=== PATIENT | female | born 1940 | race Caucasian/White ===

== ENCOUNTER → 2016-11-21 | Outpatient (CLI) | payer MEDICARE, OTHER ==
--- NOTE | 2016-11-22 06:47 | BD ---
EXAMINATION TYPE: MG DEXA axial skeleton. DATE OF EXAM: 11/21/2016 2:43 PM COMPARISON: NONE CLINICAL History: parathyroid surgery enlarged 2013 Height: 5' Weight: 177 FRAX RISK QUESTIONS: Alcohol (3 or more units per day): no Family History (Parent hip fracture): no Glucocorticoids (More than 3mos): no (Ex: prednisone, prednisolone, methylprednisolone, dexamethasone, and hydrocortisone). History of Fracture in Adulthood: no Secondary Osteoporosis: 1. Type 1 Diabetes: no 2. Hyperthyroidism: no 3. Menopause before 45: yes 4. Malnutrition: no 5. Chronic liver disease: no Rheumatoid Arthritis: no Current Tobacco Use: no RISK FACTORS HISTORY OF: Surgery to Spine When: 09/2017 lumbar Active: Postmenopausal woman: Hyperparathyroidism: parathyroid surgery enlarged 2013 MEDICATIONS: Additional Medications: pain, asthma, insulin, cholesterol, blood pressure Additional History: parathyroid surgery enlarged 2013 EXAM MEASUREMENTS: Bone mineral densitometry was performed using the [employer] System. Bone mineral density about the R hip (g/cm2): 1.019 Bone mineral density about the L hip (g/cm2): 0.897 T Score values are as follows: -----R Neck: -0.1 -----L Neck: -1.0 -----R Intertrochanter: -0.8 -----L Intertrochanter: -0.7 IMPRESSION: Normal (Values between +1 and -1 indicate normal bone mass) NOTE: T-SCORE=SD OF THE YOUNG ADULT MEAN.
== END | disposition home or self-care (01) ==
LOC: RADBDWWP 14:16
PROVIDERS: ATTEND Internal Medicine Endocrinology, Diabetes & Metabolism
DX: Z98.890 Other specified postprocedural states (principal)
CPT/HCPCS: 77080

== ENCOUNTER → 2016-12-06 | Day surgery (SDC) | payer MEDICARE, OTHER ==
[~2016-12-06] MED LIST: BACITRACIN OINT 1 EACH PACKET TOPICAL ONE; LIDOCAINE 1% INJ 10MG/ML (20 ML MDV) ONE; SODIUM BICARB 4% 5 ML VIAL (0.48 MEQ/ML) ONE
--- NOTE | 2016-12-06 14:14 | USB ---
EXAMINATION TYPE: US biopsy breast VAD LT, MG diagnostic mammo LT wo CAD DATE OF EXAM: 12/06/2016 2:00 PM CLINICAL HISTORY: US. History of prior excisional and benign biopsies left breast with palpable abnormality, abnormal ultrasound. TECHNIQUE: Ultrasound guided core biopsy of left breast with clip placement and follow-up two-view mammogram. COMPARISON: Prior left breast ultrasound and bilateral diagnostic mammogram November 14, 2016 as well as older mammograms. FINDINGS: The procedure of ultrasound guided core biopsy was explained to the patient. Benefits, alternatives, and risks were discussed. An informed consent was then obtained. The patient was placed in supine positioning for imaging and for the procedure. Preprocedure imaging redemonstrates ill-defined heterogeneous hypoechoic partially shadowing area 12:00 position in the left breast zone A. The overlying skin was prepped and draped in usual sterile fashion. Lidocaine buffered with bicarbonate was used as anesthetic into the skin and subcutaneous tissue up to area of concern in the left breast. Under ultrasound guidance, a 12-gauge vacuum assisted biopsy gun device was used to obtain 4 core samples. Following this, a biopsy clip was left in lesion. The patient tolerated the procedure well without any immediate complication. The patient was kept in the radiology department for short stay after the procedure and then discharged home in stable condition. Postprocedure mammogram shows a new fifth clip in the left breast. IMPRESSION: Successful, uncomplicated ultrasound guided core biopsy of area of concern in the left breast, full pathology results to follow. Low index of suspicion noted at time of procedure. Pathology Results: Benign BREAST, LEFT, CORE BIOPSY: PENDING CONSULTATION, SEE ADDENDUM/FINAL DIAGNOSIS. B. BREAST, LEFT, CORE BIOPSY ([id number]; A1; 12/06/16): FOCAL AMYLOIDOSIS. A. PREVIOUSLY REVIEWED [id number]. Recommendation Follow up ultrasound of the left breast in 6 months. BRENDA
== END | disposition home or self-care (01) ==
LOC: RADUSWWP 12:28
PROVIDERS: ATTEND Surgery
DX: R92.8 Other abnormal and inconclusive findings on diagnostic imaging of breast (principal); E85.8 Other amyloidosis
CPT/HCPCS: 88305; 88313; 19083; G0206; A4648; J2001

== ENCOUNTER → 2016-12-11 | Outpatient (CLI) | payer MEDICARE, OTHER ==
--- NOTE | 2016-12-11 14:27 | XR ---
EXAMINATION TYPE: XR Hip Bilateral and AP pelvis DATE OF EXAM: 12/11/2016 2:24 PM COMPARISON: NONE HISTORY: Pain TECHNIQUE: A single AP view of the pelvis is obtained. Two views of the bilateral hip are obtained. FINDINGS: There is no acute fracture/dislocation evident in the pelvis. The hip and sacroiliac join ts appear symmetric and unremarkable. The overlying soft tissue appears unremarkable. Extensive post operative change lower lumbar spine. Hips reveal no acute fracture or dislocation. . Mild degenerative joint space narrowing The overlyin g soft tissue is unremarkable. IMPRESSION: There is no acute fracture or dislocation .
== END | disposition home or self-care (01) ==
LOC: RADXRMAIN 14:03
PROVIDERS: ATTEND Neurological Surgery
DX: M54.5 Low back pain (principal)
CPT/HCPCS: 73521

== ENCOUNTER → 2016-12-29 | Outpatient (CLI) | payer MEDICARE, OTHER ==
--- NOTE | 2016-12-29 09:40 | CT ---
EXAMINATION TYPE: CT hip RT wo con DATE OF EXAM: 12/29/2016 9:30 AM COMPARISON: NONE HISTORY: Rt hip and lumbar pain post op CT DLP: 1719 mGycm Automated exposure control for dose reduction was used. FINDINGS: There is mild superior joint space loss. There is some hypertrophic change in the right acetabulum. T here is no acute osseous lesion. Soft tissues about the hip appear normal. IMPRESSION: 1. NO ACUTE OSSEOUS LESION. 2. MILD DEGENERATIVE CHANGE.
--- NOTE | 2016-12-29 09:51 | XR ---
EXAM TYPE: LUMBAR SPINE X RAY SERIES COMPARISON: 06/06/2016 HISTORY: Right hip pain TECHNIQUE: 4 views are submitted. FINDINGS: Extensive postsurgical changes involving the vertebral column and sacrum. Alignment is stable from th e previous exam Stimulator device noted. There is diffuse osteopenia. Severe degenerative disc disease with vacuum disc T12-L1. IMPRESSION: 1. Postoperative change with interval additional surgical change in the region of the SI joints and s acrum. 2. Severe degenerative disc disease T12-L1
--- NOTE | 2016-12-29 09:57 | CT ---
EXAMINATION TYPE: CT lumbar spine wo con DATE OF EXAM: 12/29/2016 9:30 AM COMPARISON: Previous study dated 02/11/2016. HISTORY: Post op Rt hip and back pain CT DLP: 1719 mGycm Automated exposure control for dose reduction was used. Unenhanced CT of the lumbar spine was performed. Bone and soft tissue window settings are submitted as well as coronal and sagittal reconstructions. FINDINGS: Visualized portions of the lungs are clear. There is atheromatous calcification of the visualized arterial tree. The remainder the paraspinal sof t tissues are normal. There is been a previous transaxial fusion at L5-S1. There has been interval transpedicular fusion at L5-S1. There is a bony fusion of L3, L4 and L5. There is reversal of the normal lordosis through the region of fusion. There are vacuum phenomena present at T12-L1, L1-2, L2-3 and L5-S1. The presence o f a vacuum phenomena at L5-S1 suggests that there continues to be motion at this level. There is and screw fixation of the sacroiliac joints bilaterally. This is also an interval change. At T12-L1, there is hypertrophic changes in the facets. The intervertebral foramina are minimally justus rowed. There is no significant compressive discopathy. At L1-2, the intervertebral foramina appear maintained. There is hypertrophic spurring from the facet s. There is moderate facet arthropathy. At L2-3, the intervertebral foramina are maintained. There is no significant compressive discopathy. There is facet arthropathy. At L3-4, the intervertebral foramina are maintained. There is no significant compressive discopathy. L4-5, interpedicular screws cause significant streak artifact. There appears to be bilateral interver tebral foraminal narrowing. There has been a laminectomy. I do not see evidence of significant compre ssive discopathy. L5-S1, there is been a laminectomy. Transaxial interpedicular screws are causing significant streak a rtifact obscuring the intervertebral foramina. No significant compressive discopathy is identified. IMPRESSION: 1. Extensive postsurgical change. 2. Remaining nonfused levels demonstrate degenerative disc disease and facet arthropathy. 3. Vacuum phenomenon at L5-S1 suggests continuing motion at this level. 4. Multilevel intervertebral foraminal narrowing.
== END | disposition home or self-care (01) ==
LOC: RADCTMAIN 08:53
PROVIDERS: ATTEND Neurological Surgery
DX: M51.35 Other intervertebral disc degeneration, thoracolumbar region (principal); M46.96 Unspecified inflammatory spondylopathy, lumbar region; Z98.1 Arthrodesis status; Z98.890 Other specified postprocedural states
CPT/HCPCS: 72100; 72131

== ENCOUNTER → 2017-01-03 | Outpatient (CLI) | payer MEDICARE ==
[2017-01-03 15:33] LABS: Basophils # (A) 0.1 k/uL (0-0.2); Basophils % (A) 1 %; CH 29.7; CHCM 32.5; Eosinophils # (A) 0.2 k/uL (0-0.7); Eosinophils % (A) 3 %; HCT 38.7 % (34.0-46.0); HDW 2.42; HGB 12.3 gm/dL (11.4-16.0); Luc # (Auto) 0.17; Luc % (Auto) 3; Lymphocytes # (A) 2.1 k/uL (1.0-4.8); Lymphocytes % (A) 33 %; MCH 29.2 pg (25.0-35.0); MCHC 31.9 g/dL (31.0-37.0); MCV 91.7 fL (80.0-100.0); Mean Platelet Volume 7.7; Monocytes # (A) 0.4 k/uL (0-1.0); Monocytes % (A) 6 %; Neutrophils # (A) 3.6 k/uL (1.3-7.7); Neutrophils % (A) 55 %; RBC 4.22 m/uL (3.80-5.40); RDW 13.6 % (11.5-15.5); WBC 6.5 k/uL (3.8-10.6); WBC (Perox) 6.41
[2017-01-03 16:14] LABS: ALT 30 U/L (9-52); AST 33 U/L (14-36); Alkaline Phosphatase 108 U/L (38-126); Anion Gap 15 mmol/L; Blood Urea Nitrogen 20 mg/dL (7-17); Carbon Dioxide 27 mmol/L (22-30); Chloride 105 mmol/L (98-107); Glucose 51 mg/dL (74-99); Non-African American GFR(MDRD) >60 (>60 ml/min/1.73 sqM); Potassium 4.9 mmol/L (3.5-5.1); Sodium 147 mmol/L (137-145); Total Bilirubin 0.4 mg/dL (0.2-1.3); Total Protein 8.1 g/dL (6.3-8.2)
== END | disposition home or self-care (01) ==
LOC: LABWHC1 15:07
PROVIDERS: ATTEND Internal Medicine
DX: E85.8 Other amyloidosis (principal)
CPT/HCPCS: 36415; 80053; 84165; 85025; 86334; 99213

== ENCOUNTER → 2017-01-16 | Outpatient (CLI) | payer MEDICARE ==
[2017-01-16 12:57] LABS: ALT 25 U/L (9-52); AST 24 U/L (14-36); Alkaline Phosphatase 106 U/L (38-126); Anion Gap 13 mmol/L; Blood Urea Nitrogen 22 mg/dL (7-17); Calcium 9.3 mg/dL (8.4-10.2); Carbon Dioxide 29 mmol/L (22-30); Chloride 103 mmol/L (98-107); Glucose 111 mg/dL (74-99); Non-African American GFR(MDRD) >60 (>60 ml/min/1.73 sqM); Potassium 4.2 mmol/L (3.5-5.1); Sodium 145 mmol/L (137-145); Total Bilirubin 0.5 mg/dL (0.2-1.3); Total Protein 7.7 g/dL (6.3-8.2)
== END ==
LOC: LABWHC1 12:26
PROVIDERS: ATTEND Internal Medicine Endocrinology, Diabetes & Metabolism
DX: E55.9 Vitamin D deficiency, unspecified (principal); Z98.890 Other specified postprocedural states
CPT/HCPCS: 36415; 80053; 82306; 83970

== ENCOUNTER → 2017-04-13 | Outpatient (CLI) | payer MEDICARE, OTHER ==
--- NOTE | 2017-04-13 14:52 | XR ---
Lumbar spine HISTORY: Fall, pain 3 views of the lumbar spine correlated to prior 29 December 2016 No interval change, postop changes again noted. IMPRESSION: Stable exam, no acute abnormality.
== END ==
LOC: RADXRMAIN 14:16
PROVIDERS: ATTEND Neurological Surgery
DX: M54.17 Radiculopathy, lumbosacral region (principal)
CPT/HCPCS: 72100

== ENCOUNTER → 2017-04-27 | Outpatient (CLI) | payer MEDICARE, OTHER ==
[2017-04-27 14:23] LABS: ALT 36 U/L (9-52); AST 36 U/L (14-36); Alkaline Phosphatase 116 U/L (38-126); Anion Gap 11 mmol/L; Blood Urea Nitrogen 22 mg/dL (7-17); Calcium 9.5 mg/dL (8.4-10.2); Carbon Dioxide 27 mmol/L (22-30); Chloride 105 mmol/L (98-107); Cholesterol 167 mg/dL (<200); Glucose 165 mg/dL (74-99); HDL Cholesterol 59 mg/dL (40-60); Non-African American GFR(MDRD) >60 (>60 ml/min/1.73 sqM); Potassium 4.9 mmol/L (3.5-5.1); Sodium 143 mmol/L (137-145); Total Bilirubin 0.6 mg/dL (0.2-1.3); Triglycerides 86 mg/dL (<150)
== END | disposition home or self-care (01) ==
LOC: LABWHC1 13:31
PROVIDERS: ATTEND Internal Medicine Endocrinology, Diabetes & Metabolism
DX: E11.65 Type 2 diabetes mellitus with hyperglycemia (principal); Z98.890 Other specified postprocedural states
CPT/HCPCS: 36415; 80053; 80061; 82043; 83970

== ENCOUNTER → 2017-05-25 | Outpatient (CLI) | payer MEDICARE, OTHER ==
--- NOTE | 2017-05-28 07:40 | MM ---
Reason for exam: follow-up at short interval from prior study. Last mammogram was performed 6 months ago. History: Patient is postmenopausal. Family history of breast cancer in daughter at age 53. Benign US biopsy breast VAD LT of the left breast, December 06, 2016. Benign US biopsy breast VAD LT of the left breast, July 16, 2014. Benign US biopsy breast add'l VAD LT of the left breast, July 16, 2014. Benign US LT VAD breast biopsy of the left breast, February 16, 2014. Left Breast Aspiration, August 2013. Benign u/S left breast localization of the left breast, December 20, 2011. Cyst aspiration of the left breast, 2003. Excisional biopsy of the right breast, 2003. Excisional biopsy of the left breast. Took hormonal contraceptives for 4 years. Took estrogen for 25 years beginning at age 30. Physical Findings: Nurse Summary: 1.5cm nodule in the left breast at 12 o'clock (nurse dw). MG 3D Diag Mammo W/Cad LT CC and MLO view(s) were taken of the left breast. Prior study comparison: December 06, 2016, left breast MG diagnostic mammo LT wo CAD. November 14, 2016, bilateral MG 3d diag mammo w/cad [facility]ITA. The patient has known amyloidosis of the breast. There is chronic nodularity in the left breast. This might obscure a small cancer. No significant new findings when compared with previous films. These results were verbally communicated with the patient and result sheet given to the patient on 05/25/17. ASSESSMENT: Probably benign, BI-RAD 3 RECOMMENDATION: Surgical consultation of the left breast. (surgical removal vs MRI). Called with mammographic findings and has scheduled an appointment for the patient for 06/01/17 at 9:[address] Zarate. PRELIMINARY REPORT CALLED AND FAXED TO DR. ZARATE ON 05/25/17 AT 300/TMP.
--- NOTE | 2017-05-28 07:47 | USB ---
Reason for exam: follow-up at short interval from prior study. History: Patient is postmenopausal. Family history of breast cancer in daughter at age 53. Benign US biopsy breast VAD LT of the left breast, December 06, 2016. Benign US biopsy breast VAD LT of the left breast, July 16, 2014. Benign US biopsy breast add'l VAD LT of the left breast, July 16, 2014. Benign US LT VAD breast biopsy of the left breast, February 16, 2014. Left Breast Aspiration, August 2013. Benign u/S left breast localization of the left breast, December 20, 2011. Cyst aspiration of the left breast, 2003. Excisional biopsy of the right breast, 2003. Excisional biopsy of the left breast. Took hormonal contraceptives for 4 years. Took estrogen for 25 years beginning at age 30. US Breast LT Left breast ultrasound includes all four quadrants, the retroareolar region and axilla. Finding demonstrate a 0.8 x 0.8 x 0.9cm oval, hypoechoic lesion at 12 o'clock and a 0.9 x 0.8 x 0.8cm oval, hypoechoic lesion at 12 o'clock. These results were verbally communicated with the patient and result sheet given to the patient on 05/25/17. ASSESSMENT: Probably benign, BI-RAD 3 RECOMMENDATION: Surgical consultation of the left breast. (Surgical excision vs MRI). Called with mammographic findings and has scheduled an appointment for the patient for 06/04/17 at 9:[address] Zarate. PRELIMINARY REPORT CALLED AND FAXED TO DR. ZARATE ON 05/25/17 AT 300/TMP.
== END | disposition home or self-care (01) ==
LOC: RADMAMWWP 13:48
PROVIDERS: ATTEND Surgery
DX: R92.8 Other abnormal and inconclusive findings on diagnostic imaging of breast (principal)
CPT/HCPCS: 76641; G0206; G0279

== ENCOUNTER → 2017-06-27 | Outpatient (CLI) | payer MEDICARE, OTHER ==
--- NOTE | 2017-06-27 12:40 | XR ---
Right shoulder HISTORY: Right shoulder pain 3 views of the right shoulder There is joint space loss, marginal spurring at the glenohumeral joint. Shoulder is high riding. Arth ropathy present at the acromioclavicular joint. Bone mineralization is reduced, alignment is maintain ed. Right lung apex as visualized is normal. Thoracic cord stimulator noted incidentally. IMPRESSION: There may be chronic rotator cuff tear marked osteoarthritis. Shoulder MRI may be of bene fit.
--- NOTE | 2017-06-27 13:09 | US ---
EXAMINATION TYPE: US MSK right shoulder DATE OF EXAM: 06/27/2017 COMPARISON: Radiograph same day CLINICAL HISTORY: 77 year-old female evaluate for rotator cuff tear right shoulder M75.101. Additional history from patient: Prior unsuccessful left repair. Right painful for 10 years but relu ctant to intervene due to weak tissues. Pain stimulator; no MRI. 2 weeks ago patient had injury with increasing pain. TECHNIQUE: Multiple sonographic images of the right shoulder are obtained. FINDINGS: The long head biceps tendon is not discretely visualized. The subscapularis tendon appears thickened and hypoechoic but the majority of the tendon appears inta ct. Moderate degenerative joint space narrowing at the acromioclavicular joint. There is a massive to near massive rotator cuff tear involving the entire supraspinatus tendon and th e majority of the infraspinatus tendon. A few of the far posterior fibers of the infraspinatus tendon may remain intact. Mild fluid within the intervening gap extending into the lateral deltoid shelf. There is relatively severe fatty atrophy of the infraspinatus muscle belly. At least mild fatty infil tration of the supraspinatus muscle belly. Attenuating tissues limiting assessment of the posterior aspect of the shoulder. IMPRESSION: 1. Massive to near massive full-thickness rotator cuff tear involving the entire supraspinatus tendon and most, if not all of the infraspinatus tendon. 2. There is advanced fatty atrophy of the infraspinatus muscle belly suggesting chronic tear. Only mi ld fatty infiltration of the supraspinatus muscle and some fluid along the greater tuberosity could r eflect a component of superimposed acute tear. 3. Severe subscapularis tendinosis. 4. Unable to clearly identify the long head biceps tendon which could be torn or severely tendinotic. 5. Correlation with radiographs demonstrates rotator cuff arthropathy.
== END | disposition home or self-care (01) ==
LOC: RADUSWWP 10:26
PROVIDERS: ATTEND Orthopaedic Surgery
DX: M75.101 Unspecified rotator cuff tear or rupture of right shoulder, not specified as traumatic (principal); M75.81 Other shoulder lesions, right shoulder

== ENCOUNTER → 2017-08-17 | Outpatient (CLI) | payer MEDICARE, OTHER ==
[2017-08-17 13:23] LABS: Basophils # (A) 0.1 k/uL (0-0.2); Basophils % (A) 1 %; CH 29.7; CHCM 31.8; Eosinophils # (A) 0.2 k/uL (0-0.7); Eosinophils % (A) 3 %; HCT 39.3 % (34.0-46.0); HDW 2.32; HGB 12.5 gm/dL (11.4-16.0); Luc % (Auto) 3; Lymphocytes % (A) 29 %; MCH 29.6 pg (25.0-35.0); MCHC 31.7 g/dL (31.0-37.0); MCV 93.6 fL (80.0-100.0); Mean Platelet Volume 7.1; Monocytes # (A) 0.4 k/uL (0-1.0); Monocytes % (A) 5 %; Neutrophils % (A) 59 %; RDW 13.4 % (11.5-15.5); WBC 6.9 k/uL (3.8-10.6); WBC (Perox) 7.02
[2017-08-17 13:28] LABS: Anion Gap 14 mmol/L; Blood Urea Nitrogen 34 mg/dL (7-17); Calcium 10.1 mg/dL (8.4-10.2); Carbon Dioxide 26 mmol/L (22-30); Chloride 102 mmol/L (98-107); Glucose 88 mg/dL (74-99); Non-African American GFR(MDRD) 54 (>60 ml/min/1.73 sqM); Potassium 4.7 mmol/L (3.5-5.1); Sodium 142 mmol/L (137-145)
[2017-08-17 15:18] LABS: Amorphous Sediment,Urine Rare /hpf; Appearance,Urine Clear (Clear); Bacteria,Urine Occasional /hpf; Bilirubin,Urine Negative (Negative); Glucose,Urine (UA) Negative (Negative); Ketones,Urine Negative (Negative); Leukocyte Esterase,Urine Moderate (Negative); Nitrite,Urine Negative (Negative); Particle Count 2558; Protein,Urine Negative (Negative); RBC,Urine 2 /hpf (0-5); Specific Gravity,Urine 1.021 (1.001-1.035); Squamous Epithelial Cell,Urine 3 /hpf (0-4); UA Billing (MACRO vs. MICRO) MICRO; Urobilinogen,Urine <2.0 mg/dL (<2.0); WBC,Urine 16 /hpf (0-5)
== END | disposition home or self-care (01) ==
LOC: LABWHC1 12:19
PROVIDERS: ATTEND Orthopaedic Surgery
DX: M19.90 Unspecified osteoarthritis, unspecified site (principal); M75.101 Unspecified rotator cuff tear or rupture of right shoulder, not specified as traumatic
CPT/HCPCS: 36415; 80048; 81001; 85025; 87086

== ENCOUNTER → 2017-09-07 | Outpatient (CLI) | payer MEDICARE, OTHER ==
--- NOTE | 2017-09-10 07:09 | USB ---
Reason for exam: clinical finding. History: Patient is postmenopausal. Family history of breast cancer in daughter at age 53. Benign US biopsy breast VAD LT of the left breast, December 06, 2016. Benign US biopsy breast VAD LT of the left breast, July 16, 2014. Benign US biopsy breast add'l VAD LT of the left breast, July 16, 2014. Benign US LT VAD breast biopsy of the left breast, February 16, 2014. Left Breast Aspiration, August 2013. Benign u/S left breast localization of the left breast, December 20, 2011. Cyst aspiration of the left breast, 2003. Excisional biopsy of the right breast, 2003. Excisional biopsy of the left breast. Took hormonal contraceptives for 4 years. Took estrogen for 25 years beginning at age 30. Indicated problem(s): other indicated problem in the left breast. Physical Findings: Nurse Summary: 1cm nodule in the left breast at 12 o'clock (nurse mj). US Breast LT Left breast ultrasound includes all four quadrants, the retroareolar region and axilla. Finding demonstrates a 1.4 x 1.1 x 0.5cm hypoechoic lesion at 12 o'clock and a 0.2 x 0.2 x 0.1cm lesion too small to characterize at 8 o'clock. These results were verbally communicated with the patient and result sheet given to the patient on 09/07/17. ASSESSMENT: Incomplete: need additional imaging evaluation, BI-RAD 0 RECOMMENDATION: Breast MRI of the left breast.
== END | disposition home or self-care (01) ==
LOC: RADUSWWP 14:16
PROVIDERS: ATTEND Internal Medicine Hematology & Oncology
DX: R92.8 Other abnormal and inconclusive findings on diagnostic imaging of breast (principal)

== ENCOUNTER → 2017-11-15 | Outpatient (CLI) | payer MEDICARE, OTHER ==
--- NOTE | 2017-11-15 14:12 | MM ---
Reason for exam: screening (asymptomatic). Last mammogram was performed 6 months ago. History: Patient is postmenopausal. Family history of breast cancer in daughter at age 53. Benign US biopsy breast VAD LT of the left breast, December 06, 2016. Benign US biopsy breast VAD LT of the left breast, July 16, 2014. Benign US biopsy breast add'l VAD LT of the left breast, July 16, 2014. Benign US LT VAD breast biopsy of the left breast, February 16, 2014. Left Breast Aspiration, August 2013. Benign u/S left breast localization of the left breast, December 20, 2011. Cyst aspiration of the left breast, 2003. Excisional biopsy of the right breast, 2003. Excisional biopsy of the left breast. Took hormonal contraceptives for 4 years. Took estrogen for 25 years beginning at age 30. Physical Findings: A clinical breast exam by your physician is recommended on an annual basis and results should be correlated with mammographic findings. MG 3D Diag Mammo W/Cad CHIQUITA Bilateral CC and MLO view(s) were taken. Prior study comparison: May 25, 2017, left breast MG 3d diag mammo w/cad LT. December 06, 2016, left breast MG diagnostic mammo LT wo CAD. Previous mammotome biopsy in the left breast. There is chronic nodularity bilaterally. No significant new findings when compared with previous films. These results were verbally communicated with the patient and result sheet given to the patient on 11/15/17. ASSESSMENT: Benign, BI-RAD 2 RECOMMENDATION: Routine screening mammogram of both breasts in 1 year.
== END | disposition home or self-care (01) ==
LOC: RADMAMWWP 13:02
PROVIDERS: ATTEND Surgery
DX: R92.8 Other abnormal and inconclusive findings on diagnostic imaging of breast (principal)
CPT/HCPCS: G0204; G0279; 99213

== ENCOUNTER 2017-11-28 06:46 | Day surgery (SDC) | payer MEDICARE, OTHER ==
[2017-11-26 14:35] VITALS: BMI 33.7
[~2017-11-28 06:46] MED LIST changes: -BACITRACIN OINT 1 EACH PACKET TOPICAL ONE; +LACTATED RINGERS 1,000 ML IV SCH; -LIDOCAINE 1% INJ 10MG/ML (20 ML MDV) ONE; -SODIUM BICARB 4% 5 ML VIAL (0.48 MEQ/ML) ONE
[2017-11-28] MEDS ORDERED: LACTATED RINGERS 1,000 ML IV ONE (06:57)
[2017-11-28 07:12] VITALS: TEMP 98.5
[2017-11-28 07:26] LABS: Glucose,Whole Blood 66 mg/dL (75-99)
[2017-11-28] MEDS ORDERED: PROPOFOL 10 MG/ML 20 ML VIAL IV ONE (07:37)
--- NOTE | 2017-11-28 08:02 | P.PCN ---
Date of Procedure: 11/28/17 Procedure(s) Performed: BRIEF HISTORY: Patient is a 77-year-old pleasant white female, scheduled for an elective colonoscopy as a part of evaluation of change in bowel habits and prior history of colon polyps. Her last colonoscopy was done 10 years ago. PROCEDURE PERFORMED: Colonoscopy. PREOPERATIVE DIAGNOSIS: Change in bowel habits and history of colon polyps. IV sedation per Anesthesia. PROCEDURE: After informed consent was obtained, the patient, was brought into the endoscopy unit. IV sedation was administered by Anesthesia under continuous monitoring. Digital rectal examination was normal. Initially the Olympus CF- 160 flexible video colonoscope was then inserted in the rectum, gradually advanced into the cecum without any difficulty. Careful examination was performed as the scope was gradually being withdrawn. Ileocecal valve and the appendiceal orifice were visualized and appeared normal. Prep was excellent. Mucosa of the cecum, ascending colon, transverse colon, descending colon, sigmoid colon, and rectum appeared normal. Scattered sigmoid diverticulosis. Retroflexion was performed in the rectum and no lesions were seen. The patient tolerated the procedure well. IMPRESSION: Normal-appearing colon from rectum to cecum with no evidence of colorectal neoplasia. Scattered sigmoid diverticulosis. RECOMMENDATIONS: Findings of this examination were discussed with the patient as well as her family. She was advised to continue with a high-fiber diet and fiber supplements on a regular basis..
[2017-11-28] MEDS ORDERED: DEXTROSE 50%-WATER 50 ML SYRINGE IVP ONE (08:16)
[2017-11-28 08:39] VITALS: BP 157/80; PULSE 80; RESP 18
[2017-11-28 08:39] LABS: Glucose,Whole Blood 61 mg/dL (75-99)
[2017-11-28 08:39] LABS: Glucose,Whole Blood 108 mg/dL (75-99)
== END 2017-11-28 09:09 | disposition home or self-care (01) ==
LOC: ORWHC2ENDO 06:46
PROVIDERS: ATTEND Internal Medicine Gastroenterology
DX: K57.30 Diverticulosis of large intestine without perforation or abscess without bleeding (principal); Z86.010 Personal history of colon polyps; I10 Essential (primary) hypertension; E78.5 Hyperlipidemia, unspecified; J45.909 Unspecified asthma, uncomplicated; E11.9 Type 2 diabetes mellitus without complications; Z79.84 Long term (current) use of oral hypoglycemic drugs; Z79.82 Long term (current) use of aspirin; Z79.4 Long term (current) use of insulin; Z79.891 Long term (current) use of opiate analgesic; Z79.51 Long term (current) use of inhaled steroids; Z79.899 Other long term (current) drug therapy; Z88.5 Allergy status to narcotic agent; Z88.8 Allergy status to other drugs, medicaments and biological substances
CPT/HCPCS: 45378; J2704

== ENCOUNTER 2018-01-15 16:26 | Emergency (ER) | payer MEDICARE, OTHER ==
[2018-01-15] MEDS ORDERED: DIPH,PERTUS(ACELL)TETVAC-LF 0.5 ML VIAL IM ONE (16:59)
--- NOTE | 2018-01-15 17:14 | ED ---
Fall HPI - General Chief Complaint: Fall Stated Complaint: Fall-Head Lac Time Seen by Provider: 01/15/18 16:52 Source: patient, RN notes reviewed Mode of arrival: ambulatory Limitations: no limitations - History of Present Illness Initial Comments: 77-year-old female presents emergency Department chief complaint of tripped fall , forehead laceration. Patient states that she is walking outside states that she tripped forward striking her head on the piece of concrete. She states that she did not lose consciousness she does complain of a slight headache and some neck discomfort though she states she has chronic neck pain from prior fracture. Patient denies any extremity injuries denies any change in behavior no confusion. Patient has no nausea vomiting. She is unsure when her last tetanus was. - Related Data Home Medications Medication Instructions Recorded Confirmed Aspirin 81 mg PO DAILY 08/13/14 01/15/18 Budesonide/Formoterol Fumarate 2 puff INHALATION RT-BID 08/13/14 01/15/18 [Symbicort 80-4.5 Mcg Inhaler] Gabapentin [Gabapentin] 300 mg PO TID 08/13/14 01/15/18 Gemfibrozil [Lopid] 600 mg PO AC-BID 08/13/14 01/15/18 Hydrochlorothiazide 12.5 mg PO QAM 08/13/14 01/15/18 [Hydrochlorothiazide] Insulin Aspart [NovoLOG] 8 unit SQ BID 08/13/14 01/15/18 Insulin Glargine [Lantus] 25 unit SQ HS 08/13/14 01/15/18 Loratadine [Claritin] 10 mg PO HS 08/13/14 01/15/18 Losartan [Cozaar] 50 mg PO QAM 08/13/14 01/15/18 Meloxicam [Meloxicam] 15 mg PO DAILY 08/13/14 01/15/18 metFORMIN HCL [Glucophage] 500 mg PO BID 08/13/14 01/15/18 HYDROcodone/APAP 5-325MG [[place]ster 5] 1 - 2 tab PO Q4H PRN 03/13/16 01/15/18 Ascorbic Acid [Vitamin C] 500 mg PO DAILY 06/13/16 01/15/18 Calcium Carbonate [Calcium] 300 mg PO DAILY 06/13/16 01/15/18 Cholecalciferol [Vitamin D3] 2,000 unit PO DAILY 06/13/16 01/15/18 Multivitamins, Thera [Multivitamin] 1 tab PO DAILY 06/13/16 01/15/18 Oxybutynin Chloride 5 mg PO DAILY 11/26/17 01/15/18 tiZANidine [Zanaflex] 4 mg PO Q8HR 11/26/17 01/15/18 Dulaglutide [Trulicity] 0.75 mg SQ TU 01/15/18 01/15/18 Allergies Allergy/AdvReac Type Severity Reaction Status Date / Time midazolam HCl [From Versed] Allergy Rash/Hives Verified 01/15/18 17:24 pentazocine lactate AdvReac Nausea & Verified 01/15/18 17:24 [From Oscar] Vomiting Review of Systems ROS Statement: Those systems with pertinent positive or pertinent negative responses have been documented in the HPI. ROS Other: All systems not noted in ROS Statement are negative. Past Medical History Past Medical History: Asthma, Diabetes Mellitus, Hyperlipidemia, Hypertension Additional Past Medical History / Comment(s): "leaky heart valve". back pain. staph/strep infection post op incision History of Any Multi-Drug Resistant Organisms: MRSA Date of last positivie culture/infection: 2012? MDRO Source:: blood Past Surgical History: Back Surgery, Bladder Surgery, Breast Surgery, Hernia Repair, Hysterectomy, Joint Replacement, Orthopedic Surgery, Tubal Ligation Additional Past Surgical History / Comment(s): pain stimulator implant-LT HIP. BILAT TKA. neck fusion and plate in left side of neck. REVERSE LT SHOULDER SX. COLONOSCOPY Past Anesthesia/Blood Transfusion Reactions: No Reported Reaction Past Psychological History: No Psychological Hx Reported Smoking Status: Former smoker Past Alcohol Use History: None Reported Past Drug Use History: None Reported - Past Family History Mother Family Medical History: Cancer Sister(s) Family Medical History: Cancer Brother(s) Family Medical History: Cancer General Exam Limitations: no limitations General appearance: alert, in no apparent distress Head exam: Present: atraumatic, normocephalic. Absent: normal inspection ( There is a 1 cm laceration noted on the forehead on the left side) Eye exam: Present: normal appearance, PERRL, EOMI. Absent: scleral icterus, conjunctival injection, periorbital swelling, periorbital tenderness ENT exam: Present: normal exam, normal oropharynx, mucous membranes moist, TM's normal bilaterally, normal external ear exam Neck exam: Present: normal inspection. Absent: tenderness, meningismus, full ROM (Patient in c- collar), lymphadenopathy Respiratory exam: Present: normal lung sounds bilaterally. Absent: respiratory distress, wheezes, rales, rhonchi, stridor Cardiovascular Exam: Present: regular rate, normal rhythm, normal heart sounds. Absent: systolic murmur, diastolic murmur, rubs, gallop, clicks Extremities exam: Present: normal inspection, full ROM, normal capillary refill. Absent: tenderness, pedal edema, joint swelling, calf tenderness Neurological exam: Present: alert, oriented X3, CN II-XII intact, reflexes normal. Absent: motor sensory deficit Skin exam: Present: warm, dry, intact, normal color. Absent: rash Course Vital Signs 01/15/18 16:38 Temperature 98.1 F Pulse Rate 86 Respiratory 20 Rate Blood Pressure 170/79 O2 Sat by Pulse 99 Oximetry Procedures - Procedures Initial comment: Laceration on the forehead 1 cm was thoroughly cleaned with saline there is no foreign bodies, wound was superficial and closed with Dermabond. Medical Decision Making - Medical Decision Making 77-year-old female presented to department for a trip fall, head injury. Patient has small superficial laceration which was cleaned thoroughly, closed with Dermabond. Patient CT was negative for intracranial bleed, cervical fracture. A she'll be discharged at this time return parameters were discussed. Disposition Clinical Impression: Fall, Head injury, Forehead laceration Disposition: HOME SELF-CARE Condition: Stable Instructions: Skin Adhesive Care (ED), Head Injury (ED) Additional Instructions: Please return to the Emergency Department if symptoms worsen or any other concerns. Referrals: Pankaj Turner MD [Primary Care Provider] - 1-2 days Time of Disposition: 17:50
--- NOTE | 2018-01-15 17:31 | CT ---
EXAMINATION TYPE: CT brain jose angel casper DATE OF EXAM: 01/15/2018 COMPARISON: 01/21/2011 HISTORY: Fall headache. Neck pain. CT DLP: 1481.2 mGycm Automated exposure control for dose reduction was used. TECHNIQUE: CT scan of the head and cervical spine are performed without contrast. FINDINGS: There is cerebral cortical atrophy. There is no mass effect nor midline shift. There is n o sign of intracranial hemorrhage. There is left frontal scalp soft tissue swelling. The cervical vertebra have normal alignment. There is old anterior fusion surgery at C5 C6 C7. There is posterior fusion surgery at the skull base C1 and C2. I see no fracture. There is hypertrophic mil d facet arthropathy. IMPRESSION: Cerebral atrophy. No acute intracranial abnormality. Left periorbital scalp hematoma. No fracture. Spondylotic changes and previous surgery in the cervical spine. No fracture seen. No adverse change c ompared to old exam.
[2018-01-15] MEDS ORDERED: TOPICAL SKIN ADHESIVE 1 EACH AMP TOPICAL ONE (17:46)
[2018-01-15 17:53] VITALS: RESP 18
[2018-01-15 18:35] VITALS: BP 156/78; PULSE 69; TEMP 97.6
== END 2018-01-15 18:35 | disposition home or self-care (01) ==
LOC: EC 16:26
DX: S01.81XA Laceration without foreign body of other part of head, initial encounter (principal); Z23 Encounter for immunization; E11.9 Type 2 diabetes mellitus without complications; J45.909 Unspecified asthma, uncomplicated; E78.5 Hyperlipidemia, unspecified; I10 Essential (primary) hypertension; Z86.14 Personal history of Methicillin resistant Staphylococcus aureus infection; Z87.891 Personal history of nicotine dependence; Z79.4 Long term (current) use of insulin; Z79.51 Long term (current) use of inhaled steroids; Z79.82 Long term (current) use of aspirin; Z79.899 Other long term (current) drug therapy; Z88.8 Allergy status to other drugs, medicaments and biological substances; W01.0XXA Fall on same level from slipping, tripping and stumbling without subsequent striking against object, initial encounter; Y92.89 Other specified places as the place of occurrence of the external cause
CPT/HCPCS: 12011; 70450; 72125; 90471; 90715; 99283

== ENCOUNTER → 2018-01-17 | Outpatient (CLI) | payer MEDICARE, OTHER ==
--- NOTE | 2018-01-17 10:28 | USB ---
Reason for exam: clinical finding. History: Patient is postmenopausal. Family history of breast cancer in daughter at age 53. Benign US biopsy breast VAD LT of the left breast, December 06, 2016. Benign US biopsy breast VAD LT of the left breast, July 16, 2014. Benign US biopsy breast add'l VAD LT of the left breast, July 16, 2014. Benign US LT VAD breast biopsy of the left breast, February 16, 2014. Left Breast Aspiration, August 2013. Benign u/S left breast localization of the left breast, December 20, 2011. Cyst aspiration of the left breast, 2003. Excisional biopsy of the right breast, 2003. Excisional biopsy of the left breast. Took hormonal contraceptives for 4 years. Took estrogen for 25 years beginning at age 30. Physical Findings: Nurse did not find any significant physical abnormalities on exam. US Breast LT Left breast ultrasound includes all four quadrants, the retroareolar region and axilla. Finding demonstrates a 1.4 x 0.4 x 1.1cm irregular, hypoechoic lesion at 12 o'clock, stable but suspicious and a 0.2 x 0.2 x 0.2cm lesion too small to characterize at 8 o'clock. These results were verbally communicated with the patient and result sheet given to the patient on 01/17/18. ASSESSMENT: Suspicious, BI-RAD 4 RECOMMENDATION: Ultrasound core biopsy of the left breast. Called Dr. Villela with mammographic findings and has scheduled an appointment for the patient for 01/25/18 at 11:[address] Spivey. PRELIMINARY REPORT CALLED AND FAXED TO DR. SPIVEY ON 01/17/18.
== END | disposition home or self-care (01) ==
LOC: RADUSWWP 09:02
PROVIDERS: ATTEND Internal Medicine Hematology & Oncology
DX: N63.20 Unspecified lump in the left breast, unspecified quadrant (principal)

== ENCOUNTER → 2018-01-22 | Outpatient (CLI) | payer MEDICARE, OTHER ==
--- NOTE | 2018-01-22 19:59 | XR ---
EXAMINATION TYPE: XR shoulder complete 3 views RT, XR humerus 2 views RT DATE OF EXAM: 01/22/2018 COMPARISON: NONE HISTORY: 77-year-old female pain after fall FINDINGS: Shoulder: There is evidence of reverse right total shoulder arthroplasty. The hemisphere and humeral stem compo nent of the prosthesis appear well seated without periprosthetic fracture. Alignment appears satisfac tory. Moderate degenerative joint space narrowing with marginal spurring at the acromioclavicular viki nt. Visualized right hemithorax is clear. Humerus: No acute fracture of the more mid to distal humerus. No joint effusion. Mild degenerative changes at the elbow. IMPRESSION: 1. Shoulder: Uncomplicated appearance to the reverse right total shoulder arthroplasty. Moderate AC j oint OA. 2. Humerus: No acute osseous abnormality seen.
== END | disposition home or self-care (01) ==
LOC: RADXRMAIN 16:21
PROVIDERS: ATTEND Internal Medicine
DX: M19.011 Primary osteoarthritis, right shoulder (principal); Z96.611 Presence of right artificial shoulder joint

== ENCOUNTER → 2018-02-05 | Day surgery (SDC) | payer MEDICARE, OTHER ==
[2018-02-05 12:50] VITALS: BMI 31.1
[2018-02-05 16:09] VITALS: BP 153/75; PULSE 71; RESP 16; TEMP 98.6
--- NOTE | 2018-02-05 17:22 | USB ---
EXAMINATION TYPE: US biopsy breast VAD LT, MG diagnostic mammo LT wo CAD DATE OF EXAM: 02/05/2018 CLINICAL HISTORY: R92.8 abnormal mammo, N63 Breast lump. TECHNIQUE: Ultrasound guided core biopsy of left breast at the 12:00 position. COMPARISON: NONE FINDINGS: The procedure of ultrasound guided core biopsy was explained to the patient. Benefits, alternatives, and risks were discussed. An informed consent was then obtained. Preprocedural timeout was performed. During preprocedural scanning multiple areas of similar echogenicity are seen within the upper outer quadrant of the left breast. It is noted that the patient has previously had multiple biopsies of the left breast with prior pathologic diagnosis of amyloidosis on 12/06/2016. The patient was placed in supine positioning for imaging and for the procedure. The overlying skin was prepped and draped in usual sterile fashion. 9 cc of lidocaine buffered with bicarbonate was used as anesthetic into the skin and subcutaneous tissue up to irregular shadowing area at the 12:00 position within the left breast. Under ultrasound guidance, a 12-gauge vacuum assisted biopsy gun device was used to obtain 5 core samples. Following this, a coil-shaped biopsy marker was left in lesion. This is the coil-shaped marker located nearest to the postbiopsy change (the most medial and most superior). The patient tolerated the procedure well without any immediate complication. The patient was kept in the radiology department for short stay after the procedure and then discharged home in stable condition. IMPRESSION: Successful, uncomplicated ultrasound guided core biopsy of an irregular shadowing mass at the 12:00 position in the left breast, full pathology results to follow. Multiple left breast biopsies have been performed as recent as 2016 demonstrating pathologic diagnosis of amyloidosis. Multiple similar-appearing masses were identified on preprocedural imaging and further recommendations will be made on radiologic/pathologic correlation. Pathology Results: Benign LEFT BREAST, TWELVE O'CLOCK, NEEDLE CORE BIOPSY: FIBROCYSTIC AND FIBROADENOMATOUS CHANGE. Recommendation Follow up ultrasound of the left breast in 6 months. BRENDA
== END ==
LOC: RADUSWWP 12:18
PROVIDERS: ATTEND Internal Medicine Hematology & Oncology
DX: N60.12 Diffuse cystic mastopathy of left breast (principal)
CPT/HCPCS: 88305; 77065; 19083; A4648; J2001

== ENCOUNTER → 2018-04-29 | Outpatient (CLI) | payer MEDICARE, OTHER ==
--- NOTE | 2018-04-29 12:35 | XR ---
EXAMINATION TYPE: XR cervical spine comp DATE OF EXAM: 04/29/2018 TECHNIQUE: Frontal, lateral, oblique, swimmers, and open mouth view of the cervical spine are obtaine d. HISTORY: M54.2 Neck PAIN postsurgical study COMPARISON: CT cervical spine January 15, 2018 FINDINGS: Osseous structures are demineralized which is noted to lower radiographic sensitivity. The cervical spine is not well visualized visualized in its entirety from C1 thru the top of T1 level, i t is straightened in alignment without evidence of acute fracture or dislocation. There is grade 1 an terolisthesis of C4 on C5 redemonstrated. There is postsurgical changes C5-C7 level seen. The pre-faizan tebral soft tissue appears within normal limits. The C1-C2 articulation is suboptimally evaluated on the open mouth view. Posterior low occipital craniotomy changes are seen. There is suboptimal evalua tion mid to lower cervical spine due to demineralization and overlying soft tissue despite attempted swimmer's view. Multilevel uncovertebral facet degenerative changes are present bilaterally contribut ing to multilevel neural foraminal narrowing. There is partial visualization of surgical change in estephanie th shoulders. Overlying soft tissue is unremarkable. IMPRESSION: Suboptimal study, demineralization and multilevel degenerative changes with postsurgical changes C5-C7 level redemonstrated.
== END | disposition home or self-care (01) ==
LOC: RADXRMAIN 11:45
PROVIDERS: ATTEND Neurological Surgery
DX: M47.22 Other spondylosis with radiculopathy, cervical region (principal)
CPT/HCPCS: 72050

== ENCOUNTER → 2018-05-06 | Outpatient (CLI) | payer MEDICARE, OTHER ==
--- NOTE | 2018-05-06 08:55 | CT ---
EXAMINATION TYPE: CT cervical spine wo con DATE OF EXAM: 05/06/2018 COMPARISON: CT cervical spine January 15, 2018 HISTORY: Neck pain since recent fall injury in December, prior fusion per patient. Cervical radiculop athy, stenosis, intractable headache, and neck pain all per order. CT DLP: 1228 mGycm. Automated Exposure Control for Dose Reduction was Utilized. TECHNIQUE: CT scan of the cervical spine is obtained without contrast, axial images are obtained, sa gittal and coronal reformatted images are also reviewed. FINDINGS: Cervical spine is visualized in its entirety from C1 through upper thoracic levels, redemon strates stable and straightened alignment without evidence of acute fracture or dislocation. Prevert ebral soft tissue appears within normal limits. The C1-C2 articulation is within normal limits on th e coronal images. There is persistent anterior fusion plate C5-C7 levels with some ossific fusion of the vertebra at th bisi levels, central metallic devices redemonstrated. There is persistent postsurgical change involvin g the posterior elements at the craniocervical junction. There is persistent multilevel disc space na rrowing and spurring most prominent at C4-C5 level. Posterior disc herniations effacing anterior thec al sac at C3-C4 and C4-C5 levels on sagittal images. Multilevel spurring and disc space narrowing ext ends into the upper thoracic spine. Review of axial images shows uncovertebral facet degenerative changes at C2-C3 level and posterior mckeon rgical changes contributing to mild bilateral neural foraminal narrowing. Some posterior ligamentous ossification is present. No significant change from prior. Axial images at C3-C4 level show uncovertebral facet degenerative changes and marginal spurring bilat erally contributing to moderate left greater than right neural foraminal narrowing. Posterior disc he rniation is effacing anterior thecal sac. No significant change from prior. Axial images at C4-C5 level show advanced disc space narrowing posterior spur disc complex effacing a nterior thecal sac with severe left-sided uncovertebral facet degenerative changes causing severe lef t-sided neural foraminal narrowing, right-sided neural foramina is patent on axial image 36. Axial images at C5-C6 level show artifact from surgical change, there is mild to moderate bilateral n eural foraminal narrowing due to marginal spurring. Spinal canal is preserved. Axial images at C6-C7 level show similar findings to C5-C6 level. Axial images at C7-T1 level show artifact from anterior fusion hardware, bilateral neural foramina ar e patent but there is marginal spurring near axial image 55. Lung apices show moderate emphysematous change. There is mild calcified plaque in bilateral carotid b ulbs with tortuous medial course recognized bilaterally. There is partial visualization of 3 mm calci fied subpleural nodule posterior right upper lobe axial image 87 IMPRESSION: Postsurgical changes C5-C7 level redemonstrated. Stable is straightened alignment noted. Multilevel degenerative changes redemonstrated most prominent C4-C5 level as detailed above. No sign ificant change from most recent CT.
--- NOTE | 2018-05-06 12:20 | XR ---
EXAMINATION TYPE: XR ribs LT DATE OF EXAM: 05/06/2018 COMPARISON: Chest x-ray August 09, 2017. HISTORY: Injury with pain. TECHNIQUE: A frontal and oblique images left-sided ribs are acquired. FINDINGS: Osseous structures are demineralized. Metallic hardware from reversed total left shoulder a rthroplasty is redemonstrated. There is suspected resection of distal left clavicle. There is redemon stration of fusion hardware lower cervical spine. There is partial visualization of stimulator device thoracic spinal canal. No acute displaced left-sided rib fractures are identified. Visualized left l arlene is clear. IMPRESSION: No acute displaced left-sided rib fractures are evident.
== END | disposition home or self-care (01) ==
LOC: RADCTMAIN 07:05
PROVIDERS: ATTEND Neurological Surgery
DX: M47.22 Other spondylosis with radiculopathy, cervical region (principal); R07.81 Pleurodynia
CPT/HCPCS: 72125

== ENCOUNTER 2018-05-15 12:42 | Emergency (ER) | payer MEDICARE, OTHER ==
[2018-05-15 12:54] VITALS: RESP 18
--- NOTE | 2018-05-15 14:31 | US ---
EXAMINATION TYPE: US venous doppler duplex LE LT DATE OF EXAM: 05/15/2018 2:13 PM COMPARISON: CLINICAL HISTORY: Pain. Left thigh pain. No hx of blood clots or on blood thinners. Hx of vein stri pping. SIDE PERFORMED: Left TECHNIQUE: The lower extremity deep venous system is examined utilizing real time linear array sonog verna with graded compression, doppler sonography and color-flow sonography. VESSELS IMAGED: External Iliac Vein (EIV) Common Femoral Vein Deep Femoral Vein Femoral Vein Popliteal Vein Small Saphenous Vein * Proximal Calf Veins (* superficial vessels) Grayscale, color doppler, spectral doppler imaging performed of the deep veins of the lower sternal b cleo. There is normal flow, compressibility, vascular waveforms. Left Leg: Negative for DVT IMPRESSION: No evidence for DVT.
--- NOTE | 2018-05-15 14:58 | ED ---
Extremity Problem HPI - General Chief complaint: Extremity Problem,Nontraumatic Stated complaint: Leg Swelling Time Seen by Provider: 05/15/18 14:32 Source: patient Mode of arrival: ambulatory Limitations: no limitations - History of Present Illness Initial comments: 78 years old female concerned about some redness streaks on the right leg the streets, round at the ankle level on the right leg and did travel beyond the knee towards the distal thighs she is also feeling some discomfort there and some erythema denies any fever no chills no chest pain or shortness of breath - Related Data Home Medications Medication Instructions Recorded Confirmed Aspirin 81 mg PO DAILY 08/13/14 05/15/18 Gabapentin 300 mg PO DAILY 08/13/14 05/15/18 Gemfibrozil [Lopid] 600 mg PO AC-BID 08/13/14 05/15/18 Hydrochlorothiazide 12.5 mg PO QAM 08/13/14 05/15/18 Loratadine [Claritin] 10 mg PO HS 08/13/14 05/15/18 Losartan [Cozaar] 50 mg PO QAM 08/13/14 05/15/18 Meloxicam 15 mg PO DAILY 08/13/14 05/15/18 HYDROcodone/APAP 5-325MG [[place] 5] 1 - 2 tab PO Q6H PRN 03/13/16 05/15/18 Ascorbic Acid [Vitamin C] 500 mg PO DAILY 06/13/16 05/15/18 Calcium Carbonate [Calcium] 300 mg PO DAILY 06/13/16 05/15/18 Cholecalciferol [Vitamin D3] 2,000 unit PO DAILY 06/13/16 05/15/18 Multivitamins, Thera [Multivitamin] 1 tab PO DAILY 06/13/16 05/15/18 Oxybutynin Chloride 5 mg PO DAILY 11/26/17 05/15/18 tiZANidine [Zanaflex] 4 mg PO Q8HR 11/26/17 05/15/18 Dulaglutide [Trulicity] 0.75 mg SQ TU 01/15/18 05/15/18 Previous Rx's Medication Instructions Recorded Cephalexin [Keflex] 500 mg PO Q6HR #40 cap 05/15/18 Allergies Allergy/AdvReac Type Severity Reaction Status Date / Time midazolam HCl [From Versed] Allergy Rash/Hives Verified 05/15/18 14:27 pentazocine lactate AdvReac Nausea & Verified 05/15/18 14:27 [From Oscar] Vomiting Review of Systems ROS Statement: Those systems with pertinent positive or pertinent negative responses have been documented in the HPI. ROS Other: All systems not noted in ROS Statement are negative. Past Medical History Past Medical History: Asthma, Diabetes Mellitus, Hyperlipidemia, Hypertension Additional Past Medical History / Comment(s): "leaky heart valve". back pain. staph/strep infection post op incision History of Any Multi-Drug Resistant Organisms: MRSA Date of last positivie culture/infection: 2012 MDRO Source:: Stomach wound Past Surgical History: Back Surgery, Bladder Surgery, Breast Surgery, Hernia Repair, Hysterectomy, Joint Replacement, Orthopedic Surgery, Tubal Ligation Additional Past Surgical History / Comment(s): pain stimulator implant-LT HIP. BILAT TKA. neck fusion and plate in left side of neck. REVERSE LT SHOULDER SX. COLONOSCOPY Past Anesthesia/Blood Transfusion Reactions: No Reported Reaction Past Psychological History: No Psychological Hx Reported Smoking Status: Former smoker Past Alcohol Use History: None Reported Past Drug Use History: None Reported - Past Family History Mother Family Medical History: Cancer Sister(s) Family Medical History: Cancer Brother(s) Family Medical History: Cancer General Exam - General Exam Comments Initial Comments: General: The patient is awake and alert, in no distress, and does not appear acutely ill. Skin: Skin is warm and dry noticed some findings consistent with early cellulitis on the right distal lower extremity traveling towards the above knee and distal right thigh. Notice any pedal edema no pitting edema or no dependent edema noticed no neurovascular deficit noticed a lot of good bounding pulses or function and sensory functions are within normal range Eye: Pupils are equal, round and reactive to light, extra-ocular movements are intact; there is normal conjunctiva bilaterally. Ears, nose, mouth and throat: There are moist mucous membranes and no oral lesions. Neck: The neck is supple, there is no tenderness or JVD. Cardiovascular: There is a regular rate and rhythm. No murmur, rub or gallop is appreciated. Respiratory: To auscultation bilateral, no wheezing no rhonchi no distress respiratory rodriguez noticed Gastrointestinal: Soft, non-distended, non-tender abdomen without masses or organomegaly noted. There is no rebound or guarding present. Bowel sounds are unremarkable. Back: There is no tenderness to palpation in the midline. There is no obvious deformity. Musculoskeletal: Normal ROM, no tenderness, There is no pedal edema. There is no calf tenderness or swelling. No cords were appreciated. Neurological: CN II-XII intact, Cranial nerves III through XII are intact. There are no obvious motor or sensory deficits. Coordination appears grossly intact. Speech is normal. Psychiatric: Cooperative, appropriate mood & affect, normal judgment. Limitations: no limitations Course Vital Signs 05/15/18 12:50 Temperature 98.4 F Pulse Rate 65 Respiratory 18 Rate Blood Pressure 108/63 O2 Sat by Pulse 97 Oximetry Disposition Clinical Impression: Cellulitis Disposition: HOME SELF-CARE Condition: Good Instructions: Cellulitis (ED) Additional Instructions: Patient is advised to follow-up with the family doctor or return to the ER if symptoms get worse Prescriptions: Cephalexin [Keflex] 500 mg PO Q6HR #40 cap Is patient prescribed a controlled substance at d/c from ED?: No Referrals: Pankaj Turner MD [Primary Care Provider] - 1-2 days
[2018-05-15 15:10] VITALS: BP 138/64; PULSE 55; TEMP 98.7
== END 2018-05-15 15:08 | disposition home or self-care (01) ==
LOC: EC 12:42
DX: L03.115 Cellulitis of right lower limb (principal); M79.89 Other specified soft tissue disorders; E78.5 Hyperlipidemia, unspecified; I10 Essential (primary) hypertension; E11.9 Type 2 diabetes mellitus without complications; Z87.891 Personal history of nicotine dependence; Z79.1 Long term (current) use of non-steroidal anti-inflammatories (NSAID); Z79.82 Long term (current) use of aspirin; Z79.84 Long term (current) use of oral hypoglycemic drugs; Z79.899 Other long term (current) drug therapy; Z88.4 Allergy status to anesthetic agent; Z87.39 Personal history of other diseases of the musculoskeletal system and connective tissue
CPT/HCPCS: 99283

== ENCOUNTER → 2018-06-24 | Outpatient (CLI) | payer MEDICARE ==
[2018-06-24 14:26] LABS: Basophils % (A) 0 %; Eosinophils # (A) 0.1 k/uL (0-0.7); Eosinophils % (A) 2 %; HCT 38.4 % (34.0-46.0); HGB 11.9 gm/dL (11.4-16.0); Lymphocytes % (A) 14 %; MCH 27.6 pg (25.0-35.0); MCV 89.1 fL (80.0-100.0); Mean Platelet Volume 7.7; Monocytes # (A) 0.3 k/uL (0-1.0); Monocytes % (A) 4 %; Neutrophils # (A) 5.6 k/uL (1.3-7.7); Neutrophils % (A) 78 %; Platelet Count 260 k/uL (150-450); RDW 13.8 % (11.5-15.5); WBC 7.2 k/uL (3.8-10.6)
[2018-06-24 14:41] LABS: Partial Thromboplastin Time 23.4 sec (22.0-30.0); Prothrombin Time 9.8 sec (9.0-12.0)
[2018-06-24 14:50] LABS: ALT 37 U/L (9-52); AST 30 U/L (14-36); Albumin 4.5 g/dL (3.5-5.0); Alkaline Phosphatase 103 U/L (38-126); Anion Gap 9 mmol/L; Blood Urea Nitrogen 25 mg/dL (7-17); Calcium 9.4 mg/dL (8.4-10.2); Carbon Dioxide 28 mmol/L (22-30); Chloride 105 mmol/L (98-107); Glucose 119 mg/dL (74-99); Potassium 4.8 mmol/L (3.5-5.1); Sodium 142 mmol/L (137-145); Total Bilirubin 0.5 mg/dL (0.2-1.3); Total Protein 7.4 g/dL (6.3-8.2)
--- NOTE | 2018-06-24 15:04 | XR ---
EXAMINATION TYPE: XR chest 2V DATE OF EXAM: 06/24/2018 COMPARISON: 05/06/2018 HISTORY: Surgical clearance for spinal cord stimulator removal TECHNIQUE: Frontal and lateral views of the chest are obtained. FINDINGS: There is no focal air space opacity, pleural effusion, or pneumothorax seen. The cardiac silhouette size is within normal limits. The osseous structures are intact. Minimal chronic linear left basilar atelectasis is unchanged from the prior. Bilateral humeral arthroplasties, mid thoracic nerve stimulator, and cervical fusion of the cervical spine are present. Multilevel moderate degenera tive change of the visualized thoracolumbar spine is seen. IMPRESSION: No acute cardiopulmonary process.
[2018-06-24 15:38] LABS: Appearance,Urine Clear (Clear); Bilirubin,Urine Negative (Negative); Blood,Urine Negative (Negative); Color,Urine Light Yellow; Glucose,Urine (UA) Negative (Negative); Ketones,Urine Negative (Negative); Leukocyte Esterase,Urine Negative (Negative); Nitrite,Urine Negative (Negative); Protein,Urine Negative (Negative); Specific Gravity,Urine 1.013 (1.001-1.035); Urobilinogen,Urine <2.0 mg/dL (<2.0)
== END | disposition home or self-care (01) ==
LOC: LABWHC1 14:01
PROVIDERS: ATTEND Neurological Surgery
DX: R06.02 Shortness of breath (principal); M54.5 Low back pain
CPT/HCPCS: 36415; 71046; 80053; 81003; 85025; 85610; 85730; 87070

== ENCOUNTER → 2018-07-19 | Outpatient (CLI) | payer MEDICARE ==
[2018-07-19 12:39] VITALS: BP 121/69; PULSE 60; RESP 14; TEMP 96.4; BMI 35.9
--- NOTE | 2018-07-19 13:00 | P.GSHP ---
History of Present Illness H&P Date: 07/19/18 Patient is a 78-year-old white female whose last bilateral mammogram was October 2017. This was considered BIRADS 2 and repeat screening in 1 year was recommended. However the patient since that time has undergone an ultrasound of her left breast which revealed a 1.4 x 1.1 cm irregular hypoechoic lesion at 12:00 stable but suspicious and an ultrasound core biopsy was performed at this site the ultrasound core biopsy was fibrocystic change and fibroadenomatous change follow-up ultrasound of the left breast in 6 months time was recommended. She will be due next month for her 6 month left breast repeat mammogram and ultrasound. The patient herself states that she does not feel any new masses or nodules in her breast. She has had multiple left breast biopsies all of which have been been benign in the past. The patient has no nipple discharge or changes of concern. The patient has no history of trauma or infection to in her breast. Family history: 1. Daughter: breast cancer at 53 2. Paternal Neice: breast cancer diagnosed premenopausal 3. Second paternal niece: Breast cancer premenopausal 4. 2 sisters: Ovarian cancer both from this 5. Mother: Carcinomatosis uncertain of the etiology 6. Maternal grandfather: Prostate cancer 7. Paternal 1/2 brother: prostate cancer Hormonal: menarche: 13 : 3, 4 children twins, age at first : 20, breast fed: yes BCP: yes, 10 years hormones: 20 years menopause: 40's Past surgical history: 1. Back surgery 2 bladder surgery 3 breast biopsies For hernia repair 5 hysterectomy 6 tubal ligation 7 joint replacement 8 orthopedic surgery 9 pain stimulator implant 10. bilateral Total knee arthoplasty 11. Neck fusion 12. left shoulder surgery 13. Neck exploration for parathyroid disease Past medical history: 1. diabetes 2. Asthma 3. Hypertension 4. Leaking heart valve 5. Hyperlipidemia 6. Amyloidosis Social history: 1. Smoking: Negative Alcohol: Negative Drugs: Negative - Constitutional Constitutional: Denies chills, Denies fever - EENT Comment: Cataracts surgery in the past Eyes: denies blurred vision, denies pain Ears: bilateral: decreased hearing Ears, nose, mouth and throat: Reports headache, Denies sore throat - Breasts Breasts: bilateral: as per HPI - Cardiovascular Cardiovascular: Reports high blood pressure - Respiratory Respiratory: Denies cough, Denies 7 - Genitourinary (Female) Genitourinary: Denies dysuria, Denies hematuria - Menstruation Menstruation: Reports postmenopausal - Musculoskeletal Comment: arthritis - Integumentary Integumentary: Denies pruritus, Denies rash - Neurological Neurological: Denies numbness, Denies weakness - Psychiatric Psychiatric: Denies anxiety, Denies depression - Endocrine Comment: diabetes - Hematologic/Lymphatic Comment: aspirin - Allergic/Immunologic Comment: medications as listed Past Medical History Past Medical History: Asthma, Diabetes Mellitus, Hyperlipidemia, Hypertension Additional Past Medical History / Comment(s): "leaky heart valve". back pain. staph/strep infection post op incision History of Any Multi-Drug Resistant Organisms: MRSA Date of last positivie culture/infection: 2012 MDRO Source:: Stomach wound Past Surgical History: Back Surgery, Bladder Surgery, Breast Surgery, Hernia Repair, Hysterectomy, Joint Replacement, Orthopedic Surgery, Tubal Ligation Additional Past Surgical History / Comment(s): pain stimulator implant-LT HIP. BILAT TKA. neck fusion and plate in left side of neck. REVERSE LT SHOULDER SX. COLONOSCOPY Past Anesthesia/Blood Transfusion Reactions: No Reported Reaction Past Psychological History: No Psychological Hx Reported Smoking Status: Former smoker Past Alcohol Use History: None Reported Past Drug Use History: None Reported - Past Family History Mother Family Medical History: Cancer Sister(s) Family Medical History: Cancer Brother(s) Family Medical History: Cancer Medications and Allergies Home Medications Medication Instructions Recorded Confirmed Type Aspirin 81 mg PO DAILY 08/13/14 07/19/18 History Gabapentin 300 mg PO DAILY 08/13/14 07/19/18 History Gemfibrozil [Lopid] 600 mg PO AC-BID 08/13/14 07/19/18 History Hydrochlorothiazide 12.5 mg PO QAM 08/13/14 07/19/18 History Losartan [Cozaar] 50 mg PO QAM 08/13/14 05/15/18 History Meloxicam 15 mg PO DAILY 08/13/14 07/19/18 History HYDROcodone/APAP 5-325MG [Sultana 5] 1 - 2 tab PO Q6H PRN 03/13/16 07/19/18 History Ascorbic Acid [Vitamin C] 500 mg PO DAILY 06/13/16 07/19/18 History Calcium Carbonate [Calcium] 300 mg PO DAILY 06/13/16 07/19/18 History Cholecalciferol [Vitamin D3] 2,000 unit PO DAILY 06/13/16 07/19/18 History Multivitamins, Thera [Multivitamin] 1 tab PO DAILY 06/13/16 07/19/18 History Oxybutynin Chloride 5 mg PO DAILY 11/26/17 07/19/18 History tiZANidine [Zanaflex] 4 mg PO Q8HR 11/26/17 07/19/18 History Dulaglutide [Trulicity] 0.75 mg SQ TU 01/15/18 07/19/18 History Cetirizine HCl [Zyrtec] 10 mg PO DAILY 07/19/18 07/19/18 History Allergies Allergy/AdvReac Type Severity Reaction Status Date / Time midazolam HCl [From Versed] Allergy Rash/Hives Verified 07/19/18 12:23 pentazocine lactate AdvReac Nausea & Verified 07/19/18 12:23 [From Oscar] Vomiting Surgical - Exam - General obese - Eyes normal ocular movement, no icteric - ENT no hearing loss, no congestion - Neck no masses, trachea midline - Respiratory normal respiratory effort, clear to auscultation - Cardiovascular Rhythm: regular Heart Sounds: normal: S1, S2 - Abdomen Abdomen: soft, non tender, no guarding, no rigid, no rebound - Musculoskeletal normal gait - Psychiatric oriented to time, oriented to person, oriented to place, speech is normal, memory intact breast exam: right breast: Multi-positional exam fibrocystic changes no dominant masses or nodules of concern Right axilla: No adenopathy of concern Left breast: Well-healed scars from prior surgery multi-positional exam changes related to prior surgery but no dominant masses of concern Left axilla: No adenopathy of concern Results Patient's pathology from January 2018 as well as ultrasound of the left breast 2018 results reviewed Assessment and Plan Assessment: Impression: 1. Bilateral fibrocystic breast disease recent left breast core biopsy 2. Amyloidosis 3. Diabetes 4. Hypertension 5. High cholesterol 6. Arthritis/degenerative disc disease 7. Status post bilateral total knee replacement Plan: 1. Patient due for left breast mammogram and ultrasound at this time if this is negative will follow up in 6 months 2. Medical management of medical conditions 3. Bilateral repeat mammogram and physician exam 1 year from October cc: Dr. Turner
== END | disposition home or self-care (01) ==
LOC: WWCWWP 11:52
PROVIDERS: ATTEND Surgery
DX: Z53.9 Procedure and treatment not carried out, unspecified reason (principal)

== ENCOUNTER 2018-07-21 16:45 | Emergency (ER) | payer MEDICARE ==
[2018-07-21 16:52] VITALS: RESP 18
[2018-07-21] MEDS ORDERED: SODIUM CHLORIDE 0.9% 2,000 ML IV ONE (17:11)
--- NOTE | 2018-07-21 17:17 | ED ---
Recheck HPI - General Chief Complaint: Recheck/Abnormal Lab/Rx Stated Complaint: Incision infection Time Seen by Provider: 07/21/18 16:56 Source: patient Mode of arrival: ambulatory Limitations: no limitations - History of Present Illness Initial Comments: 78-year-old female patient presents to the emergency department today for evaluation of a draining incision site to her left low back. Patient states she had a pain stimulator removed on 06/26/2018. Patient states that 2 days ago she started having drainage from the wound and it started to become more painful. Patient states that the drainage appears to be bloody and foul smelling. States that yesterday she did develop nausea and vomiting. She was short of breath yesterday with this as well. Today patient was lying in bed and started to feel dizzy and then blacked out for a couple of seconds. After this episode patient decided to come in for evaluation. Her surgery was with a doctor from [place]. Patient denies any recent rash, chest pain, abdominal pain , diarrhea, constipation, numbness, tingling, dizziness, weakness, hematuria, dysuria, urinary urgency, urinary frequency, headache, visual changes, or any other complaints. - Related Data Home Medications Medication Instructions Recorded Confirmed Aspirin 81 mg PO DAILY 08/13/14 07/19/18 Gabapentin 300 mg PO DAILY 08/13/14 07/19/18 Gemfibrozil [Lopid] 600 mg PO AC-BID 08/13/14 07/19/18 Hydrochlorothiazide 12.5 mg PO QAM 08/13/14 07/19/18 Losartan [Cozaar] 50 mg PO QAM 08/13/14 05/15/18 Meloxicam 15 mg PO DAILY 08/13/14 07/19/18 HYDROcodone/APAP 5-325MG [Hickory 5] 1 - 2 tab PO Q6H PRN 03/13/16 07/19/18 Ascorbic Acid [Vitamin C] 500 mg PO DAILY 06/13/16 07/19/18 Calcium Carbonate [Calcium] 300 mg PO DAILY 06/13/16 07/19/18 Cholecalciferol [Vitamin D3] 2,000 unit PO DAILY 06/13/16 07/19/18 Multivitamins, Thera [Multivitamin] 1 tab PO DAILY 06/13/16 07/19/18 Oxybutynin Chloride 5 mg PO DAILY 11/26/17 07/19/18 tiZANidine [Zanaflex] 4 mg PO Q8HR 11/26/17 07/19/18 Dulaglutide [Trulicity] 0.75 mg SQ TU 01/15/18 07/19/18 Cetirizine HCl [Zyrtec] 10 mg PO DAILY 07/19/18 07/19/18 Allergies Allergy/AdvReac Type Severity Reaction Status Date / Time midazolam HCl [From Versed] Allergy Rash/Hives Verified 07/21/18 16:52 pentazocine lactate AdvReac Nausea & Verified 07/21/18 16:52 [From Oscar] Vomiting Review of Systems ROS Statement: Those systems with pertinent positive or pertinent negative responses have been documented in the HPI. ROS Other: All systems not noted in ROS Statement are negative. Past Medical History Past Medical History: Asthma, Diabetes Mellitus, Hyperlipidemia, Hypertension Additional Past Medical History / Comment(s): "leaky heart valve". back pain. staph/strep infection post op incision History of Any Multi-Drug Resistant Organisms: MRSA Date of last positivie culture/infection: 2012 MDRO Source:: Stomach wound Past Surgical History: Back Surgery, Bladder Surgery, Breast Surgery, Hernia Repair, Hysterectomy, Joint Replacement, Orthopedic Surgery, Tubal Ligation Additional Past Surgical History / Comment(s): pain stimulator implant-LT HIP. BILAT TKA. neck fusion and plate in left side of neck. REVERSE LT SHOULDER SX. COLONOScopy. Pain stimulator removed 07/06 Past Anesthesia/Blood Transfusion Reactions: No Reported Reaction Past Psychological History: No Psychological Hx Reported Smoking Status: Former smoker Past Alcohol Use History: None Reported Past Drug Use History: None Reported - Past Family History Mother Family Medical History: Cancer Additional Family Medical History / Comment(s): metastatic cancer Sister(s) Family Medical History: Cancer Additional Family Medical History / Comment(s): two sisters dx with ovarian cancer. one sister with lung cancer Brother(s) Family Medical History: Cancer Additional Family Medical History / Comment(s): one brother had lung cancer. half-brother had prostate cancer. maternal grandfather prostate cancer General Exam Limitations: no limitations General appearance: alert, in no apparent distress, other (This is a well- developed, well-nourished elderly female patient in no acute distress. Vital signs upon presentation are temperature 98.1F, pulse 84, respirations 18, blood pressure 82/37, pulse ox 91% on room air.) Eye exam: Present: normal appearance, PERRL, EOMI. Absent: scleral icterus, conjunctival injection, periorbital swelling ENT exam: Present: normal exam, normal oropharynx, mucous membranes moist Respiratory exam: Present: normal lung sounds bilaterally. Absent: respiratory distress, wheezes, rales, rhonchi, stridor Cardiovascular Exam: Present: regular rate, normal rhythm, normal heart sounds. Absent: systolic murmur, diastolic murmur, rubs, gallop, clicks GI/Abdominal exam: Present: soft, normal bowel sounds. Absent: distended, tenderness, guarding, rebound, rigid Back exam: Present: other (Patient has healing incision to the left low back. There is serosanguinous drainage present. No surrounding erythema or swelling noted. Patient is tender over the site. ). Absent: normal inspection Neurological exam: Present: alert, oriented X3, CN II-XII intact Psychiatric exam: Present: normal affect, normal mood Skin exam: Present: warm, dry, intact, normal color. Absent: rash Course Vital Signs 07/21/18 07/21/18 07/21/18 16:48 17:15 17:25 Temperature 98.1 F 98.7 F Pulse Rate 84 64 Respiratory 18 18 Rate Blood Pressure 82/37 73/35 80/40 O2 Sat by Pulse 91 L 94 L 96 Oximetry 07/21/18 07/21/18 07/21/18 17:35 18:11 19:00 Temperature Pulse Rate 62 Respiratory 18 Rate Blood Pressure 76/40 94/54 92/54 O2 Sat by Pulse 100 Oximetry 07/21/18 07/21/18 07/21/18 19:30 20:05 20:40 Temperature 100.6 F H Pulse Rate 66 65 Respiratory 18 18 Rate Blood Pressure 108/53 102/57 O2 Sat by Pulse 100 99 Oximetry 07/21/18 07/21/18 07/21/18 21:10 22:09 22:20 Temperature Pulse Rate 71 67 74 Respiratory 18 18 18 Rate Blood Pressure 110/57 115/57 121/64 O2 Sat by Pulse 99 98 96 Oximetry Medical Decision Making - Medical Decision Making 78-year-old female patient presented to the emergency department today for evaluation of drainage from a surgical site her left lower back. Patient also exhibits syncopal episode prior to arrival. Upon arrival patient was quite hypotensive in the 70s over 30s. Labs were obtained and did reveal an elevated white blood cell count at 15.6. Lactic acid was negative at 1.8. Patient did also have some element of acute on chronic kidney injury. Vitals signs did improve with 2 L of normal saline. Patient also developed fever during visit at 100.6. I did perform CT of the lumbar spine which did show fluid collection just posterior to the lower lumbar region. We were able to express out approximately 15-20 ml of purulent and bloody drainage from the left low back incision. Patient was given Unasyn and Vancomycin. I did discuss the case with Dr. Skelton her neurosurgeon from [place], he felt the infection was probably more subcutaneous and recommended we admit her for antibiotics here. I spoke to Dr. Turner who believes patient should be evaluated and treated by her surgeon. I again spoke to Dr. Skelton who requests she be transferred to the Emergency Department at [facility] in [place] where patient originally had her surgery. I spoke to Dr. Quarles ED physician at [facility] who accepts transfer. Patient is aware of all results, findings, and is agreeable to transfer. Vancomycin is still infusing and given patient's hemodynamic state upon arrival it is recommended she be transferred by ambulance, she is agreeable. - Lab Data Result diagrams: 07/21/18 17:20 07/21/18 17:20 Lab Results 07/21/18 07/21/18 07/21/18 Range/Units 17:20 17:20 17:20 WBC 15.3 H (3.8-10.6) k/uL RBC 3.80 (3.80-5.40) m/uL Hgb 11.0 L (11.4-16.0) gm/dL Hct 34.8 (34.0-46.0) % MCV 91.7 (80.0-100.0) fL MCH 29.1 (25.0-35.0) pg MCHC 31.7 (31.0-37.0) g/dL RDW 14.1 (11.5-15.5) % Plt Count 240 (150-450) k/uL Neutrophils % 79 % Lymphocytes % 11 % Monocytes % 5 % Eosinophils % 4 % Basophils % 0 % Neutrophils # 12.0 H (1.3-7.7) k/uL Lymphocytes # 1.7 (1.0-4.8) k/uL Monocytes # 0.8 (0-1.0) k/uL Eosinophils # 0.5 (0-0.7) k/uL Basophils # 0.0 (0-0.2) k/uL PT (9.0-12.0) sec INR (<1.2) APTT (22.0-30.0) sec Sodium 141 (137-145) mmol/L Potassium 4.1 (3.5-5.1) mmol/L Chloride 106 (98-107) mmol/L Carbon Dioxide 23 (22-30) mmol/L Anion Gap 12 mmol/L BUN 30 H (7-17) mg/dL Creatinine 1.50 H (0.52-1.04) mg/dL Est GFR (CKD-EPI)AfAm 38 (>60 ml/min/1.73 sqM) Est GFR (CKD-EPI)NonAf 33 (>60 ml/min/1.73 sqM) Glucose 171 H (74-99) mg/dL Plasma Lactic Acid Vidal (0.7-2.0) mmol/L Calcium 8.8 (8.4-10.2) mg/dL Total Bilirubin 0.6 (0.2-1.3) mg/dL AST 23 (14-36) U/L ALT 27 (9-52) U/L Alkaline Phosphatase 70 (38-126) U/L Total Creatine Kinase 117 (30-135) U/L CK-MB (CK-2) 0.6 (0.0-2.4) ng/mL CK-MB (CK-2) Rel Index 0.5 Troponin I <0.012 (0.000-0.034) ng/mL Total Protein 6.8 (6.3-8.2) g/dL Albumin 3.9 (3.5-5.0) g/dL Amylase 30 (30-110) U/L Lipase 38 (23-300) U/L Urine Color Urine Appearance (Clear) Urine pH (5.0-8.0) Ur Specific [place] (1.001-1.035) Urine Protein (Negative) Urine Glucose (UA) (Negative) Urine Ketones (Negative) Urine Blood (Negative) Urine Nitrite (Negative) Urine Bilirubin (Negative) Urine Urobilinogen (<2.0) mg/dL Ur Leukocyte Esterase (Negative) Urine RBC (0-5) /hpf Urine WBC (0-5) /hpf Ur Squamous Epith Cells (0-4) /hpf Hyaline Casts (0-2) /lpf Granular Casts (0) /lpf Urine Mucus (None) /hpf 07/21/18 07/21/18 07/21/18 Range/Units 17:20 17:20 18:15 WBC (3.8-10.6) k/uL RBC (3.80-5.40) m/uL Hgb (11.4-16.0) gm/dL Hct (34.0-46.0) % MCV (80.0-100.0) fL MCH (25.0-35.0) pg MCHC (31.0-37.0) g/dL RDW (11.5-15.5) % Plt Count (150-450) k/uL Neutrophils % % Lymphocytes % % Monocytes % % Eosinophils % % Basophils % % Neutrophils # (1.3-7.7) k/uL Lymphocytes # (1.0-4.8) k/uL Monocytes # (0-1.0) k/uL Eosinophils # (0-0.7) k/uL Basophils # (0-0.2) k/uL PT 10.4 (9.0-12.0) sec INR 1.1 (<1.2) APTT 22.6 (22.0-30.0) sec Sodium (137-145) mmol/L Potassium (3.5-5.1) mmol/L Chloride (98-107) mmol/L Carbon Dioxide (22-30) mmol/L Anion Gap mmol/L BUN (7-17) mg/dL Creatinine (0.52-1.04) mg/dL Est GFR (CKD-EPI)AfAm (>60 ml/min/1.73 sqM) Est GFR (CKD-EPI)NonAf (>60 ml/min/1.73 sqM) Glucose (74-99) mg/dL Plasma Lactic Acid Vidal 1.8 (0.7-2.0) mmol/L Calcium (8.4-10.2) mg/dL Total Bilirubin (0.2-1.3) mg/dL AST (14-36) U/L ALT (9-52) U/L Alkaline Phosphatase (38-126) U/L Total Creatine Kinase (30-135) U/L CK-MB (CK-2) (0.0-2.4) ng/mL CK-MB (CK-2) Rel Index Troponin I (0.000-0.034) ng/mL Total Protein (6.3-8.2) g/dL Albumin (3.5-5.0) g/dL Amylase (30-110) U/L Lipase (23-300) U/L Urine Color Yellow Urine Appearance Cloudy H (Clear) Urine pH 5.0 (5.0-8.0) Ur Specific [place] 1.013 (1.001-1.035) Urine Protein Trace H (Negative) Urine Glucose (UA) Negative (Negative) Urine Ketones Negative (Negative) Urine Blood Negative (Negative) Urine Nitrite Negative (Negative) Urine Bilirubin Negative (Negative) Urine Urobilinogen <2.0 (<2.0) mg/dL Ur Leukocyte Esterase Small H (Negative) Urine RBC 2 (0-5) /hpf Urine WBC 4 (0-5) /hpf Ur Squamous Epith Cells 2 (0-4) /hpf Hyaline Casts 73 H (0-2) /lpf Granular Casts 6 (0) /lpf Urine Mucus Rare H (None) /hpf - EKG Data -: EKG Interpreted by Sc EKG Comments: EKG obtained at 1724 shows normal sinus rhythm with a ventricular rate of 62, NC interval 178, QR hoahaoism 72, QTc 432, QTc 438. No evidence of ST elevation or depression. - Radiology Data Radiology results: report reviewed, image reviewed CT lumbar spine without contrast was obtained. Report was reviewed in its entirety. Impression by Dr. Vigil shows previous surgery. Multilevel ankylosis. No compression fracture. Atelectasis at the lung bases. There is no adverse change compared to 02/11/2016. There has been removal of the neurostimulator compared to old exam. There is subcutaneous fluid new posterior fusion screws compared to old exam. Seroma or hematoma or abscess is possible. Two-view x-ray of the chest is obtained. Report was reviewed in its entirety. Impression by Dr. Ostermann shows mild pulmonary fibrosis. No acute lung disease. No significant change. Disposition Clinical Impression: Surgical site infection, Abscess, Sepsis Disposition: OTHER INSTITUTION NOT DEFINED Condition: Serious Referrals: Pankaj Turner MD [Primary Care Provider] - 1-2 days - Out of Hospital Transfer - Req. Specs Out of Hospital Transfer - Requested Specifics: Other Emergency Center ([facility])
[2018-07-21 17:40] LABS: Basophils % (A) 0 %; Eosinophils # (A) 0.5 k/uL (0-0.7); Eosinophils % (A) 4 %; HCT 34.8 % (34.0-46.0); Lymphocytes # (A) 1.7 k/uL (1.0-4.8); Lymphocytes % (A) 11 %; MCH 29.1 pg (25.0-35.0); MCHC 31.7 g/dL (31.0-37.0); MCV 91.7 fL (80.0-100.0); Mean Platelet Volume 6.9; Monocytes # (A) 0.8 k/uL (0-1.0); Monocytes % (A) 5 %; Neutrophils % (A) 79 %; Platelet Count 240 k/uL (150-450); RDW 14.1 % (11.5-15.5); WBC 15.3 k/uL (3.8-10.6)
[2018-07-21 17:45] LABS: INR 1.1 (<1.2); Partial Thromboplastin Time 22.6 sec (22.0-30.0); Prothrombin Time 10.4 sec (9.0-12.0)
[2018-07-21 17:48] LABS: Albumin 3.9 g/dL (3.5-5.0); Calcium 8.8 mg/dL (8.4-10.2); Creatine Kinase 117 U/L (30-135); Potassium 4.1 mmol/L (3.5-5.1); Total Bilirubin 0.6 mg/dL (0.2-1.3); Total Protein 6.8 g/dL (6.3-8.2)
--- NOTE | 2018-07-21 17:53 | XR ---
EXAMINATION TYPE: XR chest 2V DATE OF EXAM: 07/21/2018 COMPARISON: 06/24/2018 HISTORY: Fever TECHNIQUE: Frontal and lateral views of the chest are obtained. FINDINGS: There is no heart failure nor confluent pneumonic infiltrate. Costophrenic angles are willow r. There is cervical spine fusion surgery. There is bilateral shoulder prosthesis. Heart size is norm al. There is slight coarsening of interstitial markings. IMPRESSION: Mild pulmonary fibrosis. No acute lung disease. No significant change.
[2018-07-21 18:00] LABS: Creatine Kinase MB 0.6 ng/mL (0.0-2.4); Troponin I <0.012 ng/mL (0.000-0.034)
[2018-07-21 18:44] LABS: Appearance,Urine Cloudy (Clear); Bilirubin,Urine Negative (Negative); Blood,Urine Negative (Negative); Color,Urine Yellow; Glucose,Urine (UA) Negative (Negative); Granular Casts,Urine 6 /lpf (0); Hyaline Casts,Urine 73 /lpf (0-2); Ketones,Urine Negative (Negative); Leukocyte Esterase,Urine Small (Negative); Mucus,Urine Rare /hpf; Nitrite,Urine Negative (Negative); Protein,Urine Trace (Negative); RBC,Urine 2 /hpf (0-5); Specific Gravity,Urine 1.013 (1.001-1.035); Squamous Epithelial Cell,Urine 2 /hpf (0-4); Urobilinogen,Urine <2.0 mg/dL (<2.0); WBC,Urine 4 /hpf (0-5)
[2018-07-21] MEDS ORDERED: AMPICILLIN-SULBACTAM 3 GM in SODIUM CHLORIDE 0.9% 100 ML IVPB STA (19:00)
[2018-07-21] MEDS ORDERED: VANCOMYCIN IV PER PHARMACY 1 EACH MISC MISCELLANE PRN (19:00)
[2018-07-21] MEDS ORDERED: VANCOMYCIN 1,750 MG in SODIUM CHLORIDE 0.9% 500 ML IVPB ONE (19:30)
--- NOTE | 2018-07-21 19:49 | CT ---
EXAMINATION TYPE: CT lumbar spine wo con DATE OF EXAM: 07/21/2018 7:35 PM COMPARISON: 12/29/2016 HISTORY: Incision redness and pain after surgery on 06/26/18. CT DLP: 1365.2 mGycm Automated exposure control for dose reduction was used. Unenhanced CT of the lumbar spine was performed. Bone and soft tissue window settings are submitted as well as coronal and sagittal reconstructions. There are rods and screws fusing posteriorly the lumbar spine from L4 to S1. There is ankylotic pham e at L2-L3 L4-L5. There are spondylotic changes in the lower thoracic spine and upper lumbar spine. T here is no compression fracture. There is no lumbar paraspinal mass. There is multilevel laminectomy defect. Sacroiliac joints are intact. There are screws fixing the sacroiliac joints bilaterally. Ther e is posterior subcutaneous fluid over the lower lumbar spine. IMPRESSION: Previous surgery. Multilevel ankylosis. No compression fracture. Atelectasis at the lung bases. There is no adverse change compared to 02/11/2016. There is been removal of the neurostimulator compared to old exam. There is subcutaneous fluid and new posterior fusion screws compared to old exam. Seroma o r hematoma or abscess is possible.
[2018-07-21 23:30] VITALS: BP 134/88; PULSE 81; TEMP 100.7
[2018-07-21] MEDS ORDERED: HYDROcodone/APAP 5-325MG 1 EACH TAB PO STA (23:34)
[2018-07-21] MEDS ORDERED: ACETAMINOPHEN TAB 325 MG TAB PO STA (23:34)
[2018-07-22] MEDS ORDERED: VANCOMYCIN 1,500 MG in SODIUM CHLORIDE 0.9% 250 ML IVPB ONE (14:00)
== END 2018-07-22 00:24 | disposition other institution (70) ==
LOC: EC 16:45
DX: T81.4XXA Infection following a procedure, initial encounter (principal); L02.212 Cutaneous abscess of back [any part, except buttock and flank]; D72.829 Elevated white blood cell count, unspecified; E11.9 Type 2 diabetes mellitus without complications; E78.5 Hyperlipidemia, unspecified; I10 Essential (primary) hypertension; Z86.14 Personal history of Methicillin resistant Staphylococcus aureus infection; Z98.890 Other specified postprocedural states; Z87.891 Personal history of nicotine dependence; Z79.82 Long term (current) use of aspirin; Z79.1 Long term (current) use of non-steroidal anti-inflammatories (NSAID); Z79.84 Long term (current) use of oral hypoglycemic drugs; Z79.899 Other long term (current) drug therapy; Z88.8 Allergy status to other drugs, medicaments and biological substances; Y83.8 Other surgical procedures as the cause of abnormal reaction of the patient, or of later complication, without mention of misadventure at the time of the procedure
CPT/HCPCS: 36415; 93005; 80053; 82150; 82550; 82553; 83605; 83690; 84484; 85025; 85610; 85730; 81001; 87040; 87070; 87086; 87205; 71046; 72131; 99285; 96365; 96367; 96366 ×2; 96361; J3370; J0295; 87077; 87186

== ENCOUNTER → 2018-08-29 | Outpatient (CLI) | payer MEDICARE, OTHER ==
--- NOTE | 2018-08-29 16:57 | MR ---
EXAMINATION TYPE: MR cervical spine wo con DATE OF EXAM: 08/29/2018 COMPARISON: CT cervical spine 05/06/2018 HISTORY: Radiculopathy, cervical region CONTRAST: Performed utilizing 0 mL intravenous Gadavist gadolinium contrast. TECHNIQUE: Multiplanar multiecho imaging on a 3.0 Tomasa magnet is performed through the cervical spin e. FINDINGS: The craniovertebral junction is normal. Vertebral body alignment is straightened. This is stable in appearance from May 08, 2018. T1-T2:: Mild disc bulge is present. This may be slightly greater to the right paracentral region. No spinal canal stenosis or cord contact is evident. C7-T1: No focal disc herniation or significant disc bulge is present. No spinal canal stenosis or gonzalo ral foraminal stenosis is present.. C6-7: Left paracentral endplate spurring and/or disc material is present with mild anterior thecal sa c compression. No cord contact is evident. Spinal canal stenosis is not present.. C5-6: Cervical fusion is to this level. No cysts disc bulge is evident. No residual disc material is evident. No spinal canal stenosis is present.. C4-5: Broad-based disc bulge has moderate anterior thecal sac compression. Cord contact is evident. C ord flattening is present. There is an AP spinal canal stenosis measuring 0.7 cm. Neural foramen are patent.. C3-4: Broad-based disc bulge has moderate anterior thecal sac compression. This has cord contact. Chaz e cord flattening is present. There is an AP spinal canal stenosis of 0.57 cm. Neural foramen are pa tent. C2-3: There is a large right paracentral disc herniation with cord contact and cord deformity. Focal spinal canal stenosis posterior to the disc material is present with an AP dimension of 0.5. Moderate impression on the thecal sac is present. Neural foramen are patent.. IMPRESSIONS: 1. Postsurgical changes from anterior cervical fusion of C5-6-7. 2. Spinal canal stenosis due to disc bulging and endplate changes at C3-4, on the right from posterio r disc herniation C2-3, and from disc bulging C4-5.
== END | disposition home or self-care (01) ==
LOC: RADMRIMAIN 15:31
PROVIDERS: ATTEND Neurological Surgery
DX: M48.02 Spinal stenosis, cervical region (principal); M50.21 Other cervical disc displacement, high cervical region; Z98.1 Arthrodesis status
CPT/HCPCS: 72141

== ENCOUNTER → 2018-09-20 | Outpatient (CLI) | payer MEDICARE, OTHER ==
[2018-09-20 08:40] LABS: HCT 37.2 % (34.0-46.0); HGB 11.8 gm/dL (11.4-16.0); MCHC 31.8 g/dL (31.0-37.0); MCV 91.1 fL (80.0-100.0); Mean Platelet Volume 7.2; Platelet Count 284 k/uL (150-450); RBC 4.08 m/uL (3.80-5.40); WBC 5.6 k/uL (3.8-10.6)
[2018-09-20 08:44] LABS: Partial Thromboplastin Time 22.5 sec (22.0-30.0); Prothrombin Time 9.7 sec (9.0-12.0)
[2018-09-20 09:31] LABS: Appearance,Urine Clear (Clear); Bilirubin,Urine Negative (Negative); Blood,Urine Negative (Negative); Color,Urine Yellow; Glucose,Urine (UA) Negative (Negative); Ketones,Urine Negative (Negative); Leukocyte Esterase,Urine Small (Negative); Nitrite,Urine Negative (Negative); Protein,Urine Negative (Negative); Specific Gravity,Urine 1.016 (1.001-1.035); Squamous Epithelial Cell,Urine <1 /hpf (0-4); Urobilinogen,Urine <2.0 mg/dL (<2.0)
[2018-09-20 15:48] LABS: Albumin 4.6 g/dL (3.80-4.90); Albumin/Globulin Ratio 2.19 (1.20-2.10); Anion Gap 7.9 mmol/L (4.00-12.00); Calcium 9.2 mg/dL (8.7-10.3); Carbon Dioxide 27.1 mmol/L (21.6-31.8); Globulin 2.1 g/dL (2.1-3.7); Potassium 4.4 mmol/L (3.5-5.5); Total Bilirubin 0.3 mg/dL (0.2-1.2); Total Protein 6.7 g/dL (6.2-8.2)
== END ==
LOC: LABWHC1 07:36
PROVIDERS: ATTEND Neurological Surgery
DX: M48.02 Spinal stenosis, cervical region (principal); I25.10 Atherosclerotic heart disease of native coronary artery without angina pectoris; E11.9 Type 2 diabetes mellitus without complications; I10 Essential (primary) hypertension
CPT/HCPCS: 36415; 80053; 81001; 85027; 85610; 85730; 87070

== ENCOUNTER → 2018-09-24 | Outpatient (CLI) | payer MEDICARE ==
--- NOTE | 2018-09-24 12:02 | MM ---
Reason for exam: additional evaluation requested from prior study. Last mammogram was performed 8 months ago. History: Patient is postmenopausal. Family history of breast cancer in daughter at age 53. Benign US biopsy breast VAD LT of the left breast, February 05, 2018. Benign US biopsy breast VAD LT of the left breast, December 06, 2016. Benign US biopsy breast VAD LT of the left breast, July 16, 2014. Benign US biopsy breast add'l VAD LT of the left breast, July 16, 2014. Benign US LT VAD breast biopsy of the left breast, February 16, 2014. Left Breast Aspiration, August 2013. Benign u/S left breast localization of the left breast, December 20, 2011. Cyst aspiration of the left breast, 2003. Excisional biopsy of the right breast, 2003. Excisional biopsy of the left breast. Took hormonal contraceptives for 4 years. Took estrogen for 25 years beginning at age 30. Physical Findings: Nurse did not find any significant physical abnormalities on exam. MG 3D Diag Mammo W/Cad LT CC and MLO view(s) were taken of the left breast. Prior study comparison: February 05, 2018, left breast MG diagnostic mammo LT wo CAD. November 15, 2017, bilateral MG 3d diag mammo w/cad CHIQUITA. The breast tissue is heterogeneously dense. This may lower the sensitivity of mammography. There is chronic nodularity in the left breast. No significant new findings when compared with previous films. These results were verbally communicated with the patient and result sheet given to the patient on 09/24/18. ASSESSMENT: Benign, BI-RAD 2 RECOMMENDATION: Routine screening mammogram of both breasts in 6 months. Back on schedule.
== END | disposition home or self-care (01) ==
LOC: RADMAMWWP 10:41
PROVIDERS: ATTEND Surgery
DX: R92.8 Other abnormal and inconclusive findings on diagnostic imaging of breast (principal)
CPT/HCPCS: 77065; G0279; 77061

== ENCOUNTER → 2018-11-01 | Outpatient (CLI) | payer MEDICARE, OTHER ==
[2018-11-01 11:11] VITALS: BP 123/67; PULSE 66; RESP 18; TEMP 98.1; BMI 33.5
--- NOTE | 2018-11-01 11:27 | P.PN ---
Subjective Progress Note Date: 11/01/18 Principal diagnosis: Radha is a 78-year-old white female who had a bilateral mammogram in November 04. Most recently in September 2018 she underwent a left breast mammogram this revealed chronic nodularity in the left breast and no significant new findings and appeared with previous films. Routine screening of both breast is recommended to be back on schedule. The patient does not feel anything of concern in her breast. She has no nipple discharge or skin changes of concern. She has undergone prior breast biopsy which revealed amyloidosis. This was done on the left breast. She has never had breast cancer. Family history: Daughter: Breast cancer Paternal niece: Breast cancer diagnosed premenopausal Second paternal niece: Breast cancer premenopausal 2 sisters: Ovarian cancer both from this Mother: Carcinomatosis uncertain of the etiology Paternal grandfather: Prostate cancer Paternal half-brother: Prostate cancer Past Surgical History: 1. Back surgery 2. bladder surgery 3. breast biospies 4. hernia surgery 5. hysterctomy 6. tubal ligation 7. joint replacement 8. orthopedic surgery 9. pain stimulator palced and removed 10. bilateral total knww 11. left shoulder surgery 12. neck exploration for parathyroid surgery 13. recent neck fusion 09-26-18 Past Medical History: 1. Diabetes 2 asthma 3 hypertension 4 leaking heart valve 5 hyperlipidemia 6 amyloidosis was Social history: Smoke: Negative Alcohol: Negative Drugs: Negative Objective - Vital Signs Vital signs: Vital Signs Temp 98.1 F 11/01/18 11:02 Pulse 66 11/01/18 11:02 Resp 18 11/01/18 11:02 BP 123/67 11/01/18 11:02 Pulse Ox 97 11/01/18 11:02 Intake & Output 10/31/18 11/01/18 11/01/18 18:59 06:59 18:59 Weight 78.018 kg - Exam BMI 33.6 - Constitutional General appearance: Present: cooperative, no acute distress, obese - EENT Eyes: Present: EOMI ENT: Present: hard of hearing - Neck Details: Posterior incision well healed Neck: Present: normal ROM - Respiratory Respiratory: bilateral: CTA - Cardiovascular Rhythm: regular Heart sounds: normal: S1, S2 - Gastrointestinal Gastrointestinal Comment(s): No guarding or rebound General gastrointestinal: Present: soft - Integumentary Integumentary Comment(s): No icterus Integumentary: Present: normal turgor - Musculoskeletal Musculoskeletal Comment(s): uses a walker - Additional findings Additional findings: Breast examination: Right breast: Multi-positional exam no dominant masses or nodules of concern, well-healed scar from prior biopsy Right axilla: No adenopathy of concern Left breast: Well-healed scars from prior biopsy at the upper inner quadrant there appears to be a area of firmness which point they be consistent with a step-off deformity near a prior biopsy Left axilla: No adenopathy of concern Assessment and Plan Assessment: Impression: 1. Fibrocystic breast changes 2. Firmness in the left breast near prior lumpectomy most likely related to scar tissue 3. Diabetes 4. Asthma 5. Hypertension 6. Leaking heart valve 7. Hyperlipidemia 8. Amyloidosis Plan: 1. Patient to have a right breast mammogram 2. Clinical follow-up of the area of firmness in the left breast in 3 months 3. Medical management of medical conditions Cc: Dr. Turner, Dr. Christy
== END ==
LOC: WWCWWP 09:59
PROVIDERS: ATTEND Surgery
DX: Z53.9 Procedure and treatment not carried out, unspecified reason (principal)

== ENCOUNTER → 2018-11-26 | Outpatient (CLI) | payer MEDICARE, OTHER ==
--- NOTE | 2018-11-30 13:21 | MM ---
Reason for exam: follow-up at short interval from prior study. Last mammogram was performed 2 months ago. History: Patient is postmenopausal. Family history of breast cancer in daughter at age 53. Benign US biopsy breast VAD LT of the left breast, February 05, 2018. Benign US biopsy breast VAD LT of the left breast, December 06, 2016. Benign US biopsy breast VAD LT of the left breast, July 16, 2014. Benign US biopsy breast add'l VAD LT of the left breast, July 16, 2014. Benign US LT VAD breast biopsy of the left breast, February 16, 2014. Left Breast Aspiration, August 2013. Benign u/S left breast localization of the left breast, December 20, 2011. Cyst aspiration of the left breast, 2003. Excisional biopsy of the right breast, 2003. Excisional biopsy of the left breast. Took hormonal contraceptives for 4 years. Took estrogen for 25 years beginning at age 30. Indicated problem(s): other indicated problem in the left breast. Physical Findings: Nurse did not find any significant physical abnormalities on exam. MG 3D Diag Mammo W/Cad RT CC and MLO view(s) were taken of the right breast. Prior study comparison: September 24, 2018, left breast MG 3d diag mammo w/cad LT. February 05, 2018, left breast MG diagnostic mammo LT wo CAD. The breast tissue is heterogeneously dense. This may lower the sensitivity of mammography. Prominent underlying nodularity. Some is slightly more pronounced but becomes slightly less defined on 3D. Short interval follow up recommended in order to get the patient back to an annual schedule. These results were verbally communicated with the patient and result sheet given to the patient on 11/26/18. ASSESSMENT: Probably benign, BI-RAD 3 RECOMMENDATION: Follow-up diagnostic mammogram of both breasts in 4 months.
== END | disposition home or self-care (01) ==
LOC: RADMAMWWP 12:42
PROVIDERS: ATTEND Surgery
DX: R92.8 Other abnormal and inconclusive findings on diagnostic imaging of breast (principal); Z86.2 Personal history of diseases of the blood and blood-forming organs and certain disorders involving the immune mechanism
CPT/HCPCS: 77065; G0279; 77061

== ENCOUNTER → 2018-11-29 | Outpatient (CLI) | payer MEDICARE, OTHER ==
[2018-11-29 12:31] VITALS: BP 126/82; PULSE 78; RESP 18; TEMP 97.1; BMI 33.5
--- NOTE | 2018-11-29 12:51 | P.PN ---
Progress Note - Text Progress Note Date: 11/29/18 Radha presents today for results of her right breast mammogram which were performed on 11/26/2018. This was felt to be stable and a 4 month bilateral mammogram was recommended. The patient will also have at that time repeat evaluation of the left breast for an area of fullness which was noted on clinical exam. This area was near prior lumpectomy and felt to be related to scar tissue. Impression: 1. Recent right breast mammogram recommended to have repeat bilateral mammogram in 4 months Plan: 1. Repeat bilateral mammogram in 4 months 2. Repeat examination of the breast in 4 months with attention to the area of fullness near lumpectomy scar in the left breast CC: Dr. Turner
== END | disposition home or self-care (01) ==
LOC: WWCWWP 11:54
PROVIDERS: ATTEND Surgery
DX: Z53.9 Procedure and treatment not carried out, unspecified reason (principal)

== ENCOUNTER → 2019-01-10 | Outpatient (CLI) | payer MEDICARE ==
--- NOTE | 2019-01-10 14:34 | CT ---
EXAMINATION TYPE: CT cervical spine wo con DATE OF EXAM: 01/10/2019 COMPARISON: MRI cervical spine dated 08/29/[address] dated 05/06/2018 HISTORY: Neck pain, hx of fusion CT DLP: 453.7 mGycm. Automated Exposure Control for Dose Reduction was Utilized. TECHNIQUE: CT scan of the cervical spine is obtained without contrast, axial images are obtained, sa gittal and coronal reformatted images are also reviewed. FINDINGS: There is interval decompression with removal of the posterior elements from C3-C6. There is anterior cervical fusion that was seen on the prior of 05/06/2018 of the C5-C7 vertebral bodies with occipital cerclage wires. There is straightening of usual cervical lordosis and very minimal anteroli sthesis of C2 on C3 and C3 on C4 as well as C4 on C5 (grade 1). Findings are unchanged from the prior . There is also mild anterolisthesis of C7 on T1 as seen on the prior. No new malalignment or acute f racture is seen of the cervical spine. At C3-C4 uncovertebral hypertrophy and facet arthropathy persists mildly narrowing the bilateral neur al foramen. At C4-C5 facet arthropathy mildly narrows the left neural foramen. At C5-C6 uncovertebral hypertrophy mildly narrows the bilateral neural foramen. At C6-C7 uncovertebral hypertrophy mildly n arrows the bilateral neural foramen. IMPRESSION: 1. Interval decompression of the posterior elements of C3-C6. Multilevel uncovertebral hypertrophy an d facet arthropathy creating variable degrees (minimal to mild) neural foraminal narrowing of the cer vical spine. 2. Straightening of the usual cervical lordosis may relate to muscular sprain/spasm or patient positi oning. 3. Persistent multilevel mild malalignment (anterolisthesis of grade 1) is unchanged from the prior. 4. No new compression deformity or new malalignment.
== END | disposition home or self-care (01) ==
LOC: RADCTMAIN 14:02
PROVIDERS: ATTEND Neurological Surgery
DX: M43.12 Spondylolisthesis, cervical region (principal); M46.82 Other specified inflammatory spondylopathies, cervical region; M54.12 Radiculopathy, cervical region; R51 Headache; Z98.1 Arthrodesis status
CPT/HCPCS: 72125

== ENCOUNTER → 2019-01-28 | Outpatient (CLI) | payer MEDICARE, OTHER ==
--- NOTE | 2019-01-28 16:01 | XR ---
EXAMINATION TYPE: XR cervical spine limited DATE OF EXAM: 01/28/2019 COMPARISON: NONE HISTORY: Pain TECHNIQUE: Four views are submitted. FINDINGS: Postsurgical changes are noted. There is anterior listhesis of C2 on C3 and C3 on C4 and C4 on C5 of approximately 2 mm similar to the previous CT scan of 01/10/2019. Hypertrophic spurring and degenerati ve disc disease noted. Extensive surgical change. Lung apices clear. Altered level facet arthropathy. Loss the normal cervical lordosis. IMPRESSION: 1. Postsurgical changes as discussed above.
--- NOTE | 2019-01-28 16:03 | XR ---
EXAM TYPE: LUMBAR SPINE X RAY SERIES COMPARISON: NONE HISTORY: Pain TECHNIQUE: 3 views are submitted. FINDINGS: Postsurgical changes are noted. There is anterior fusion and loss of the normal cervical lordosis at numerous levels. Severe degenerative disc disease involving the lower spine and thoracolumbar junctio n. Diffuse osteopenia which limits assessment. Stable slight anterolisthesis at the thoracal lumbar j unction compared to the prior CT scan of 07/21/2018. IMPRESSION: 1. Stable postsurgical changes and multilevel severe degenerative disc disease.
== END | disposition home or self-care (01) ==
LOC: RADXRMAIN 15:10
PROVIDERS: ATTEND Neurological Surgery
DX: M43.12 Spondylolisthesis, cervical region (principal); M50.30 Other cervical disc degeneration, unspecified cervical region; M46.92 Unspecified inflammatory spondylopathy, cervical region; M51.36 Other intervertebral disc degeneration, lumbar region; Z98.1 Arthrodesis status
CPT/HCPCS: 72040; 72100

== ENCOUNTER 2019-02-03 21:39 | Emergency (ER) | payer MEDICARE, OTHER ==
--- NOTE | 2019-02-03 23:26 | ED ---
Fall HPI - General Chief Complaint: Fall Stated Complaint: Fall, hip & knee pain Time Seen by Provider: 02/03/19 22:23 Source: patient, RN notes reviewed, old records reviewed Mode of arrival: ambulatory - History of Present Illness Initial Comments: This is a 70-year-old female the ER status post trip and fall, patient's 4 days of fall with increased pain. Pain is left hip left knee, denies hitting head. Occasional neck pain though. No loss of consciousness noted. Patient is having increasing pain despite mild analgesics. Patient is able to ambulate denies any neurological complaint. 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, by family Place Fall Occurred: home Loss of Consciousness: none Prolonged Down Time?: no Symptoms Prior to Fall: none Location - Extremities: Left: Thigh, Knee, Leg Severity: moderate Severity scale (1-10): 2 Quality: aching Context: tripped/slipped Associated Symptoms: denies - Related Data Home Medications Medication Instructions Recorded Confirmed Aspirin 81 mg PO DAILY 08/13/14 11/29/18 Gabapentin 300 mg PO DAILY 08/13/14 11/29/18 Gemfibrozil [Lopid] 600 mg PO AC-BID 08/13/14 11/29/18 Hydrochlorothiazide 12.5 mg PO QAM 08/13/14 11/29/18 Losartan [Cozaar] 50 mg PO QAM 08/13/14 11/29/18 Meloxicam 15 mg PO DAILY 08/13/14 11/01/18 HYDROcodone/APAP 5-325MG [[place] 5] 1 - 2 tab PO Q6H PRN 03/13/16 11/29/18 Ascorbic Acid [Vitamin C] 500 mg PO DAILY 06/13/16 11/29/18 Calcium Carbonate [Calcium] 300 mg PO DAILY 06/13/16 11/29/18 Cholecalciferol [Vitamin D3] 2,000 unit PO DAILY 06/13/16 11/29/18 Multivitamins, Thera [Multivitamin] 1 tab PO DAILY 06/13/16 11/29/18 Oxybutynin Chloride 5 mg PO DAILY 11/26/17 11/29/18 tiZANidine [Zanaflex] 4 mg PO Q8HR 11/26/17 11/29/18 Dulaglutide [Trulicity] 0.75 mg SQ TU 01/15/18 11/29/18 Cetirizine HCl [Zyrtec] 10 mg PO DAILY 07/19/18 11/29/18 Allergies Allergy/AdvReac Type Severity Reaction Status Date / Time midazolam HCl [From Versed] Allergy Rash/Hives Verified 02/03/19 22:04 pentazocine lactate AdvReac Nausea & Verified 02/03/19 22:04 [From Oscar] Vomiting Review of Systems ROS Statement: Those systems with pertinent positive or pertinent negative responses have been documented in the HPI. ROS Other: All systems not noted in ROS Statement are negative. Past Medical History Past Medical History: Asthma, Diabetes Mellitus, Hyperlipidemia, Hypertension Additional Past Medical History / Comment(s): "leaky heart valve". back pain. staph/strep infection post op incision History of Any Multi-Drug Resistant Organisms: MRSA Date of last positivie culture/infection: 2012 MDRO Source:: Stomach wound Past Surgical History: Back Surgery, Bladder Surgery, Breast Surgery, Hernia Repair, Hysterectomy, Joint Replacement, Orthopedic Surgery, Tubal Ligation Additional Past Surgical History / Comment(s): pain stimulator implant-LT HIP. BILAT TKA. neck fusion and plate in left side of neck. REVERSE LT SHOULDER SX. COLONOScopy. Pain stimulator removed 07/06. Back surgery in Sep 2018 Past Anesthesia/Blood Transfusion Reactions: No Reported Reaction Past Psychological History: No Psychological Hx Reported Smoking Status: Former smoker Past Alcohol Use History: None Reported Past Drug Use History: None Reported - Past Family History Mother Family Medical History: Cancer Additional Family Medical History / Comment(s): metastatic cancer Sister(s) Family Medical History: Cancer Additional Family Medical History / Comment(s): two sisters dx with ovarian cancer. one sister with lung cancer Brother(s) Family Medical History: Cancer Additional Family Medical History / Comment(s): one brother had lung cancer. half-brother had prostate cancer. maternal grandfather prostate cancer General Exam Limitations: no limitations General appearance: alert, in no apparent distress Head exam: Present: atraumatic, normocephalic, normal inspection Eye exam: Present: normal appearance, PERRL, EOMI. Absent: scleral icterus, conjunctival injection, periorbital swelling ENT exam: Present: normal exam, mucous membranes moist Neck exam: Present: normal inspection. Absent: tenderness, meningismus, lymphadenopathy Respiratory exam: Present: normal lung sounds bilaterally. Absent: respiratory distress, wheezes, rales, rhonchi, stridor Cardiovascular Exam: Present: regular rate, normal rhythm, normal heart sounds. Absent: systolic murmur, diastolic murmur, rubs, gallop, clicks GI/Abdominal exam: Present: soft, normal bowel sounds. Absent: distended, tenderness, guarding, rebound, rigid Extremities exam: Present: normal inspection, full ROM, normal capillary refill. Absent: tenderness, pedal edema, joint swelling, calf tenderness Back exam: Present: normal inspection Neurological exam: Present: alert, oriented X3, CN II-XII intact Psychiatric exam: Present: normal affect, normal mood Skin exam: Present: warm, dry, intact, normal color. Absent: rash Course Vital Signs 02/03/19 02/04/19 22:00 02:07 Temperature 98.3 F 97 F L Pulse Rate 78 80 Respiratory 20 18 Rate Blood Pressure 115/50 154/74 O2 Sat by Pulse 98 97 Oximetry Medical Decision Making - Medical Decision Making 70 female the ER status post fall. Supple fall with knee and hip pain. X-rays and CT scans are negative at this time. Patient can be discharged home - Radiology Data Radiology results: report reviewed (DT brain C-spine negative for acute disease, x-ray hip and left knee negative for acute disease), image reviewed Disposition Clinical Impression: Fall Disposition: HOME SELF-CARE Condition: Good Instructions (If sedation given, give patient instructions): Fall Prevention for Older Adults (ED) Is patient prescribed a controlled substance at d/c from ED?: No Referrals: Pankaj Turner MD [Primary Care Provider] - 1-2 days
--- NOTE | 2019-02-04 00:48 | XR ---
EXAM: XR Left Femur, 2 Views CLINICAL HISTORY: ITS.REASON XR Reason: Pain TECHNIQUE: Frontal and lateral views of the left femur. COMPARISON: No relevant prior studies available. FINDINGS: Bones/joints: Left revision total knee replacement. Left sacroiliac screws and partially visualized hardware in the lower lumbosacral spine. No acute fracture. No dislocation. Soft tissues: Unremarkable. IMPRESSION: 1. No evidence of acute fracture or dislocation. 2. Left revision total knee replacement.
--- NOTE | 2019-02-04 00:53 | XR ---
EXAM: XR Left Knee, 3 views CLINICAL HISTORY: ITS.REASON XR Reason: Pain.Pain in left leg after slip and fall. TECHNIQUE: Three views of the left knee. COMPARISON: X-ray left femur today. FINDINGS: Bones/joints: Left revision total knee prosthesis. Small patellar enthesophyte. No acute fracture. No dislocation. Soft tissues: Unremarkable. IMPRESSION: 1. No evidence of acute fracture or dislocation. 2. Left revision total knee prosthesis.
--- NOTE | 2019-02-04 01:54 | CT ---
EXAM: CT Head Without Intravenous Contrast CLINICAL HISTORY: ITS.REASON CT Reason: Pain TECHNIQUE: Axial computed tomography images of the head/brain without intravenous contrast. CTDI is 45.2 mGy and DLP is 1084 mGy-cm. This CT exam was performed using one or more of the following dose reduction techniques: automated exposure control, adjustment of the mA and/or kV according to patient size, and/or use of iterative reconstruction technique. COMPARISON: 01/15/18 FINDINGS: Brain: Mild prominence of the ventricles and sulci consistent with mild volume loss. Mild periventricular white matter low-density likely reflects mild small vessel disease. No hemorrhage. Ventricles: Unremarkable. No ventriculomegaly. Bones/joints: Postsurgical changes posterior occipital bone/upper cervical spine as on prior. No acute fracture. Soft tissues: Unremarkable. Sinuses: Unremarkable as visualized. No acute sinusitis. Mastoid air cells: Unremarkable as visualized. No mastoid effusion. IMPRESSION: 1. No evidence of acute intracranial abnormality or skull fracture. 2. Stable volume loss, small vessel disease. 3. Stable postsurgical changes posterior occipital bone/upper cervical spine. EXAM: CT Cervical Spine Without Intravenous Contrast CLINICAL HISTORY: ITS.REASON CT Reason: Pain TECHNIQUE: Axial computed tomography images of the cervical spine without intravenous contrast. CTDI is 15.3 mGy and DLP is 436.6 mGy-cm. This CT exam was performed using one or more of the following dose reduction techniques: automated exposure control, adjustment of the mA and/or kV according to patient size, and/or use of iterative reconstruction technique. COMPARISON: 01/15/18 FINDINGS: Vertebrae: No evidence of acute fracture or malalignment. Stable anterior fusion hardware from C5-C7. Stable posterior occipital bone-C2 posterior fusion. New posterior fusion hardware from C3-C7 and laminectomies from C3-C6. On the right side, pedicle screw at upper C3 level extends into the right C2-3 facet joint with lucency around it. Small round metallic structure at the C5 laminectomy site posteriorly. Fluid/soft tissue density at the laminectomy sites. May reflect postop change/other fluid collection. No acute fracture. Discs/spinal canal/neural foramina: See above. No obvious spinal canal stenosis. Other bones/joints: On the want ad receiver image, bilateral shoulder prosthesis, as on prior. Soft tissues: See above. No prevertebral soft tissue swelling IMPRESSION: 1.No evidence of acute fracture or malalignment. 2. Stable C5-C7 anterior fusion. 3. Stable occipital bone-C2 posterior fusion. 4. New posterior fusion hardware from C3-C7 and laminectomies from C3-C6. On the right side, pedicle screw at upper C3 level extends into the right C2-3 facet joint with lucency around it. Correlate with priors if available. Differential diagnosis includes loosening or infection. Fluid/soft tissue density at the laminectomy sites. May reflect postop change/other fluid collection.
[2019-02-04 02:08] VITALS: BP 154/74; PULSE 80; RESP 18; TEMP 97
--- NOTE | 2019-02-05 02:02 | CDI ---
Documentation Clarification OP Dear Matt FORRESTER, DO Please do addendum to ED report for missing HPI and Physical examination. Thank you, Oni Cheng Sales Exec If you have any questions, please contact Coffee Machine Technician at [phone] [facility]
== END 2019-02-04 02:08 | disposition home or self-care (01) ==
LOC: EC 21:39
DX: M25.552 Pain in left hip (principal); M25.562 Pain in left knee; M54.2 Cervicalgia; M79.652 Pain in left thigh; E11.9 Type 2 diabetes mellitus without complications; E78.5 Hyperlipidemia, unspecified; I10 Essential (primary) hypertension; Z86.14 Personal history of Methicillin resistant Staphylococcus aureus infection; Z96.653 Presence of artificial knee joint, bilateral; Z87.891 Personal history of nicotine dependence; Z79.82 Long term (current) use of aspirin; Z79.1 Long term (current) use of non-steroidal anti-inflammatories (NSAID); Z79.84 Long term (current) use of oral hypoglycemic drugs; Z79.899 Other long term (current) drug therapy; Z88.4 Allergy status to anesthetic agent; Z88.5 Allergy status to narcotic agent; W18.09XA Striking against other object with subsequent fall, initial encounter; Y92.009 Unspecified place in unspecified non-institutional (private) residence as the place of occurrence of the external cause
CPT/HCPCS: 70450; 72125; 99284

== ENCOUNTER → 2019-02-13 | Outpatient (CLI) | payer MEDICARE, OTHER ==
[2019-02-14 01:38] LABS: Anion Gap 15.3 mmol/L (4.00-12.00); Calcium 9.2 mg/dL (8.7-10.3); Carbon Dioxide 24.7 mmol/L (21.6-31.8); Potassium 4.7 mmol/L (3.5-5.5)
== END | disposition home or self-care (01) ==
LOC: LABWHC1 15:48
PROVIDERS: ATTEND Nurse Practitioner Adult Health
DX: I10 Essential (primary) hypertension (principal)
CPT/HCPCS: 36415; 80048

== ENCOUNTER → 2019-03-26 | Outpatient (CLI) | payer MEDICARE, OTHER ==
[2019-03-26 20:00] LABS: Anion Gap 8.2 mmol/L (4.00-12.00); Calcium 9.2 mg/dL (8.7-10.3); Carbon Dioxide 27.8 mmol/L (21.6-31.8); Potassium 5.1 mmol/L (3.5-5.5)
== END | disposition home or self-care (01) ==
LOC: LABWHC1 13:17
PROVIDERS: ATTEND Nurse Practitioner Adult Health
DX: I10 Essential (primary) hypertension (principal)
CPT/HCPCS: 36415; 80048

== ENCOUNTER → 2019-04-02 | Outpatient (CLI) | payer MEDICARE, OTHER ==
--- NOTE | 2019-04-03 09:01 | MM ---
Reason for exam: additional evaluation requested from prior study. Last mammogram was performed 4 months ago. History: Patient is postmenopausal. Family history of breast cancer in daughter at age 53. Benign US biopsy breast VAD LT of the left breast, February 05, 2018. Benign US biopsy breast VAD LT of the left breast, December 06, 2016. Benign US biopsy breast VAD LT of the left breast, July 16, 2014. Benign US biopsy breast add'l VAD LT of the left breast, July 16, 2014. Benign US LT VAD breast biopsy of the left breast, February 16, 2014. Left Breast Aspiration, August 2013. Benign u/S left breast localization of the left breast, December 20, 2011. Cyst aspiration of the left breast, 2003. Excisional biopsy of the right breast, 2003. Excisional biopsy of the left breast. Took hormonal contraceptives for 4 years. Took estrogen for 25 years beginning at age 30. Physical Findings: Nurse Summary: 2cm nodule in the left breast at 11 o'clock (nurse kp). MG 3D Diag Mammo W/Cad CHIQUITA Bilateral CC and MLO view(s) were taken. Prior study comparison: November 26, 2018, right breast MG 3d diag mammo w/cad RT. September 24, 2018, left breast MG 3d diag mammo w/cad LT. February 05, 2018, left breast MG diagnostic mammo LT wo CAD. The breast tissue is heterogeneously dense. This may lower the sensitivity of mammography. Benign appearing bilateral calcifications. Multiple left biopsy markers. Post biopsy change bilaterally. These results were verbally communicated with the patient and result sheet given to the patient on 04/02/19. ASSESSMENT: Incomplete: need additional imaging evaluation, BI-RAD 0 RECOMMENDATION: Ultrasound of the left breast. (palpable)
--- NOTE | 2019-04-03 09:02 | USB ---
Reason for exam: additional evaluation requested from abnormal screening. History: Patient is postmenopausal. Family history of breast cancer in daughter at age 53. Benign US biopsy breast VAD LT of the left breast, February 05, 2018. Benign US biopsy breast VAD LT of the left breast, December 06, 2016. Benign US biopsy breast VAD LT of the left breast, July 16, 2014. Benign US biopsy breast add'l VAD LT of the left breast, July 16, 2014. Benign US LT VAD breast biopsy of the left breast, February 16, 2014. Left Breast Aspiration, August 2013. Benign u/S left breast localization of the left breast, December 20, 2011. Cyst aspiration of the left breast, 2003. Excisional biopsy of the right breast, 2003. Excisional biopsy of the left breast. Took hormonal contraceptives for 4 years. Took estrogen for 25 years beginning at age 30. US Breast Limited LT Left limited breast ultrasound including focal area of concern, retroareolar and axilla demonstrates palpable, possible scar tissue at 12 o'clock. Multiple clustered similar appearing masses as the ultrasound of 2016 biopsy proven amyloidosis. These results were verbally communicated with the patient and result sheet given to the patient on 04/02/19. ASSESSMENT: Benign, BI-RAD 2 RECOMMENDATION: Routine screening mammogram of both breasts in 1 year.
== END | disposition home or self-care (01) ==
LOC: RADMAMWWP 12:58
PROVIDERS: ATTEND Surgery
DX: R92.8 Other abnormal and inconclusive findings on diagnostic imaging of breast (principal)
CPT/HCPCS: 77066; 76642; G0279; 77062

== ENCOUNTER → 2019-04-11 | Outpatient (CLI) | payer MEDICARE, OTHER ==
[2019-04-11 14:11] VITALS: BP 174/76; PULSE 83; RESP 18; TEMP 97.8; BMI 33.0
--- NOTE | 2019-04-11 14:58 | P.PN ---
Subjective Progress Note Date: 04/11/19 Patient is a 79-year-old white female who had a bilateral mammogram on . The patient was noted to have benign-appearing bilateral calcifications. Multiple left biopsy markers. The patient was recommended to undergo an ultrasound of the left breast as the nurse have felt a palpable change in the left breast at 11:00. The ultrasound was performed on the same date and noted multiple clustered similar-appearing masses as the ultrasound of 2016 which had been biopsy proven amyloidosis. The feeling was that this was benign BIRADS 2 and routine screening of both breasts in 1 year was recommended. The patient does not feel any masses or nodules in her breasts for which she is concerned. The nurse at her mammogram did note a 2 cm area of nodularity at the 11 o'clock position of the left breast. The patient states she does intermittently have some soreness in the lateral aspect of her left breast. Family history: Daughter: Breast cancer Paternal niece: Breast cancer diagnosed premenopausal Second paternal niece: Breast cancer premenopausal 2 sisters: Ovarian cancer but from this Mother: Carcinomatosis uncertain of the etiology Paternal grandfather: Prostate cancer Paternal half-brother: Prostate cancer Past surgical history: 1. Back surgery 2. Prior surgery 3. Breast biopsies 4. Hernia surgery 5. Hysterectomy 6. Tubal ligation 7. Joint replacement 8. Orthopedic surgery 9. Pain stimulator placed and removed Plan 1. Bilateral total knee surgery 11. Left shoulder surgery 12. Neck exploration for parathyroid surgery 13. Neck fusion Medical history: 1. Diabetes 2. Asthma 3. Hypertension 4. Leaking heart valve 5. Hyperlipidemia 6. Amyloidosis Social history: Smoke: Negative Alcohol: Negative Drugs: Negative Review of systems: HEENT: Decreased hearing Constitutional: No fever or night sweats Lungs: Asthma Cardiovascular: Leaking valve GI: Negative negative negative Integument: Negative Musculoskeletal: Amyloidosis, arthritis Psychiatric: Negative ALLERGIES: matty Harrison Objective - Vital Signs Vital signs: Vital Signs Temp 97.8 F 04/11/19 14:06 Pulse 83 04/11/19 14:06 Resp 18 04/11/19 14:06 BP 174/76 04/11/19 14:06 Pulse Ox 95 04/11/19 14:06 - Constitutional General appearance: Present: obese - EENT Eyes: Present: EOMI ENT: Present: hard of hearing - Neck Details: decreased ROM - Respiratory Respiratory: bilateral: diminished (at bases) - Cardiovascular Rhythm: regular Heart sounds: normal: S1, S2 - Gastrointestinal General gastrointestinal: Present: soft - Integumentary Integumentary: Present: normal turgor - Musculoskeletal Musculoskeletal Comment(s): uses a cane - Psychiatric Psychiatric: Present: A&O x's 3, appropriate affect, intact judgment & insight - Additional findings Additional findings: Breast examination: Right breast: Multi-positional exam no dominant masses or nodules of concern Right axilla: No adenopathy of concern Left breast: Well-healed scar from prior surgery, no discrete dominant mass or nodule is appreciated although the changes related to prior biopsy and scarring Left axilla: No adenopathy of concern Assessment and Plan Assessment: Impression: 1. Fibrocystic breast changes 2. Amyloidosis 3. Leaking heart valve 4. Lung disease/asthma 5. Arthritis with multiple orthopedic procedures 6. Radiographic changes in the breast believed to be related to prior biopsies and amyloidosis 7. Nothing which would warrant interventional biopsy of the breast at this time Plan: 1. Repeat bilateral mammogram in 1 year 2. Medical management of medical conditions 3. Follow-up physical exam in 6 months here CC: Dr. Turner
== END ==
LOC: WWCWWP 14:00
PROVIDERS: ATTEND Surgery
DX: Z53.9 Procedure and treatment not carried out, unspecified reason (principal)

== ENCOUNTER → 2019-08-07 | Outpatient (CLI) | payer MEDICARE, OTHER ==
--- NOTE | 2019-08-07 15:43 | CT ---
EXAMINATION TYPE: CT lumbar spine wo con DATE OF EXAM: 08/07/2019 COMPARISON: 07/21/2018 HISTORY: 79-year-old female Lower back hardware removal. Arthrodesis status, spinal stenosis of lumbo sacral region. TECHNIQUE: Contiguous axial scanning of the lumbar spine without IV contrast. Coronal and sagittal re constructions performed. CT DLP: 766.7 mGycm Automated exposure control for dose reduction was used. FINDINGS: Visualized abdomen shows calcific granulomas in the spleen and liver, multiple gallstones measuring u p to 1 cm. There is prior percutaneous pinning across the bilateral SI joints. As compared to 07/21/2018, there has been removal of the L4-S1 posterior fusion hardware. Laminectomies from L3 through S1 levels. There is satisfactory interbody and lateral osseous fusion from L2 to S1 levels. At L5-S1, interbody fusion utilizing is a large vertical fixation screw. Reversal of the normal lumbar lordosis along the fused levels. Advanced degenerative disc disease above the fusion and within the visualized lower thoracic spine. Hypertrophic facet arthropathy is also present. Progressive grade 1 anterolisthesis above the fusion at L1-L2. Similar grade 1 anterolisthesis T12-L1 . There is corresponding diffuse disc bulge and ligamentum flavum thickening from T11-L2 levels causi ng at least mild spinal canal stenoses. On the left, changes result in moderate neural foraminal stenoses at T12-L1 and moderate to severe at L1-L2. Chronic moderate bony neuroforaminal narrowing at L4-L5 and L5-S1. On the right, changes result in moderate to severe neuroforaminal stenoses at T12-L1 and moderate at T11-T12 and L1-L2. Chronic mild bony neuroforaminal narrowing at L4-L5 and severe L5-S1. IMPRESSION: 1. INTERBODY ANKYLOSIS FROM L2 THROUGH S1 LEVELS. AT L5-S1, THIS IS UTILIZING A LARGE VERTICAL FIXATI ON SCREW. 2. SATISFACTORY LATERAL OSSEOUS FUSION L2-S1. LAMINECTOMIES FROM L3-S1 LEVELS. 3. FIXED REVERSAL OF THE NORMAL LUMBAR LORDOSIS ALONG THE FUSED LEVELS. 4. ADVANCED DISC SESSION. DEGENERATIVE CHANGE AND HYPERTROPHIC FACET ARTHROPATHY ABOVE THE FUSION WIT H AT LEAST MILD SPINAL CANAL STENOSES SECONDARY TO DISC BULGING AND LIGAMENTUM FLAVUM THICKENING. 5. PROGRESSIVE GRADE 1 ANTEROLISTHESIS ABOVE THE FUSION AT L1-L2 AND SIMILAR GRADE 1 ANTEROLISTHESIS AT T12-L1. 6. VARIABLE NEUROFORAMINAL STENOSES OUTLINED ABOVE.
--- NOTE | 2019-08-07 16:18 | MR ---
MRI CERVICAL SPINE: CLINICAL HISTORY: Spinal stenosis per order. Headache and neck pain for over 20 years per patient wit h history of prior surgery 20 years ago. TECHNIQUE: Multiplanar, multisequence imaging of the cervical spine is performed without IV contrast. COMPARISON: Prior MRI cervical spine August 29, 2018 FINDINGS: Sagittal images of the cervical spine show the craniocervical junction to remain within nor mal limits. The cervical and upper thoracic spinal cord is normal in caliber and signal. Vertebral alignment is stable and straightened. There is redemonstration of artifact from anterior fusion hardw are C4-C5 disc space level running to the mid C6 vertebral body level. Vertebral body heights are sat isfactory above and below surgical levels. There is slight grade 1 anterolisthesis C6 on C7. There is mild multilevel disc space narrowing below C6 level. The bone marrow signal intensity is within norm al limits above and below surgical levels. Moderate multilevel anterior spurring is seen. Axial images at C2-C3 level shows right paracentral disc protrusion effacing at the lateral thecal sa c with uncovertebral facet degenerative changes causing mild to moderate right-sided neural foraminal narrowing and new mild left-sided neural foraminal narrowing. The disc herniation less prominent fro m prior. Axial images at C3-C4 level show artifact from posterior fusion hardware C2-C3 level. There is lobula prasanna posterior disc protrusion effacing the anterior thecal sac and causing moderate left greater than right bilateral neural foraminal narrowing. Degree of neural foraminal narrowing is improved from pr ior. Axial images at C4-C5 levels artifact from posterior fusion hardware. There is artifact from anterior fusion hardware. This levels suboptimally evaluated due to this artifact. Axial images at C5-C6 levels artifact from anterior fusion hardware, there is mild to moderate left-s ided neural foraminal narrowings are present due to marginal spurring. Axial images at C6-C7 level show artifact from fusion hardware with suspected moderate bilateral neur al foraminal narrowing at image 22. Axial images at C7-T1 levels artifact from anterior fusion hardware otherwise is thought within ivy l limits. IMPRESSION: Redemonstration of extensive surgical change with stable alignment. Degenerative changes upper cervical spine appear less prominent from prior study. No new or worsening degenerative change clearly seen. Suboptimal evaluation of mid cervical levels noted.
== END ==
LOC: RADCTMAIN 14:40
PROVIDERS: ATTEND Neurological Surgery
DX: M47.812 Spondylosis without myelopathy or radiculopathy, cervical region (principal); M48.061 Spinal stenosis, lumbar region without neurogenic claudication; M43.16 Spondylolisthesis, lumbar region; M51.26 Other intervertebral disc displacement, lumbar region; M47.816 Spondylosis without myelopathy or radiculopathy, lumbar region; M46.96 Unspecified inflammatory spondylopathy, lumbar region; M40.46 Postural lordosis, lumbar region; M24.28 Disorder of ligament, vertebrae; M43.27 Fusion of spine, lumbosacral region; M89.8X8 Other specified disorders of bone, other site; Z98.1 Arthrodesis status; Z98.890 Other specified postprocedural states
CPT/HCPCS: 72131; 72141

== ENCOUNTER → 2019-10-10 | Outpatient (CLI) | payer MEDICARE, OTHER ==
[2019-10-10 13:07] VITALS: BP 105/63; PULSE 58; RESP 18; TEMP 97.4; BMI 29.9
--- NOTE | 2019-10-10 13:15 | P.PN ---
Subjective Progress Note Date: 10/10/19 Principal diagnosis: Surveillance for nodularity at the 11 o'clock position of the left breast noted by a nurse at last visit lumpy Breast with amyloidosis Patient is a 79-year-old white female who had a bilateral mammogram on . The patient was noted to have benign-appearing bilateral calcifications. Multiple left biopsy markers. The patient was recommended to undergo an ultrasound of the left breast as the nurse have felt a palpable change in the left breast at 11:00. The ultrasound was performed on the same date and noted multiple clustered similar-appearing masses as the ultrasound of 2016 which had been biopsy proven amyloidosis. The feeling was that this was benign BIRADS 2 and routine screening of both breasts in 1 year was recommended. The nurse at her mammogram did note a 2 cm area of nodularity at the 11 o'clock position of the left breast. The patient states that at this time she intermittently she still feels some fullness in her left breast at the 12 o'clock position. She has no pain in her breasts. It was difficult for her to examine her breast secondary to her history of amyloidosis with multiple lumpy nodules noted in the past. In the past biopsies have been consistent with amyloid disease. She has not had any recent trauma or infection in her breast. Secondary to her difficult to examine breast, and her history of amyloid with breast lumps in the past she is here for a 6 month surveillance examination. A second drinks half and half coffee 1 cup, she does not smoke and is exposed to secondhand smoke. She lives in a trailer in her grandson who lives with her is a smoker. She eats only small amounts of chocolate. Family history: Daughter: Breast cancer Paternal niece: Breast cancer diagnosed premenopausal Second paternal niece: Breast cancer premenopausal 2 sisters: Ovarian cancer but from this Mother: Carcinomatosis uncertain of the etiology Paternal grandfather: Prostate cancer Paternal half-brother: Prostate cancer Past surgical history: 1. Back surgery 2. Prior surgery 3. Breast biopsies 4. Hernia surgery 5. Hysterectomy 6. Tubal ligation 7. Joint replacement 8. Orthopedic surgery 9. Pain stimulator placed and removed 10. bilateral total knee replacement 11. Left shoulder surgery 12. Neck exploration for parathyroid surgery 13. Neck fusion Medical history: 1. Diabetes 2. Asthma 3. Hypertension 4. Leaking heart valve 5. Hyperlipidemia 6. Amyloidosis Social history: Smoke: Negative Alcohol: Negative Drugs: Negative Review of systems: HEENT: Decreased hearing Constitutional: No fever or night sweats Lungs: Asthma Cardiovascular: Leaking valve GI: Negative negative negative Integument: Negative Musculoskeletal: Amyloidosis, arthritis Psychiatric: Negative ALLERGIES: matty Harrison Objective - Vital Signs Vital signs: Intake & Output 10/09/19 10/10/19 10/10/19 18:59 06:59 18:59 Weight 69.4 kg - Exam BMI 29.9 - Constitutional General appearance: Present: average body habitus - EENT Eyes: Present: EOMI ENT: Present: hard of hearing - Neck Neck: Present: normal ROM - Respiratory Respiratory: bilateral: CTA - Cardiovascular Rhythm: regular Heart sounds: normal: S1, S2 - Gastrointestinal General gastrointestinal: Present: soft - Integumentary Integumentary: Present: normal turgor - Musculoskeletal Musculoskeletal Comment(s): gait uses a cane - Psychiatric Psychiatric: Present: A&O x's 3, appropriate affect, intact judgment & insight - Additional findings Additional findings: Breast examination: Right breast: Multiple positional exam fibrocystic changes, scar from previous biopsy no masses or nodules of concern Right axilla: No adenopathy of concern Left breast: Multi-positional exam fibrocystic changes, scar from previous biopsy no dominant masses or nodules of concern Left axilla: No adenopathy of concern Assessment and Plan Assessment: Impression: 1. Nodular breasts bilaterally 2. Scars and breast bilaterally 3. Changes related to ambulating breast bilaterally 4. Fibrocystic breast changes 5. Last bilateral mammogram March 2019 with an ultrasound done near that time as well: We will have repeat mammogram and ultrasound in March 2020 6. Diabetes 7. Asthma 8. Hypertension 9. Leaking heart valve 10. Hyperlipidemia 11. Amyloidosis Plan: 1. Repeat bilateral mammogram in March 2020 with physician exam at that time 2. Patient to call if she notes anything of concern in her breast 3. Medical management of medical conditions Patient's breasts are extremely difficult to examine secondary to the multiple prior biopsies with scar tissue present as well as amyloidosis and fibrocystic changes. The patient has a strong history of breast cancer and is here for close surveillance. We have discussed avoidance of caffeine, nicotine via secondhand exposure, and theophylline. The patient is aware we'll try to modify her lifestyle to ac commodate this. CC:Dr. Turner
== END ==
LOC: WWCWWP 12:44
PROVIDERS: ATTEND Surgery
DX: Z53.9 Procedure and treatment not carried out, unspecified reason (principal)

== ENCOUNTER → 2019-11-26 | Outpatient (CLI) | payer MEDICARE, OTHER ==
[2019-11-26 12:43] LABS: Basophils # (A) 0.1 k/uL (0-0.2); Basophils % (A) 1 %; Eosinophils # (A) 0.2 k/uL (0-0.7); Eosinophils % (A) 3 %; HCT 37.1 % (34.0-46.0); HGB 11.8 gm/dL (11.4-16.0); Lymphocytes # (A) 1.6 k/uL (1.0-4.8); Lymphocytes % (A) 24 %; MCH 29.6 pg (25.0-35.0); MCHC 31.7 g/dL (31.0-37.0); MCV 93.3 fL (80.0-100.0); Mean Platelet Volume 7.6; Monocytes # (A) 0.4 k/uL (0-1.0); Monocytes % (A) 6 %; Neutrophils # (A) 4.3 k/uL (1.3-7.7); Neutrophils % (A) 64 %; Platelet Count 309 k/uL (150-450); RBC 3.98 m/uL (3.80-5.40); RDW 13.2 % (11.5-15.5); WBC 6.7 k/uL (3.8-10.6)
[2019-11-26 16:35] LABS: African American GFR (CKD) 70.5 (60.0-200.0); Albumin 4.9 g/dL (3.80-4.90); Albumin/Globulin Ratio 2.33 (1.60-3.17); Anion Gap 8.1 mmol/L (4.00-12.00); BUN/Creat Ratio 33.33 Ratio (12.00-20.00); Calcium 9.6 mg/dL (8.7-10.3); Carbon Dioxide 25.9 mmol/L (21.6-31.8); Chol/HDL Ratio 3.75; Globulin 2.1 g/dL (1.6-3.3); Non-African American GFR(CKD) 60.8 (60.0-200.0); Total Bilirubin 0.3 mg/dL (0.3-1.2)
[2019-11-26 16:54] LABS: T4, Free (Free Thyroxine) 0.9 ng/dL (0.80-1.80)
[2019-11-26 19:16] LABS: Hemoglobin A1C 6.9 % (4.0-6.0)
[2019-11-27 05:31] LABS: Urine Creatinine 52.4 mg/dL
== END | disposition home or self-care (01) ==
LOC: LABWHC1 11:53
PROVIDERS: ATTEND Internal Medicine
DX: Z00.00 Encounter for general adult medical examination without abnormal findings (principal); E78.5 Hyperlipidemia, unspecified; I10 Essential (primary) hypertension; E11.9 Type 2 diabetes mellitus without complications
CPT/HCPCS: 36415; 80053; 80061; 82043; 82570; 83036; 84439; 84443; 85025

== ENCOUNTER → 2020-03-31 | Outpatient (CLI) | payer MEDICARE, OTHER ==
--- NOTE | 2020-04-02 08:54 | MM ---
Reason for exam: additional evaluation requested from prior study. Last mammogram was performed 1 year ago. History: Patient is postmenopausal and has history of other cancer at age 79. Family history of breast cancer in daughter at age 53. Benign US biopsy breast VAD LT of the left breast, February 05, 2018. Benign US biopsy breast VAD LT of the left breast, December 06, 2016. Benign US biopsy breast VAD LT of the left breast, July 16, 2014. Benign US biopsy breast add'l VAD LT of the left breast, July 16, 2014. Benign US LT VAD breast biopsy of the left breast, February 16, 2014. Left Breast Aspiration, August 2013. Benign u/S left breast localization of the left breast, December 20, 2011. Cyst aspiration of the left breast, 2003. Excisional biopsy of the right breast, 2003. Excisional biopsy of the left breast. Took hormonal contraceptives for 4 years. Took estrogen for 25 years beginning at age 30. Physical Findings: Nurse Summary: 0.5 x 1cm nodule in the left breast at 12 o'clock (nurse ts). MG 3D Diag Mammo W/Cad CHIQUITA Bilateral CC and MLO view(s) were taken. Prior study comparison: April 02, 2019, bilateral MG 3d diag mammo w/cad CHIQUITA. November 26, 2018, right breast MG 3d diag mammo w/cad RT. The breast tissue is heterogeneously dense. This may lower the sensitivity of mammography. Finding #1: Architectural distortion in the upper outer quadrant of the left breast. Finding #2: There are typically benign calcifications in both breasts. Previous mammotome biopsy in the left breast. There is a stable 1cm left upper outer quadrant nodule disperses post compression. These results were verbally communicated with the patient and result sheet given to the patient on 03/31/20. ASSESSMENT: Incomplete: need additional imaging evaluation, BI-RAD 0 RECOMMENDATION: Ultrasound of the left breast.
--- NOTE | 2020-04-02 08:58 | USB ---
Reason for exam: additional evaluation requested from abnormal screening. History: Patient is postmenopausal and has history of other cancer at age 79. Family history of breast cancer in daughter at age 53. Benign US biopsy breast VAD LT of the left breast, February 05, 2018. Benign US biopsy breast VAD LT of the left breast, December 06, 2016. Benign US biopsy breast VAD LT of the left breast, July 16, 2014. Benign US biopsy breast add'l VAD LT of the left breast, July 16, 2014. Benign US LT VAD breast biopsy of the left breast, February 16, 2014. Left Breast Aspiration, August 2013. Benign u/S left breast localization of the left breast, December 20, 2011. Cyst aspiration of the left breast, 2003. Excisional biopsy of the right breast, 2003. Excisional biopsy of the left breast. Took hormonal contraceptives for 4 years. Took estrogen for 25 years beginning at age 30. US Breast Limited LT Left limited breast ultrasound including focal area of concern, retroareolar and axilla demonstrates a possible scar at 12 o'clock, stable focal area probable scar unchanged from prior. These results were verbally communicated with the patient and result sheet given to the patient on 03/31/20. ASSESSMENT: Benign, BI-RAD 2 RECOMMENDATION: Follow-up diagnostic mammogram of the left breast in 6 months.
== END | disposition home or self-care (01) ==
LOC: RADMAMWWP 10:53
PROVIDERS: ATTEND Surgery
DX: R92.8 Other abnormal and inconclusive findings on diagnostic imaging of breast (principal)
CPT/HCPCS: 77066; 76642; G0279; 77062

== ENCOUNTER → 2020-04-08 | Outpatient (CLI) | payer MEDICARE, OTHER ==
[2020-04-08 13:02] VITALS: BP 133/68; PULSE 50; RESP 20
--- NOTE | 2020-04-08 13:48 | P.PN ---
Subjective Progress Note Date: 04/08/20 Principal diagnosis: fibrocystic breast disease Radha is a 79-year-old white female who has intermittently had some fullness in her left breast at the 12 o'clock position. She has a diagnosis of amyloidosis and has had multiple nodularity in the breast in the past. Past biopsies were consistent with amyloid disease. The nodularity in the breast has not changed. She has intermittent discomfort at the area of nodularity. She had a bilateral mammogram performed on . This revealed heterogeneously dense breast tissue. There was architectural distortion in the upper outer quadrant of the left breast There were typical benign calcifications in both breasts previous mammotome biopsy of the left breast is stable 1 cm left upper quadrant nodule which dispersed on compression. Ultrasound of the left breast was recommended. Ultrasound of the left breast reveals stable focal area at 12:00 unchanged from prior study benign BIRADS 2. Repeat left breast mammogram and ultrasound in 6 months. She also had additional views of the right breast performed which showed some nodularity which compressed out. This was reviewed by Dr. Doss from radiology. She has had recent diagnosis of skin cancer on her nose. She is using salve which is making it worse. Family history: Daughter: Breast cancer Paternal niece: Breast cancer diagnosed premenopausal Second paternal niece: Breast cancer premenopausal 2 sisters: Ovarian cancer but from this Mother: Carcinomatosis uncertain of the etiology, mother skin cancer on her arm Paternal grandfather: Prostate cancer Paternal half-brother: Prostate cancer Past surgical history: 1. Back surgery 2. Prior surgery 3. Breast biopsies 4. Hernia surgery 5. Hysterectomy 6. Tubal ligation 7. Joint replacement 8. Orthopedic surgery 9. Pain stimulator placed and removed 10. bilateral total knee replacement 11. Left shoulder surgery 12. Neck exploration for parathyroid surgery 13. Neck fusion Medical history: 1. Diabetes 2. Asthma 3. Hypertension 4. Leaking heart valve 5. Hyperlipidemia 6. Amyloidosis Social history: Smoke: Negative Alcohol: Negative Drugs: Negative Review of systems: HEENT: Decreased hearing Constitutional: No fever or night sweats Lungs: Asthma Cardiovascular: Leaking valve GI: Negative negative negative Integument: skin cancer on nose Musculoskeletal: Amyloidosis, arthritis Psychiatric: Negative ALLERGIES: matty Harrison Objective - Vital Signs Vital signs: Vital Signs Temp Pulse 50 L 04/08/20 12:57 Resp 20 04/08/20 12:57 BP 133/68 04/08/20 12:57 Pulse Ox 98 04/08/20 12:57 Intake & Output 04/07/20 04/08/20 04/08/20 18:59 06:59 18:59 Weight 68.492 kg - Exam BMI 29.5 - Constitutional General appearance: Present: average body habitus - EENT Eyes: Present: EOMI ENT: Present: hearing grossly normal - Respiratory Respiratory: bilateral: CTA - Cardiovascular Rhythm: regular Heart sounds: normal: S1, S2 - Gastrointestinal General gastrointestinal: Present: soft - Integumentary Integumentary Comment(s): skim lesions on her nose - Psychiatric Psychiatric: Present: A&O x's 3, appropriate affect, intact judgment & insight - Additional findings Additional findings: breast exam: BRA 42B inspection: grade 3 ptosis, well healed scars bilateral Palpation: Right breast: Multi-positional exam-Fibrocystic changes, changes related to prior breast biopsy, skin changes from breast biopsy no dominant masses or nodules of concern Right axilla: Shoddy adenopathy Left breast: Multi-positional exam fibrocystic changes no dominant masses or nodules of concern, postop changes and scar well healedpresent. Left axilla: No adenopathy of concern Assessment and Plan Assessment: Impression: 1. Fibrocystic breast changes 2. Amyloidosis 3. Leaking heart valve 4. Lung disease/asthma 5. Arthritis status post multiple orthopedic procedures 6. Radiographic changes in the breast as noted for bilateral mammogram in 6 months 7. Nothing which would warrant interventional breast biopsy at this time 8. Probable skin cancer on her nose Plan: 1. Repeat bilateral mammogram in 6 months with physician exam at that time 2. Medical management of medical conditions 3. Appointment with dermatology Cc: Dr. Perez encounter 20 minutes, > 50% of item in planning and counselling Time with Patient: Less than 30
== END | disposition home or self-care (01) ==
LOC: WWCWWP 12:43
PROVIDERS: ATTEND Surgery
DX: Z53.9 Procedure and treatment not carried out, unspecified reason (principal)

== ENCOUNTER 2020-05-12 15:55 | Emergency (ER) | payer MEDICARE, OTHER ==
--- NOTE | 2020-05-12 17:58 | CT ---
EXAMINATION TYPE: CT brain cspine wo con DATE OF EXAM: 05/12/2020 COMPARISON: Prior trauma CT February 04, 2019. HISTORY: Fall today with headache and neck pain. CT DLP: 1492.9 mGycm. Automated Exposure Control for Dose Reduction was Utilized. TECHNIQUE: CT scan of the head and cervical spine are performed without contrast. FINDINGS: There is no acute intracranial hemorrhage or midline shift identified. Mild ventricular a nd sulcal prominence. Mild low-attenuation periventricular white matter. Postsurgical change posterio r occiput redemonstrated. Nasal septum redemonstrated deviated to right of midline. The globes are in tact and the visualized sinuses remain clear. No significant change from prior. Cervical spine is visualized in its entirety from C1 through upper thoracic levels and redemonstrates slight grade 1 anterolisthesis C7 on T1 without evidence of acute fracture or dislocation. Preverte bral soft tissue appears within normal limits. The C1-C2 articulation is stable. Persistent anterio r fusion plate and metallic Cage C5-C7 levels. Persistent fusion cerclage wires from posterior occipu t through C2 posterior elements. Multiple bilateral laminectomy defects and spinous process resection with posterior fusion hardware bilaterally from C3 through C7 levels. Persistent stable displacement right C3 screw superiorly into C2-C3 uncovertebral facet. Multilevel uncovertebral facet degenerativ e changes on axial images. No pneumothorax noted. No significant change from prior. IMPRESSION: 1. There is no acute fracture or dislocation evident in the cervical spine. 2. No acute intracranial hemorrhage or midline shift is seen.
--- NOTE | 2020-05-12 18:45 | XR ---
EXAMINATION TYPE: XR lumbar spine 2 or 3V DATE OF EXAM: 05/12/2020 CLINICAL HISTORY: Pain after fall injury. TECHNIQUE: Frontal and lateral images of the lumbar spine are obtained. COMPARISON: CT lumbar spine August 07, 2019 FINDINGS: There are 5 lumbar type vertebral bodies redemonstrated. There is redemonstration of rever ying of normal lumbar lordosis with some ossific fusion of the L2-L4 vertebra. Persistent moderate dis c space narrowing and vacuum disc phenomenon T12-L1 and L1-L2 levels. Persistent grade 1 anterolisthe sis of L1 on L2. Persistent metallic fusion device at the lumbosacral junction. Persistent fusion scr ews through the bilateral sacroiliac joints. Osseous structures remain demineralized. Multilevel lami nectomy defects and spinous process resection. No acute fracture or dislocation. No significant pham e from recent CT. IMPRESSION: As above.
--- NOTE | 2020-05-12 18:47 | XR ---
EXAMINATION TYPE: XR Hip RT and AP Pelvis DATE OF EXAM: 05/12/2020 COMPARISON: NONE HISTORY: Pelvic and right hip pain after fall injury. TECHNIQUE: A single AP view of the pelvis is obtained. Two views of the right hip are obtained. FINDINGS: Osseous structures are demineralized. Lucency from overlying fecal material noted. There is no acute fracture/dislocation evident in the pelvis. Uterus and screws through the bilateral sacroil iac joints. Hip joints show mild to moderate axial joint space loss. Pubic symphysis is intact. Two views of the right hip show no acute fracture or dislocation. No focal lytic or sclerotic lesion seen in the proximal right femur. The overlying soft tissue is unremarkable. IMPRESSION: There is no acute fracture or dislocation in the pelvis or right hip.
--- NOTE | 2020-05-12 19:31 | ED ---
General Adult HPI - General Chief complaint: Fall Stated complaint: fall Time Seen by Provider: 05/12/20 16:43 Source: patient, RN notes reviewed, old records reviewed Mode of arrival: wheelchair Limitations: no limitations - History of Present Illness Initial comments: 80-year-old female patient presents to ED for chief complaint of pain following a slip and fall this morning. Patient port that she was walking in the bathroom approximately 8 AM this morning and she believes she slipped on some water, she fell forward, she fell on her right hip region, also hit her head on the side of the toilet. She denies any loss of consciousness. She is complaining of right hip pain and low back pain and some very mild paracervical pain. He denies any use of blood thinners. She denies any paresthesias. New-onset loss of bowel or bladder control. She has been ambulatory since the fall. Denies any other complaints. Systemic: Pt denies fatigue, fever/chills, rash. Pt denies weakness, night sweats, weight loss. Neuro: Pt denies headache, visual disturbances, syncope or pre-syncope. HEENT: Pt denies ocular discharge or irritation, otalgia, rhinorrhea, pharyngitis or notable lymphadenopathy. Cardiopulmonary: Pt denies chest pain, SOB, heart palpitations, dyspnea on exertion. Abdominal/GI: Pt denies abdominal pain, n/v/d. : Pt denies dysuria, burning w/ urination, frequency/urgency. Denies new onset urinary or bowel incontinence. MSK: Pt denies loss of strength or function in extremities. - Related Data Home Medications Medication Instructions Recorded Confirmed Aspirin 81 mg PO QAM 08/13/14 04/08/20 Gabapentin 300 mg PO QAM 08/13/14 04/08/20 Gemfibrozil [Lopid] 600 mg PO QAM 08/13/14 04/08/20 Losartan [Cozaar] 100 mg PO QAM 08/13/14 04/08/20 Meloxicam 15 mg PO QAM 08/13/14 04/08/20 HYDROcodone/APAP 5-325MG [[place] 5] 1 - 2 tab PO Q6H PRN 03/13/16 04/08/20 Ascorbic Acid [Vitamin C] 500 mg PO HS 06/13/16 04/08/20 Calcium Carbonate [Calcium] 300 mg PO HS 06/13/16 04/08/20 Cholecalciferol [Vitamin D3] 2,000 unit PO HS 06/13/16 04/08/20 Multivitamins, Thera [Multivitamin] 1 tab PO HS 06/13/16 04/08/20 Oxybutynin Chloride 5 mg PO QAM 11/26/17 04/08/20 tiZANidine [Zanaflex] 4 mg PO Q8HR 11/26/17 04/08/20 Dulaglutide [Trulicity] 0.75 mg SQ TU 01/15/18 04/08/20 Cetirizine HCl [Zyrtec] 10 mg PO QAM 07/19/18 04/08/20 Insulin Glargine [Lantus] 14 unit SQ QAM 10/10/19 04/08/20 Allergies Allergy/AdvReac Type Severity Reaction Status Date / Time midazolam HCl [From Versmerry] Allergy Rash/Hives Verified 05/12/20 19:25 pentazocine lactate AdvReac Nausea & Verified 05/12/20 19:25 [From Oscar] Vomiting Review of Systems ROS Statement: Those systems with pertinent positive or pertinent negative responses have been documented in the HPI. ROS Other: All systems not noted in ROS Statement are negative. Past Medical History Past Medical History: Asthma, Diabetes Mellitus, Hyperlipidemia, Hypertension Additional Past Medical History / Comment(s): "leaky heart valve". back pain. staph/strep infection post op incision History of Any Multi-Drug Resistant Organisms: MRSA Date of last positivie culture/infection: 2012 MDRO Source:: Stomach wound Past Surgical History: Back Surgery, Bladder Surgery, Breast Surgery, Hernia Repair, Hysterectomy, Joint Replacement, Orthopedic Surgery, Tubal Ligation Additional Past Surgical History / Comment(s): pain stimulator implant-LT HIP. BILAT TKA. neck fusion and plate in left side of neck. REVERSE LT SHOULDER SX. COLONOScopy. Pain stimulator removed 07/06. Back surgery in Sep 2018 Past Anesthesia/Blood Transfusion Reactions: No Reported Reaction Past Psychological History: No Psychological Hx Reported Smoking Status: Never smoker Past Alcohol Use History: None Reported Past Drug Use History: None Reported - Past Family History Mother Family Medical History: Cancer Additional Family Medical History / Comment(s): metastatic cancer Sister(s) Family Medical History: Cancer Additional Family Medical History / Comment(s): two sisters dx with ovarian cancer. one sister with lung cancer Brother(s) Family Medical History: Cancer Additional Family Medical History / Comment(s): one brother had lung cancer. half-brother had prostate cancer. maternal grandfather prostate cancer General Exam - General Exam Comments Initial Comments: Constitutional: NAD, AOX3, Pt has pleasant affect. HEENT: NC/AT, trachea midline, neck supple, no lymphadenopathy. Posterior pharynx non erythematous, without exudates. External ears appear normal, without discharge. Mucous membranes moist. Eyes PERRLA, EOM intact. There is no scleral icterus. No pallor noted. Cardiopulmonary: RRR, no murmurs, rubs or gallops, no JVD noted. Lungs CTAB in anterior and posterior mirza. No peripheral edema. Abdominal exam: Abdomen soft and non-distended. Abdomen non-tender to palpation in all 4 quadrants. Bowel sounds active in LLQ. No hepatosplenomegaly. No ecchymosis Neuro: CN II-XII intact. No nuchal rigidity. No raccon eyes, no lake sign, no hemotympanum. No midline cervical spinal tenderness. Mild amount of right sided paracervical tenderness MSK: No posterior calf tenderness bilaterally, homans sign negative bilaterally. Posterior tibialis and radial pulse +2 bilaterally. Sensation intact in upper and lower extremities. Full active ROM in upper and lower extremities, 5/5 stregnth. Right posterior hip region mildly tender to palpation. No skin changes. Right paralumbar region tender to palpation. No skin changes. 5 out of 5 strength psoas and quadriceps muscles. Temperature without difficulty. Limitations: no limitations Course Vital Signs 05/12/20 16:18 Temperature 97.9 F Pulse Rate 65 Respiratory 18 Rate Blood Pressure 146/69 O2 Sat by Pulse 99 Oximetry Medical Decision Making - Medical Decision Making 80-year-old female patient does ED for evaluation of slip and fall at a.m. this morning. Patient felt signs are stable, afebrile. Physical exam does displayed intact neurologic exam. No posterior calf tenderness bilaterally, homans sign negative bilaterally. Posterior tibialis and radial pulse +2 bilaterally. Sensation intact in upper and lower extremities. Full active ROM in upper and lower extremities, 5/5 stregnth. Right posterior hip region mildly tender to palpation. No skin changes. Right paralumbar region tender to palpation. No skin changes. 5 out of 5 strength psoas and quadriceps muscles. Ambulatory without difficulty. Plain film of brain and C-spine did not display any acute intracranial or cervical process. Plain film of lumbar spine displayed no significant change from recent CAT scan. Plain film right hip and AP pelvis did not display any acute process. Patient will be discharged to follow up with primary care provider and will return to ER if condition worsens. Case discussed with Dr. Mujica. Disposition Clinical Impression: Fall, Hip pain Disposition: HOME SELF-CARE Condition: Stable Instructions (If sedation given, give patient instructions): Fall Prevention (ED), Hip Pain (ED) Additional Instructions: Follow-up with primary care provider tomorrow. Return to ER if condition worsens. Is patient prescribed a controlled substance at d/c from ED?: No Referrals: Pankaj Turner MD [Primary Care Provider] - 1-2 days
[2020-05-12 19:48] VITALS: BP 186/105; PULSE 60; RESP 16; TEMP 98.1
== END 2020-05-12 19:49 | disposition home or self-care (01) ==
LOC: EC 15:55
DX: M25.551 Pain in right hip (principal); M54.5 Low back pain; M54.2 Cervicalgia; E11.9 Type 2 diabetes mellitus without complications; E78.5 Hyperlipidemia, unspecified; I10 Essential (primary) hypertension; Z79.82 Long term (current) use of aspirin; Z79.4 Long term (current) use of insulin; Z79.899 Other long term (current) drug therapy; Z86.14 Personal history of Methicillin resistant Staphylococcus aureus infection; Z89.512 Acquired absence of left leg below knee; Z89.511 Acquired absence of right leg below knee; Z88.8 Allergy status to other drugs, medicaments and biological substances; Z98.1 Arthrodesis status; W01.198A Fall on same level from slipping, tripping and stumbling with subsequent striking against other object, initial encounter; Y92.041 Bathroom in boarding-house as the place of occurrence of the external cause
CPT/HCPCS: 70450; 72100; 72125; 73502; 99284

== ENCOUNTER → 2020-05-29 | Outpatient (CLI) | payer MEDICARE, OTHER ==
--- NOTE | 2020-05-30 08:35 | CT ---
EXAMINATION TYPE: CT lumbar spine wo con DATE OF EXAM: 05/29/2020 COMPARISON: Prior CT lumbar spine 08/07/2019, plain film 05/12/2020 HISTORY: Lumbar radiculopathy. Fall, back pain. CT DLP: 887.3 mGycm Automated exposure control for dose reduction was used. An unenhanced CT of the lumbar spine was performed. Bone and soft tissue window settings are submitt ed as well as coronal and sagittal reconstructions. FINDINGS: Spinal fusion changes are again noted. There is effusion at L5-S1 with metallic screw as on prior. Pr ior fusion is noted at L2-3, L3-4, L4-5. Vacuum phenomenon present at L1-2, T12-L1, T11-T12 and T10-1 1. Is multilevel spondylosis. Reversal the normal lumbar lordosis is again seen. Minimal anterolisthe sis grade 1 L1-2. Bilateral sacroiliac joints show fusion, there are bilateral screws coursing from l ateral to medial as on prior. No evident disc herniation. There is a spinal curvature. Multilevel fac et arthropathy changes are present. Multilevel laminectomies again seen. Screw tracts are noted at th e L4 vertebral body as on prior bilaterally. Facet arthropathy and posterior disc bulge results in sp inal stenosis at L1-2 as on prior. Similarly at T12-L1 there is hypertrophic facet arthropathy, listh esis resulting in some moderate spinal stenosis. 0 foraminal encroachment present L5-S1, L4-5, T11-12 , T12-L1 and at L1-2 as on prior. Diverticular change noted in the colon. IMPRESSION: Findings are similar to prior exam. Postop change, degenerative disc disease, multilevel foraminal en croachment, facet arthropathy..
== END | disposition home or self-care (01) ==
LOC: RADCTMAIN 14:04
PROVIDERS: ATTEND Neurological Surgery
DX: M51.16 Intervertebral disc disorders with radiculopathy, lumbar region (principal); M47.26 Other spondylosis with radiculopathy, lumbar region; Z98.1 Arthrodesis status
CPT/HCPCS: 72131

== ENCOUNTER → 2020-06-23 | Outpatient (CLI) | payer MEDICARE, OTHER ==
[2020-06-24 00:10] LABS: % Iron Saturation 23.27 (12.00-45.00); African American GFR (CKD) 61.6 (60.0-200.0); Anion Gap 8.2 mmol/L (4.00-12.00); Calcium 9.4 mg/dL (8.7-10.3); Carbon Dioxide 26.8 mmol/L (21.6-31.8); Non-African American GFR(CKD) 53.2 (60.0-200.0); Potassium 4.7 mmol/L (3.5-5.5)
== END | disposition home or self-care (01) ==
LOC: LABWHC1 14:05
PROVIDERS: ATTEND Internal Medicine
DX: D50.9 Iron deficiency anemia, unspecified (principal); R25.2 Cramp and spasm
CPT/HCPCS: 36415; 80048; 82728; 83540; 83550; 83735

== ENCOUNTER → 2020-07-15 | Outpatient (CLI) | payer MEDICARE, OTHER ==
--- NOTE | 2020-07-15 09:50 | BMR ---
EXAMINATION TYPE: MR breast BILAT wo/w con DATE OF EXAM: 07/15/2020 COMPARISON: Bilateral 3-D breast mammogram March 31, 2020 BI-RADS 0 and older mammograms. Left breast u ltrasound March 31, 2020 BI-RADS 2. HISTORY: Fibrocystic breasts, fullness left breast on physical exam, shotty adenopathy ORDER.. Histor y of multiple benign left breast biopsies and bilateral benign excisional biopsies. CONTRAST: Multiplanar, multisequence images of the breasts were acquired utilizing 7 mL intravenous Gadavist ga dolinium contrast. TECHNIQUE: A series of fat and water weighted images in the long and short axis views of both breasts are obtained in conjunction with dynamic contrast MRI with subtraction technique. Three-dimensional and additional postprocessing imaging is created on independent workstation and reviewed during offi cial interpretation of this study. FINDINGS: Heterogeneously dense fibroglandular tissue bilaterally is redemonstrated. There is persist ent distortion along with artifact from multiple biopsy clips in the outer aspect middle depth of the left breast. T1-weighted images show no suspicious fat-containing masses bilaterally. T2 and STIR ra prasanna images show no significant cystic change in either breast. Delayed dynamic postcontrast imaging s hows no suspicious intramammary adenopathy bilaterally. There is suspected small hiatal hernia partia lly imaged on the lowermost images incidentally noted. Postcontrast images show mild symmetric backgr ound enhancement. No suspicious axillary adenopathy noted bilaterally. With regards to the right breast no suspicious skin thickening is seen. No pathologic enhancement or enhancing masses identified. Chest wall is intact. With regards to the left breast there are more asymmetric more prominent larger vessels medially. Dif ficult to identify artifact from all clips as before in close proximity. No suspicious asymmetric ski n thickening. No suspicious pathologic enhancement or enhancing masses. Chest wall is intact. Excisio nal changes redemonstrated. IMPRESSION: No MRI evidence for invasive malignancy in either breast. BI-RADS 2 benign findings left breast BI-RADS 1 negative study right breast Recommendation: Patient is due for annual bilateral breast mammogram March 2021. Manage palpable on cli nical basis.
== END | disposition home or self-care (01) ==
LOC: RADMRIMAIN 08:06
PROVIDERS: ATTEND Surgery
DX: N60.19 Diffuse cystic mastopathy of unspecified breast (principal); E85.9 Amyloidosis, unspecified
CPT/HCPCS: C8937; C8908; A9585; 77049

== ENCOUNTER 2020-08-21 13:31 | Inpatient (IN) | payer MEDICARE, OTHER ==
--- NOTE | 2020-08-21 13:51 | ED ---
General Adult HPI - General Stated complaint: Syncope Time Seen by Provider: 08/21/20 13:31 Source: patient, RN notes reviewed, old records reviewed - History of Present Illness Initial comments: This is an 80-year-old female brought in by EMS. Patient states that at home she started becoming lightheaded at the table and her blood pressure and pulse were both low so they called EMS. When EMS arrived they stated the patient's pulse ox was in the 40s and blood pressure systolic was 60 and patient was given epinephrine by EMS and the patient blood pressure and pulse responded and the patient was back to her baseline. Patient currently states she has no symptoms. Patient denies any chest pain palpitations difficulty breathing shortest breath per patient denies any lightheadedness or dizziness. Patient denies any recent fever chills or cough. Patient states she was having problems in the past with low blood pressure but her caterer's aide tomorrow for medications. Patient denies any abdominal pain patient denies any nausea vomiting diarrhea recently. - Related Data Home Medications Medication Instructions Recorded Confirmed Aspirin 81 mg PO QA 08/13/14 04/08/20 Gabapentin 300 mg PO QAM 08/13/14 04/08/20 Losartan [Cozaar] 100 mg PO QAM 08/13/14 04/08/20 Meloxicam 15 mg PO QAM 08/13/14 04/08/20 gemfibroziL [Lopid] 600 mg PO QAM 08/13/14 04/08/20 HYDROcodone/APAP 5-325MG [[place] 5] 1 - 2 tab PO Q6H PRN 03/13/16 04/08/20 Ascorbic Acid [Vitamin C] 500 mg PO 06/13/16 04/08/20 Calcium Carbonate [Calcium] 300 mg PO 06/13/16 04/08/20 Cholecalciferol [Vitamin D3] 2,000 unit PO 06/13/16 04/08/20 Multivitamins, Thera [Multivitamin] 1 tab PO 06/13/16 04/08/20 Oxybutynin Chloride 5 mg PO QAM 11/26/17 04/08/20 tiZANidine [Zanaflex] 4 mg PO Q8HR 11/26/17 04/08/20 Dulaglutide [Trulicity] 0.75 mg SQ TU 01/15/18 04/08/20 Cetirizine HCl [Zyrtec] 10 mg PO QAM 07/19/18 04/08/20 Insulin Glargine [Lantus] 14 unit SQ QAM 10/10/19 04/08/20 Allergies Allergy/AdvReac Type Severity Reaction Status Date / Time midazolam HCl [From Versed] Allergy Rash/Hives Verified 05/12/20 19:25 pentazocine lactate AdvReac Nausea & Verified 05/12/20 19:25 [From Oscar] Vomiting Review of Systems ROS Statement: Those systems with pertinent positive or pertinent negative responses have been documented in the HPI. ROS Other: All systems not noted in ROS Statement are negative. Past Medical History Past Medical History: Asthma, Diabetes Mellitus, Hyperlipidemia, Hypertension Additional Past Medical History / Comment(s): "leaky heart valve". back pain. staph/strep infection post op incision History of Any Multi-Drug Resistant Organisms: MRSA Date of last positivie culture/infection: 2012 MDRO Source:: Stomach wound Past Surgical History: Back Surgery, Bladder Surgery, Breast Surgery, Hernia Repair, Hysterectomy, Joint Replacement, Orthopedic Surgery, Tubal Ligation Additional Past Surgical History / Comment(s): pain stimulator implant-LT HIP. BILAT TKA. neck fusion and plate in left side of neck. REVERSE LT SHOULDER SX. COLONOScopy. Pain stimulator removed 07/06. Back surgery in Sep 2018 Past Anesthesia/Blood Transfusion Reactions: No Reported Reaction Past Psychological History: No Psychological Hx Reported Past Alcohol Use History: None Reported Past Drug Use History: None Reported - Past Family History Mother Family Medical History: Cancer Additional Family Medical History / Comment(s): metastatic cancer Sister(s) Family Medical History: Cancer Additional Family Medical History / Comment(s): two sisters dx with ovarian cancer. one sister with lung cancer Brother(s) Family Medical History: Cancer Additional Family Medical History / Comment(s): one brother had lung cancer. half-brother had prostate cancer. maternal grandfather prostate cancer General Exam - General Exam Comments Initial Comments: GENERAL: Patient is well-developed and well-nourished. Patient is nontoxic and well- hydrated and is in no acute distress. ENT: Neck is soft and supple. No significant lymphadenopathy is noted. Oropharynx is clear. Moist mucous membranes. Neck has full range of motion without eliciting any pain. EYES: The sclera were anicteric and conjunctiva were pink and moist. Extraocular movements were intact and pupils were equal round and reactive to light. Ey elids were unremarkable. PULMONARY: Unlabored respirations. Good breath sounds bilaterally. No audible rales rhonchi or wheezing was noted. CARDIOVASCULAR: Patient is bradycardic at about 55 beats a minute. ABDOMEN: Soft and nontender with normal bowel sounds. SKIN: Skin is clear with no lesions or rashes and otherwise unremarkable. NEUROLOGIC: Patient is alert and oriented x3. Cranial nerves II through XII are grossly intact. Motor and sensory are also intact. Normal speech, volume and content. Symmetrical smile. MUSCULOSKELETAL: Normal extremities with adequate strength and full range of motion. LYMPHATICS: No significant lymphadenopathy is noted PSYCHIATRIC: Normal psychiatric evaluation. Course Vital Signs 08/21/20 08/21/20 08/21/20 13:40 13:52 14:28 Temperature 97.4 F L Pulse Rate 54 L 52 L Pulse Rate [ 56 L Apical] Respiratory 16 16 Rate Blood Pressure 109/69 116/67 O2 Sat by Pulse 99 99 Oximetry Medical Decision Making - Medical Decision Making EKG shows sinus bradycardia 54 bpm MD interval is 222 QRS is 70 QT interval 478 QTC is 453 per patient's EKG shows no ST segment elevation or depression. - Lab Data Result diagrams: 08/21/20 13:46 08/21/20 13:46 Lab Results 08/21/20 08/21/20 08/21/20 Range/Units 13:46 13:46 13:46 WBC 3.9 (3.8-10.6) k/uL RBC 3.52 L (3.80-5.40) m/uL Hgb 10.1 L (11.4-16.0) gm/dL Hct 32.3 L (34.0-46.0) % MCV 91.7 (80.0-100.0) fL MCH 28.8 (25.0-35.0) pg MCHC 31.4 (31.0-37.0) g/dL RDW 13.8 (11.5-15.5) % Plt Count 252 (150-450) k/uL Neutrophils % 47 % Lymphocytes % 39 % Monocytes % 5 % Eosinophils % 5 % Basophils % 1 % Neutrophils # 1.8 (1.3-7.7) k/uL Lymphocytes # 1.5 (1.0-4.8) k/uL Monocytes # 0.2 (0-1.0) k/uL Eosinophils # 0.2 (0-0.7) k/uL Basophils # 0.1 (0-0.2) k/uL PT 10.5 (9.0-12.0) sec INR 1.0 (<1.2) APTT 22.6 (22.0-30.0) sec Sodium 138 (137-145) mmol/L Potassium 4.3 (3.5-5.1) mmol/L Chloride 108 H (98-107) mmol/L Carbon Dioxide 23 (22-30) mmol/L Anion Gap 7 mmol/L BUN 29 H (7-17) mg/dL Creatinine 0.88 (0.52-1.04) mg/dL Est GFR (CKD-EPI)AfAm 72 (>60 ml/min/1.73 sqM) Est GFR (CKD-EPI)NonAf 63 (>60 ml/min/1.73 sqM) Glucose 172 H (74-99) mg/dL Calcium 8.4 (8.4-10.2) mg/dL Magnesium 1.8 (1.6-2.3) mg/dL Total Bilirubin 0.5 (0.2-1.3) mg/dL AST 24 (14-36) U/L ALT 14 (4-34) U/L Alkaline Phosphatase 94 (38-126) U/L Troponin I (0.000-0.034) ng/mL Total Protein 6.1 L (6.3-8.2) g/dL Albumin 3.5 (3.5-5.0) g/dL 08/21/20 Range/Units 13:46 WBC (3.8-10.6) k/uL RBC (3.80-5.40) m/uL Hgb (11.4-16.0) gm/dL Hct (34.0-46.0) % MCV (80.0-100.0) fL MCH (25.0-35.0) pg MCHC (31.0-37.0) g/dL RDW (11.5-15.5) % Plt Count (150-450) k/uL Neutrophils % % Lymphocytes % % Monocytes % % Eosinophils % % Basophils % % Neutrophils # (1.3-7.7) k/uL Lymphocytes # (1.0-4.8) k/uL Monocytes # (0-1.0) k/uL Eosinophils # (0-0.7) k/uL Basophils # (0-0.2) k/uL PT (9.0-12.0) sec INR (<1.2) APTT (22.0-30.0) sec Sodium (137-145) mmol/L Potassium (3.5-5.1) mmol/L Chloride (98-107) mmol/L Carbon Dioxide (22-30) mmol/L Anion Gap mmol/L BUN (7-17) mg/dL Creatinine (0.52-1.04) mg/dL Est GFR (CKD-EPI)AfAm (>60 ml/min/1.73 sqM) Est GFR (CKD-EPI)NonAf (>60 ml/min/1.73 sqM) Glucose (74-99) mg/dL Calcium (8.4-10.2) mg/dL Magnesium (1.6-2.3) mg/dL Total Bilirubin (0.2-1.3) mg/dL AST (14-36) U/L ALT (4-34) U/L Alkaline Phosphatase (38-126) U/L Troponin I <0.012 (0.000-0.034) ng/mL Total Protein (6.3-8.2) g/dL Albumin (3.5-5.0) g/dL Disposition Clinical Impression: Near syncope, Hypotension, Bradycardia Disposition: ADMITTED IP TO THIS HOSP Referrals: Pankaj Turner MD [Primary Care Provider] - 1-2 days Time of Disposition: 14:32
[2020-08-21 13:54] LABS: Basophils # (A) 0.1 k/uL (0-0.2); Basophils % (A) 1 %; Eosinophils # (A) 0.2 k/uL (0-0.7); Eosinophils % (A) 5 %; HCT 32.3 % (34.0-46.0); HGB 10.1 gm/dL (11.4-16.0); Lymphocytes # (A) 1.5 k/uL (1.0-4.8); Lymphocytes % (A) 39 %; MCH 28.8 pg (25.0-35.0); MCHC 31.4 g/dL (31.0-37.0); MCV 91.7 fL (80.0-100.0); Mean Platelet Volume 8.1; Monocytes # (A) 0.2 k/uL (0-1.0); Monocytes % (A) 5 %; Neutrophils # (A) 1.8 k/uL (1.3-7.7); Neutrophils % (A) 47 %; Platelet Count 252 k/uL (150-450); RBC 3.52 m/uL (3.80-5.40); RDW 13.8 % (11.5-15.5); WBC 3.9 k/uL (3.8-10.6)
[2020-08-21 14:03] LABS: Albumin 3.5 g/dL (3.5-5.0); Calcium 8.4 mg/dL (8.4-10.2); Magnesium 1.8 mg/dL (1.6-2.3); Partial Thromboplastin Time 22.6 sec (22.0-30.0); Potassium 4.3 mmol/L (3.5-5.1); Prothrombin Time 10.5 sec (9.0-12.0); Total Bilirubin 0.5 mg/dL (0.2-1.3); Total Protein 6.1 g/dL (6.3-8.2)
[2020-08-21] MEDS ORDERED: SODIUM CHLORIDE 0.9% 1,000 ML IV ONE (14:32)
--- NOTE | 2020-08-21 14:37 | XR ---
EXAMINATION TYPE: XR chest 2V DATE OF EXAM: 08/21/2020 COMPARISON: 08/19/2020 HISTORY: Chest pain TECHNIQUE: FINDINGS: There is no heart failure nor confluent pneumonic infiltrate. There is very slight blunting of the costophrenic angles. Heart size is normal. There are no hilar masses. There is bilateral shou lder prosthesis. There are chest leads. IMPRESSION: Minimal pleural reaction at the lung bases increased compared to old exam. No heart failu re seen. No pulmonary consolidation.
[2020-08-21] MEDS ORDERED: PANTOPRAZOLE 40 MG TABLET PO PRN (16:03)
[2020-08-21] MEDS ORDERED: SYMBICORT 160-4.5 MCG INHALER INHALATION PRN (16:03)
[2020-08-21] MEDS ORDERED: HYDROcodone/APAP 7.5-325MG 1 EACH TAB PO PRN (16:03)
[2020-08-21] MEDS ORDERED: tiZANidine 4 MG TAB PO PRN (18:00)
[2020-08-21] MEDS: metFORMIN 500 MG TAB PO SCH (18:01)
[2020-08-21] MEDS: methocarbamoL 750 MG TAB PO SCH ×2 (18:01→21:15)
--- NOTE | 2020-08-21 18:52 | HP ---
HISTORY AND PHYSICAL DATE OF SERVICE: 08/21/2020 CHIEF COMPLAINTS: Weakness, bradycardia, hypotension. HISTORY OF PRESENT ILLNESS: This 80-year-old woman with a past medical history of multiple medical problems, history of asthma, diabetes mellitus, hypertension, hyperlipidemia, history of leaky heart valve, history of back surgery, bladder surgery, being followed by Dr. Turner and Dr. Rivas in the outpatient setting not feeling well over the past 3 months. The patient complains of weak. Medications being adjusted because of relative hypotension. Today, the patient is complaining of lightheadedness and the blood pressure was taken 60/40 and heart rate was in the 40s and the EMS was called and apparently epinephrine was given and blood pressure improved and the patient was taken to [facility] and admitted for further evaluation and treatment. Evaluation in the ER showed hemoglobin 10.1. Troponins are negative. The heart rate is still bradycardic and EKG showed sinus bradycardia. There is no history of fever, rigors or chills. No headache, loss of consciousness, seizures, chest pain, palpitations, hematochezia or melena at this time. PAST MEDICAL HISTORY: History of asthma, diabetes mellitus, hypertension, hyperlipidemia, leaky valve, back surgery, degenerative joint disease. MEDICATIONS: Prior to admission, home medications are: 1. Repaglinide 0.5 mg at bedtime. 2. Aspirin 81 mg daily. 3. Omeprazole 20 mg daily. 4. Multivitamins. 5. Hydrocodone. 6. Vitamin D3. 7. Symbicort. 8. Losartan. 9. Metformin. 10.Methocarbamol. 11.Lutein. 12.Gabapentin. 13.Gemfibrozil. 15.Oxybutynin. 16.Meloxicam. 17.Insulin. 18.Trulicity. 19.Cetirizine. 20.Calcium. ALLERGIES: ntd FAMILY HISTORY: Family history of metastatic cancer in the family. SOCIAL HISTORY: No history of smoking. No history of alcohol. REVIEW OF SYSTEMS: ENT: No diminished vision. No diminished hearing. CARDIOVASCULAR: No angina or palpitations. RESPIRATORY: As mentioned earlier. GI: As mentioned earlier. no dysuria. NERVOUS SYSTEMS: No numbness or weakness. ALLERGY/IMMUNOLOGY: No asthma or hayfever. MUSCULOSKELETAL as mentioned earlier. HEMATOLOGY/ONCOLOGY: No history of anemia. ENDOCRINE: No history of diabetes or hypothyroidism. CONSTITUTIONAL: As mentioned earlier. DERMATOLOGY: Negative. RHEUMATOLOGY: Negative. PSYCHIATRIC: As mentioned earlier. PHYSICAL EXAMINATION: Alert and oriented times three. Pulse 55, blood pressure 133/82, respirations 16, temperature 97.3, pulse ox 99% on room air. HEENT: Conjunctivae normal. NECK: No JVD. CARDIOVASCULAR: S1, S2 muffled. RESPIRATORY SYSTEM: Breath sounds diminished at the bases. Scattered rhonchi and crackles. ABDOMEN: Soft, nontender. No mass palpable. LEGS: No edema. No swelling. NERVOUS SYSTEM: Higher functions as mentioned earlier. Moves all four limbs. No focal motor or sensory deficits. LYMPHATICS: No lymph nodes palpable in the neck, axillae or groin. SKIN: No ulcers. No rashes and no bleeding. JOINTS: No active deforming arthropathy. LABORATORY DATA: Labs WBC 3.2, hemoglobin 10.1, glucose 172. Other labs are noted. EKG personally reviewed. Chest x-ray personally reviewed, showed minimal pleural reaction in the lung bases. No heart failure. ASSESSMENT: 1. Bradycardia and hypotension, possibly medication induced. 2. For evaluation. 3. Sinus bradycardia. 4. Presyncopal episode. 5. Diabetes mellitus type 2. 6. History of asthma. 7. Hypertension. 8. Hyperlipidemia. 9. History of leaky heart valve. 10.History of back pain. 11.History of MRSA. 12.History of back surgery. 13.History of joint replacement. 14.History of pain stimulator implant. 15.Remote history of nicotine dependence. RECOMMENDATIONS AND DISCUSSION: In this 80-year-old woman who presented with multiple complex medical issues, we will monitor the patient closely, continue the current medications, management and symptomatic treatment. Otherwise, at this time, I recommend at this time, hold losartan and repeat labs. Telemetry. Cardiology consultation. 8:00 am cortisol. Otherwise, IV fluids. Avoid beta blockers. Closely follow with Cardiology and Dr. Turner. Guarded prognosis. further recommendations to follow. A copy of dictation being forwarded to Dr. Turner who is the primary care physician. See orders for details. Discussed with the patient. Discussed with the family at length. We will review the 2D echo with Doppler. The last 2D echo with Doppler is not available in the computer. See orders for details. MMODL / IJN: [id number] / MTDD
[2020-08-21] MEDS: REPAGLINIDE 1 MG TAB PO SCH (21:14)
[2020-08-21] MEDS: CHOLECALCIFEROL 1,000 UNIT TAB PO SCH (21:14)
[2020-08-21] MEDS: GABAPENTIN 300 MG CAP PO SCH (21:15)
[2020-08-21] MEDS: MULTIVITAMINS, THERA 1 EACH TAB PO SCH (21:15)
[2020-08-21] MEDS: ASPIRIN 81 MG PO SCH (21:15)
[2020-08-21 22:41] LABS: Appearance,Urine Clear (Clear); Bilirubin,Urine Negative (Negative); Blood,Urine Negative (Negative); Color,Urine Light Yellow; Glucose,Urine (UA) Negative (Negative); Ketones,Urine Negative (Negative); Leukocyte Esterase,Urine Negative (Negative); Nitrite,Urine Negative (Negative); PH, Urine 5.5 (5.0-8.0); Protein,Urine Negative (Negative); Specific Gravity,Urine 1.007 (1.001-1.035); Urobilinogen,Urine <2.0 mg/dL (<2.0)
[2020-08-22 00:20] LABS: Glucose,Whole Blood 66 mg/dL (75-99)
[2020-08-22 00:36] LABS: Glucose,Whole Blood 72 mg/dL (75-99)
[2020-08-22] MEDS: metFORMIN 500 MG TAB PO SCH ×2 (07:01→16:03)
[2020-08-22] MEDS: INSULIN DETEMIR (LEVEMIR) 100 UNIT/ML SYR SQ SCH (07:01)
[2020-08-22 07:50] LABS: Basophils # (A) 0.1 k/uL (0-0.2); Basophils % (A) 1 %; Eosinophils # (A) 0.3 k/uL (0-0.7); Eosinophils % (A) 5 %; HCT 39.7 % (34.0-46.0); HGB 12.4 gm/dL (11.4-16.0); Hypochromasia Slight; Lymphocytes # (A) 1.9 k/uL (1.0-4.8); Lymphocytes % (A) 31 %; MCH 29.4 pg (25.0-35.0); MCHC 31.4 g/dL (31.0-37.0); MCV 93.7 fL (80.0-100.0); Mean Platelet Volume 7.1; Monocytes # (A) 0.4 k/uL (0-1.0); Monocytes % (A) 7 %; Neutrophils # (A) 3.2 k/uL (1.3-7.7); Neutrophils % (A) 53 %; Platelet Count 344 k/uL (150-450); RBC 4.24 m/uL (3.80-5.40); RDW 13.8 % (11.5-15.5); WBC 6.1 k/uL (3.8-10.6)
[2020-08-22 08:02] LABS: African American GFR (CKD) >90 (>60 ml/min/1.73 sqM); Anion Gap 9 mmol/L; Blood Urea Nitrogen 25 mg/dL (7-17); Calcium 8.8 mg/dL (8.4-10.2); Carbon Dioxide 21 mmol/L (22-30); Chloride 111 mmol/L (98-107); Glucose 116 mg/dL (74-99); Magnesium 1.9 mg/dL (1.6-2.3); Non-African American GFR(CKD) 83 (>60 ml/min/1.73 sqM); Potassium 4.5 mmol/L (3.5-5.1); Sodium 141 mmol/L (137-145)
[2020-08-22] MEDS ORDERED: NON FORMULARY DRUG (Lutein [Lutein] 20 MG Capsule) PO SCH (09:00)
[2020-08-22] MEDS: LORATADINE 10 MG TAB PO SCH (09:19)
[2020-08-22] MEDS: FENOFIBRATE 160 MG TAB PO SCH (09:19)
[2020-08-22] MEDS: CALCIUM CARBONATE 500 MG CHEWABLE PO SCH (09:19)
[2020-08-22] MEDS: GABAPENTIN 300 MG CAP PO SCH ×2 (09:19→20:25)
[2020-08-22] MEDS: methocarbamoL 750 MG TAB PO SCH ×3 (09:19→20:25)
[2020-08-22] MEDS: OXYBUTYNIN CHLORIDE 5 MG TAB PO SCH (09:19)
--- NOTE | 2020-08-22 10:26 | P.CRDCN ---
History of Present Illness Consult date: 08/22/20 Requesting physician: Ascencion Sharif Reason for Consult (text): bradycardia, hypotension Chief complaint: weakness, low blood pressure, low heart rate History of present illness: This is a pleasant 80-year-old female patient who follows with Dr. Rivas in the office. Has a history of hypertension, hyperlipidemia, diabetes. This then having issues over the past several months with fluctuations in her blood pressure. We have been adjusting medications. The patient did recently lose quite a bit of weight in about a year's time. She's recently been on no antihypertensive agents. Presented to the emergency room via EMS after being noted to have low blood pressure and heart rate at home according to the patient and heart rate was in the 40s and her blood pressure was in the 60s. She ap parently was sitting up with table and was feeling quite tired and somewhat weak. Her grandson tried to help her up to go to bed and she became quite unsteady on her feet. They checked her blood pressure and it was noted to be low. Coronary the patient EMS got readings in the 60s for her blood pressure. Upon presentation to the ER blood pressure was only 109/69 with a heart rate of 54. Since then her blood pressure has slowly been creeping up and this morning is quite elevated. Nursing staff did do a manual blood pressure checks and bilateral arms with the left arm reading of 172/80 in her right arm reading of 184/78. Troponin was negative 1. TSH is normal. Labs show potassium 4.3 magnesium 1.8 with a BUN of 29 and creatinine of 0.88. Upon examination, the patient is resting comfortably in a chair. She has no further complaints of weakness or tiredness. She's had no chest discomfort, shortness of breath or palpitations. She's had no orthopnea or PND and no lower extremity edema. Past Medical History Past Medical History: Asthma, Diabetes Mellitus, Hyperlipidemia, Hypertension Additional Past Medical History / Comment(s): "leaky heart valve". back pain. staph/strep infection post op incision History of Any Multi-Drug Resistant Organisms: MRSA Date of last positivie culture/infection: 2012 MDRO Source:: Stomach wound Past Surgical History: Back Surgery, Bladder Surgery, Breast Surgery, Hernia Repair, Hysterectomy, Joint Replacement, Orthopedic Surgery, Tubal Ligation Additional Past Surgical History / Comment(s): pain stimulator implant-LT HIP. BILAT TKA. neck fusion and plate in left side of neck. REVERSE LT SHOULDER SX. COLONOScopy. Pain stimulator removed 07/06. Back surgery in Sep 2018 Past Anesthesia/Blood Transfusion Reactions: No Reported Reaction Past Psychological History: No Psychological Hx Reported Smoking Status: Former smoker Past Alcohol Use History: None Reported Additional Past Alcohol Use History / Comment(s): QUIT SMOKING 1979 Past Drug Use History: None Reported - Past Family History Mother Family Medical History: Cancer Additional Family Medical History / Comment(s): metastatic cancer Sister(s) Family Medical History: Cancer Additional Family Medical History / Comment(s): two sisters dx with ovarian cancer. one sister with lung cancer Brother(s) Family Medical History: Cancer Additional Family Medical History / Comment(s): one brother had lung cancer. half-brother had prostate cancer. maternal grandfather prostate cancer Medications and Allergies Home Medications Medication Instructions Recorded Confirmed Type Aspirin 81 mg PO HS 08/13/14 08/21/20 History Gabapentin 300 mg PO BID 08/13/14 08/21/20 History Meloxicam 15 mg PO QAM 08/13/14 08/21/20 History gemfibroziL [Lopid] 600 mg PO BID 08/13/14 08/21/20 History Calcium Carbonate [Calcium] 300 mg PO DAILY 06/13/16 08/21/20 History Cholecalciferol [Vitamin D3] 2,000 unit PO 06/13/16 08/21/20 History Multivitamins, Thera [Multivitamin] 1 tab PO 06/13/16 08/21/20 History Oxybutynin Chloride 5 mg PO QAM 11/26/17 08/21/20 History tiZANidine [Zanaflex] 4 mg PO QID 11/26/17 08/21/20 History Dulaglutide [Trulicity] 0.75 mg SQ TU 01/15/18 08/21/20 History Cetirizine HCl [Zyrtec] 10 mg PO QAM 07/19/18 08/21/20 History Insulin Glargine [Lantus] 12 unit SQ QAM 10/10/19 08/21/20 History Budesonide/Formoterol Fumarate 2 puff INHALATION DAILY PRN 08/21/20 08/21/20 History [Symbicort 160-4.5 Mcg Inhaler] HYDROcodone/APAP 7.5-325MG [[place] 1 tab PO QID PRN 08/21/20 08/21/20 History 7.5-325] Losartan Potassium [Cozaar] 25 mg PO DAILY 08/21/20 08/21/20 History Lutein 20 mg PO DAILY 08/21/20 08/21/20 History Methocarbamol [Robaxin-750] 750 mg PO QID 08/21/20 08/21/20 History Omeprazole 20 mg PO DAILY PRN 08/21/20 08/21/20 History Repaglinide 0.5 mg PO HS 08/21/20 08/21/20 History metFORMIN HCL [Glucophage] 500 mg PO BID 08/21/20 08/21/20 History Allergies Allergy/AdvReac Type Severity Reaction Status Date / Time midazolam HCl [From Versed] Allergy Rash/Hives Verified 08/21/20 15:01 pentazocine lactate AdvReac Nausea & Verified 08/21/20 15:01 [From Oscar] Vomiting Physical Exam Vitals: Vital Signs Temp Pulse Pulse Pulse Pulse Pulse Resp 08/22/20 09:48 08/22/20 07:35 98.1 F 63 18 08/22/20 04:00 97.8 F 80 77 66 18 08/22/20 00:00 97.8 F 62 16 08/21/20 19:42 97.8 F 61 16 08/21/20 19:14 60 67 54 L 08/21/20 15:40 97.3 F L 55 L 16 08/21/20 15:14 50 L 16 08/21/20 14:28 52 L 16 08/21/20 13:52 56 L 08/21/20 13:40 97.4 F L 54 L 16 BP BP BP BP BP BP Pulse Ox 08/22/20 09:48 172/80 184/78 08/22/20 07:35 175/79 96 08/22/20 04:00 158/63 164/72 186/88 97 08/22/20 00:00 179/83 100 08/21/20 19:42 156/96 99 08/21/20 19:14 150/110 136/101 146/73 08/21/20 15:40 133/82 99 08/21/20 15:14 114/78 99 08/21/20 14:28 116/67 99 08/21/20 13:52 08/21/20 13:40 109/69 99 Intake and Output 08/21/20 08/22/20 08/22/20 22:59 06:59 14:59 Intake Total 240 125 Output Total 300 Balance -60 125 Intake: Oral 240 125 Output: Urine 300 Other: Voiding Method Toilet Toilet Diaper # Voids 2 1 Weight 72.393 kg 67.2 kg PHYSICAL EXAMINATION: This is a 80-year-old female in no apparent distress at the time of my examination. VITAL SIGNS: Blood pressure 175/79, heart rate 63, respirations 18, temp 98.1F. Patient is 96 % on room air. HEENT: Head is atraumatic, normocephalic. Pupils are equal, round. Sclerae anicteric. Conjunctivae are clear. Mucous membranes of the mouth are moist. Neck is supple. There is no elevated jugular venous pressure. No carotid bruit is heard. CHEST EXAMINATION: Clear to auscultation bilaterally. No wheezes rales or rhonchi. Respirations even and nonlabored. HEART EXAMINATION: Heart regular, positive S1 and S2. No S3. No S4. With a systolic murmur. ABDOMEN: Soft, nontender. Bowel sounds are heard. No organomegaly noted. EXTREMITIES: 2+ peripheral pulses with no evidence of peripheral edema and no calf tenderness noted. NEUROLOGIC EXAMINATION: Patient is awake, alert and oriented x3. Results 08/22/20 07:30 08/22/20 07:30 Cardiac Enzymes 08/21/20 08/21/20 Range/Units 13:46 13:46 AST 24 (14-36) U/L Troponin I <0.012 (0.000-0.034) ng/mL Coagulation 08/21/20 Range/Units 13:46 PT 10.5 (9.0-12.0) sec APTT 22.6 (22.0-30.0) sec CBC 08/21/20 08/22/20 Range/Units 13:46 07:30 WBC 3.9 6.1 (3.8-10.6) k/uL RBC 3.52 L 4.24 (3.80-5.40) m/uL Hgb 10.1 L 12.4 (11.4-16.0) gm/dL Hct 32.3 L 39.7 (34.0-46.0) % Plt Count 252 344 (150-450) k/uL Comprehensive Metabolic Panel 08/21/20 08/22/20 Range/Units 13:46 07:30 Sodium 138 141 (137-145) mmol/L Potassium 4.3 4.5 (3.5-5.1) mmol/L Chloride 108 H 111 H (98-107) mmol/L Carbon Dioxide 23 21 L (22-30) mmol/L BUN 29 H 25 H (7-17) mg/dL Creatinine 0.88 0.68 (0.52-1.04) mg/dL Glucose 172 H 116 H (74-99) mg/dL Calcium 8.4 8.8 (8.4-10.2) mg/dL AST 24 (14-36) U/L ALT 14 (4-34) U/L Alkaline Phosphatase 94 (38-126) U/L Total Protein 6.1 L (6.3-8.2) g/dL Albumin 3.5 (3.5-5.0) g/dL Current Medications Generic Name Dose Route Start Last Admin Trade Name Freq PRN Reason Stop Dose Admin Hydrocodone Bitart/Acetaminophen 1 each 08/21/20 16:03 Hydrocodone/Apap 7.5-325mg 1 Each Tab PO QID PRN Pain Aspirin 81 mg 08/21/20 21:00 08/21/20 21:15 Aspirin 81 Mg PO 81 mg HS JAZMINE Administration Budesonide/Formoterol Fumarate 2 puff 08/21/20 16:03 Symbicort 160-4.5 Mcg Inhaler INHALATION DAILY PRN Shortness Of Breath Calcium Carbonate/Glycine 500 mg 08/22/20 09:00 08/22/20 09:19 Calcium Carbonate 500 Mg Chewable PO 500 mg DAILY JAZMINE Administration Cholecalciferol 2,000 unit 08/21/20 21:00 08/21/20 21:14 Cholecalciferol 1,000 Unit Tab PO 2,000 unit HS JAZMINE Administration Fenofibrate 160 mg 08/22/20 09:00 08/22/20 09:19 Fenofibrate 160 Mg Tab PO 160 mg DAILY JAZMINE Administration Gabapentin 300 mg 08/21/20 21:00 08/22/20 09:19 Gabapentin 300 Mg Cap PO 300 mg BID JAZMINE Administration Insulin Detemir 12 unit 08/22/20 07:00 08/22/20 07:01 Insulin Detemir (Levemir) 100 Unit/Ml Syr SQ 12 unit QAM@0700 JAZMINE Administration Loratadine 10 mg 08/22/20 09:00 08/22/20 09:19 Loratadine 10 Mg Tab PO 10 mg QAM JAZMINE Administration Metformin HCl 500 mg 08/21/20 17:30 08/22/20 07:01 Metformin 500 Mg Tab PO 500 mg AC-BID JAZMINE Administration Methocarbamol 750 mg 08/21/20 18:00 08/22/20 09:19 Methocarbamol 750 Mg Tab PO 750 mg QID JAZMINE Administration Multivitamins 1 each 08/21/20 21:00 08/21/20 21:15 Multivitamins, Thera 1 Each Tab PO 1 each HS JAZMINE Administration Dulaglutide [ 0.75 mg 08/24/20 09:00 Trulicity] 0.75 Mg/0 SQ .5 Ml TU JAZMINE Oxybutynin Chloride 5 mg 08/22/20 09:00 08/22/20 09:19 Oxybutynin Chloride 5 Mg Tab PO 5 mg QAM JAZMINE Administration Pantoprazole Sodium 40 mg 08/21/20 16:03 Pantoprazole 40 Mg Tablet PO DAILY PRN Heartburn Repaglinide 0.5 mg 08/21/20 21:00 08/21/20 21:14 Repaglinide 1 Mg Tab PO 0.5 mg HS JAZMINE Administration Tizanidine HCl 4 mg 08/21/20 18:00 Tizanidine 4 Mg Tab PO QID PRN Muscle spasms Intake and Output 08/21/20 08/22/20 08/22/20 22:59 06:59 14:59 Intake Total 240 125 Output Total 300 Balance -60 125 Intake: Oral 240 125 Output: Urine 300 Other: Voiding Method Toilet Toilet Diaper # Voids 2 1 Weight 72.393 kg 67.2 kg 08/22/20 07:30 08/22/20 07:30 EKG Interpretations (text) Sinus bradycardia Assessment and Plan Assessment: #1 symptomatic hypotension at home, not on antihypertensive treatment, patient currently hypertensive, orthostatics negative #2 hyperlipidemia #3 diabetes mellitus Plan: From cardiology's perspective, we will resume losartan 25 mg by mouth daily. We'll obtain a 2-D echo with Doppler to assess cardiac structure and function. We will continue to follow the patient and provide further recommendations accordingly. VENEER TAPER note has been reviewed, I agree with a documented findings and plan of care. Patient was seen and examined.
[2020-08-22 11:44] LABS: Glucose,Whole Blood 107 mg/dL (75-99)
[2020-08-22 17:15] LABS: Glucose,Whole Blood 105 mg/dL (75-99)
[2020-08-22 20:06] LABS: Glucose,Whole Blood 122 mg/dL (75-99)
[2020-08-22] MEDS: MULTIVITAMINS, THERA 1 EACH TAB PO SCH (20:25)
[2020-08-22] MEDS: ASPIRIN 81 MG PO SCH (20:25)
[2020-08-22] MEDS: CHOLECALCIFEROL 1,000 UNIT TAB PO SCH (20:25)
[2020-08-22] MEDS: REPAGLINIDE 1 MG TAB PO SCH (20:26)
--- NOTE | 2020-08-23 00:11 | PN ---
PROGRESS NOTE DATE OF SERVICE: 08/22/2020 This 80-year-old woman was admitted with hypotension, weakness and bradycardia is being closely monitored. Medications adjusted. At this time, the blood pressure is slightly improved at this time. The blood sugar is also fluctuating. The patient was checking the blood sugars often at home. Orthostatic vitals are negative at this time. Losartan 25 mg daily was recommended, will resume by Cardiology. No chest pain. No palpitations. No fever. The patient has also seen Dr. Javier in the outpatient setting. PHYSICAL EXAMINATION: On exam, alert and oriented x3. Pulse 61, blood pressure 166/73, respiration 18, temperature 97.9, pulse ox 97% on room air. HEENT: Conjunctivae normal. NECK: No jugular venous distention. CARDIOVASCULAR: S1, S2 muffled. RESPIRATORY: Breath sounds diminished at the bases. A few scattered rhonchi, no crackles. ABDOMEN: Soft, nontender. LEGS: No edema, no swelling. NERVOUS SYSTEM: No focal deficits. LABS: CBC within normal limits. Accu-Cheks 66 and 72. ASSESSMENT: 1. Bradycardia, hypotension, possibly medication induced. 2. Sinus bradycardia. 3. Presyncopal episodes. 4. Diabetes mellitus type 2 uncontrolled with hypoglycemia. 5. History of asthma. 6. History of hypertension. 7. History of hyperlipidemia. 8. History of leaky heart valve. 9. History of MRSA. 10.History of back surgery. 11.History of joint replacement. 12.History of pain stimulator implant. 13.Remote history of nicotine dependence. RECOMMENDATIONS AND DISCUSSION: Recommend to continue current medications. Continue symptomatic treatment. Initiate losartan. Monitor electrolytes closely. Blood sugar is also fluctuating. The blood sugars appears to be normal. I would recommend close follow with Dr. Javier in the outpatient setting. Guarded prognosis. Further recommendations to follow. MMODL / IJN: [id number] / BRENDA
[2020-08-23] MEDS: methocarbamoL 750 MG TAB PO SCH ×3 (01:09→12:26)
[2020-08-23 02:28] VITALS: RESP 16
[2020-08-23 06:22] LABS: Glucose,Whole Blood 94 mg/dL (75-99)
[2020-08-23] MEDS: INSULIN DETEMIR (LEVEMIR) 100 UNIT/ML SYR SQ SCH (06:59)
[2020-08-23] MEDS: metFORMIN 500 MG TAB PO SCH (06:59)
[2020-08-23 07:56] VITALS: TEMP 98
[2020-08-23 08:07] LABS: Basophils % (A) 1 %; Eosinophils # (A) 0.3 k/uL (0-0.7); Eosinophils % (A) 6 %; HCT 39.8 % (34.0-46.0); HGB 12.6 gm/dL (11.4-16.0); Lymphocytes # (A) 1.4 k/uL (1.0-4.8); Lymphocytes % (A) 27 %; MCH 28.9 pg (25.0-35.0); MCHC 31.6 g/dL (31.0-37.0); MCV 91.5 fL (80.0-100.0); Mean Platelet Volume 7.7; Monocytes # (A) 0.4 k/uL (0-1.0); Monocytes % (A) 8 %; Neutrophils % (A) 57 %; Platelet Count 335 k/uL (150-450); RBC 4.35 m/uL (3.80-5.40); RDW 13.9 % (11.5-15.5); WBC 5.2 k/uL (3.8-10.6)
[2020-08-23] MEDS: GABAPENTIN 300 MG CAP PO SCH (08:10)
[2020-08-23] MEDS: CALCIUM CARBONATE 500 MG CHEWABLE PO SCH (08:10)
[2020-08-23] MEDS: FENOFIBRATE 160 MG TAB PO SCH (08:10)
[2020-08-23] MEDS: LORATADINE 10 MG TAB PO SCH (08:11)
[2020-08-23] MEDS: OXYBUTYNIN CHLORIDE 5 MG TAB PO SCH (08:11)
[2020-08-23 08:26] LABS: African American GFR (CKD) >90 (>60 ml/min/1.73 sqM); Anion Gap 8 mmol/L; Blood Urea Nitrogen 18 mg/dL (7-17); Calcium 9.1 mg/dL (8.4-10.2); Carbon Dioxide 28 mmol/L (22-30); Chloride 105 mmol/L (98-107); Glucose 221 mg/dL (74-99); Non-African American GFR(CKD) 81 (>60 ml/min/1.73 sqM); Potassium 4.8 mmol/L (3.5-5.1); Sodium 141 mmol/L (137-145)
[2020-08-23] MEDS ORDERED: LOSARTAN 25 MG TAB PO SCH (10:00)
[2020-08-23 11:58] LABS: Glucose,Whole Blood 160 mg/dL (75-99)
[2020-08-23 12:08] VITALS: BP 151/71; PULSE 77
--- NOTE | 2020-08-23 13:00 | P.PN ---
Subjective This is a pleasant 80-year-old female past medical history significant for hypertension, dyslipidemia and diabetes mellitus. She follows in the office with Dr. Rivas. She is seen and examined sitting up in the chair in no acute distress. She has been up ambulating to the bathroom and around the room and has had no dizziness. She denies chest pain, shortness of breath or palpitations. Blood pressure this morning was 180/95. Heart rate 91. Laboratory data reviewed, CBC unremarkable, sodium 141, potassium 4.8 creatinine 0.71. Echocardiogram has been obtained and will be reviewed. GENERAL: Well-appearing, well-nourished and in no acute distress. NECK: Supple without JVD or thyromegaly. LUNGS: Breath sounds clear to auscultation bilaterally. Respiration equal and unlabored. No wheezes, rales or rhonchi. HEART: Regular rate and rhythm with systolic ejection murmur at the left sternal border, no rubs or gallops. S1 and S2 heard. EXTREMITIES: Normal range of motion, no edema. No clubbing or cyanosis. Peripheral pulses intact. ASSESSMENT History of hypertension with episode of hypotension at home Dyslipidemia Diabetes mellitus PLAN Stable for discharge on losartan 25 mg daily. Advised her to continue following her blood pressures at home and keep a journal for review by Dr. Rivas. Nurse Practitioner note has been reviewed, I agree with a documented findings and plan of care. Patient was seen and examined. Objective - Vital Signs Vital signs: Vital Signs Temp 98.0 F 08/23/20 07:52 Pulse 77 08/23/20 12:00 Resp 16 08/23/20 12:00 BP 151/71 08/23/20 12:00 Pulse Ox 95 08/23/20 12:00 Intake & Output 08/22/20 08/23/20 08/23/20 18:59 06:59 18:59 Intake Total 665 180 Output Total 250 Balance 415 180 Weight 65.3 kg Intake: Oral 665 180 Output: Urine 250 Other: Voiding Method Toilet # Voids 1 1 - Labs CBC & Chem 7: 08/23/20 07:42 08/23/20 07:42 Labs: Abnormal Lab Results - Last 24 Hours (Table) 08/22/20 08/22/20 08/23/20 Range/Units 17:01 20:05 07:42 BUN 18 H (7-17) mg/dL Glucose 221 H (74-99) mg/dL POC Glucose (mg/dL) 105 H 122 H (75-99) mg/dL 08/23/20 Range/Units 11:51 BUN (7-17) mg/dL Glucose (74-99) mg/dL POC Glucose (mg/dL) 160 H (75-99) mg/dL
--- NOTE | 2020-08-23 13:46 | ECHOF ---
Referral Reason:hypotension MEASUREMENTS -------- HEIGHT: 152.4 cm WEIGHT: 64.9 kg BP: 177/95 RVIDd: 3.3 cm (< 3.3) IVSd: 1.1 cm (0.6 - 1.1) LVIDd: 4.6 cm (3.9 - 5.3) LVPWd: 1.2 cm (0.6 - 1.1) IVSs: 1.8 cm LVIDs: 3.0 cm LVPWs: 1.8 cm LA Diam: 3.4 cm (2.7 - 3.8) LAESV Index (A-L): 28.62 ml/m Ao Diam: 3.3 cm (2.0 - 3.7) AV Cusp: 1.8 cm (1.5 - 2.6) MV EXCURSION: 9.436 mm (> 18.000) MV EF SLOPE: 32 mm/s (70 - 150) EPSS: 0.7 cm MV E Elliot: 0.65 m/s MV DecT: 305 ms MV A Elliot: 1.13 m/s MV E/A Ratio: 0.57 AV maxP.76 mmHg AV meanP.54 mmHg RAP: 5.00 mmHg RVSP: 22.40 mmHg FINDINGS -------- Atrial fibrillation. This was a technically difficult study with suboptimal apical views. The left ventricular size is normal. There is borderline concentric left ventricular hypertrophy. Overall left ventricular systolic function is low-normal with, an EF between 50 - 55 %. The right ventricle is mildly enlarged. LA is midly dilated 29-33ml/m2. The right atrium is normal in size. Interatrial and interventricular septum intact. There is mild aortic valve sclerosis. There is mild aortic regurgitation. Peak/mean gradient acro ss the Aortic Valve is 10.76mmHg / 5.54mmHg. The mitral valve leaflets are mildly thickened. Mild mitral annular calcification present. Mild m itral regurgitation is present. Mild tricuspid regurgitation present. Right ventricular systolic pressure is normal at < 35 mmHg. Trace/mild (physiologic) pulmonic regurgitation. The aortic root size is normal. Normal inferior vena cava with normal inspiratory collapse consistent with estimated right atrial pre ssure of 5 mmHg. There is no pericardial effusion. CONCLUSIONS -------- 1. This was a technically difficult study with suboptimal apical views. 2. The left ventricular size is normal. 3. There is borderline concentric left ventricular hypertrophy. 4. Overall left ventricular systolic function is low-normal with, an EF between 50 - 55 %. 5. The right ventricle is mildly enlarged. 6. LA is midly dilated 29-33ml/m2. 7. There is mild aortic valve sclerosis. 8. There is mild aortic regurgitation. 9. Peak/mean gradient across the Aortic Valve is 10.76mmHg / 5.54mmHg. 10. The mitral valve leaflets are mildly thickened. 11. Mild mitral annular calcification present. 12. Mild mitral regurgitation is present. 13. Mild tricuspid regurgitation present. 14. Trace/mild (physiologic) pulmonic regurgitation. 15. There is no pericardial effusion. DAT[employer]ASES COMPUTER CONSULTANT: Daylin Flores RDCS
--- NOTE | 2020-08-23 16:20 | P.CNPUL ---
History of Present Illness Consult date: 08/23/20 Reason for consult: other Chief complaint: Low blood pressure, bradycardia, weakness History of present illness: 80-year-old white female patient follows with Dr. Perez for primary care services, has a known history of hypertension, hyperlipidemia, diabetes, former smoker, history of valvular heart disease, and echocardiogram showed mild aortic regurgitation, mild mitral regurgitation and mild tricuspid regurgitation, and preserved LV function with EF of 50-55%, patient presented to the emergency department on 08/21/2020, for sudden episode of lightheadedness, apparently patient was sitting at the table, getting her meds ready for the week, when suddenly she became very lightheaded, her head went down to the table, and her grandson was at home and called the EMS. When the EMS arrived blood pressure was 60/40, and patient was bradycardic in the 40s in sinus mechanism. She was given a dose of epinephrine and blood pressure responded. She states patient was having some problems in the past with low blood pressure and she was supposed to see Dr. Rivas her attending dining services director for blood pressure medic ation adjustment. In the emergency department EKG showed sinus bradycardia with first-degree AV block and the rate of 54 BPM. Chest x-ray showed minimal pleural reaction at the lung bases, no pulmonary consolidation. Her lab showed white blood cell count of 3.9, hemoglobin 10.1, likely condition profile was within normal limits, sodium was 1:30, potassium 4.3, chloride is 108, CO2 is 23, B1 is 29 creatinine 0.88, troponin less than 0.012, serum cortisol level was 23, urinalysis was negative for any sign of infection. TSH was within normal limits. Once the patient arrived in the hospital she has had no further episodes of weakness, tiredness, lightheadedness, syncope, no chest pain, no s hortness of breath or palpitations. She's had no pulmonary complaints. Review of Systems All systems: negative Constitutional: Reports fatigue, Reports weakness, Denies chills, Denies fever Eyes: denies blurred vision, denies pain Ears, nose, mouth and throat: Denies headache, Denies sore throat Cardiovascular: Denies chest pain, Denies shortness of breath Respiratory: Denies cough Gastrointestinal: Denies abdominal pain, Denies diarrhea, Denies nausea, Denies vomiting Genitourinary: Denies dysuria, Denies hematuria Musculoskeletal: Denies myalgias Integumentary: Denies pruritus, Denies rash Neurological: Reports as per HPI, Reports weakness, Denies numbness Psychiatric: Denies anxiety, Denies depression Endocrine: Denies fatigue, Denies weight change Past Medical History Past Medical History: Asthma, Diabetes Mellitus, Hyperlipidemia, Hypertension Additional Past Medical History / Comment(s): "leaky heart valve". back pain. staph/strep infection post op incision History of Any Multi-Drug Resistant Organisms: MRSA Date of last positivie culture/infection: 2012 MDRO Source:: Stomach wound Past Surgical History: Back Surgery, Bladder Surgery, Breast Surgery, Hernia Repair, Hysterectomy, Joint Replacement, Orthopedic Surgery, Tubal Ligation Additional Past Surgical History / Comment(s): pain stimulator implant-LT HIP. BILAT TKA. neck fusion and plate in left side of neck. REVERSE LT SHOULDER SX. COLONOScopy. Pain stimulator removed 07/06. Back surgery in Sep 2018 Past Anesthesia/Blood Transfusion Reactions: No Reported Reaction Past Psychological History: No Psychological Hx Reported Smoking Status: Former smoker Past Alcohol Use History: None Reported Additional Past Alcohol Use History / Comment(s): QUIT SMOKING 1978 Past Drug Use History: None Reported - Past Family History Mother Family Medical History: Cancer Additional Family Medical History / Comment(s): metastatic cancer Sister(s) Family Medical History: Cancer Additional Family Medical History / Comment(s): two sisters dx with ovarian cancer. one sister with lung cancer Brother(s) Family Medical History: Cancer Additional Family Medical History / Comment(s): one brother had lung cancer. half-brother had prostate cancer. maternal grandfather prostate cancer Medications and Allergies Home Medications Medication Instructions Recorded Confirmed Type Aspirin 81 mg PO HS 08/13/14 08/21/20 History Gabapentin 300 mg PO BID 08/13/14 08/21/20 History Meloxicam 15 mg PO QAM 08/13/14 08/21/20 History gemfibroziL [Lopid] 600 mg PO BID 08/13/14 08/21/20 History Calcium Carbonate [Calcium] 300 mg PO DAILY 06/13/16 08/21/20 History Cholecalciferol [Vitamin D3 (25 2,000 unit PO HS 06/13/16 08/21/20 History Mcg = 1000 Iu)] Multivitamins, Thera [Multivitamin 1 tab PO HS 06/13/16 08/21/20 History (formulary)] Oxybutynin Chloride 5 mg PO QAM 11/26/17 08/21/20 History tiZANidine [Zanaflex] 4 mg PO QID 11/26/17 08/21/20 History Dulaglutide [Trulicity] 0.75 mg SQ TU 01/15/18 08/21/20 History Cetirizine HCl [Zyrtec] 10 mg PO QAM 07/19/18 08/21/20 History Insulin Glargine [Lantus] 12 unit SQ QAM 10/10/19 08/21/20 History Budesonide/Formoterol Fumarate 2 puff INHALATION DAILY PRN 08/21/20 08/21/20 History [Symbicort 160-4.5 Mcg Inhaler] HYDROcodone/APAP 7.5-325MG [[place] 1 tab PO QID PRN 08/21/20 08/21/20 History 7.5-325] Losartan Potassium [Cozaar] 25 mg PO DAILY 08/21/20 08/21/20 History Lutein 20 mg PO DAILY 08/21/20 08/21/20 History Methocarbamol [Robaxin-750] 750 mg PO QID 08/21/20 08/21/20 History Omeprazole 20 mg PO DAILY PRN 08/21/20 08/21/20 History Repaglinide 0.5 mg PO HS 08/21/20 08/21/20 History metFORMIN HCL [Glucophage] 500 mg PO BID 08/21/20 08/21/20 History Allergies Allergy/AdvReac Type Severity Reaction Status Date / Time midazolam HCl [From Versed] Allergy Rash/Hives Verified 08/21/20 15:01 pentazocine lactate AdvReac Nausea & Verified 08/21/20 15:01 [From Oscar] Vomiting Physical Exam Vitals: Vital Signs Temp Pulse Pulse Pulse Resp BP BP 08/23/20 12:00 77 16 08/23/20 08:00 91 16 08/23/20 07:52 98.0 F 91 16 180/95 150/69 08/23/20 00:00 97.7 F 79 16 08/22/20 20:00 97.8 F 80 82 72 18 189/86 BP BP BP Pulse Ox 08/23/20 12:00 151/71 95 08/23/20 08:00 08/23/20 07:52 95 08/23/20 00:00 177/94 99 08/22/20 20:00 159/108 154/110 189/86 99 Intake and Output 08/23/20 08/23/20 08/23/20 06:59 14:59 22:59 Intake Total 180 Balance 180 Intake: Oral 180 Other: Voiding Method Toilet # Voids 1 1 Weight 65.3 kg GENERAL EXAM: Alert, very pleasant, 80-year-old white female, on room air, with a pulse ox of 95% comfortable in no apparent distress. HEAD: Normocephalic/atraumatic. EYES: Normal reaction of pupils, equal size. Conjunctiva pink, sclera white. NOSE: Clear with pink turbinates. THROAT: No erythema or exudates. NECK: No masses, no JVD, no thyroid enlargement, no adenopathy. CHEST: No chest wall deformity. Symmetrical expansion. LUNGS: Equal air entry with no crackles, wheeze, rhonchi or dullness. CVS: Regular rate and rhythm, normal S1 and S2, no gallops, no murmurs, no rubs ABDOMEN: Soft, nontender. No hepatosplenomegaly, normal bowel sounds, no guarding or rigidity. EXTREMITIES: No clubbing, no edema, no cyanosis, 2+ pulses and upper and lower extremities. MUSCULOSKELETAL: Muscle strength and tone normal. SPINE: No scoliosis or deformity SKIN: No rashes CENTRAL NERVOUS SYSTEM: Alert and oriented -3. No focal deficits, tone is normal in all 4 extremities. PSYCHIATRIC: Alert and oriented -3. Appropriate affect. Intact judgment and insight. Results - Laboratory Findings CBC and BMP: 08/23/20 07:42 08/23/20 07:42 PT/INR, D-dimer PT 10.5 sec (9.0-12.0) 08/21/20 13:46 INR 1.0 (<1.2) 08/21/20 13:46 Abnormal lab findings: Abnormal Labs 08/21/20 08/21/20 08/22/20 13:46 13:46 00:19 RBC 3.52 L Hgb 10.1 L Hct 32.3 L Chloride 108 H Carbon Dioxide BUN 29 H Glucose 172 H POC Glucose (mg/dL) 66 L Total Protein 6.1 L 08/22/20 08/22/20 08/22/20 00:35 07:30 11:40 RBC Hgb Hct Chloride 111 H Carbon Dioxide 21 L BUN 25 H Glucose 116 H POC Glucose (mg/dL) 72 L 107 H Total Protein 08/22/20 08/22/20 08/23/20 17:01 20:05 07:42 RBC Hgb Hct Chloride Carbon Dioxide BUN 18 H Glucose 221 H POC Glucose (mg/dL) 105 H 122 H Total Protein 08/23/20 11:51 RBC Hgb Hct Chloride Carbon Dioxide BUN Glucose POC Glucose (mg/dL) 160 H Total Protein - Diagnostic Findings Chest x-ray: report reviewed Additional studies: EKG reviewed Assessment and Plan Plan: Assessment: #1. Lightheadedness, hypertension, bradycardia, likely medication induced, responded to a single dose of epinephrine. No complaints of chest pain, troponins have been negative, no acute ischemic changes on the EKG. She has been evaluated by cardiology #2. History of hypertension #3. Former history of smoking, currently in remission #4. Diabetes mellitus type 2 diabetic peripheral neuropathy #5. Dyslipidemia #6. Bradycardia #7. History of mild intermittent asthma, currently stable #8. GERD/reflux #9. Chronic pain syndrome status post pain stimulator implant #10. Osteoarthritis #11. History of back surgery #12. History of MRSA infection #13. Mild aortic regurg Plan: Patient's asthma is currently stable, vital signs have been stable, recurrence of hypotension while in the hospital, cardiology is following, cardiac medication adjustment per cardiology , echocardiogram results have been reviewed. No pulmonary symptoms, continue maintenance inhaler Symbicort, no compensatory worsening dyspnea, cough or congestion, no chest pain. Vital signs have been stable. Pulmonary service will sign off and continue to follow on as- needed basis. Discharge home when cleared by cardiology, patient will need outpatient follow with Dr. Perez in the office in one week I performed a history & physical examination of the patient and discussed their management with my nurse practitioner, Leigh Hernandez. I reviewed the nurse practitioner's note and agree with the documented findings and plan of care. Lung sounds are positive for clear breath sounds. The findings and the impression was discussed with the patient. I attest to the documentation by the nurse practitioner. Time with Patient: Greater than 30
--- NOTE | 2020-08-24 03:45 | DS ---
DISCHARGE SUMMARY FINAL DIAGNOSES: 1. Bradycardia and hypotension, possibly medication induced, improved. 2. Sinus bradycardia. 3. Presyncopal episode. 4. Diabetes mellitus type 2 uncontrolled with hypoglycemia. 5. History of asthma. 6. History of hypertension. 7. History of hyperlipidemia. 8. History of leaky heart valve. 9. History of MRSA. 10.History of back surgery. 11.History of degenerative joint disease. 12.History of pain stimulator implant. 13.Remote history of nicotine dependence. DISCHARGE DISPOSITION: The patient will be discharged in stable condition with guarded prognosis. HISTORY OF PRESENT ILLNESS: This 80-year-old woman with a past medical history of multiple medical problems admitted with bradycardia and hypotension treated symptomatically with IV fluids. Patient improved significantly. Cardiology saw the patient recommended outpatient followup. A 2-D Echo with Doppler was done showed ejection fraction about 50% to 55% and minimal valvular abnormalities also noted. Losartan was reinstated. On exam, vitals are stable. CARDIOVASCULAR: S1, S2 muffled. ABDOMEN: Soft. NERVOUS SYSTEM: No focal deficits. DISCHARGE ADVICE AND MEDICATIONS: 1. Diet is consistent carb. 2. Activity limited until followup. 3. Follow up with Dr. Turner as advised. 4. Follow up with Dr. Rivas as advised. Medications are: 1. Aspirin 81 mg at bedtime. 2. Calcium carbonate 300 mg daily. 3. Cozaar 25 mg daily. 4. Gabapentin 300 mg p.o. b.i.d. 5. Glucophage 500 mg p.o. b.i.d. 6. Lantus 12 units subcutaneously q.a.m. 7. Lopid 600 mg p.o. b.i.d. 8. Lutein 20 mg daily. 9. Meloxicam 15 mg q.a.m. 10.Multivitamins one p.o. daily. 11.Karval 7.5 q.i.d. p.r.n. 12.Omeprazole daily. 13.Oxybutynin 5 mg q.a.m. 14.Repaglinide 0.5 mg at bedtime. 15.Robaxin 750 mg q.i.d. 16.Symbicort two puffs b.i.d. 17.Trulicity 0.75 mg subcu Sunday. 18.Vitamin D3, 2000 at bedtime. 19.Zanaflex 4 mg p.o. q.i.d. 20.Zyrtec 10 mg q.a.m. This patient previously had one-week apparently Holter monitoring outpatient. If the patient's symptoms persist, the patient might need long-term monitoring of Reveal monitor. ROBERT / LEONELN: [id number] /
[2020-08-24] MEDS ORDERED: Dulaglutide [Trulicity] 0.75 MG/0.5 ML SQ SCH (09:00)
== END 2020-08-23 16:22 | disposition home or self-care (01) | DRG 312 ==
LOC: EC 13:31 → 3SCARD 14:32
PROVIDERS: ADMIT Hospitalist; ATTEND Hospitalist
DX: I95.2 Hypotension due to drugs (principal); E11.649 Type 2 diabetes mellitus with hypoglycemia without coma; E11.42 Type 2 diabetes mellitus with diabetic polyneuropathy; Z79.4 Long term (current) use of insulin; R00.1 Bradycardia, unspecified; J45.20 Mild intermittent asthma, uncomplicated; I10 Essential (primary) hypertension; E78.5 Hyperlipidemia, unspecified; M19.90 Unspecified osteoarthritis, unspecified site; I08.3 Combined rheumatic disorders of mitral, aortic and tricuspid valves; I44.0 Atrioventricular block, first degree; K21.9 Gastro-esophageal reflux disease without esophagitis; G89.4 Chronic pain syndrome; T50.905A Adverse effect of unspecified drugs, medicaments and biological substances, initial encounter; Z79.1 Long term (current) use of non-steroidal anti-inflammatories (NSAID); Z79.51 Long term (current) use of inhaled steroids; Z79.82 Long term (current) use of aspirin; Z79.899 Other long term (current) drug therapy; Z86.14 Personal history of Methicillin resistant Staphylococcus aureus infection; Z90.710 Acquired absence of both cervix and uterus; Z96.653 Presence of artificial knee joint, bilateral; Z98.890 Other specified postprocedural states; Z98.1 Arthrodesis status; Z87.891 Personal history of nicotine dependence; Z88.8 Allergy status to other drugs, medicaments and biological substances; Z80.42 Family history of malignant neoplasm of prostate; Z80.41 Family history of malignant neoplasm of ovary; Z80.1 Family history of malignant neoplasm of trachea, bronchus and lung
CPT/HCPCS: 36415; 71046; 80048; 80053; 81003; 82533; 83735; 84443; 84484; 85025; 85610; 85652; 85730; 86140; 93005; 93306; 99285

== ENCOUNTER → 2020-09-29 | Outpatient (CLI) | payer MEDICARE, OTHER ==
[2020-09-29 14:36] LABS: Basophils % (A) 1 %; Eosinophils # (A) 0.2 k/uL (0-0.7); Eosinophils % (A) 6 %; HCT 33.4 % (34.0-46.0); HGB 10.8 gm/dL (11.4-16.0); Lymphocytes # (A) 1.4 k/uL (1.0-4.8); Lymphocytes % (A) 33 %; MCH 29.1 pg (25.0-35.0); MCHC 32.2 g/dL (31.0-37.0); MCV 90.4 fL (80.0-100.0); Mean Platelet Volume 7.1; Monocytes # (A) 0.3 k/uL (0-1.0); Monocytes % (A) 6 %; Neutrophils # (A) 2.2 k/uL (1.3-7.7); Neutrophils % (A) 52 %; Platelet Count 266 k/uL (150-450); RDW 13.4 % (11.5-15.5); WBC 4.3 k/uL (3.8-10.6)
[2020-09-29 14:41] LABS: Appearance,Urine Clear (Clear); Bacteria,Urine Rare /hpf; Bilirubin,Urine Negative (Negative); Blood,Urine Negative (Negative); Color,Urine Yellow; Glucose,Urine (UA) Negative (Negative); Hyaline Casts,Urine 10 /lpf (0-2); Ketones,Urine Negative (Negative); Leukocyte Esterase,Urine Small (Negative); Mucus,Urine Rare /hpf; Nitrite,Urine Negative (Negative); Protein,Urine Negative (Negative); RBC,Urine 1 /hpf (0-5); Specific Gravity,Urine 1.022 (1.001-1.035); Squamous Epithelial Cell,Urine 2 /hpf (0-4); Urobilinogen,Urine <2.0 mg/dL (<2.0); WBC,Urine 1 /hpf (0-5)
[2020-09-29 14:57] LABS: Partial Thromboplastin Time 24.4 sec (22.0-30.0)
[2020-09-29 20:39] LABS: African American GFR (CKD) 61.6 (60.0-200.0); Anion Gap 8.2 mmol/L (4.00-12.00); Calcium 9.9 mg/dL (8.7-10.3); Carbon Dioxide 25.8 mmol/L (21.6-31.8); Non-African American GFR(CKD) 53.2 (60.0-200.0); Potassium 5.1 mmol/L (3.5-5.5)
== END | disposition home or self-care (01) ==
LOC: LABWHC1 13:33
PROVIDERS: ATTEND Neurological Surgery
DX: Z01.818 Encounter for other preprocedural examination (principal); R30.0 Dysuria; I49.8 Other specified cardiac arrhythmias; D68.9 Coagulation defect, unspecified; D64.9 Anemia, unspecified; I10 Essential (primary) hypertension
CPT/HCPCS: 36415; 80048; 81001; 85025; 85610; 85730

== ENCOUNTER → 2020-10-04 | Outpatient (CLI) | payer MEDICARE, OTHER ==
--- NOTE | 2020-10-04 11:36 | USB ---
Reason for exam: clinical finding. History: Patient is postmenopausal and has history of other cancer at age 79. Family history of breast cancer in daughter at age 58 and breast cancer in daughter at age 57. Benign US biopsy breast VAD LT of the left breast, February 05, 2018. Benign US biopsy breast VAD LT of the left breast, December 06, 2016. Benign US biopsy breast VAD LT of the left breast, July 16, 2014. Benign US biopsy breast add'l VAD LT of the left breast, July 16, 2014. Benign US LT VAD breast biopsy of the left breast, February 16, 2014. Left Breast Aspiration, August 2013. Benign u/S left breast localization of the left breast, December 20, 2011. Cyst aspiration of the left breast, 2003. Excisional biopsy of the right breast, 2003. Excisional biopsy of the left breast. Took hormonal contraceptives for 4 years. Took estrogen for 25 years beginning at age 30. Indicated problem(s): lump or thickening in both breasts. Physical Findings: Nurse Summary: 1cm movable nodule in the right breast at 11 o'clock and a 1cm nodule in the left breast at 1 o'clock (nurse dw). US Breast BILAT Right complete breast ultrasound includes all four quadrants, the retroareolar region and axilla. Finding demonstrates no cystic or solid lesion seen. Left complete breast ultrasound includes all four quadrants, the retroareolar region and axilla. Finding demonstrates a possible scar at 12 o'clock BB and a 2 x 2 x 2mm oval lesion too small to characterize at 8 o'clock. Mixed echogenicity at 12 o'clock stable scar. These results were verbally communicated with the patient and result sheet given to the patient on 10/04/20. ASSESSMENT: Probably benign, BI-RAD 3 RECOMMENDATION: Follow-up diagnostic mammogram and ultrasound of both breasts in 6 months. Back on schedule for March 2021.
== END | disposition home or self-care (01) ==
LOC: RADUSWWP 10:30
PROVIDERS: ATTEND Surgery
DX: R92.8 Other abnormal and inconclusive findings on diagnostic imaging of breast (principal)

== ENCOUNTER → 2020-10-08 | Outpatient (CLI) | payer MEDICARE, OTHER ==
[2020-10-08 12:45] VITALS: BP 174/67; PULSE 66; RESP 16; TEMP 98.7
--- NOTE | 2020-10-08 13:31 | P.PN ---
Subjective Progress Note Date: 10/08/20 Principal diagnosis: fibrocystic breast disease Radha is an 80-year-old white female who has intermittently had some fullness in her left breast at the 12 o'clock position. She has a diagnosis of amyloidosis and has had multiple nodularity in the breast in the past. Past biopsies were consistent with amyloid disease. The nodularity in the breast has not changed. She has intermittent discomfort at the area of nodularity. [place] [address]. This revealed heterogeneously dense breast tissue. There was architectural distortion in the upper outer quadrant of the left breast There were typical benign calcifications in both breasts previous mammotome biopsy of the left breast. Ultrasound of the left breast was recommended. Ultrasound of the left breast revealed stable focal area at 12:00 unchanged from prior study benign BIRADS 2. Repeat ultrasound in 6 months. She also had additional views of the right breast performed which showed some nodularity which compressed out. This was reviewed by Dr. Doss from radiology. Repeat bilateral ultrasound of the breast performed on [id number]. Right breast showed no cystic or solid lesions. Left breast a possible scar 12:00 and a 2 x 2 millimeter too small to characterize area was noted. Probable benign BIRADS 3 with follow-up diagnostic mammogram and ultrasound of the breast in 6 months. She had a breast MRI done on 07/15/2020 which did not reveal any evidence for invasive malignancy in either breast. The patient herself complains of She has had recent diagnosis of skin cancer on her nose. She is using salve which is making it worse. Family history: Daughter: Breast cancer Paternal niece: Breast cancer diagnosed premenopausal Second paternal niece: Breast cancer premenopausal 2 sisters: Ovarian cancer but from this Mother: Carcinomatosis uncertain of the etiology, mother skin cancer on her arm Paternal grandfather: Prostate cancer Paternal half-brother: Prostate cancer Past surgical history: 1. Back surgery 2. Prior surgery 3. Breast biopsies 4. Hernia surgery 5. Hysterectomy 6. Tubal ligation 7. Joint replacement 8. Orthopedic surgery 9. Pain stimulator placed and removed 10. bilateral total knee replacement 11. Left shoulder surgery 12. Neck exploration for parathyroid surgery 13. Neck fusion Medical history: 1. Diabetes 2. Asthma 3. Hypertension 4. Leaking heart valve 5. Hyperlipidemia 6. Amyloidosis Social history: Smoke: Negative Alcohol: Negative Drugs: Negative Review of systems: HEENT: Decreased hearing Constitutional: No fever or night sweats Lungs: Asthma Cardiovascular: Leaking valve GI: Negative negative negative Integument: skin cancer on nose Musculoskeletal: Amyloidosis, arthritis Psychiatric: Negative ALLERGIES: matty Harrison Objective - Vital Signs Vital signs: Vital Signs Temp 98.7 F 10/08/20 12:37 Pulse 66 10/08/20 12:37 Resp 16 10/08/20 12:37 BP 174/67 10/08/20 12:37 Pulse Ox 97 10/08/20 12:37 Intake & Output 10/07/20 10/08/20 10/08/20 18:59 06:59 18:59 Weight 66.451 kg - Exam BMI 28.6 - Constitutional General appearance: Present: obese - EENT Eyes: Present: EOMI ENT: Present: hearing grossly normal - Neck Neck: Present: normal ROM - Respiratory Respiratory: bilateral: CTA - Cardiovascular Rhythm: regular Heart sounds: normal: S1, S2 - Gastrointestinal General gastrointestinal: Present: soft - Integumentary Integumentary: Present: normal turgor - Musculoskeletal Musculoskeletal Comment(s): a sling for her left arm recent carpal tunnel surgery - Psychiatric Psychiatric: Present: A&O x's 3, appropriate affect - Additional findings Additional findings: breast exam: BRA: 44B insepction: bilateral grade 3 ptosis palpation: Right breast: Multi-positional exam fibrocystic changes, no dominant masses or nodules of concern Right axilla: No adenopathy of concern Left breast: Multi-positional exam fibrocystic changes, scar tissue, no dominant masses or nodules of concern Left axilla: No adenopathy of concern Assessment and Plan Assessment: Impression: 1. Amyloidosis 2. Fibrocystic breast changes 3. Recent bilateral breast ultrasound on [id number] probable benign BI-Rad 300 4. Diabetes 5. Asthma 6. Hypertension Plan: 1. Bilateral breast mammogram and ultrasound in 6 months with physician exam 2. Patient to call if any questions or concerns sooner CC: Dr. Turner encounter 15 minutes, > 50% of time in planning and counselling
== END | disposition home or self-care (01) ==
LOC: WWCWWP 12:25
PROVIDERS: ATTEND Surgery
DX: Z53.9 Procedure and treatment not carried out, unspecified reason (principal)

== ENCOUNTER → 2020-11-16 | Outpatient (CLI) | payer MEDICARE, OTHER ==
--- NOTE | 2020-11-16 12:55 | XR ---
EXAMINATION TYPE: XR Hip Complete RT DATE OF EXAM: 11/16/2020 CLINICAL HISTORY: Pain. TECHNIQUE: AP and frogleg views of the right hip are obtained. COMPARISON: CT right hip December 29, 2016. Pelvic and bilateral hip x-ray December 11, 2016 FINDINGS: There is no acute fracture/dislocation evident in the right hip. Stable mild axial joint s pace loss and mild acetabular spurring. Femoral head shape is maintained. The overlying soft tissue appears unremarkable. Partial visualization of metallic screws through the right sacroiliac joint and additional surgical hardware in the lower lumbar spine and left sacrum. IMPRESSION: As above.
--- NOTE | 2020-11-16 12:58 | XR ---
EXAMINATION TYPE: XR lumbar spine 2 or 3V DATE OF EXAM: 11/16/2020 CLINICAL HISTORY: Pain. TECHNIQUE: Frontal and lateral images of the lumbar spine are obtained. COMPARISON: Lumbar spine x-ray May 12, 2020. Lumbar CT May 29, 2020 FINDINGS: There are 5 lumbar type vertebral bodies redemonstrated. There is redemonstration of rever ying of normal lumbar lordosis with some ossific fusion of the L2-L4 vertebra. Persistent moderate dis c space narrowing and vacuum disc phenomenon T12-L1 and L1-L2 levels. Stable grade 1 anterolisthesis of L1 on L2. Persistent metallic fusion device at the lumbosacral junction. Persistent fusion screws through the bilateral sacroiliac joints. Osseous structures remain demineralized. Multilevel laminect maninder defects and spinous process resection in the lower lumbar spine redemonstrated. No acute fracture or dislocation. Surgical clips in the right lumbosacral junction redemonstrated. IMPRESSION: As above. No significant change from most recent studies.
== END | disposition home or self-care (01) ==
LOC: RADXRMAIN 11:40
PROVIDERS: ATTEND Neurological Surgery
DX: M25.751 Osteophyte, right hip (principal); M25.851 Other specified joint disorders, right hip; M48.061 Spinal stenosis, lumbar region without neurogenic claudication; M43.16 Spondylolisthesis, lumbar region; Z98.1 Arthrodesis status; Z98.890 Other specified postprocedural states
CPT/HCPCS: 72100; 73502

== ENCOUNTER → 2021-01-13 | Outpatient (CLI) | payer MEDICARE, OTHER ==
--- NOTE | 2021-01-13 14:48 | XR ---
EXAMINATION TYPE: XR cervical spine limited DATE OF EXAM: 01/13/2021 TECHNIQUE: Frontal, lateral, swimmers, and open mouth view of the cervical spine are obtained. HISTORY: Z98.1, M54.2 chronic headache and neck pain COMPARISON: CT cervical spine May 12, 2020. Cervical spine x-ray January 28, 2019 FINDINGS: There is persistent posterior fusion hardware from C3 through T1 levels and anterior fusion plate from C5 through C7 levels. Persistent grade 1 anterolisthesis C2 on C3 and C3 on C4. Persisten t advanced disc space narrowing C4-C5 level. Cerclage wires posteriorly at the posterior C1 articulat ion with the occipital calvarium is redemonstrated. Some ossific fusion C5-C7 levels redemonstrated. Alignment stable and satisfactory on frontal image. Surgical change to shoulders noted on lateral and swimmer's projection. IMPRESSION: As above.
== END | disposition home or self-care (01) ==
LOC: RADXRMAIN 14:23
PROVIDERS: ATTEND Internal Medicine
DX: M48.062 Spinal stenosis, lumbar region with neurogenic claudication (principal); M43.12 Spondylolisthesis, cervical region; G89.29 Other chronic pain; Z98.1 Arthrodesis status; Z98.890 Other specified postprocedural states
CPT/HCPCS: 72040

== ENCOUNTER → 2021-01-27 | Outpatient (CLI) | payer MEDICARE, OTHER ==
[2021-01-27 09:45] LABS: African American GFR (CKD) >90 (>60 ml/min/1.73 sqM); Blood Urea Nitrogen 20 mg/dL (7-17); Non-African American GFR(CKD) 80 (>60 ml/min/1.73 sqM)
--- NOTE | 2021-01-27 10:14 | XR ---
EXAMINATION TYPE: XR elbow complete LT DATE OF EXAM: 01/27/2021 COMPARISON: NONE HISTORY: 80-year-old female R52, pain TECHNIQUE: 3 views FINDINGS: A couple densities projecting in the medial soft tissues of the elbow measuring up to 4 mm. This is o nly seen on the AP view. No elbow joint effusion. Minimal spurring in the ulnotrochlear joint. No acu te fracture, subluxation, dislocation. There seems to be some dorsal soft tissue swelling along the p roximal forearm just beyond the elbow. Best seen on the lateral view. No acute fracture, subluxation, or dislocation. IMPRESSION: 1. A couple densities measuring up to 4 mm in the medial elbow soft tissues could reflect tendinopath y of the common flexor tendon origin. If pain localizes here, MRI can be considered. 2. Some focal soft tissue swelling along the dorsal aspect just beyond the elbow best seen on the lat eral view. Correlate clinically.
--- NOTE | 2021-01-27 12:09 | CT ---
EXAMINATION TYPE: CT brain w con DATE OF EXAM: 01/27/2021 COMPARISON: Brain without 05/12/2020 HISTORY: 80-year-old female dizziness, spinal stenosis, CT DLP: 1090.4 mGycm Automated exposure control for dose reduction was used. TECHNIQUE: CT scan of the head is performed with IV Contrast, patient injected with 100 mL of Isovue 300. Coronal and sagittal reconstructions. FINDINGS: There is no abnormal enhancing mass or midline shift identified. The ventricles and sulci are within normal limits in size. Mild cerebral cortical volume loss. There seems to be some post surgical changes of occipital cervical fusion partially visualized on thi s exam. Normal variation of hyperostosis frontalis interna. Persistent origin left posterior cerebral artery. The globes are intact and the visualized sinuses are clear. Rightward nasal septal deviation. IMPRESSION: Age-related mild cerebral cortical atrophy. No enhancing intracranial lesions. Previous surgery along the posterior craniocervical junction
--- NOTE | 2021-01-27 12:31 | CT ---
EXAMINATION TYPE: CT cervical spine wo con DATE OF EXAM: 01/27/2021 COMPARISON: 05/12/2020 HISTORY: 80-year-old female dizziness, spinal stenosis, TECHNIQUE: Contiguous axial scanning of the cervical spine without IV contrast. Coronal and sagittal reconstructions performed. CT DLP: 380.7 mGycm Automated exposure control for dose reduction was used. FINDINGS: There is mature bony bridging across the posterior arch of C1 and the base of the skull. Contiguous b one bridges the posterior elements of C2 and the occiput. Prominent degenerative facet arthropathy especially towards the left below this fusion at C2-C3 with moderate degenerative disc disease and grade 1 anterolisthesis. Unchanged from 05/12/2020, the right C3 facet screw is located within the right C2-C3 facet joint. In addition, there is a chronic linear defect across the right C3 pedicle. There is a grade 1 anterolisthesis C3-C4 with posterior cervical fusion hardware from C3 through C7 l evels and ACDF from C5 through C7. Laminectomy change from C3 through C6 levels. Degenerative grade 1 anterolisthesis below the fusion at C7-T1 along with facet arthropathy. No evident bony canal compromise by CT. On the right, there is moderate neuroforaminal narrowing at C2-C3, C2-C4, C5-C6, C6-C7. On the left, there is mild bony neuroforaminal narrowing at C3-C4, C4-C5, moderate at C5-C6 and C6-C7 . IMPRESSION: 1. POSTERIOR SUBOCCIPITAL bony fusion with bony bridging across the cranium down through C2. 2. Additional combination of posterior cervical fusion from C3 through C7 and ACDF from C5 through C7 . Laminectomies from C3 through C6. 3. Degenerative grade 1 anterolisthesis at the intervening nonfused C2-C3 level with advanced hypertr ophic facet arthropathy. Of note, the right C3 facet screw is located within the C2-C3 facet joint. A lso, chronic fracture defect across the right C3 pedicle. 4. No evident bony canal compromise by CT allowing for metal hardware artifact. 5. Variable moderate neuroforaminal stenoses on the right and [id number] on the left as outline d above.
== END ==
LOC: RADCTMAIN 08:37
PROVIDERS: ATTEND Neurological Surgery
DX: Z98.1 Arthrodesis status (principal); M43.12 Spondylolisthesis, cervical region; M47.812 Spondylosis without myelopathy or radiculopathy, cervical region; M99.71 Connective tissue and disc stenosis of intervertebral foramina of cervical region; G31.9 Degenerative disease of nervous system, unspecified; M77.02 Medial epicondylitis, left elbow
CPT/HCPCS: 82565; 84520; 73080; 72125; 70460; 36415; Q9967

== ENCOUNTER → 2021-03-09 | Outpatient (CLI) | payer MEDICARE, OTHER ==
--- NOTE | 2021-03-09 12:47 | XR ---
EXAMINATION TYPE: XR Hip RT and AP Pelvis DATE OF EXAM: 03/09/2021 COMPARISON: Pelvic and right hip x-ray May 12, 2020 HISTORY: Pelvic pain into right hip and groin. TECHNIQUE: A single AP view of the pelvis is obtained. Two views of the right hip are obtained. FINDINGS: Osseous structures remain demineralized. There is no acute fracture/dislocation evident in the pelvis. Multiple fixating screws through the bilateral sacroiliac joints are redemonstrated. Hip joints redemonstrates symmetric mild to moderate axial joint space loss. Pubic symphysis is intact. S cattered bilateral pelvic phleboliths redemonstrated. Two views of the right hip show no acute fracture or dislocation. No new focal lytic or sclerotic le mariano seen in the proximal right femur. The overlying soft tissue remains unremarkable. IMPRESSION: As above. No significant change from prior.
== END | disposition home or self-care (01) ==
LOC: RADXRMAIN 11:58
PROVIDERS: ATTEND Neurological Surgery
DX: I87.8 Other specified disorders of veins (principal)
CPT/HCPCS: 73502

== ENCOUNTER → 2021-04-04 | Outpatient (CLI) | payer MEDICARE, OTHER ==
--- NOTE | 2021-04-05 10:36 | MM ---
Reason for exam: additional evaluation requested from prior study. Last mammogram was performed 1 year ago. History: Patient is postmenopausal and has history of other cancer at age 79. Family history of breast cancer in daughter at age 58 and breast cancer in daughter at age 57. Benign US biopsy breast VAD LT of the left breast, February 05, 2018. Benign US biopsy breast VAD LT of the left breast, December 06, 2016. Benign US biopsy breast VAD LT of the left breast, July 16, 2014. Benign US biopsy breast add'l VAD LT of the left breast, July 16, 2014. Benign US LT VAD breast biopsy of the left breast, February 16, 2014. Left Breast Aspiration, August 2013. Benign u/S left breast localization of the left breast, December 20, 2011. Cyst aspiration of the left breast, 2003. Excisional biopsy of the right breast, 2003. Excisional biopsy of the left breast. Took hormonal contraceptives for 4 years. Took estrogen for 25 years beginning at age 30. Physical Findings: Nurse did not find any significant physical abnormalities on exam. MG 3D Diag Mammo W/Cad CHIQUITA Bilateral CC and MLO view(s) were taken. Prior study comparison: March 31, 2020, bilateral MG 3d diag mammo w/cad CHIQUITA. April 02, 2019, bilateral MG 3d diag mammo w/cad CHIQUITA. The breast tissue is heterogeneously dense. This may lower the sensitivity of mammography. Left breast parenchymal scarring 12 o'clock. Bilateral vascular and scattered calcifications. Multiple left breast core biopsy markers. No significant new findings when compared with previous films. These results were verbally communicated with the patient and result sheet given to the patient on 04/04/21. ASSESSMENT: Probably benign, BI-RAD 3 RECOMMENDATION: Follow-up diagnostic mammogram and ultrasound of both breasts in 1 year.
--- NOTE | 2021-04-05 10:38 | USB ---
Reason for exam: additional evaluation requested from prior study. History: Patient is postmenopausal and has history of other cancer at age 79. Family history of breast cancer in daughter at age 58 and breast cancer in daughter at age 57. Benign US biopsy breast VAD LT of the left breast, February 05, 2018. Benign US biopsy breast VAD LT of the left breast, December 06, 2016. Benign US biopsy breast VAD LT of the left breast, July 16, 2014. Benign US biopsy breast add'l VAD LT of the left breast, July 16, 2014. Benign US LT VAD breast biopsy of the left breast, February 16, 2014. Left Breast Aspiration, August 2013. Benign u/S left breast localization of the left breast, December 20, 2011. Cyst aspiration of the left breast, 2003. Excisional biopsy of the right breast, 2003. Excisional biopsy of the left breast. Took hormonal contraceptives for 4 years. Took estrogen for 25 years beginning at age 30. US Breast BILAT Right complete breast ultrasound includes all four quadrants, the retroareolar region and axilla. Finding demonstrates no cystic or solid lesion seen. Left complete breast ultrasound includes all four quadrants, the retroareolar region and axilla. Finding demonstrates a scar at 12 o'clock and a 0.2 x 0.2 x 0.3cm lesion too small to characterize at 8 o'clock, fibrocystic change. These results were verbally communicated with the patient and result sheet given to the patient on 04/04/21. ASSESSMENT: Probably benign, BI-RAD 3 RECOMMENDATION: Follow-up diagnostic mammogram and ultrasound of both breasts in 1 year.
== END | disposition home or self-care (01) ==
LOC: RADMAMWWP 12:59
PROVIDERS: ATTEND Surgery
DX: N60.12 Diffuse cystic mastopathy of left breast (principal); Z78.0 Asymptomatic menopausal state; Z80.3 Family history of malignant neoplasm of breast
CPT/HCPCS: 77066; 76641; G0279; 77062

== ENCOUNTER → 2021-04-08 | Outpatient (CLI) | payer MEDICARE, OTHER ==
[2021-04-08 13:57] VITALS: BP 150/62; PULSE 60; RESP 18; TEMP 97.7
--- NOTE | 2021-04-08 14:17 | P.PN ---
Subjective Progress Note Date: 04/08/21 Principal diagnosis: fibrocystic breast pain fibrocystic breast disease Radha is an 80-year-old white female who has intermittently had some fullness in her left breast at the 12 o'clock position. She has a diagnosis of amyloidosis and has had multiple nodularity in the breast in the past. Past biopsies were consistent with amyloid disease. The nodularity in the breast has not changed. She has intermittent discomfort at the area of nodularity. She had a bilateral mammogram performed on . This is felt to be probably benign BIRADS 3. She also had a bilateral ultrasound performed on the same day. This was likewise probably benign BIRADS 3. Follow-up diagnostic mammogram and ultrasound of both breast in 1 year was recommended. She had a breast MRI done on 07/15/2020 which did not reveal any evidence for invasive malignancy in either breast. The patient herself complains of pain in the lateral aspect of the left breast this has not changed. She has had recent diagnosis of skin cancer on her nose. This was treated with surgery. Family history: 2 Daughters: Breast cancer 1 recently from COVID Paternal niece: Breast cancer diagnosed premenopausal Second paternal niece: Breast cancer premenopausal 2 sisters: Ovarian cancer but from this Mother: Carcinomatosis uncertain of the etiology, mother skin cancer on her arm Paternal grandfather: Prostate cancer Paternal half-brother: Prostate cancer Past surgical history: 1. Back surgery 2. Prior surgery 3. Breast biopsies 4. Hernia surgery 5. Hysterectomy 6. Tubal ligation 7. Joint replacement 8. Orthopedic surgery 9. Pain stimulator placed and removed 10. bilateral total knee replacement 11. Left shoulder surgery 12. Neck exploration for parathyroid surgery 13. Neck fusion 14. skin surgery of nose Medical history: 1. Diabetes 2. Asthma 3. Hypertension 4. Leaking heart valve 5. Hyperlipidemia 6. Amyloidosis 7. back and hip pain Social history: Smoke: Negative Alcohol: Negative Drugs: Negative Review of systems: HEENT: Decreased hearing Constitutional: No fever or night sweats Lungs: Asthma Cardiovascular: Leaking valve GI: Negative negative negative Integument: skin cancer on nose Musculoskeletal: Amyloidosis, arthritis Psychiatric: Negative ALLERGIES: matty Harrison Objective - Vital Signs Vital signs: Vital Signs Temp 97.7 F 04/08/21 13:51 Pulse 60 04/08/21 13:51 Resp 18 04/08/21 13:51 BP 150/62 04/08/21 13:51 Pulse Ox 98 04/08/21 13:51 Intake & Output 04/07/21 04/08/21 04/08/21 18:59 06:59 18:59 Weight 66.224 kg - Exam BMI 30.5 - Constitutional General appearance: Present: average body habitus - EENT Eyes: Present: EOMI - Neck Neck: Present: normal ROM - Respiratory Respiratory: bilateral: CTA - Cardiovascular Heart sounds: normal: S1, S2 - Integumentary Integumentary: Present: normal turgor - Psychiatric Psychiatric: Present: A&O x's 3, appropriate affect, intact judgment & insight - Additional findings Additional findings: breast exam: BRA: inspection: bilateral grade 3 ptosis, bilateral scars well healed palpation: right breast: Multiple positional exam fibrocystic changes Right axilla: No adenopathy of concern Left breast: Multi-positional exam fibrocystic changes Left axilla: No adenopathy of concern Assessment and Plan Assessment: Impression: 1. Bilateral fibrocystic breast changes 2. Recent bilateral mammogram BIRADS 3 however recommendation is for a mammogram in 1 year 3. Hypertension 4. Leaking heart valve 5. Hyperlipidemia 6. Amyloidosis 7. back and hip pain 8. asthma 9. diabetes Plan: 1. bilateral mammogram in one year with exam in 6 months 2.follow up sooner if any questions CC: Dr. Turner
== END ==
LOC: WWCWWP 13:39
PROVIDERS: ATTEND Surgery
DX: N60.11 Diffuse cystic mastopathy of right breast (principal); N60.12 Diffuse cystic mastopathy of left breast; I10 Essential (primary) hypertension; E78.5 Hyperlipidemia, unspecified; E85.9 Amyloidosis, unspecified; M25.559 Pain in unspecified hip; M54.9 Dorsalgia, unspecified; J45.909 Unspecified asthma, uncomplicated; T82.03XA Leakage of heart valve prosthesis, initial encounter; E11.9 Type 2 diabetes mellitus without complications; Z88.6 Allergy status to analgesic agent; Z88.4 Allergy status to anesthetic agent

== ENCOUNTER → 2021-04-27 | Outpatient (CLI) | payer MEDICARE, OTHER ==
[2021-04-27 14:40] LABS: Appearance,Urine Clear (Clear); Bacteria,Urine Rare /hpf; Bilirubin,Urine Negative (Negative); Blood,Urine Negative (Negative); Color,Urine Yellow; Glucose,Urine (UA) Negative (Negative); Hyaline Casts,Urine 1 /lpf (0-2); Ketones,Urine Negative (Negative); Leukocyte Esterase,Urine Moderate (Negative); Mucus,Urine Rare /hpf; Nitrite,Urine Negative (Negative); Protein,Urine Negative (Negative); RBC,Urine <1 /hpf (0-5); Specific Gravity,Urine 1.023 (1.001-1.035); Squamous Epithelial Cell,Urine <1 /hpf (0-4); Urobilinogen,Urine <2.0 mg/dL (<2.0); WBC,Urine 1 /hpf (0-5)
[2021-04-27 14:50] LABS: INR 0.9 (<1.2); Partial Thromboplastin Time 22.6 sec (22.0-30.0); Prothrombin Time 10.2 sec (9.0-12.0)
[2021-04-27 19:37] LABS: HCT 35.9 % (37.2-46.3); HGB 11.1 g/dL (12.0-15.0); MCH 29.1 pg (27.0-32.0); MCHC 30.9 g/dL (32.0-37.0); Mean Platelet Volume 11.5 fL (9.5-12.2); Platelet Count 292 X 10*3/uL (140-440); RBC 3.82 X 10*6/uL (4.10-5.20); RDW 13.8 % (11.5-14.5); WBC 4.49 X 10*3/uL (4.50-10.00)
[2021-04-27 21:59] LABS: African American GFR (CKD) 69.5 (60.0-200.0); Albumin 4.7 g/dL (3.80-4.90); Albumin/Globulin Ratio 1.81 (1.60-3.17); Anion Gap 6.5 mmol/L (4.00-12.00); BUN/Creat Ratio 25.56 Ratio (12.00-20.00); Calcium 9.2 mg/dL (8.7-10.3); Carbon Dioxide 27.5 mmol/L (21.6-31.8); Globulin 2.6 g/dL (1.6-3.3); Potassium 4.3 mmol/L (3.5-5.5); Total Bilirubin 0.4 mg/dL (0.3-1.2); Total Protein 7.3 g/dL (6.2-8.2)
== END | disposition home or self-care (01) ==
LOC: LABWHC1 13:32
PROVIDERS: ATTEND Neurological Surgery
DX: I51.9 Heart disease, unspecified (principal); E11.9 Type 2 diabetes mellitus without complications; E78.5 Hyperlipidemia, unspecified; M46.1 Sacroiliitis, not elsewhere classified; Z51.81 Encounter for therapeutic drug level monitoring; Z79.899 Other long term (current) drug therapy; E85.9 Amyloidosis, unspecified
CPT/HCPCS: 36415; 80053; 81001; 85027; 85610; 85730

== ENCOUNTER → 2021-06-07 | Outpatient (CLI) | payer MEDICARE, OTHER ==
--- NOTE | 2021-06-07 15:40 | XR ---
EXAMINATION TYPE: XR pelvis AP view DATE OF EXAM: 06/07/2021 COMPARISON: 12/11/2016 HISTORY: Radiculopathy TECHNIQUE: AP pelvis with both oblique views. FINDINGS: Screws cross the sacroiliac joints bilaterally. A large fixation screws at the L5-S1 level. Findings are stable from comparison Sacroiliac joint degenerative changes are noted. There is fusion of the L5-S1 level. Femoral heads articulate with the acetabulum. Symphysis pubis is normal. Normal bowel gas is present. IMPRESSION: 1. Postsurgical changes through the sacrum. Fixation screws are present. No significant interval herrera nges from comparison.
== END | disposition home or self-care (01) ==
LOC: RADXRMAIN 15:01
PROVIDERS: ATTEND Neurological Surgery
DX: Q79.8 Other congenital malformations of musculoskeletal system (principal); Z98.890 Other specified postprocedural states
CPT/HCPCS: 72170

== ENCOUNTER → 2021-09-07 | Outpatient (CLI) | payer MEDICARE, OTHER ==
[2021-09-07 18:36] LABS: Basophils # (A) 0.06 X 10*3/uL (0.00-0.10); Basophils % (A) 1.5 %; Eosinophils # (A) 0.14 X 10*3/uL (0.04-0.35); Eosinophils % (A) 3.5 %; HCT 38.3 % (37.2-46.3); HGB 11.8 g/dL (12.0-15.0); Lymphocytes # (A) 1.38 X 10*3/uL (0.90-5.00); Lymphocytes % (A) 34.5 %; MCH 29.1 pg (27.0-32.0); MCHC 30.8 g/dL (32.0-37.0); MCV 94.3 fL (80.0-97.0); Mean Platelet Volume 11.1 fL (9.5-12.2); Neutrophils # (A) 2.01 X 10*3/uL (1.80-7.70); Neutrophils % (A) 50.2 %; Platelet Count 333 X 10*3/uL (140-440); RBC 4.06 X 10*6/uL (4.10-5.20); RDW 13.9 % (11.5-14.5)
[2021-09-07 21:47] LABS: ALT 13 U/L (8-44); AST 20 U/L (13-35); African American GFR (CKD) 78.4 (60.0-200.0); Albumin 4.7 g/dL (3.8-4.9); Albumin/Globulin Ratio 1.82 (1.60-3.17); Alkaline Phosphatase 111 U/L (41-126); BUN/Creat Ratio 32.15 Ratio (12.00-20.00); Blood Urea Nitrogen 26.2 mg/dL (9.0-27.0); Calcium 9.3 mg/dL (8.7-10.3); Carbon Dioxide 18.6 mmol/L (21.6-31.8); Chloride 107 mmol/L (96-109); Chol/HDL Ratio 3.21 Ratio; Globulin 2.6 g/dL (1.6-3.3); Glucose 138 mg/dL (70-110); LDL Cholesterol,Calculated 95.5 mg/dL (0.0-131.0); Non-African American GFR(CKD) 67.6 (60.0-200.0); Sodium 142 mmol/L (135-145); Total Bilirubin <0.20 mg/dL (0.30-1.20); Total Protein 7.3 g/dL (6.2-8.2); VLDL Calculation 15.98 mg/dL (5.00-40.00)
== END | disposition home or self-care (01) ==
LOC: LABWHC1 11:55
PROVIDERS: ATTEND Internal Medicine
DX: Z00.00 Encounter for general adult medical examination without abnormal findings (principal); I10 Essential (primary) hypertension; E78.5 Hyperlipidemia, unspecified
CPT/HCPCS: 36415; 80053; 80061; 83036; 84439; 84443; 85025

== ENCOUNTER → 2021-10-07 | Outpatient (CLI) | payer MEDICARE, OTHER ==
--- NOTE | 2021-10-07 13:51 | P.PN ---
Subjective Progress Note Date: 10/07/21 Principal diagnosis: Fibrocystic breast changes fibrocystic breast pain fibrocystic breast disease Radha is an 81-year-old white female who has intermittently had some fullness in her left breast at the 12 o'clock position. She has a diagnosis of amyloidosis and has had multiple nodularity in the breast in the past. Past biopsies were consistent with amyloid disease. The nodularity in the breast has not changed. She has intermittent discomfort at the area of nodularity. She had a bilateral mammogram performed on . This is felt to be probably benign BIRADS 3. She also had a bilateral ultrasound performed on the same day. This was likewise probably benign BIRADS 3. Follow-up diagnostic mammogram and ultrasound of both breast in 1 year was recommended. She had a breast MRI done on 07/15/2020 which did not reveal any evidence for invasive malignancy in either breast. The patient continues to have some chronic lateral breast discomfort. She has not had a mammogrm or ultrasound since March 2021. She has had recent diagnosis of skin cancer on her nose. This was treated with surgery. Family history: 2 Daughters: Breast cancer 1 recently from COVID Paternal niece: Breast cancer diagnosed premenopausal Second paternal niece: Breast cancer premenopausal 2 sisters: Ovarian cancer but from this Mother: Carcinomatosis uncertain of the etiology, mother skin cancer on her arm Paternal grandfather: Prostate cancer Paternal half-brother: Prostate cancer Past surgical history: 1. Back surgery 2. Prior surgery 3. Breast biopsies 4. Hernia surgery 5. Hysterectomy 6. Tubal ligation 7. Joint replacement 8. Orthopedic surgery 9. Pain stimulator placed and removed 10. bilateral total knee replacement 11. Left shoulder surgery 12. Neck exploration for parathyroid surgery 13. Neck fusion 14. skin surgery of nose 15. right hand Medical history: 1. Diabetes 2. Asthma 3. Hypertension 4. Leaking heart valve 5. Hyperlipidemia 6. Amyloidosis 7. back and hip pain Social history: Smoke: Negative Alcohol: Negative Drugs: Negative Review of systems: HEENT: Decreased hearing Constitutional: No fever or night sweats Lungs: Asthma Cardiovascular: Leaking valve GI: Negative negative negative Integument: skin cancer on nose Musculoskeletal: Amyloidosis, arthritis Psychiatric: Negative ALLERGIES: matty Harrison Objective - Constitutional General appearance: Present: cooperative - EENT Eyes: Present: EOMI ENT: Present: hard of hearing - Neck Details: kyphosis - Respiratory Details: decreased breath sounds at the bases Respiratory: bilateral: CTA - Cardiovascular Heart sounds: normal: S1, S2 - Integumentary Integumentary: Present: normal turgor - Musculoskeletal Musculoskeletal Comment(s): uses a cane - Psychiatric Psychiatric: Present: A&O x's 3, appropriate affect, intact judgment & insight - Additional findings Additional findings: Breast Exam: BRA: 44B inspection: Bilateral grade 3 ptosis Fungal infection under both breasts Palpation: Right breast: Multiple positional exam no dominant masses or nodules of concern Right axilla: No adenopathy of concern Left breast: Postbiopsy changes, no discrete dominant masses or nodules of concern Left axilla: No adenopathy of concern Patient has had chronic nodularity bilaterally and postop changes related to prior biopsies. Assessment and Plan Assessment: Impression: Fibrocystic breast changes Fungal infection under both breasts Chronic nodularity and postop changes both breasts Plan: Bilateral mammogram in March 2022 Nystatin cream CC: Dr. Turner
[2021-10-07 13:55] VITALS: BP 185/88; PULSE 76; RESP 20; TEMP 98.3
== END | disposition home or self-care (01) ==
LOC: WWCWWP 13:30
PROVIDERS: ATTEND Surgery
DX: Z53.9 Procedure and treatment not carried out, unspecified reason (principal)

== ENCOUNTER 2021-12-04 23:08 | Emergency (ER) | payer MEDICARE, OTHER ==
[2021-12-04 23:35] VITALS: TEMP 98
[2021-12-04] MEDS ORDERED: HYDROmorphone 1 MG/ML 1 ML SYRINGE IM STA (23:47)
--- NOTE | 2021-12-04 23:53 | ED ---
Fall HPI - General Chief Complaint: Fall Stated Complaint: Fall, Left hip and shoulder pain, small step stool Time Seen by Provider: 12/04/21 23:43 Source: family, RN notes reviewed, old records reviewed Mode of arrival: wheelchair Limitations: no limitations - History of Present Illness Initial Comments: 81-year-old female she is presented today for evaluation regarding fall this was a trip and fall off of a stepstool while she was doing some work around her house. Patient is having severe pain mainly located in her left leg and left shoulder. She did not hit her head no loss of consciousness is not on blood thinners. Aside from shoulder left shoulder and left hip pain she has no complaints of pain. Patient has had history of back surgery and does take pain medication. Fall was mechanical in nature MD Complaint: fall -: hour(s) (1) Fall From: chair (step stool) When Fall Occurred: 1 hour COORDINATOR OF PLACEMENT Fall Witnessed: no, yes, by family Place Fall Occurred: home Loss of Consciousness: none Prolonged Down Time?: no Symptoms Prior to Fall: none Location: chest Location - Extremities: Left: Shoulder, Thigh Severity: moderate Severity scale (1-10): 6 Quality: sharp Context: tripped/slipped Associated Symptoms: denies - Related Data Home Medications Medication Instructions Recorded Confirmed Aspirin 81 mg PO 08/13/14 10/07/21 Gabapentin 300 mg PO BID 08/13/14 10/07/21 Meloxicam 15 mg PO QAM 08/13/14 10/07/21 gemfibroziL [Lopid] 600 mg PO BID 08/13/14 10/07/21 Calcium Carbonate [Calcium] 300 mg PO QAM 06/13/16 10/07/21 Cholecalciferol [Vitamin D3 (25 2,000 unit PO HS 06/13/16 10/07/21 Mcg = 1000 Iu)] Multivitamins, Thera [Multivitamin 1 tab PO 06/13/16 10/07/21 (formulary)] Oxybutynin Chloride 5 mg PO QAM 11/26/17 10/07/21 tiZANidine [Zanaflex] 4 mg PO QID 11/26/17 10/07/21 Dulaglutide [Trulicity] 0.75 mg SQ TU 01/15/18 10/07/21 Cetirizine HCl [Zyrtec] 10 mg PO QAM 07/19/18 10/07/21 Insulin Glargine [Lantus Vial] 12 unit SQ QAM 10/10/19 10/07/21 Budesonide/Formoterol Fumarate 2 puff INHALATION DAILY PRN 08/21/20 10/07/21 [Symbicort 160-4.5 Mcg Inhaler] HYDROcodone/APAP 7.5-325MG [[place] 1 tab PO QID PRN 08/21/20 10/07/21 7.5-325] Lutein 20 mg PO DAILY 08/21/20 10/07/21 Omeprazole 20 mg PO DAILY PRN 08/21/20 10/07/21 Repaglinide 0.5 mg PO DAILY PRN 08/21/20 10/07/21 metFORMIN HCL [Glucophage] 500 mg PO DAILY 08/21/20 10/07/21 Allergies Allergy/AdvReac Type Severity Reaction Status Date / Time midazolam HCl [From Versed] Allergy Rash/Hives Verified 10/07/21 13:43 pentazocine lactate AdvReac Nausea & Verified 10/07/21 13:43 [From Oscar] Vomiting Review of Systems ROS Statement: Those systems with pertinent positive or pertinent negative responses have been documented in the HPI. ROS Other: All systems not noted in ROS Statement are negative. Past Medical History Past Medical History: Asthma, Diabetes Mellitus, Hyperlipidemia, Hypertension Additional Past Medical History / Comment(s): "leaky heart valve". back pain. staph/strep infection post op incision History of Any Multi-Drug Resistant Organisms: MRSA Date of last positivie culture/infection: 2012 MDRO Source:: Stomach wound Past Surgical History: Back Surgery, Bladder Surgery, Breast Surgery, Hernia Repair, Hysterectomy, Joint Replacement, Orthopedic Surgery, Tubal Ligation Additional Past Surgical History / Comment(s): pain stimulator implant-LT HIP. BILAT TKA. neck fusion and plate in left side of neck. REVERSE LT SHOULDER SX. COLONOScopy. Pain stimulator removed 07/06. Back surgery in Sep 2018. CARPAL TUNNEL RELEASE 10/06/20 Past Anesthesia/Blood Transfusion Reactions: No Reported Reaction Past Psychological History: No Psychological Hx Reported Smoking Status: Never smoker Past Alcohol Use History: None Reported Past Drug Use History: None Reported - Past Family History Mother Family Medical History: Cancer Additional Family Medical History / Comment(s): metastatic cancer Sister(s) Family Medical History: Cancer Additional Family Medical History / Comment(s): two sisters dx with ovarian cancer. one sister with lung cancer Brother(s) Family Medical History: Cancer Additional Family Medical History / Comment(s): one brother had lung cancer. half-brother had prostate cancer. maternal grandfather prostate cancer General Exam - General Exam Comments Initial Comments: GCS 15 no blood thinners no LOC airway is patent trachea midline BS equal General appearance: alert, in no apparent distress Head exam: Present: atraumatic, normocephalic, normal inspection Eye exam: Present: normal appearance, PERRL, EOMI. Absent: scleral icterus, conjunctival injection, periorbital swelling ENT exam: Present: normal exam, mucous membranes moist Neck exam: Present: normal inspection. Absent: tenderness, meningismus, lymphadenopathy Respiratory exam: Present: normal lung sounds bilaterally. Absent: respiratory distress, wheezes, rales, rhonchi, stridor Cardiovascular Exam: Present: regular rate, normal rhythm, normal heart sounds. Absent: systolic murmur, diastolic murmur, rubs, gallop, clicks GI/Abdominal exam: Present: soft, normal bowel sounds. Absent: distended, tenderness, guarding, rebound, rigid Extremities exam: Present: normal inspection, full ROM, normal capillary refill. Absent: tenderness, pedal edema, joint swelling, calf tenderness Back exam: Present: normal inspection Neurological exam: Present: alert, oriented X3, CN II-XII intact Psychiatric exam: Present: normal affect, normal mood Skin exam: Present: warm, dry, intact, normal color. Absent: rash Course Vital Signs 12/04/21 23:27 Temperature 98.0 F Pulse Rate 62 Respiratory 16 Rate Blood Pressure 138/83 O2 Sat by Pulse 98 Oximetry - Reevaluation(s) Reevaluation #1: 12/04/21 23:51 medical record is reviewed Reevaluation #2: 12/05/21 00:50 Has adequate pain control currently Reevaluation #3: 12/05/21 00:50 Patient is informed of results and questions are answered Medical Decision Making - Medical Decision Making 81 Female to the emergency department with a trip and fall off a stepstool. Significant hematoma left hip contusion left shoulder no other traumatic injury noted no fractures noted on imaging, patient has pain control currently is able to ambulate and can be discharged home - Radiology Data Radiology results: report reviewed (Chest x-ray left shoulder x-ray x-ray of LS- spine and x-ray left hip is negative for significant traumatic injury), image reviewed Disposition Clinical Impression: Fall, Contusion of left hip, Hip hematoma, left, Contusion of left shoulder Disposition: HOME SELF-CARE Condition: Good Instructions (If sedation given, give patient instructions): Fall Prevention for Older Adults (ED), Hip Contusion (ED) Is patient prescribed a controlled substance at d/c from ED?: No Referrals: Pankaj Turner MD [Primary Care Provider] - 1-2 days
--- NOTE | 2021-12-05 00:30 | XR ---
EXAMINATION TYPE: XR chest 1V DATE OF EXAM: 12/05/2021 COMPARISON: 04/26/2021 HISTORY: Fall. Pain TECHNIQUE: FINDINGS: Heart is normal. Lungs are clear of infiltrate. There is no heart failure. There is bilater al shoulder prosthesis. There is cervical spine fusion surgery. There is slight blunting left costoph renic angle. There are no hilar masses. IMPRESSION: No definite acute lung disease. Minimal pleural scarring at the left lateral lung base. N o pneumothorax
--- NOTE | 2021-12-05 00:31 | XR ---
EXAMINATION TYPE: XR shoulder complete LT DATE OF EXAM: 12/05/2021 COMPARISON: NONE HISTORY: Pain. Fall TECHNIQUE: 3 views FINDINGS: There is left shoulder prosthesis. Components appear in good position. I see no fracture li ne. Left upper lobe appears intact. There is no evidence of left upper rib fracture. IMPRESSION: No acute abnormality of the left shoulder.
--- NOTE | 2021-12-05 00:44 | XR ---
EXAMINATION TYPE: XR Hip LT and AP Pelvis DATE OF EXAM: 12/05/2021 COMPARISON: 06/07/2021 HISTORY: Pain TECHNIQUE: 3 views FINDINGS: The pelvic ring is intact. There are multiple screws fixing both sacroiliac joints. The proximal left femur and hip joint appear anatomic. There is minimal acetabular spurring. IMPRESSION: No acute abnormality of the pelvis and left hip. No change.
--- NOTE | 2021-12-05 00:53 | XR ---
EXAMINATION TYPE: XR lumbar spine 2 or 3V DATE OF EXAM: 12/05/2021 COMPARISON: 11/16/2020 HISTORY: Back pain TECHNIQUE: 4 views FINDINGS: Crosstable lateral frontal views were obtained of the lumbar spine. There is a screw in the anterior sacrum. This is apparently fusing L5 and S1. As L2-3 fusion surgery of the vertebral bodies . I see no acute fracture. There is also fusion of L3 and L4. There is multilevel laminectomy defect. IMPRESSION: Extensive surgery. No acute bony abnormality. No change compared to old exam. No acute fr acture.
[2021-12-05 01:21] VITALS: BP 188/90; PULSE 69; RESP 14
== END 2021-12-05 01:21 | disposition home or self-care (01) ==
LOC: EC 23:08
DX: S70.02XA Contusion of left hip, initial encounter (principal); S40.012A Contusion of left shoulder, initial encounter; I10 Essential (primary) hypertension; J45.909 Unspecified asthma, uncomplicated; E11.9 Type 2 diabetes mellitus without complications; E78.5 Hyperlipidemia, unspecified; Z88.8 Allergy status to other drugs, medicaments and biological substances; Z79.84 Long term (current) use of oral hypoglycemic drugs; Z79.899 Other long term (current) drug therapy; Z79.4 Long term (current) use of insulin; Z79.82 Long term (current) use of aspirin; W01.0XXA Fall on same level from slipping, tripping and stumbling without subsequent striking against object, initial encounter
CPT/HCPCS: 72100; 73030; 73502; 71045; 99284; 96372; J1170

== ENCOUNTER → 2022-04-13 | Outpatient (CLI) | payer MEDICARE, OTHER ==
--- NOTE | 2022-04-13 17:16 | P.PN ---
Subjective Progress Note Date: 04/13/22 Principal diagnosis: Fibrocystic breast changes fibrocystic breast disease Radha is an 82-year-old white female who has intermittently had some fullness in her left breast at the 12 o'clock position. She has a diagnosis of amyloidosis and has had multiple nodularity in the breast in the past. Past biopsies were consistent with amyloid disease. The nodularity in the breast has not changed. She has intermittent discomfort at the area of nodularity. She had a bilateral mammogram performed on . This is felt to be probably benign BIRADS 3. She also had a bilateral ultrasound performed on the same day. This was likewise probably benign BIRADS 3. Follow-up diagnostic mammogram and ultrasound of both breast in 6 months was recommended. She had a breast MRI done on 07/15/2020 which did not reveal any evidence for invasive malignancy in either breast. The patient continues to have some chronic lateral breast discomfort. Family history: 2 Daughters: Breast cancer 1 recently from COVID Paternal niece: Breast cancer diagnosed premenopausal Second paternal niece: Breast cancer premenopausal 2 sisters: Ovarian cancer but from this Mother: Carcinomatosis uncertain of the etiology, mother skin cancer on her arm Paternal grandfather: Prostate cancer Paternal half-brother: Prostate cancer Past surgical history: 1. Back surgery 2. Prior surgery 3. Breast biopsies 4. Hernia surgery 5. Hysterectomy 6. Tubal ligation 7. Joint replacement 8. Orthopedic surgery 9. Pain stimulator placed and removed 10. bilateral total knee replacement 11. Left shoulder surgery 12. Neck exploration for parathyroid surgery 13. Neck fusion 14. skin surgery of nose 15. right hand Medical history: 1. Diabetes 2. Asthma 3. Hypertension 4. Leaking heart valve 5. Hyperlipidemia 6. Amyloidosis 7. back and hip pain Social history: Smoke: Negative Alcohol: Negative Drugs: Negative Review of systems: HEENT: Decreased hearing Constitutional: No fever or night sweats Lungs: Asthma Cardiovascular: Leaking valve GI: Negative negative negative Integument: skin cancer on nose Musculoskeletal: Amyloidosis, arthritis Psychiatric: Negative ALLERGIES: matty Harrison Objective - Constitutional General appearance: Present: cooperative - EENT Eyes: Present: EOMI ENT: Present: hard of hearing - Neck Details: kyphosis - Respiratory Respiratory: bilateral: CTA - Cardiovascular Heart sounds: normal: S1, S2 - Integumentary Integumentary: Present: normal turgor - Psychiatric Psychiatric: Present: A&O x's 3, appropriate affect, intact judgment & insight - Additional findings Additional findings: Breast examination: Bra: 44B Palpation: Right breast: Multi-positional exam scars from prior surgery no dominant masses or nodules of concern Right Axilla: No adenopathy of concern Left breast: Multi-positional exam scars from prior surgery no dominant masses or nodules of concern Left axilla: No adenopathy of concern Assessment and Plan Assessment: Impression: Fibrocystic breast changes Bilateral mammogram and ultrasound BIRADS 3 Plan: Repeat bilateral mammogram and ultrasound in 6 months with physician examined that time Cc: Dr. Perez
== END | disposition home or self-care (01) ==
LOC: WWCWWP 16:34
PROVIDERS: ATTEND Surgery
DX: Z53.9 Procedure and treatment not carried out, unspecified reason (principal)

== ENCOUNTER 2022-05-04 15:06 | Emergency (ER) | payer MEDICARE, OTHER ==
[2022-05-04 15:54] VITALS: BP 177/86; PULSE 72; RESP 18; TEMP 97.9
--- NOTE | 2022-05-04 17:43 | ED ---
ENT HPI - General Chief complaint: ENT Stated complaint: Rt Ear Bleed Time Seen by Provider: 05/04/22 17:06 Source: patient Mode of arrival: ambulatory Limitations: no limitations - History of Present Illness Initial comments: Patient is an 82-year-old female who presents to the emergency department who presents to the emergency department for evaluation of right ear bleeding. Patient states she used a Q-tip yesterday to dry the inside of her ear after a shower prior to putting in her hearing aid when she felt a gush of blood in her ear. Patient states she only uses Q-tips to periodically dry her ears before hearing placement. She denies other trauma to the ear. She does report intermittent right ear pain. Denies any worsening hearing loss. - Related Data Home Medications Medication Instructions Recorded Confirmed Aspirin 81 mg PO HS 08/13/14 10/07/21 Gabapentin 300 mg PO BID 08/13/14 10/07/21 Meloxicam 15 mg PO QAM 08/13/14 10/07/21 gemfibroziL [Lopid] 600 mg PO BID 08/13/14 10/07/21 Calcium Carbonate [Calcium] 300 mg PO QAM 06/13/16 10/07/21 Cholecalciferol [Vitamin D3 (25 2,000 unit PO HS 06/13/16 10/07/21 Mcg = 1000 Iu)] Multivitamins, Thera [Multivitamin 1 tab PO HS 06/13/16 10/07/21 (formulary)] Oxybutynin Chloride 5 mg PO QAM 11/26/17 10/07/21 tiZANidine [Zanaflex] 4 mg PO QID 11/26/17 10/07/21 Dulaglutide [Trulicity] 0.75 mg SQ TU 01/15/18 10/07/21 Cetirizine HCl [Zyrtec] 10 mg PO QAM 07/19/18 10/07/21 Insulin Glargine [Lantus Vial] 12 unit SQ QAM 10/10/19 10/07/21 Budesonide/Formoterol Fumarate 2 puff INHALATION DAILY PRN 08/21/20 10/07/21 [Symbicort 160-4.5 Mcg Inhaler] HYDROcodone/APAP 7.5-325MG [[place] 1 tab PO QID PRN 08/21/20 10/07/21 7.5-325] Lutein 20 mg PO DAILY 08/21/20 10/07/21 Omeprazole 20 mg PO DAILY PRN 08/21/20 10/07/21 Repaglinide 0.5 mg PO DAILY PRN 08/21/20 10/07/21 metFORMIN HCL [Glucophage] 500 mg PO DAILY 08/21/20 10/07/21 Allergies Allergy/AdvReac Type Severity Reaction Status Date / Time midazolam HCl [From Christy] Allergy Rash/Hives Verified 05/04/22 15:54 pentazocine lactate AdvReac Nausea & Verified 05/04/22 15:54 [From Oscar] Vomiting Review of Systems ROS Statement: Those systems with pertinent positive or pertinent negative responses have been documented in the HPI. ROS Other: All systems not noted in ROS Statement are negative. Past Medical History Past Medical History: Asthma, Diabetes Mellitus, Hyperlipidemia, Hypertension Additional Past Medical History / Comment(s): "leaky heart valve". back pain. staph/strep infection post op incision History of Any Multi-Drug Resistant Organisms: MRSA Date of last positivie culture/infection: 2012 MDRO Source:: Stomach wound Past Surgical History: Back Surgery, Bladder Surgery, Breast Surgery, Hernia Repair, Hysterectomy, Joint Replacement, Orthopedic Surgery, Tubal Ligation Additional Past Surgical History / Comment(s): pain stimulator implant-LT HIP. BILAT TKA. neck fusion and plate in left side of neck. REVERSE LT SHOULDER SX. COLONOScopy. Pain stimulator removed 07/06. Back surgery in Sep 2018. CARPAL TUNNEL RELEASE 10/06/20 Past Anesthesia/Blood Transfusion Reactions: No Reported Reaction Past Psychological History: No Psychological Hx Reported Smoking Status: Never smoker Past Alcohol Use History: None Reported Past Drug Use History: None Reported - Past Family History Mother Family Medical History: Cancer Additional Family Medical History / Comment(s): metastatic cancer Sister(s) Family Medical History: Cancer Additional Family Medical History / Comment(s): two sisters dx with ovarian cancer. one sister with lung cancer Brother(s) Family Medical History: Cancer Additional Family Medical History / Comment(s): one brother had lung cancer. half-brother had prostate cancer. maternal grandfather prostate cancer General Exam Limitations: no limitations General appearance: alert, in no apparent distress Head exam: Present: atraumatic, normocephalic, normal inspection Eye exam: Present: normal appearance, PERRL, EOMI. 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 left ear: tympanic membrane scarring, otherwise normal) Neck exam: Present: normal inspection Respiratory exam: Present: normal lung sounds bilaterally. Absent: respiratory distress, wheezes, rales, rhonchi, stridor Cardiovascular Exam: Present: regular rate, normal rhythm, normal heart sounds. Absent: systolic murmur, diastolic murmur, rubs, gallop, clicks GI/Abdominal exam: Present: soft, normal bowel sounds. Absent: distended, tenderness, guarding, rebound, rigid Neurological exam: Present: alert, oriented X3, CN II-XII intact Psychiatric exam: Present: normal affect, normal mood Course Vital Signs 05/04/22 15:51 Temperature 97.9 F Pulse Rate 72 Respiratory 18 Rate Blood Pressure 177/86 O2 Sat by Pulse 95 Oximetry Medical Decision Making - Medical Decision Making This is an 82-year-old female who presents with intermittent right ear bleeding and pain since yesterday. Thorough history and examination were performed. Patient did use a Q-tip yesterday prior to hearing aid insertion which resulted in the right ear bleeding. 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 There are no abnormalities of the tympanic membrane. Patient instructed to keep ear clean and dry for healing of ear abrasion. Patient already has an appointment with Dr. Vasquez on May 25. She will follow-up as scheduled. I also recommended patient follow-up with her president college or university to make sure there is proper fit of hearing aids. She is instructed to let her ears air dry after showers, avoiding Q-tip use. Patient verbalizes understanding and is agreeable to this plan. Dr. Rodriguez is my attending. Disposition Clinical Impression: Ear canal abrasion Disposition: HOME SELF-CARE Condition: Good Instructions (If sedation given, give patient instructions): Ear Abrasion (ED) Additional Instructions: Keep ear clean and dry. Follow-up with your president college or university to ensure the hearing aid has a good fit. Follow-up with Dr. Vasquez as already scheduled on May 25. Do not use Q-tips or other objects in the ear. Take Tylenol as needed for pain. Return to the emergency department if you experience new, concerning, or worsening symptoms. Is patient prescribed a controlled substance at d/c from ED?: No Referrals: Pankaj Turner MD [Primary Care Provider] - 1-2 days Time of Disposition: 17:43
== END 2022-05-04 18:03 | disposition home or self-care (01) ==
LOC: EC 15:06
DX: S00.411A Abrasion of right ear, initial encounter (principal); J45.909 Unspecified asthma, uncomplicated; E11.9 Type 2 diabetes mellitus without complications; E78.5 Hyperlipidemia, unspecified; I10 Essential (primary) hypertension; Z88.8 Allergy status to other drugs, medicaments and biological substances; Z79.899 Other long term (current) drug therapy; Z88.4 Allergy status to anesthetic agent; Z79.84 Long term (current) use of oral hypoglycemic drugs; Z79.51 Long term (current) use of inhaled steroids; Z79.4 Long term (current) use of insulin; Z79.82 Long term (current) use of aspirin; X58.XXXA Exposure to other specified factors, initial encounter
CPT/HCPCS: 99282

== ENCOUNTER → 2022-05-04 | Outpatient (CLI) | payer MEDICARE, OTHER ==
[2022-05-04 16:31] LABS: INR 0.9 (<1.2); Partial Thromboplastin Time 23.3 sec (22.0-30.0); Prothrombin Time 10.2 sec (9.0-12.0)
[2022-05-04 22:28] LABS: Basophils # (A) 0.07 X 10*3/uL (0.00-0.10); Basophils % (A) 1.1 %; Eosinophils # (A) 0.14 X 10*3/uL (0.04-0.35); Eosinophils % (A) 2.3 %; HCT 36.1 % (37.2-46.3); HGB 11.4 g/dL (12.0-15.0); Immature Grans, Automated 0.3 %; Lymphocytes # (A) 2.18 X 10*3/uL (0.90-5.00); Lymphocytes % (A) 35.4 %; MCH 29.4 pg (27.0-32.0); MCHC 31.6 g/dL (32.0-37.0); Mean Platelet Volume 10.9 fL (9.5-12.2); Monocytes # (A) 0.55 X 10*3/uL (0.20-1.00); Monocytes % (A) 8.9 %; NRBC Per 100 WBC 0 /100 WBCS (0.0-0.0); Neutrophils # (A) 3.19 X 10*3/uL (1.80-7.70); Platelet Count 302 X 10*3/uL (140-440); RBC 3.88 X 10*6/uL (4.10-5.20); RDW 13.5 % (11.5-14.5); WBC 6.15 X 10*3/uL (4.50-10.00)
== END | disposition home or self-care (01) ==
LOC: LABWHC1 14:09
PROVIDERS: ATTEND Internal Medicine
DX: N18.30 Chronic kidney disease, stage 3 unspecified (principal); E78.2 Mixed hyperlipidemia; K21.9 Gastro-esophageal reflux disease without esophagitis; E11.40 Type 2 diabetes mellitus with diabetic neuropathy, unspecified; T14.8XXA Other injury of unspecified body region, initial encounter
CPT/HCPCS: 36415; 85025; 85610; 85730

== ENCOUNTER 2022-08-21 20:35 | Emergency (ER) | payer MEDICARE, OTHER ==
[2022-08-21 20:53] VITALS: TEMP 98.3
--- NOTE | 2022-08-21 21:05 | ED ---
Fall HPI - General Chief Complaint: Fall Stated Complaint: Fall, right hip injury Time Seen by Provider: 08/21/22 20:59 Source: patient, RN notes reviewed Mode of arrival: wheelchair - History of Present Illness MD Complaint: fall - Related Data Home Medications Medication Instructions Recorded Confirmed Aspirin 81 mg PO HS 08/13/14 10/07/21 Gabapentin 300 mg PO BID 08/13/14 10/07/21 Meloxicam 15 mg PO QAM 08/13/14 10/07/21 gemfibroziL [Lopid] 600 mg PO BID 08/13/14 10/07/21 Calcium Carbonate [Calcium] 300 mg PO QAM 06/13/16 10/07/21 Cholecalciferol [Vitamin D3 (25 2,000 unit PO HS 06/13/16 10/07/21 Mcg = 1000 Iu)] Multivitamins, Thera [Multivitamin 1 tab PO HS 06/13/16 10/07/21 (formulary)] Oxybutynin Chloride 5 mg PO QAM 11/26/17 10/07/21 tiZANidine [Zanaflex] 4 mg PO QID 11/26/17 10/07/21 Dulaglutide [Trulicity] 0.75 mg SQ TU 01/15/18 10/07/21 Cetirizine HCl [Zyrtec] 10 mg PO QAM 07/19/18 10/07/21 Insulin Glargine [Lantus Vial] 12 unit SQ QAM 10/10/19 10/07/21 Budesonide/Formoterol Fumarate 2 puff INHALATION DAILY PRN 08/21/20 10/07/21 [Symbicort 160-4.5 Mcg Inhaler] HYDROcodone/APAP 7.5-325MG [[place] 1 tab PO QID PRN 08/21/20 10/07/21 7.5-325] Lutein 20 mg PO DAILY 08/21/20 10/07/21 Omeprazole 20 mg PO DAILY PRN 08/21/20 10/07/21 Repaglinide 0.5 mg PO DAILY PRN 08/21/20 10/07/21 metFORMIN HCL [Glucophage] 500 mg PO DAILY 08/21/20 10/07/21 Allergies Allergy/AdvReac Type Severity Reaction Status Date / Time midazolam HCl [From Versed] Allergy Rash/Hives Verified 08/21/22 20:50 pentazocine lactate AdvReac Nausea & Verified 08/21/22 20:50 [From Oscar] Vomiting Review of Systems ROS Statement: Those systems with pertinent positive or pertinent negative responses have been documented in the HPI. ROS Other: All systems not noted in ROS Statement are negative. Past Medical History Past Medical History: Asthma, Diabetes Mellitus, Hyperlipidemia, Hypertension Additional Past Medical History / Comment(s): "leaky heart valve". back pain. staph/strep infection post op incision History of Any Multi-Drug Resistant Organisms: MRSA Date of last positivie culture/infection: 2012 MDRO Source:: Stomach wound Past Surgical History: Back Surgery, Bladder Surgery, Breast Surgery, Hernia Repair, Hysterectomy, Joint Replacement, Orthopedic Surgery, Tubal Ligation Additional Past Surgical History / Comment(s): pain stimulator implant-LT HIP. BILAT TKA. neck fusion and plate in left side of neck. REVERSE LT SHOULDER SX. COLONOScopy. Pain stimulator removed 07/06. Back surgery in Sep 2018. CARPAL TUNNEL RELEASE 10/06/20 Past Anesthesia/Blood Transfusion Reactions: No Reported Reaction Past Psychological History: No Psychological Hx Reported Smoking Status: Never smoker Past Alcohol Use History: None Reported Past Drug Use History: None Reported - Past Family History Mother Family Medical History: Cancer Additional Family Medical History / Comment(s): metastatic cancer Sister(s) Family Medical History: Cancer Additional Family Medical History / Comment(s): two sisters dx with ovarian cancer. one sister with lung cancer Brother(s) Family Medical History: Cancer Additional Family Medical History / Comment(s): one brother had lung cancer. half-brother had prostate cancer. maternal grandfather prostate cancer General Exam - General Exam Comments Initial Comments: No evidence of head injury. Cranial nerves II through XII are intact. Patient alert and oriented 4. Limitations: no limitations General appearance: alert, in no apparent distress Head exam: Present: atraumatic, normocephalic, normal inspection Eye exam: Present: normal appearance, PERRL, EOMI. Absent: scleral icterus, conjunctival injection, periorbital swelling ENT exam: Present: normal exam, mucous membranes moist Neck exam: Present: normal inspection. Absent: tenderness, meningismus, lymphadenopathy Respiratory exam: Present: normal lung sounds bilaterally. Absent: respiratory distress, wheezes, rales, rhonchi, stridor Cardiovascular Exam: Present: regular rate, normal rhythm, normal heart sounds. Absent: systolic murmur, diastolic murmur, rubs, gallop, clicks GI/Abdominal exam: Present: soft, normal bowel sounds. Absent: distended, tenderness, guarding, rebound, rigid Extremities exam: Present: normal inspection, full ROM, tenderness (Patient has tenderness to lateral aspect of the right hip as well as the posterior aspect. Skin intact. No erythema. Full range of motion with pain.), normal capillary refill, other (No evidence of shortening or external/internal rotation. Pedal pulses 2+ for). Absent: pedal edema, joint swelling, calf tenderness Back exam: Present: normal inspection Neurological exam: Present: alert, oriented X3, CN II-XII intact Psychiatric exam: Present: normal affect, normal mood Skin exam: Present: warm, dry, intact, normal color. Absent: rash Course Vital Signs 08/21/22 20:50 Temperature 98.3 F Pulse Rate 73 Respiratory 16 Rate Blood Pressure 157/69 O2 Sat by Pulse 98 Oximetry - Reevaluation(s) Reevaluation #1: 08/21/22 22:12 Medical record is reviewed Symptoms are improved here in the emergency department Patient is informed of results and questions answered Patient in no distress Medical Decision Making - Medical Decision Making Isolated injury to the right hip. Does not appear to be any acute pathology and plain x-rays. Patient is able ambulate with a cane. We'll go ahead and have her use her walker as she states she has one at home. Discussed conservative therapy. Discussed follow-up with primary care physician. Patient has pain medication at home. DISCUSSED RICE therapy Patient was told to return to the ER for any signs or symptoms worsen. Told to return immediately if any other problems arise. All questions answered. Treatment plan discussed. Patient in agreement Every effort has been made to ensure accuracy of this dictation. However, due to the limitations of electronic medical records and dictation devices, errors in charting still occur. The case was discussed in detail with ED attending physician. Presentation, findings, treatment plan discussed in detail. Dr. Gauthier - Radiology Data Radiology results: report reviewed (I did review these films myself. There is no evidence of acute pathology. Patient does have evidence of previous surgical fixation of the pelvis.) Disposition Clinical Impression: Contusion of right hip, initial encounter Disposition: HOME SELF-CARE Condition: Stable Instructions (If sedation given, give patient instructions): Fall Prevention for Older Adults (ED), Hip Contusion (ED) Additional Instructions: Apply ice 20 minutes on and off for times daily. Use your walker when ambulating until the symptoms have resolved. Follow-up with your regular physician as directed. Return to the ER immediately if any symptoms worsen, new symptoms arise, or any other problems develop. Is patient prescribed a controlled substance at d/c from ED?: No Referrals: Pankaj Turner MD [Primary Care Provider] - 08/23/22 Time of Disposition: 22:14
--- NOTE | 2022-08-21 21:44 | XR ---
EXAMINATION TYPE: XR Hip RT and AP Pelvis DATE OF EXAM: 08/21/2022 9:26 PM INDICATION: Patient age:Female; 82 years old; Reason for study: Right hip pain/trauma; COMPARISON: None. TECHNIQUE: The right hip was examined in the frontal and lateral projections and a AP pelvis. FINDINGS: No evidence for acute process, joint dislocation or significant soft tissue swelling. Multiple fixation screws through the sacroiliac joints bilaterally through L5-S1. Appears intact. No evidence of fracture. Right hip demonstrates minimal joint space narrowing and ost eophyte formation. IMPRESSION: 1. No acute process. 2. Postsurgical changes with hardware intact. 3. Mild right hip osteoarthrosis.
[2022-08-21 22:37] VITALS: BP 170/81; PULSE 64; RESP 18
== END 2022-08-21 22:37 | disposition home or self-care (01) ==
LOC: EC 20:35
DX: S70.01XA Contusion of right hip, initial encounter (principal); J45.909 Unspecified asthma, uncomplicated; E11.9 Type 2 diabetes mellitus without complications; E78.5 Hyperlipidemia, unspecified; I10 Essential (primary) hypertension; Z88.8 Allergy status to other drugs, medicaments and biological substances; Z88.6 Allergy status to analgesic agent; Z79.84 Long term (current) use of oral hypoglycemic drugs; Z79.899 Other long term (current) drug therapy; Z79.4 Long term (current) use of insulin; Z79.82 Long term (current) use of aspirin; Z79.51 Long term (current) use of inhaled steroids; Z96.653 Presence of artificial knee joint, bilateral; W19.XXXA Unspecified fall, initial encounter
CPT/HCPCS: 73502; 99283

== ENCOUNTER → 2022-09-12 | Outpatient (CLI) | payer MEDICARE, OTHER ==
[2022-09-12 19:31] LABS: Chol/HDL Ratio 3.08 Ratio; LDL Cholesterol,Calculated 84.4 mg/dL (0.0-131.0); VLDL Calculation 14.76 mg/dL (5.00-40.00)
== END | disposition home or self-care (01) ==
LOC: LABWHC1 12:19
PROVIDERS: ATTEND Internal Medicine
DX: E78.5 Hyperlipidemia, unspecified (principal)
CPT/HCPCS: 36415; 80061; 84439; 84443

== ENCOUNTER → 2022-10-09 | Outpatient (CLI) | payer MEDICARE, OTHER ==
--- NOTE | 2022-10-09 14:36 | MM ---
Reason for Exam: Clinical finding. Last screening mammogram was performed 6 month(s) ago. Indicated Problems: Pain of the left side (Focal) for 1 Month(s) : 3 oclock . Patient History: Menarche at age 13. First Full-Term at age 20. Left ovary removed at age 50. Right ovary removed at age 50. Hysterectomy at age 50. Postmenopausal. Estrogen for 25 years from age 30 until age 55. Patient used Hormonal Contraceptives for 4 years. Excisional Biopsy on the Left side. 2003, Cyst Aspiration on the Left side. 08/2013, Cyst Aspiration. 2003, Excisional Biopsy on the Right side. 02/05/2018, Benign Core Biopsy on the left side. 12/06/2016, Benign Core Biopsy on the left side. 07/16/2014, Benign Core Biopsy on the left side. 07/16/2014, Benign Core Biopsy on the left side. 02/16/2014, Benign Core Biopsy on the left side. 12/20/2011, Benign Excisional Biopsy on the left side. Daughter had breast cancer, age 57. Daughter had breast cancer, age 58. Risk Values: Holli 5 year model risk: 9.4%. NCI Lifetime model risk: 12.3%. Prior Study Comparison: 04/02/2019 Bilateral Diagnostic Mammogram, [facility]. 04/04/2021 Bilateral Diagnostic Mammogram, [facility]. 04/06/2022 Bilateral MG 3D diag mammo w/cad [facility], [facility]. Tissue Density: The breast tissue is heterogeneously dense. This may lower the sensitivity of mammography. Findings: Analyzed By CAD. Persistent nodularity is seen bilaterally unchanged from prior study. No masses are identified. Benign calcifications redemonstrated. Multiple prior surgical clips in place. Overall Assessment: Incomplete: need additional imaging evaluation, BI-RAD 0 Management: Diagnostic Breast Ultrasound of both breasts. A clinical breast exam by your physician is recommended on an annual basis and results should be correlated with mammographic findings. This exam should not preclude additional follow-up of suspicious palpable abnormalities. Results were given to the patient verbally at the time of exam. Electronically signed and approved by: Jose Abebe M.D. Radiologis
--- NOTE | 2022-10-09 15:25 | USB ---
Patient History: Menarche at age 13. First Full-Term at age 20. Left ovary removed at age 50. Right ovary removed at age 50. Hysterectomy at age 50. Postmenopausal. Estrogen for 25 years from age 30 until age 55. Patient used Hormonal Contraceptives for 4 years. Excisional Biopsy on the Left side. 2003, Cyst Aspiration on the Left side. 08/2013, Cyst Aspiration. 2003, Excisional Biopsy on the Right side. 02/05/2018, Benign Core Biopsy on the left side. 12/06/2016, Benign Core Biopsy on the left side. 07/16/2014, Benign Core Biopsy on the left side. 07/16/2014, Benign Core Biopsy on the left side. 02/16/2014, Benign Core Biopsy on the left side. 12/20/2011, Benign Excisional Biopsy on the left side. Daughter had breast cancer, age 57. Daughter had breast cancer, age 58. Risk Values: [place] 5 year model risk: 9.4%. NCI Lifetime model risk: 12.3%. Technique: Method: Targeted. Prior Study Comparison: 03/31/2020 Bilateral Diagnostic Mammogram, [facility]. 04/04/2021 Bilateral Diagnostic Mammogram, [facility]. 04/06/2022 Bilateral MG 3D diag mammo w/cad [facility], [facility]. Findings: The upper outer quadrant of the left breast, the upper inner quadrant of the right breast, the axilla of both breasts and the retroareolar of both breasts were scanned. Hypoechoic masslike area left 12:00 breast appears to been sampled previously however continues to demonstrate posterior acoustic shadowing. Hypoechoic nodule left 2:00 position measures 8 mm. There is also an area of hypoechoic masslike density measuring approximately 2.1 x 1.1 cm) o'clock position with extensive posterior acoustic shadowing. Further evaluation of the findings is advised the MRI.. Overall Assessment: Incomplete: need additional imaging evaluation, BI-RAD 0 Management: Diagnostic Breast MRI of both breasts. A clinical breast exam by your physician is recommended on an annual basis and results should be correlated with mammographic findings. This exam should not preclude additional follow-up of suspicious palpable abnormalities. Results were given to the patient verbally at the time of exam. Electronically signed and approved by: Jose Abebe M.D. Radiologis
== END | disposition home or self-care (01) ==
LOC: RADMAMWWP 13:45
PROVIDERS: ATTEND Surgery
DX: R92.8 Other abnormal and inconclusive findings on diagnostic imaging of breast (principal); Z78.0 Asymptomatic menopausal state; Z80.3 Family history of malignant neoplasm of breast; Z90.721 Acquired absence of ovaries, unilateral
CPT/HCPCS: 77066; 76642; G0279; 77062

== ENCOUNTER 2022-10-12 14:09 | Emergency (ER) | payer MEDICARE, OTHER ==
[2022-10-12 14:13] VITALS: BP 131/61; PULSE 62; RESP 20; TEMP 98.4
[2022-10-12] MEDS ORDERED: DIPH,PERTUS(ACELL)TETVAC-LF 0.5 ML VIAL IM ONE (14:29)
[2022-10-12] MEDS ORDERED: LIDOCAINE 1% INJ 10MG/ML (30 ML VIAL-PF) SQ ONE (14:29)
--- NOTE | 2022-10-12 15:20 | ED ---
Wound/Laceration HPI - General Chief Complaint: Wound/Laceration Stated Complaint: rt finger injury Time Seen by Provider: 10/12/22 14:13 Source: patient Mode of arrival: ambulatory Limitations: no limitations - History of Present Illness Initial Comments: Patient is an 82-year-old female presenting with chief complaint of laceration. Patient cut her right third digit on a food slicer, she states that he fell on the floor when she went to get up she accidentally cut the finger. Patient has had difficulty controlling the bleeding. She is not on any blood thinners. Does not on her last tetanus shot was. No numbness, tingling, weakness, loss of range of motion. - Related Data Home Medications Medication Instructions Recorded Confirmed Aspirin 81 mg PO HS 08/13/14 10/07/21 Gabapentin 300 mg PO BID 08/13/14 10/07/21 Meloxicam 15 mg PO QAM 08/13/14 10/07/21 gemfibroziL [Lopid] 600 mg PO BID 08/13/14 10/07/21 Calcium Carbonate [Calcium] 300 mg PO QAM 06/13/16 10/07/21 Cholecalciferol [Vitamin D3 (25 2,000 unit PO HS 06/13/16 10/07/21 Mcg = 1000 Iu)] Multivitamins, Thera [Multivitamin 1 tab PO HS 06/13/16 10/07/21 (formulary)] Oxybutynin Chloride 5 mg PO QAM 11/26/17 10/07/21 tiZANidine [Zanaflex] 4 mg PO QID 11/26/17 10/07/21 Dulaglutide [Trulicity] 0.75 mg SQ TU 01/15/18 10/07/21 Cetirizine HCl [Zyrtec] 10 mg PO QAM 07/19/18 10/07/21 Insulin Glargine [Lantus Vial] 12 unit SQ QAM 10/10/19 10/07/21 Budesonide/Formoterol Fumarate 2 puff INHALATION DAILY PRN 08/21/20 10/07/21 [Symbicort 160-4.5 Mcg Inhaler] HYDROcodone/APAP 7.5-325MG [[place] 1 tab PO QID PRN 08/21/20 10/07/21 7.5-325] Lutein 20 mg PO DAILY 08/21/20 10/07/21 Omeprazole 20 mg PO DAILY PRN 08/21/20 10/07/21 Repaglinide 0.5 mg PO DAILY PRN 08/21/20 10/07/21 metFORMIN HCL [Glucophage] 500 mg PO DAILY 08/21/20 10/07/21 Allergies Allergy/AdvReac Type Severity Reaction Status Date / Time midazolam HCl [From Versed] Allergy Rash/Hives Verified 10/12/22 14:14 pentazocine lactate AdvReac Nausea & Verified 10/12/22 14:14 [From Oscar] Vomiting Review of Systems ROS Statement: Those systems with pertinent positive or pertinent negative responses have been documented in the HPI. ROS Other: All systems not noted in ROS Statement are negative. Past Medical History Past Medical History: Asthma, Diabetes Mellitus, Hyperlipidemia, Hypertension Additional Past Medical History / Comment(s): "leaky heart valve". back pain. staph/strep infection post op incision History of Any Multi-Drug Resistant Organisms: MRSA Date of last positivie culture/infection: 2012 MDRO Source:: Stomach wound Past Surgical History: Back Surgery, Bladder Surgery, Breast Surgery, Hernia Repair, Hysterectomy, Joint Replacement, Orthopedic Surgery, Tubal Ligation Additional Past Surgical History / Comment(s): pain stimulator implant-LT HIP. BILAT TKA. neck fusion and plate in left side of neck. REVERSE LT SHOULDER SX. COLONOScopy. Pain stimulator removed 07/06. Back surgery in Sep 2018. CARPAL TUNNEL RELEASE 10/06/20 Past Anesthesia/Blood Transfusion Reactions: No Reported Reaction Past Psychological History: No Psychological Hx Reported Smoking Status: Never smoker Past Alcohol Use History: None Reported Past Drug Use History: None Reported - Past Family History Mother Family Medical History: Cancer Additional Family Medical History / Comment(s): metastatic cancer Sister(s) Family Medical History: Cancer Additional Family Medical History / Comment(s): two sisters dx with ovarian cancer. one sister with lung cancer Brother(s) Family Medical History: Cancer Additional Family Medical History / Comment(s): one brother had lung cancer. half-brother had prostate cancer. maternal grandfather prostate cancer General Exam Limitations: no limitations General appearance: alert, in no apparent distress Head exam: Present: atraumatic, normocephalic, normal inspection Eye exam: Present: normal appearance Neck exam: Present: normal inspection Extremities exam: Present: full ROM. Absent: tenderness Neurological exam: Present: alert, oriented X3, CN II-XII intact Psychiatric exam: Present: normal affect, normal mood Expanded Type of lesion: Present: laceration (4cm R middle finger) Course Vital Signs 10/12/22 14:10 Temperature 98.4 F Pulse Rate 62 Respiratory 20 Rate Blood Pressure 131/61 O2 Sat by Pulse 97 Oximetry Procedures - Laceration Laceration #1 Consent Obtained: verbal consent Indication: laceration Site: hand (Right hand middle finger) Size (cm): 4 Description: flap Depth: simple, single layer Anesthetic Used: lidocaine 1%, without epi Anesthesia Technique: local infiltration Pre-repair: wound explored, irrigated extensively (1 L sterile water), deep structures intact Type of Sutures: nylon Size of Sutures: 4-0 Number of Sutures: 4 Technique: simple, interrupted Patient Tolerated Procedure: well Medical Decision Making - Medical Decision Making Patient is an 82-year-old female presenting with chief complaint of laceration to the right middle finger. This was sustained when she picked up a food slicer. Tetanus is updated today. Wound is anesthetized and cleaned with 1 L sterile water. On examination no involvement of the deeper structures. Repaired using 4 simple and her up in sutures, 4-0 nylon. Educated on wound care. Follow-up with PCP. Report back to ER with any new or worsening symptoms. Discussed return parameters and answered all questions. Patient conveyed verbal understanding and agreed to the plan. I discussed this case in detail with my attending Dr. Zimmerman Disposition Clinical Impression: Laceration Disposition: HOME SELF-CARE Condition: Good Instructions (If sedation given, give patient instructions): Care For Your Stitches (ED), Finger Laceration (ED) Additional Instructions: Wash gently with soap and water. Do not submerge for prolonged periods of time, avoid things such as taking a bath were doing the dishes. Monitor for signs of infection, including but not limited to redness, swelling, warmth, tenderness, discharge, red streaking, fever, chills. Report back to ER with any new or worsening symptoms. Follow-up with PCP. Sutures may be removed in 10-14 days. Is patient prescribed a controlled substance at d/c from ED?: No Referrals: None,Stated [Primary Care Provider] - 1-2 days Time of Disposition: 15:20
== END 2022-10-12 15:29 | disposition home or self-care (01) ==
LOC: EC 14:09
DX: S61.212A Laceration without foreign body of right middle finger without damage to nail, initial encounter (principal); Z23 Encounter for immunization; J45.909 Unspecified asthma, uncomplicated; E11.9 Type 2 diabetes mellitus without complications; I10 Essential (primary) hypertension; Z79.82 Long term (current) use of aspirin; Z79.899 Other long term (current) drug therapy; Z79.4 Long term (current) use of insulin; Z79.51 Long term (current) use of inhaled steroids; Z79.84 Long term (current) use of oral hypoglycemic drugs; Z88.4 Allergy status to anesthetic agent; Z88.5 Allergy status to narcotic agent; W27.4XXA Contact with kitchen utensil, initial encounter
CPT/HCPCS: 99282 ×2; 12002 ×2; 90471 ×2; 90715; J2001

== ENCOUNTER → 2022-10-19 | Outpatient (CLI) | payer MEDICARE, OTHER ==
[2022-10-19 13:56] VITALS: BP 152/61; PULSE 76; RESP 12; TEMP 97.9
--- NOTE | 2022-10-19 14:36 | P.PN ---
Subjective Progress Note Date: 10/19/22 fibrocystic breast disease Radha is an 82-year-old white female who has intermittently had some fullness in her left breast at the 12 o'clock position. She has a diagnosis of amyloidosis and has had multiple nodularity in the breast in the past. Past biopsies were consistent with amyloid disease. The nodularity in the breast has not changed. She has intermittent discomfort at the area of nodularity. She had a bilateral mammogram performed on . This is felt to be probably benign BIRADS 3. She also had a bilateral ultrasound performed on the same day. This was likewise probably benign BIRADS 3. Follow-up diagnostic mammogram and ultrasound of both breast in 6 months was recommended. She had a breast MRI done on 07/15/2020 which did not reveal any evidence for invasive malignancy in either breast. The patient continues to have some chronic lateral breast discomfort. 10-19-22 bilateral mammogram 10-09-22 recommend bilateral breast MRI. She has no new lumps masses or nodules of concern in her breast. She does continue to have some chronic bilateral breast discomfort. Family history: 2 Daughters: Breast cancer 1 recently from COVID Paternal niece: Breast cancer diagnosed premenopausal Second paternal niece: Breast cancer premenopausal 2 sisters: Ovarian cancer but from this Mother: Carcinomatosis uncertain of the etiology, mother skin cancer on her arm Paternal grandfather: Prostate cancer Paternal half-brother: Prostate cancer Past surgical history: 1. Back surgery 2. Prior surgery 3. Breast biopsies 4. Hernia surgery 5. Hysterectomy 6. Tubal ligation 7. Joint replacement 8. Orthopedic surgery 9. Pain stimulator placed and removed 10. bilateral total knee replacement 11. Left shoulder surgery 12. Neck exploration for parathyroid surgery 13. Neck fusion 14. skin surgery of nose 15. right hand 16. left hand surgery Medical history: 1. Diabetes 2. Asthma 3. Hypertension 4. Leaking heart valve 5. Hyperlipidemia 6. Amyloidosis 7. back and hip pain Social history: Smoke: Negative Alcohol: Negative Drugs: Negative Review of systems: HEENT: Decreased hearing Constitutional: No fever or night sweats Lungs: Asthma Cardiovascular: Leaking valve GI: Negative negative negative Integument: skin cancer on nose Musculoskeletal: Amyloidosis, arthritis Psychiatric: Negative ALLERGIES: matty Harrison Objective - Vital Signs Vital signs: Vital Signs Temp 97.9 F 10/19/22 13:49 Pulse 76 10/19/22 13:49 Resp 12 10/19/22 13:49 BP 152/61 10/19/22 13:49 Pulse Ox 96 10/19/22 13:49 FiO2 Intake & Output 10/18/22 10/19/22 10/19/22 18:59 06:59 18:59 Weight 62.142 kg - Constitutional General appearance: Present: cooperative - EENT Eyes: Present: EOMI ENT: Present: hearing grossly normal - Neck Neck: Present: normal ROM - Respiratory Respiratory: bilateral: CTA - Cardiovascular Heart sounds: normal: S1, S2 - Integumentary Integumentary: Present: normal turgor - Psychiatric Psychiatric: Present: A&O x's 3, appropriate affect, intact judgment & insight - Additional findings Additional findings: breast exam: BRA: 44B inspection: Bilateral grade 3 ptosis Palpation: Right breast: Multi-positional exam fibrocystic changes no discrete dominant masses or nodules of concern Left breast: Fibrocystic changes no discrete dominant masses or nodules of concern Bilateral axilla: No adenopathy of concern Assessment and Plan Assessment: Impression: 1. Diabetes 2. Asthma 3. Hypertension 4. Leaking heart valve 5. Hyperlipidemia 6. Amyloidosis 7. back and hip pain 8. Fibrocystic breast changes 9. abnormal mammogtam 12-09-21 Plan: 1. Bilateral breast MRI if she can have this secondary to the rods in her back in follow-up after this is done CC: Dr. Turner
== END ==
LOC: WWCWWP 13:42
PROVIDERS: ATTEND Surgery
DX: N60.11 Diffuse cystic mastopathy of right breast (principal); N60.12 Diffuse cystic mastopathy of left breast; E11.9 Type 2 diabetes mellitus without complications; J45.909 Unspecified asthma, uncomplicated; I10 Essential (primary) hypertension; E78.5 Hyperlipidemia, unspecified; E85.9 Amyloidosis, unspecified; I34.0 Nonrheumatic mitral (valve) insufficiency; Z88.8 Allergy status to other drugs, medicaments and biological substances; M54.50 Low back pain, unspecified; M25.559 Pain in unspecified hip; Z79.84 Long term (current) use of oral hypoglycemic drugs

== ENCOUNTER 2022-10-21 12:45 | Emergency (ER) | payer MEDICARE, OTHER ==
[2022-10-21 12:54] VITALS: BP 140/73; PULSE 68; RESP 18; TEMP 98
[2022-10-21 15:24] LABS: Glucose,Whole Blood 130 mg/dL (70-110)
--- NOTE | 2022-10-21 15:31 | ED ---
General Adult HPI - General Chief complaint: Wound/Laceration Stated complaint: finger wound - rt hand Time Seen by Provider: 10/21/22 14:47 Source: patient Mode of arrival: ambulatory Limitations: no limitations - History of Present Illness Initial comments: 82-year-old female with history of diabetes coming in to be evaluated for suture removal. Patient was seen in this ED for laceration repair on 10/12/2022. Patient admits to redness, tenderness to the site. She was not given outpatient ABX. Denies fever, chills, numbness, tingling. - Related Data Home Medications Medication Instructions Recorded Confirmed Aspirin 81 mg PO HS 08/13/14 10/19/22 Gabapentin 300 mg PO BID 08/13/14 10/19/22 gemfibroziL [Lopid] 600 mg PO BID 08/13/14 10/19/22 Calcium Carbonate [Calcium] 300 mg PO QAM 06/13/16 10/19/22 Cholecalciferol [Vitamin D3 (25 2,000 unit PO HS 06/13/16 10/19/22 Mcg = 1000 Iu)] Multivitamins, Thera [Multivitamin 1 tab PO HS 06/13/16 10/19/22 (formulary)] Oxybutynin Chloride 5 mg PO QAM 11/26/17 10/19/22 tiZANidine [Zanaflex] 2 mg PO QID 11/26/17 10/19/22 Dulaglutide [Trulicity] 0.75 mg SQ TU 01/15/18 10/19/22 Cetirizine HCl [Zyrtec] 10 mg PO QAM 07/19/18 10/19/22 Budesonide/Formoterol Fumarate 2 puff INHALATION DAILY PRN 08/21/20 10/19/22 [Symbicort 160-4.5 Mcg Inhaler] HYDROcodone/APAP 7.5-325MG [[place] 1 tab PO QID PRN 08/21/20 10/19/22 7.5-325] Lutein 20 mg PO DAILY 08/21/20 10/19/22 Omeprazole 20 mg PO DAILY PRN 08/21/20 10/19/22 Repaglinide 0.5 mg PO DAILY PRN 08/21/20 10/19/22 metFORMIN HCL [Glucophage] 500 mg PO DAILY 08/21/20 10/19/22 Previous Rx's Medication Instructions Recorded Cephalexin [Keflex] 500 mg PO Q6HR #28 cap 10/21/22 Allergies Allergy/AdvReac Type Severity Reaction Status Date / Time midazolam HCl [From Versed] Allergy Rash/Hives Verified 10/21/22 12:54 pentazocine lactate AdvReac Nausea & Verified 10/21/22 12:54 [From Oscar] Vomiting Review of Systems ROS Statement: Those systems with pertinent positive or pertinent negative responses have been documented in the HPI. ROS Other: All systems not noted in ROS Statement are negative. Past Medical History Past Medical History: Asthma, Diabetes Mellitus, Hyperlipidemia, Hypertension Additional Past Medical History / Comment(s): "leaky heart valve". back pain. staph/strep infection post op incision History of Any Multi-Drug Resistant Organisms: None Reported, MRSA Date of last positivie culture/infection: 2012 MDRO Source:: Stomach wound Past Surgical History: Back Surgery, Bladder Surgery, Breast Surgery, Hernia Repair, Hysterectomy, Joint Replacement, Orthopedic Surgery, Tubal Ligation Additional Past Surgical History / Comment(s): pain stimulator implant-LT HIP. BILAT TKA. neck fusion and plate in left side of neck. REVERSE LT SHOULDER SX. COLONOScopy. Pain stimulator removed 07/06. Back surgery in Sep 2018. CARPAL TUNNEL RELEASE 10/06/20 Past Anesthesia/Blood Transfusion Reactions: No Reported Reaction Past Psychological History: No Psychological Hx Reported Smoking Status: Never smoker Past Alcohol Use History: None Reported Past Drug Use History: None Reported - Past Family History Mother Family Medical History: Cancer Additional Family Medical History / Comment(s): metastatic cancer Sister(s) Family Medical History: Cancer Additional Family Medical History / Comment(s): two sisters dx with ovarian cancer. one sister with lung cancer Brother(s) Family Medical History: Cancer Additional Family Medical History / Comment(s): one brother had lung cancer. half-brother had prostate cancer. maternal grandfather prostate cancer General Exam Limitations: no limitations General appearance: alert, in no apparent distress Head exam: Present: atraumatic, normocephalic, normal inspection Eye exam: Present: normal appearance, PERRL, EOMI. Absent: scleral icterus, conjunctival injection, periorbital swelling ENT exam: Present: normal exam, mucous membranes moist Neck exam: Present: normal inspection. Absent: tenderness, meningismus, lymphadenopathy Respiratory exam: Present: normal lung sounds bilaterally. Absent: respiratory distress, wheezes, rales, rhonchi, stridor Right Hand L/R Front: 1 - negative: laceration (Laceration to R, 3rd digit that is mildly, erythematous. Appears well healed. [address] No fluctuance, migratory erythema noted. ROM intact, NVI 2+ radial pulses bilaterally.) Skin exam: Present: warm, dry, intact, normal color. Absent: rash Course Vital Signs 10/21/22 12:51 Temperature 98 F Pulse Rate 68 Respiratory 18 Rate Blood Pressure 140/73 O2 Sat by Pulse 96 Oximetry Medical Decision Making - Medical Decision Making 82-year-old female, valuated in this ED for finger/wound problem. Her sutures were removed, pt tolerated well. Glucose POC result 130. Pt given keflex. All questions and concerns addressed. Case discussed with Dr. Raymond. Disposition Clinical Impression: Laceration Disposition: HOME SELF-CARE Condition: Stable Additional Instructions: Please return to ED if fever develops, migratory erythema, numbness tingling. Prescriptions: Cephalexin [Keflex] 500 mg PO Q6HR #28 cap Is patient prescribed a controlled substance at d/c from ED?: No Referrals: Pankaj Turner MD [Primary Care Provider] - 1-2 days Time of Disposition: 15:33
== END 2022-10-21 15:57 | disposition home or self-care (01) ==
LOC: EC 12:45
DX: S61.212A Laceration without foreign body of right middle finger without damage to nail, initial encounter (principal); J45.909 Unspecified asthma, uncomplicated; E11.9 Type 2 diabetes mellitus without complications; I10 Essential (primary) hypertension; Z79.82 Long term (current) use of aspirin; Z79.84 Long term (current) use of oral hypoglycemic drugs; Z88.4 Allergy status to anesthetic agent; Z88.5 Allergy status to narcotic agent; X58.XXXA Exposure to other specified factors, initial encounter
CPT/HCPCS: 36415; 99283

== ENCOUNTER → 2022-11-09 | Outpatient (CLI) | payer MEDICARE, OTHER ==
--- NOTE | 2022-11-10 12:09 | CT ---
EXAMINATION TYPE: CT CervThorLumbar spine wo con DATE OF EXAM: 11/09/2022 COMPARISON: 01/27/2021 and 05/29/2020 HISTORY: chronic back pain CT DLP: 1823.2 mGycm Automated exposure control for dose reduction was used. Unenhanced CT of the cervical, thoracic and l umbar spines was performed bone and soft tissue window settings submitted. FINDINGS: CT cervical spine: Again noted is mature bony bridging across the posterior arch of C1 and the base of the skull. Bone b ridges posterior elements of C2 and the occipital region.. Prominent degenerative facet arthropathy e specially towards the left below this fusion at C2-C3 with moderate degenerative disc disease and gra de 1 anterolisthesis. Unchanged from 01/27/2021, the right C3 facet screw is located within the right C2-C3 facet joint. Laminectomy change from C3 through C6 levels. 3 mm Degenerative grade 1 anterolisthesis below the fus ion at C7-T1 along with facet arthropathy. There is a grade 1 anterolisthesis C3-C4 with posterior cervical fusion hardware from C3 through C7 l evels and ACDF from C5 through C7. No central stenosis by CT. Moderate right-sided neuroforaminal justus rowing at C2-C3, C2-C4, C5- C6, C6-C7. On the left, there is mild bony neuroforaminal narrowing at C3 -C4, C4-C5, moderate at C5-C6 and C6-C7. Thoracic spine: Severe multilevel degenerative disc disease with ventral and dorsal spondylosis. T8-T 9 fusion with laminectomy change. No evidence for recurrent or residual disease. 2 mm grade 1 anterol isthesis of T12 on L1. No evidence for fracture or malalignment otherwise. No evidence for central st enosis. No bony destructive process or paraspinal mass. Lumbar spine: Metallic screw fusion at L5-S1. Prior fusion is noted at L2-3, L3-4, L4-5. Vacuum discs present at L1 -2. Grade 1 anterolisthesis L1 and L2 of 2 mm. Reversal of the normal lumbar lordosis. Bilateral sac roiliac joints show fusion, there are bilateral screws coursing from lateral to medial as on prior. D ecompressive laminectomy from L2-3 through L5-S1. Solid fusion noted at each of these levels. No evid ence for recurrent or residual disease at this time. Mild central stenosis suggested at L1-2. IMPRESSION: 1. Extensive stable postoperative changes within the cervical, thoracic and lumbar spines. 2. Several levels of malalignment as discussed. 3. Severe multilevel degenerative disc disease. 4. Mild central stenosis at L1-L2 IMPRESSION:
== END | disposition home or self-care (01) ==
LOC: RADCTMAIN 11:39
PROVIDERS: ATTEND Orthopaedic Surgery
DX: M43.14 Spondylolisthesis, thoracic region (principal); M43.16 Spondylolisthesis, lumbar region; M51.36 Other intervertebral disc degeneration, lumbar region; M48.061 Spinal stenosis, lumbar region without neurogenic claudication; G89.29 Other chronic pain; Z98.890 Other specified postprocedural states
CPT/HCPCS: 72125; 72128; 72131

== ENCOUNTER → 2022-11-17 | Outpatient (CLI) | payer MEDICARE, OTHER ==
--- NOTE | 2022-11-20 12:57 | BMR ---
EXAMINATION TYPE: MR breast BILAT wo/w con DATE OF EXAM: 11/17/2022 COMPARISON: MRI bilateral breasts July 15, 2020 BI-RADS 2 left breast. BI-RADS 1 right breast. 3-D bilateral breast mammogram October 09, 2022 BI-RA DS 0. Bilateral breast ultrasound 10/09/2022 BI-RADS 0. HISTORY: ABNORMAL MAMMOGRAM and ultrasound. History of bilateral breast cyst aspirations. History of several left-sided benign core biopsies. History of bilateral benign excisional biopsies more numerou s on the left. TECHNIQUE: A series of fat and water weighted images in the long and short axis views of both breasts are obtained in conjunction with dynamic contrast MRI with subtraction technique. The patient was i njected with 6 mL intravenous Gadavist gadolinium contrast. Three-dimensional and additional postpr ocessing imaging is created on independent workstation and reviewed during official interpretation of this study. FINDINGS: Heterogeneously dense fibroglandular tissue bilaterally is redemonstrated. There is persist ent distortion along with artifact from multiple biopsy clips in the outer aspect anterior to middle depth of the left breast. T2 and STIR rated images show a few tiny thin-walled cysts scattered throug hout the left breast. No suspicious axillary adenopathy is seen. Dynamic postcontrast imaging shows m ild background enhancement bilaterally. With regards to the right breast no suspicious skin thickening is seen. No pathologic enhancement or enhancing masses identified. Chest wall is intact. With regards to the left breast there is no suspicious asymmetric skin thickening. Chest wall is inta ct. Excisional changes redemonstrated. Less artifact on current study. There is 3-4mm well-circumscri bed enhancing mass in the anterior depth slightly upper aspect reference sagittal image 29 not clearl y seen on prior MRI study, predominantly benign gradual enhancement on dynamic imaging suspected charley gn based on size and enhancement. No greater than 5 mm enhancing masses or suspicious pathologic enha ncement noted. IMPRESSION: No convincing MRI evidence for invasive malignancy in either breast. BI-RADS 2 benign findings left breast BI-RADS 1 negative study right breast Recommendation: Patient is due for annual bilateral breast mammogram September 2023.
== END | disposition home or self-care (01) ==
LOC: RADMRIMAIN 13:15
PROVIDERS: ATTEND Surgery
DX: R92.8 Other abnormal and inconclusive findings on diagnostic imaging of breast (principal)
CPT/HCPCS: C8908; A9585; 77049

== ENCOUNTER 2023-03-14 13:44 | Observation (INO) | payer MEDICARE, OTHER ==
[2023-03-14] MEDS ORDERED: SODIUM CHLORIDE 0.9% 1,000 ML IV STA (14:16)
[2023-03-14 15:04] LABS: Basophils % (A) 0 %; Eosinophils # (A) 0.1 k/uL (0-0.7); Eosinophils % (A) 1 %; HCT 35.4 % (34.0-46.0); HGB 11.9 gm/dL (11.4-16.0); Lymphocytes # (A) 1.5 k/uL (1.0-4.8); Lymphocytes % (A) 22 %; MCH 29.4 pg (25.0-35.0); MCHC 33.5 g/dL (31.0-37.0); MCV 87.8 fL (80.0-100.0); Mean Platelet Volume 7.4; Monocytes # (A) 0.4 k/uL (0-1.0); Monocytes % (A) 5 %; Neutrophils # (A) 4.6 k/uL (1.3-7.7); Neutrophils % (A) 69 %; Platelet Count 286 k/uL (150-450); RBC 4.03 m/uL (3.80-5.40); WBC 6.7 k/uL (3.8-10.6)
[2023-03-14 15:07] LABS: Partial Thromboplastin Time 22.6 sec (22.0-30.0); Prothrombin Time 10.1 sec (9.0-12.0)
[2023-03-14] MEDS ORDERED: DIPH,PERTUS(ACELL)TETVAC-LF 0.5 ML VIAL IM ONE (15:10)
--- NOTE | 2023-03-14 15:11 | XR ---
EXAMINATION TYPE: XR chest 2V DATE OF EXAM: 03/14/2023 COMPARISON: Chest x-ray December 05, 2021 HISTORY: Altered mental status and weakness TECHNIQUE: Frontal and lateral views of the chest are obtained. FINDINGS: Mild underlying emphysematous change is thought present. There is no focal air space opaci ty, pleural effusion, or pneumothorax seen. The cardiac silhouette size is stable and within normal limits. Surgical change of bilateral shoulders and cervical spine is partially imaged prior. IMPRESSION: No acute cardiopulmonary process. No significant change from prior.
--- NOTE | 2023-03-14 15:12 | ED ---
General Adult HPI - General Chief complaint: Neuro Symptoms/Deficit Stated complaint: fall x2 R side numbness Time Seen by Provider: 03/14/23 14:04 Source: patient, RN notes reviewed, old records reviewed Mode of arrival: wheelchair Limitations: no limitations - History of Present Illness Initial comments: Patient is an 82-year-old female with past medical history remarkable for asthma, hypertension, leaky heart valve, diabetes who presents to the emergency Department complaining of strokelike symptoms earlier this morning. Was having the right arm, right leg weakness this morning. Also some sensory deficits in both right and lower extremities. States she got up to the restroom, sat on the toilet this morning at approximately 6 AM, when she got up, she states she had basically no function of her right lower extremity as well as right upper extremity. She fell once, and struck the right side of her head. Denies loss of consciousness. Patient is not on blood thinners. Patient presents this afternoon, arriving at approximately 2 PM for evaluation. Currently has minimal if any symptoms. Presents for further evaluation at this time. No history of strokes. No chest pain or shortness of breath. No abdominal pain, nausea, vomiting. No other acute complaints. Presents for evaluation. Patient was placed in trauma bay 2 by nursing staff.Patient's only current complaints or paresthesias in bilateral hands and fingertips. This is somewhat intermittently chronic for the patient and she does have a chronic history of carpal tunnel. - Related Data Home Medications Medication Instructions Recorded Confirmed Aspirin 81 mg PO DAILY 08/13/14 03/14/23 Gabapentin 300 mg PO BID 08/13/14 03/14/23 gemfibroziL [Lopid] 600 mg PO BID 08/13/14 03/14/23 Calcium Carbonate [Calcium] 600 mg PO DAILY 06/13/16 03/14/23 Multivitamins, Thera [Multivitamin 1 tab PO HS 06/13/16 03/14/23 (formulary)] Oxybutynin Chloride 5 mg PO BID 11/26/17 03/14/23 Cetirizine HCl [Zyrtec] 10 mg PO DAILY 07/19/18 03/14/23 Budesonide/Formoterol Fumarate 2 puff INHALATION RT-BID PRN 08/21/20 03/14/23 [Symbicort 160-4.5 Mcg Inhaler] HYDROcodone/APAP 7.5-325MG [[place] 1 tab PO BID PRN 08/21/20 03/14/23 7.5-325] Lutein 20 mg PO DAILY 08/21/20 03/14/23 metFORMIN HCL [Glucophage] 500 mg PO BID 08/21/20 03/14/23 Albuterol Inhaler [Ventolin Hfa 1 - 2 puff INHALATION RT-Q6H PRN 03/14/23 03/14/23 Inhaler] Cholecalciferol [Vitamin D3 (125 125 mcg PO HS 03/14/23 03/14/23 Mcg = 5000 Iu)] Dulaglutide [Trulicity] 1.5 mg SQ TU 03/14/23 03/14/23 Ferrous Sulfate [Iron] 325 mg PO HS 03/14/23 03/14/23 Ibuprofen [Motrin] 800 mg PO Q8H PRN 03/14/23 03/14/23 L.acidoph,Paracasei, B.lactis 1 cap PO HS 03/14/23 03/14/23 [Probiotic] Omeprazole 40 mg PO DAILY 03/14/23 03/14/23 Vitamin C/Biotin [Hair, Skin and 1 tab PO DAILY 03/14/23 03/14/23 Nails Chew] amLODIPine [Norvasc] 2.5 mg PO DAILY 03/14/23 03/14/23 hydroCHLOROthiazide 12.5 mg PO DAILY 03/14/23 03/14/23 methocarbamoL [Methocarbamol] 500 mg PO TID 03/14/23 03/14/23 tiZANidine [Zanaflex] 2 mg PO Q8HR PRN 03/14/23 03/14/23 Allergies Allergy/AdvReac Type Severity Reaction Status Date / Time midazolam HCl [From Versed] Allergy Rash/Hives Verified 03/14/23 15:35 pentazocine lactate AdvReac Nausea & Verified 03/14/23 15:35 [From Oscar] Vomiting Review of Systems ROS Statement: Those systems with pertinent positive or pertinent negative responses have been documented in the HPI. Review of Systems: CONST: Denies fever EYES: Denies blurry vision ENT: Denies nasal congestion C/V: Denies Chest pain RESP: Denies shortness of breath GI: Denies abdominal pain : Denies dysuria SKIN: Endorses small laceration to the right side of face. MSK: Denies joint pain. NEURO: Denies headache ROS Other: All systems not noted in ROS Statement are negative. Past Medical History Past Medical History: Asthma, Diabetes Mellitus, Hyperlipidemia, Hypertension Additional Past Medical History / Comment(s): "leaky heart valve". back pain. staph/strep infection post op incision History of Any Multi-Drug Resistant Organisms: None Reported, MRSA Date of last positivie culture/infection: 2012 MDRO Source:: Stomach wound Past Surgical History: Back Surgery, Bladder Surgery, Breast Surgery, Hernia Repair, Hysterectomy, Joint Replacement, Orthopedic Surgery, Tubal Ligation Additional Past Surgical History / Comment(s): pain stimulator implant-LT HIP. BILAT TKA. neck fusion and plate in left side of neck. REVERSE LT SHOULDER SX. COLONOScopy. Pain stimulator removed 07/06. Back surgery in Sep 2018. CARPAL TUNNEL RELEASE 10/06/20 Past Anesthesia/Blood Transfusion Reactions: No Reported Reaction Past Psychological History: No Psychological Hx Reported Smoking Status: Never smoker Past Alcohol Use History: None Reported Past Drug Use History: None Reported - Past Family History Mother Family Medical History: Cancer Additional Family Medical History / Comment(s): metastatic cancer Sister(s) Family Medical History: Cancer Additional Family Medical History / Comment(s): two sisters dx with ovarian cancer. one sister with lung cancer Brother(s) Family Medical History: Cancer Additional Family Medical History / Comment(s): one brother had lung cancer. half-brother had prostate cancer. maternal grandfather prostate cancer General Exam - General Exam Comments Initial Comments: General: Appears in no acute distress. HEAD: Normal with no signs of head trauma. EYES: PERRLA, EOMI, conjunctiva normal, no discharge. ENT: Hearing grossly intact, normal oropharynx. RESPIRATORY: Clear breath sounds bilaterally. No wheezes, rales, or rhonchi. C/V: Regular rate and rhythm. S1 and S2 auscultated, peripheral pulses 2+ and intact throughout ABD: Abd is soft, nontender, nondistended EXT: Normal range of motion, no obvious deformity SKIN: No rashes or lesions observed on exposed skin. NEURO: Alert and oriented x 4. Cranial nerves II-XII intact. No focal sensory or strength deficits. GCS of 15. NIH of 0. Cerebellar function intact as evident by normal finger to nose testing and [id number] testing. Limitations: no limitations Course Vital Signs 03/14/23 03/14/23 13:52 14:30 Temperature 98.3 F Pulse Rate 90 87 Respiratory 20 16 Rate Blood Pressure 135/80 157/82 O2 Sat by Pulse 95 97 Oximetry Medical Decision Making - Medical Decision Making Was pt. sent in by a medical professional or institution (, PA, [facility], urgent care, hospital, or intermediate...) When possible be specific @ -No Did you speak to anyone other than the patient for history (EMS, parent, family, police, friend...)? What history was obtained from this source @ -Spoke with patient's daughter who is at bedside who lives with her history. Did you review nursing and triage notes (agree or disagree)? Why? @ -I reviewed and agree with nursing and triage notes, except the numbness is more of a paresthesia sensation which is located in bilateral upper extremities which she does get. It is currently present only in the fingertips of bilateral upper extremities. The obvious weakness to the right side has resolved. Were old charts reviewed (outside hosp., previous admission, EMS record, old EKG, old radiological studies, urgent care reports/EKG's, intermediate records)? Report findings @ -No old charts were reviewed Differential Diagnosis (chest pain, altered mental status, abdominal pain women, abdominal pain men, vaginal bleeding, weakness, fever, dyspnea, syncope, headache, dizziness, GI bleed, back pain, seizure, CVA, palpatations, mental health, musculoskeletal)? @ -Differential CVA Ischemic stroke, hemorrhagic stroke, brain tumor, atypical migraine, Wernicke's encephalopathy, seizure, multiple sclerosis, meningitis, encephalitis, hypoglycemia, Guillain-Ladd, electrolytes disturbance, myasthenia gravis.... This is not meant to be an all-inclusive list EKG interpreted by me (3pts min.). @ -As above X-rays interpreted by me (1pt min.). @ -Chest x-ray reveals no obvious acute cardio pulmonary process. CT interpreted by me (1pt min.). @ -CT brain shows no obvious acute intracranial injury or process. CT angiogr am of the brain shows no obvious acute intracranial process. U/S interpreted by me (1pt. min.). @ -None done What testing was considered but not performed or refused? (CT, X-rays, U/S, labs)? Why? @ -None What meds were considered but not given or refused? Why? @ -None Did you discuss the management of the patient with other professionals (professionals i.e. , PA, [facility], lab, RT, psych nurse, social services specialist, immigration lawyer, teacher, licensed loan officer, returned case inspector)? Give summary @ -Discussed with Dr. Mccarthy who accepted the patient. Was smoking cessation discussed for >3mins.? @ -No Was critical care preformed (if so, how long)? @ -No Were there social determinants of health that impacted care today? How? (Homelessness, low income, unemployed, alcoholism, drug addiction, transportation, low edu. Level, literacy, decrease access to med. care, snf, rehab)? @ -No Was there de-escalation of care discussed even if they declined (Discuss DNR or withdrawal of care, Hospice)? DNR status @ -No What co-morbidities impacted this encounter? (DM, HTN, Smoking, COPD, CAD, Cancer, CVA, ARF, Chemo, Hep., AIDS, mental health diagnosis, sleep apnea, morbid obesity)? @ -None Was patient admitted / discharged? Hospital course, mention meds given and route, prescriptions, significant lab abnormalities, going to OR and other pertinent info. @ -Based on the patient's presentation and physical exam, patient was placed in trauma bay 2 over concern for possible stroke. Only acute complaints at this time are bilateral hand paresthesias. Vital signs are within acceptable limits. Exam is unremarkable at this time. We will work the patient up for stroke despite the patient NIH of 0. Has been 6 hours since onset of symptoms. Last known well was 6 AM. patient is not a TPA candidate as risks are far outweighed by the benefits. We'll still obtain imaging, a stroke workup. She was in agreement this plan. CT imaging negative for any acute findings of stroke. Chest x-ray unremarkable. Labs are within acceptable limits. EKG within acceptable limits. I discussed the results of the patient. NIH remains 0 at this time for myself. I did recommend admission for neuro eval for TIA. She was in agreement this plan. Patient was given 325 mg of aspirin. Consult for neurology placed. Patient admitted for TIA workup. I spoke with the admitting physician, Dr. Mccarthy who accepted the patient. Undiagnosed new problem with uncertain prognosis? @ -No Drug Therapy requiring intensive monitoring for toxicity (Heparin, Nitro, Insulin, Cardizem)? @ -No Were any procedures done? @ -No Diagnosis/symptom? @ -TIA Acute, or Chronic, or Acute on Chronic? @ -Acute Uncomplicated (without systemic symptoms) or Complicated (systemic symptoms)? @ -Uncomplicated Side effects of treatment? @ -none Exacerbation, Progression, or Severe Exacerbation] @ -no Poses a threat to life or bodily function? @ -no. - Lab Data Result diagrams: 03/14/23 14:37 03/14/23 14:37 Lab Results 03/14/23 03/14/23 03/14/23 Range/Units 14:37 14:37 14:37 WBC 6.7 (3.8-10.6) k/uL RBC 4.03 (3.80-5.40) m/uL Hgb 11.9 (11.4-16.0) gm/dL Hct 35.4 (34.0-46.0) % MCV 87.8 (80.0-100.0) fL MCH 29.4 (25.0-35.0) pg MCHC 33.5 (31.0-37.0) g/dL RDW 14.0 (11.5-15.5) % Plt Count 286 (150-450) k/uL MPV 7.4 Neutrophils % 69 % Lymphocytes % 22 % Monocytes % 5 % Eosinophils % 1 % Basophils % 0 % Neutrophils # 4.6 (1.3-7.7) k/uL Lymphocytes # 1.5 (1.0-4.8) k/uL Monocytes # 0.4 (0-1.0) k/uL Eosinophils # 0.1 (0-0.7) k/uL Basophils # 0.0 (0-0.2) k/uL PT 10.1 (9.0-12.0) sec INR 1.0 (<1.2) APTT 22.6 (22.0-30.0) sec Sodium 141 (137-145) mmol/L Potassium 3.6 (3.5-5.1) mmol/L Chloride 102 (98-107) mmol/L Carbon Dioxide 28 (22-30) mmol/L Anion Gap 11 mmol/L BUN 27 H (7-17) mg/dL Creatinine 0.98 (0.52-1.04) mg/dL Est GFR (CKD-EPI)AfAm 62 (>60 ml/min/1.73 sqM) Est GFR (CKD-EPI)NonAf 54 (>60 ml/min/1.73 sqM) Glucose 76 (74-99) mg/dL Calcium 9.1 (8.4-10.2) mg/dL Total Bilirubin 0.3 (0.2-1.3) mg/dL AST 30 (14-36) U/L ALT 22 (4-34) U/L Alkaline Phosphatase 101 (38-126) U/L Creatine Kinase (30-135) U/L Troponin I (0.000-0.034) ng/mL Total Protein 7.3 (6.3-8.2) g/dL Albumin 4.4 (3.5-5.0) g/dL 03/14/23 03/14/23 Range/Units 14:37 14:37 WBC (3.8-10.6) k/uL RBC (3.80-5.40) m/uL Hgb (11.4-16.0) gm/dL Hct (34.0-46.0) % MCV (80.0-100.0) fL MCH (25.0-35.0) pg MCHC (31.0-37.0) g/dL RDW (11.5-15.5) % Plt Count (150-450) k/uL MPV Neutrophils % % Lymphocytes % % Monocytes % % Eosinophils % % Basophils % % Neutrophils # (1.3-7.7) k/uL Lymphocytes # (1.0-4.8) k/uL Monocytes # (0-1.0) k/uL Eosinophils # (0-0.7) k/uL Basophils # (0-0.2) k/uL PT (9.0-12.0) sec INR (<1.2) APTT (22.0-30.0) sec Sodium (137-145) mmol/L Potassium (3.5-5.1) mmol/L Chloride (98-107) mmol/L Carbon Dioxide (22-30) mmol/L Anion Gap mmol/L BUN (7-17) mg/dL Creatinine (0.52-1.04) mg/dL Est GFR (CKD-EPI)AfAm (>60 ml/min/1.73 sqM) Est GFR (CKD-EPI)NonAf (>60 ml/min/1.73 sqM) Glucose (74-99) mg/dL Calcium (8.4-10.2) mg/dL Total Bilirubin (0.2-1.3) mg/dL AST (14-36) U/L ALT (4-34) U/L Alkaline Phosphatase (38-126) U/L Creatine Kinase 156 H (30-135) U/L Troponin I <0.012 (0.000-0.034) ng/mL Total Protein (6.3-8.2) g/dL Albumin (3.5-5.0) g/dL - EKG Data -: EKG Interpreted by Me EKG Comments: 12-lead Electrocardiogram Interpretation Note EKG was reviewed and interpreted by myself. 12-lead ECG performed at 1514 is interpreted by me as revealing normal sinus rhythm at a rate of 72 beats per minute. [place] is normal. OK interval is 20 and 25 ms and prolonged. First- degree AV block. QRS durations 84 ms, QTc is 430 ms.. There were no ST or T wave abnormalities to suggest myocardial ischemia or injury. R wave progression across the precordium was satisfactory. By my interpretation this EKG is non- diagnostic for acute ischemia. When compared with EKG from August 2020, no significant change. Disposition Clinical Impression: TIA (transient ischemic attack) Disposition: ADMITTED IP TO THIS HOSP Condition: Stable Time of Disposition: 15:51
--- NOTE | 2023-03-14 15:14 | CT ---
EXAMINATION TYPE: CT brain wo con DATE OF EXAM: 03/14/2023 HISTORY: Acute onset neurologic deficit. Fall injury with weakness and right temporal bruising. CT DLP: 405.9 mGycm. Automated Exposure Control for Dose Reduction was Utilized. TECHNIQUE: CT scan of the head is performed without contrast. COMPARISON: CT brain January 27, 2021 FINDINGS: There is no acute intracranial hemorrhage or midline shift identified. There is mild-to-m oderate diffuse ventricular and sulcal prominence consistent with diffuse age-related cerebral atroph y redemonstrated. There is mild low-attenuation in the periventricular white matter consistent with chronic small vessel ischemic change redemonstrated. Postsurgical change posterior lower cerebellar region overlying skull redemonstrated. The globes are intact and the visualized sinuses are clear. IMPRESSION: No acute intracranial hemorrhage or midline shift. No significant change from most recen t prior CT.
[2023-03-14 15:16] LABS: Albumin 4.4 g/dL (3.5-5.0); Calcium 9.1 mg/dL (8.4-10.2); Potassium 3.6 mmol/L (3.5-5.1); Total Bilirubin 0.3 mg/dL (0.2-1.3); Total Protein 7.3 g/dL (6.3-8.2)
--- NOTE | 2023-03-14 15:19 | CT ---
EXAMINATION TYPE: CT angio head neck DATE OF EXAM: 03/14/2023 HISTORY: Acute onset neurologic deficit. COMPARISON: None. CT DLP: 1500 mGycm. Automated Exposure Control for Dose Reduction was Utilized. TECHNIQUE: CTA scan of the head and neck is performed with IV Contrast, patient injected with 65 mL of Isovue 370, axial images are obtained, coronal and sagittal reformatted images are reviewed. 3D re constructed images are created on an independent workstation and reviewed. FINDINGS: Carotid/Vascular Structures: Normal three-vessel origin from the aortic arch without significant sten osis. Suboptimal evaluation of short segment of the left common carotid artery due to streak artifact from dense contrast filled left subclavian vein. Visualized portion of both common carotid arteries shows tortuous medial course without significant plaque or stenosis. Mild to moderate left greater th an right mixed plaque at bilateral carotid bulb level is seen. No significant stenosis in the externa l carotid arteries bilaterally. There is a tortuous course to the proximal internal carotid arteries bilaterally without significant stenosis. There is a patent anterior communicating artery. There is n o significant focal stenosis or aneurysm in the anterior circulation. Images of the posterior circulation show codominant vertebral arteries. Vertebral arteries are patent to the basilar junction. There is a patent left posterior communicating artery. There is hypoplastic right posterior communicating artery. No significant focal stenosis or aneurysm in the posterior cir culation. Other: Small sized thyroid with asymmetric smaller right thyroid lobe noted. Extensive surgical pham e of the cervical spine is noted. IMPRESSION: No significant abnormality is seen. NASCET criteria was used in interpretation of this exam?
[2023-03-14] MEDS ORDERED: ASPIRIN 325 MG TAB PO STA (15:53)
[2023-03-14 18:32] LABS: Glucose,Whole Blood 70 mg/dL (70-110)
[2023-03-14] MEDS ORDERED: SYMBICORT 160-4.5 MCG INHALER INHALATION PRN (19:39)
--- NOTE | 2023-03-14 19:52 | P.HPIM ---
History of Present Illness H&P Date: 03/14/23 History of Presenting Illness: Patient is a very pleasant 82-year-old female with a past medical history of asthma, hypertension, heart murmur, type II [id number] diabetes mellitus, GERD, and neuropathy. She presented to the emergency department with a chief complaint of right-sided weakness. Patient reported upon awakening around 6 AM she was at her baseline self and walk to the restroom. Patient states after using the restroom she attempted to get up and noticed that her right leg was numb. Patient leaned over to grab a hold of the bathtub to help hold her up but also realizes that this time that her right arm was completely numb as well resulting in her falling over and hitting her head on the side of the tub. Patient's daughter and granddaughter at bedside states the came to her assistance and assisted her back into her bed. Patient's daughter reports patient's right upper and lower extremity was "completely flaccid" reviewed patient denies anything like this happening in the past. Patient's granddaughter at bedside reports that her speech also seemed a little slurred but denied any noted facial droop. Patient states that this weakness/numbness lasted a couple hours and spontaneously resolved without intervention. Upon evaluation patient had full resolution of all reported neuro deficits. Patient currently denies having any headache, lightheadedness, dizziness, acute changes in vision or hearing, chest pain, palpitations, shortness of breath, or experiencing any tingling or swelling in extremities. Patient underwent full evaluation in the emergency department. Initial NIH score was 0 and completed by ED physician upon patient's arrival to facility. CT brain completed negative for acute intercranial hemorrhage or midline shift showing no significant changes from prior CT completed 01/27/21 per radiologist report. CTA head and neck also completed and radiology report reviewed also negative for acute abnormality. Chest x-ray completed and reviewed, lungs appear clear negative for acute cardiopulmonary process. EKG completed showing normal sinus rhythm at 72 bpm with no noted T-wave or ST abnormalities upon personal review and interpretation. Labs completed and reviewed. CBC, coags, and CMP were unremarkable. Creatinine kinase was elevated at 156. Troponin was negative at less than 0.012. Discussed patient complaints, physical exam findings, laboratory analysis and imaging findings with the ED provider. Patient being admitted under our services with consultation to neurology. Review of systems: Pertinent positives and negatives as discussed in HPI, a complete review of systems was performed and all other systems are negative. Physical exam: Vital signs reviewed and stable. General: Nontoxic, no distress and appears stated age. Derm: Skin warm and dry, normal coloration for ethnicity. Head: Atraumatic, normocephalic and symmetric. Eyes: EOMs intact, no lid lag, and anicteric sclera Mouth: no lip lesions, mucus membranes moist Cardiovascular: regular rate and rhythm with normal S1S2, no murmur, positive posterior tibial pulses bilaterally, and cap refill < 2 seconds. Lungs: Respirations even, regular, and unlabored on room air. Lungs CTA bilaterally, no rhonchi, no rales, no wheezing, and no accessory muscle usage. Abdominal: soft, nontender to palpation, no guarding, no appreciable organomegaly Ext: ROM intact. No gross muscle atrophy, no edema, no contractures Neuro: Speech clear, face symmetrical and CN II-XII grossly intact with no noted focal neuro deficits Psych: Alert and oriented to person, place, time, and situation. Appropriate and pleasant affect. Assessment and Plan of Care: Right upper and lower extremity weakness, rule out TIA -Initial NIH score was 0 and completed by ED physician upon patient's arrival to facility. -CT brain completed negative for acute intercranial hemorrhage or midline shift showing no significant changes from prior CT completed 01/27/21 per radiologist report. -CTA head and neck also completed and radiology report reviewed also negative for acute abnormality. -Chest x-ray completed and reviewed, lungs appear clear negative for acute cardiopulmonary process. -EKG completed showing normal sinus rhythm at 72 bpm with no noted T-wave or ST abnormalities upon personal review and interpretation. -Labs completed and reviewed. CBC, coags, and CMP were unremarkable. Creatinine kinase was elevated at 156. Troponin was negative at less than 0.012. -Discussed patient complaints, physical exam findings, laboratory analysis and imaging findings with the ED provider. -Patient being admitted under our services with consultation to neurology. -Continue daily aspirin and started patient on atorvastatin 40 mg nightly. -Neuro checks -Telemetry monitoring -Echocardiogram and carotid Dopplers to be completed -Neurology consulted The patient is admitted with an anticipated less than 2 midnight stay for evaluation of TIA CODE STATUS: Full code DVT prophylaxis: Lovenox Discussed with: patient, patient's daughter, patient's granddaughter, and ED physician Anticipated discharge date: 24-[address]: home Patient was seen independently by Nurse Practitioner. This document was prepared using [employer] dictation software. Please allow for errors in patient relations director while rare they do occur. I reviewed the documentation as provided by the WENDY above, who is the original author of this note. I agree with the documented assessment and plan, with the following changes: none Past Medical History Past Medical History: Asthma, Diabetes Mellitus, Hyperlipidemia, Hypertension Additional Past Medical History / Comment(s): "leaky heart valve". back pain. staph/strep infection post op incision History of Any Multi-Drug Resistant Organisms: None Reported, MRSA Date of last positivie culture/infection: 2012 MDRO Source:: Stomach wound Past Surgical History: Back Surgery, Bladder Surgery, Breast Surgery, Hernia Repair, Hysterectomy, Joint Replacement, Orthopedic Surgery, Tubal Ligation Additional Past Surgical History / Comment(s): pain stimulator implant-LT HIP. BILAT TKA. neck fusion and plate in left side of neck. REVERSE LT SHOULDER SX. COLONOScopy. Pain stimulator removed 07/06. Back surgery in Sep 2018. CARPAL TUNNEL RELEASE 10/06/20 Past Anesthesia/Blood Transfusion Reactions: No Reported Reaction Past Psychological History: No Psychological Hx Reported Smoking Status: Never smoker Past Alcohol Use History: None Reported Past Drug Use History: None Reported - Past Family History Mother Family Medical History: Cancer Additional Family Medical History / Comment(s): metastatic cancer Sister(s) Family Medical History: Cancer Additional Family Medical History / Comment(s): two sisters dx with ovarian cancer. one sister with lung cancer Brother(s) Family Medical History: Cancer Additional Family Medical History / Comment(s): one brother had lung cancer. half-brother had prostate cancer. maternal grandfather prostate cancer Medications and Allergies Home Medications Medication Instructions Recorded Confirmed Type Aspirin 81 mg PO DAILY 08/13/14 03/14/23 History Gabapentin 300 mg PO BID 08/13/14 03/14/23 History gemfibroziL [Lopid] 600 mg PO BID 08/13/14 03/14/23 History Calcium Carbonate [Calcium] 600 mg PO DAILY 06/13/16 03/14/23 History Multivitamins, Thera [Multivitamin 1 tab PO HS 06/13/16 03/14/23 History (formulary)] Oxybutynin Chloride 5 mg PO BID 11/26/17 03/14/23 History Cetirizine HCl [Zyrtec] 10 mg PO DAILY 07/19/18 03/14/23 History Budesonide/Formoterol Fumarate 2 puff INHALATION RT-BID PRN 08/21/20 03/14/23 History [Symbicort 160-4.5 Mcg Inhaler] HYDROcodone/APAP 7.5-325MG [[place] 1 tab PO BID PRN 08/21/20 03/14/23 History 7.5-325] Lutein 20 mg PO DAILY 08/21/20 03/14/23 History metFORMIN HCL [Glucophage] 500 mg PO BID 08/21/20 03/14/23 History Albuterol Inhaler [Ventolin Hfa 1 - 2 puff INHALATION RT-Q6H PRN 03/14/23 03/14/23 History Inhaler] Cholecalciferol [Vitamin D3 (125 125 mcg PO HS 03/14/23 03/14/23 History Mcg = 5000 Iu)] Dulaglutide [Trulicity] 1.5 mg SQ TU 03/14/23 03/14/23 History Ferrous Sulfate [Iron] 325 mg PO HS 03/14/23 03/14/23 History L.acidoph,Paracasei, B.lactis 1 cap PO HS 03/14/23 03/14/23 History [Probiotic] Omeprazole 40 mg PO DAILY 03/14/23 03/14/23 History Vitamin C/Biotin [Hair, Skin and 1 tab PO DAILY 03/14/23 03/14/23 History Nails Chew] amLODIPine [Norvasc] 2.5 mg PO DAILY 03/14/23 03/14/23 History hydroCHLOROthiazide 12.5 mg PO DAILY 03/14/23 03/14/23 History methocarbamoL [Methocarbamol] 500 mg PO TID 03/14/23 03/14/23 History tiZANidine [Zanaflex] 2 mg PO Q8HR PRN 03/14/23 03/14/23 History Atorvastatin [Lipitor] 40 mg PO HS 30 Days #30 tab 03/16/23 Rx Clopidogrel [Plavix] 75 mg PO DAILY 21 Days #21 tab 03/16/23 Rx Allergies Allergy/AdvReac Type Severity Reaction Status Date / Time midazolam HCl [From Versed] Allergy Rash/Hives Verified 03/14/23 15:35 pentazocine lactate AdvReac Nausea & Verified 03/14/23 15:35 [From Oscar] Vomiting Physical Exam Vitals: Vital Signs Temp Pulse Resp BP Pulse Ox 03/14/23 14:30 87 16 157/82 97 03/14/23 13:52 98.3 F 90 20 135/80 95 Intake and Output 03/14/23 03/14/23 03/14/23 06:59 14:59 22:59 Other: Weight 58.967 kg Results CBC & Chem 7: 03/16/23 05:54 03/16/23 05:54 Labs: Abnormal Lab Results - Last 24 Hours (Table) 03/14/23 03/14/23 Range/Units 14:37 14:37 BUN 27 H (7-17) mg/dL Creatine Kinase 156 H (30-135) U/L
[2023-03-14 21:03] LABS: Glucose,Whole Blood 68 mg/dL (70-110)
--- NOTE | 2023-03-14 21:36 | US ---
EXAMINATION TYPE: US carotid duplex BILAT DATE OF EXAM: 03/14/2023 COMPARISON: CTA: Today CLINICAL INDICATION: Female, 82 years old with history of TIA; TIA TECHNIQUE: Carotid duplex ultrasound examination. Indirect Doppler criteria was utilized. FINDINGS: EXAM MEASUREMENTS: RIGHT: Peak Systolic Velocity (PSV) cm/sec ----- Right CCA: 85.2 ----- Right ICA: 76.4 ----- Right ECA: 102.6 ICA/CCA ratio: 0.9 RIGHT: End Diastole cm/sec ----- Right CCA: 16.9 ----- Right ICA: 16.9 ----- Right ECA: 6.7 LEFT: Peak Systolic Velocity (PSV) cm/sec ----- Left CCA: 83.7 ----- Left ICA: 101.1 ----- Left ECA: 91.9 ICA/CCA ratio: 1.2 LEFT: End Diastole cm/sec ----- Left CCA: 21.2 ----- Left ICA: 24.1 ----- Left ECA: 9.5 VERTEBRALS (direction of flow): Right Vertebral: Not seen Left Vertebral: Antegrade Rhythm: IMPRESSION: Less than 50% stenosis of the bilateral carotid bifurcations. Criteria for Assigning % of Stenosis / Diameter reduction (Estimation based on the indirect measurements of the internal carotid artery velocities (ICA PSV). 1. Normal (no stenosis)=ICA PSV < 125 cm/s: ratio < 2.0: ICA EDV<40 cm/s. 2. Less than 50% stenosis=ICA PSV < 125 cm/s: ratio < 2.0: ICA EDV<40 cm/s. 3. 50 to 69% stenosis=ICA PSV of 125 to 230 cm/s: ration 2.0 ? 4.0: ICA EDV 40-100 cm/s. 4. Greater than 70% stenosis to near occlusion= ICA PSV > 230 cm/s: ratio > 4.0: ICA EDV > 100 cm/s. 5. Near occlusion= ICA PSV velocities may be low or undetectable: variable ratio and ICA EDV. 6. Total occlusion=unable to detect flow.
[2023-03-14] MEDS: methocarbamoL 500 MG TAB PO SCH (21:49)
[2023-03-14] MEDS: ATORVASTATIN 40 MG TAB PO SCH (21:49)
[2023-03-14] MEDS: CHOLECALCIFEROL 125 MCG (5000 IU) TABLET PO SCH (21:50)
[2023-03-14] MEDS: FERROUS SULFATE 325 MG TAB PO SCH (21:50)
[2023-03-14] MEDS: GABAPENTIN 300 MG CAP PO SCH (21:50)
[2023-03-15 02:52] LABS: Glucose,Whole Blood 55 mg/dL (70-110)
[2023-03-15 03:30] LABS: Glucose,Whole Blood 140 mg/dL (70-110)
[2023-03-15 06:15] LABS: Glucose,Whole Blood 51 mg/dL (70-110)
[2023-03-15 06:35] LABS: Glucose,Whole Blood 79 mg/dL (70-110)
[2023-03-15 08:00] LABS: Glucose,Whole Blood 65 mg/dL (70-110)
[2023-03-15] MEDS ORDERED: DEXTROSE 50% SYRINGE 50 ML IVP PRN ×2 (08:36)
[2023-03-15 08:39] LABS: Glucose,Whole Blood 130 mg/dL (70-110)
[2023-03-15] MEDS: PANTOPRAZOLE 40 MG TABLET PO SCH (08:49)
[2023-03-15] MEDS: CALCIUM CARBONATE 500 MG CHEWABLE PO SCH (08:49)
[2023-03-15] MEDS: methocarbamoL 500 MG TAB PO SCH ×3 (08:49→22:29)
[2023-03-15] MEDS: hydroCHLOROthiazide 12.5 MG CAP PO SCH (08:49)
[2023-03-15] MEDS: LORATADINE 10 MG TAB PO SCH (08:49)
[2023-03-15] MEDS: ASPIRIN 81 MG PO SCH (08:49)
[2023-03-15] MEDS: ENOXAPARIN 40 MG/0.4 ML SYRINGE SQ SCH (08:49)
[2023-03-15] MEDS: FENOFIBRATE 160 MG TAB PO SCH (08:50)
[2023-03-15] MEDS: amLODIPine 2.5 MG TAB PO SCH (08:50)
[2023-03-15] MEDS: GABAPENTIN 300 MG CAP PO SCH ×2 (08:53→20:47)
[2023-03-15 10:28] LABS: Glucose,Whole Blood 87 mg/dL (70-110)
--- NOTE | 2023-03-15 10:44 | P.CNNES ---
History of Present Illness Consult date: 03/15/23 Requesting physician: Timoteo Raymond Reason for Consult: tia History of Present Illness: This is an 82-year-old woman with history of diabetes mellitus, hypertension, hyperlipidemia who presented emergency department because of right-sided weakness with numbness. Patient stated that yesterday she was doing well upon waking up but early in the morning after she finished using the bathroom and was about to stand stand up out of the toilet she noticed her right hand was weak and numb all of a sudden then she noticed her right leg was also numb and weak as a result she fell and hit her head. She felt her right upper extremity and leg was flaccid. She denies losing consciousness. Denies any urinary or bowel incontinence. Denies any tongue soreness. She stated the episode lasted for at least 3-4 hours so she knows some improvement. She denies any history of stroke, any history of seizure. She denies any history of atrial fibrillation. She takes baby aspirin 81 mg daily at home. She feels back to baseline. Denies of any neck pain. Some of the workup during his hospital visit consisted of: She has been having episodes of hypoglycemia as well as 51. Otherwise his sodium, calcium, creatinine are within normal limits CK levels [address] of the head is reported as no acute intracranial hemorrhage or midline shift. No significant change from most recent prior CT. I personally reviewed the CT and I agree with report. CT angiography of the head and neck is reported as no significant abnormality seen. Carotid duplex is reported as less than 50% stenosis of bilateral carotid bifurcation. Per ED team on presentation NIH was a 0. Therefore no IV TPA since patient's symptoms has resolved and the risks outweigh the benefit. Review of Systems Review of system: The 12 point system was reviewed and apparent positive and negative per HPI. Past Medical History Past Medical History: Asthma, Diabetes Mellitus, Hyperlipidemia, Hypertension Additional Past Medical History / Comment(s): "leaky heart valve". back pain. staph/strep infection post op incision History of Any Multi-Drug Resistant Organisms: None Reported, MRSA Date of last positivie culture/infection: 2012 MDRO Source:: Stomach wound Past Surgical History: Back Surgery, Bladder Surgery, Breast Surgery, Hernia Repair, Hysterectomy, Joint Replacement, Orthopedic Surgery, Tubal Ligation Additional Past Surgical History / Comment(s): pain stimulator implant-LT HIP. BILAT TKA. neck fusion and plate in left side of neck. REVERSE LT SHOULDER SX. COLONOScopy. Pain stimulator removed 07/06. Back surgery in Sep 2018. CARPAL TUNNEL RELEASE 10/06/20 Past Anesthesia/Blood Transfusion Reactions: No Reported Reaction Past Psychological History: No Psychological Hx Reported Smoking Status: Never smoker Past Alcohol Use History: None Reported Past Drug Use History: None Reported - Past Family History Mother Family Medical History: Cancer Additional Family Medical History / Comment(s): metastatic cancer Sister(s) Family Medical History: Cancer Additional Family Medical History / Comment(s): two sisters dx with ovarian cancer. one sister with lung cancer Brother(s) Family Medical History: Cancer Additional Family Medical History / Comment(s): one brother had lung cancer. half-brother had prostate cancer. maternal grandfather prostate cancer Medications and Allergies Home Medications Medication Instructions Recorded Confirmed Type Aspirin 81 mg PO DAILY 08/13/14 03/14/23 History Gabapentin 300 mg PO BID 08/13/14 03/14/23 History gemfibroziL [Lopid] 600 mg PO BID 08/13/14 03/14/23 History Calcium Carbonate [Calcium] 600 mg PO DAILY 06/13/16 03/14/23 History Multivitamins, Thera [Multivitamin 1 tab PO HS 06/13/16 03/14/23 History (formulary)] Oxybutynin Chloride 5 mg PO BID 11/26/17 03/14/23 History Cetirizine HCl [Zyrtec] 10 mg PO DAILY 07/19/18 03/14/23 History Budesonide/Formoterol Fumarate 2 puff INHALATION RT-BID PRN 08/21/20 03/14/23 History [Symbicort 160-4.5 Mcg Inhaler] HYDROcodone/APAP 7.5-325MG [[place] 1 tab PO BID PRN 08/21/20 03/14/23 History 7.5-325] Lutein 20 mg PO DAILY 08/21/20 03/14/23 History metFORMIN HCL [Glucophage] 500 mg PO BID 08/21/20 03/14/23 History Albuterol Inhaler [Ventolin Hfa 1 - 2 puff INHALATION RT-Q6H PRN 03/14/23 03/14/23 History Inhaler] Cholecalciferol [Vitamin D3 (125 125 mcg PO HS 03/14/23 03/14/23 History Mcg = 5000 Iu)] Dulaglutide [Trulicity] 1.5 mg SQ TU 03/14/23 03/14/23 History Ferrous Sulfate [Iron] 325 mg PO HS 03/14/23 03/14/23 History Ibuprofen [Motrin] 800 mg PO Q8H PRN 03/14/23 03/14/23 History L.acidoph,Paracasei, B.lactis 1 cap PO HS 03/14/23 03/14/23 History [Probiotic] Omeprazole 40 mg PO DAILY 03/14/23 03/14/23 History Vitamin C/Biotin [Hair, Skin and 1 tab PO DAILY 03/14/23 03/14/23 History Nails Chew] amLODIPine [Norvasc] 2.5 mg PO DAILY 03/14/23 03/14/23 History hydroCHLOROthiazide 12.5 mg PO DAILY 03/14/23 03/14/23 History methocarbamoL [Methocarbamol] 500 mg PO TID 03/14/23 03/14/23 History tiZANidine [Zanaflex] 2 mg PO Q8HR PRN 03/14/23 03/14/23 History Allergies Allergy/AdvReac Type Severity Reaction Status Date / Time midazolam HCl [From Versed] Allergy Rash/Hives Verified 03/14/23 15:35 pentazocine lactate AdvReac Nausea & Verified 03/14/23 15:35 [From Oscar] Vomiting Physical Examination - Vital Signs Vital Signs: Vital Signs Temp Pulse Pulse Resp BP BP Pulse Ox 03/15/23 07:00 97.9 F 58 L 16 117/61 98 03/15/23 02:15 98.4 F 87 18 145/82 96 03/14/23 19:00 87 131/72 03/14/23 18:34 98 F 68 18 192/98 98 03/14/23 14:30 87 16 157/82 97 03/14/23 13:52 98.3 F 90 20 135/80 95 Intake and Output 03/14/23 03/15/23 03/15/23 22:59 06:59 14:59 Intake Total 120 240 Balance 120 240 Intake: Oral 120 240 Other: # Voids 1 2 Weight 58.967 kg GENERAL: The patient is lying in bed and is not in acute distress. CHEST: The heart rate is regular rate rhythm. NO edema in lowers. LUNG: Clear to auscultation bilaterally no wheezing noted throughout. Not labo red breathing. ABDOMEN/GI: Bowel sounds present in all 4 quadrants. No tenderness to palpation throughout. NEUROLOGICAL: Higher mental function: The patient is awake, alert, oriented to self, place and time. Patient is following commands. No aphasia and no neglect. Cranial nerves: The pupils are round, equal and reactive to light and accommodation. Visual mirza are full to confrontation throughout. Extraocular movement is intact no nystagmus is noted. Facial sensation is normal to touch t hroughout. The facial strength is normal throughout. Hearing is normal bilaterally to hand rub. Tongue is midline and moved [id number] without any difficulty. No dysarthria is noted. Shoulder shrug is normal bilaterally. Motor: The strength is 5 over 5 throughout. Normal tone and bulk. Has some atrophy in hand (left) Cerebellum: Normal finger to nose bilaterally. Sensation: Sensation is normal to touch throughout. Reflexes (right/left): brisk over the bilateral uppers (right > left). Lowers are 2+. . Plantars are mute bilaterally. Results - Laboratory Findings CBC and BMP: 03/14/23 14:37 03/14/23 14:37 Abnormal Lab Findings: Abnormal Labs 03/14/23 03/14/23 03/14/23 14:37 14:37 21:02 BUN 27 H POC Glucose (mg/dL) 68 L Creatine Kinase 156 H 03/15/23 03/15/23 03/15/23 02:50 03:27 06:13 BUN POC Glucose (mg/dL) 55 L 140 H 51 L Creatine Kinase 03/15/23 03/15/23 07:47 08:27 BUN POC Glucose (mg/dL) 65 L 130 H Creatine Kinase Assessment and Plan Assessment: This is an 82-year-old woman who presented that to the emergency because of episode of right-sided weakness with numbness that occurred on 03/14/2023. Her symptoms has resolved. Was noted that the patient had hypoglycemic during this admission as well as in the low 50s On examination I felt she had brisk reflexes of the upper. Transient right sided weakness with numbness: Possible due to hypoglycemia event. Rule out cervical myelopathy especially since has brisk reflex of uppers. Cannot rule out TIA. Hypoglycemia as low as low 50s Diabetes mellitus Hypertension Hyperlipidemia Plan: I ordered MRI of the brain as well as cervical spine with and without to rule out any cervical myelopathy or any the brain lesion contributing to the patient's symptoms. The patient does have cervical myelopathy or severe stenosis then we'll consult orthopedic surgery team. Ordered orthostatic vitals, vitamin B12. Patient is on her home medication of aspirin 81 and the on Lipitor 40 mg daily at bedtime per second seizure prophylaxis 2-D echo, lipid panel, hemoglobin A1c are ordered and pending Continue neuro checks Cardiac monitoring PT, OT and [employer] WORK DISPATCHER are consulted We'll defer the rest of the medical management to primary team. Please avoid any further hypoglycemic event. For DVT prophylaxis the patient is on Lanoxin. The plan discussed with the patient and the primary team [employer]. Thank you for the consultation Time with Patient: Greater than 30
[2023-03-15 11:20] LABS: Glucose,Whole Blood 126 mg/dL (70-110)
[2023-03-15] MEDS ORDERED: INSULIN ASPART (NovoLOG) 100 UNIT/ML VIAL SQ SCH (12:30)
[2023-03-15 13:09] LABS: Glucose,Whole Blood 114 mg/dL (70-110)
[2023-03-15 16:11] LABS: Glucose,Whole Blood 188 mg/dL (70-110)
--- NOTE | 2023-03-15 17:27 | P.PN ---
Subjective Progress Note Date: 03/15/23 Hospital course: Patient is a very pleasant 82-year-old female with a past medical history of asthma, hypertension, heart murmur, type II izm-wzjmrxs-upnqxfpgy diabetes mellitus, GERD, and neuropathy. She presented to the emergency department with a chief complaint of right-sided weakness. Patient reported upon awakening around 6 AM she was at her baseline self and walk to the restroom. Patient states after using the restroom she attempted to get up and noticed that her right leg was numb. Patient leaned over to grab a hold of the bathtub to help hold her up but also realizes that this time that her right arm was completely numb as well resulting in her falling over and hitting her head on the side of the tub. Patient's daughter and granddaughter at bedside states the came to her assistance and assisted her back into her bed. Patient's daughter reports patient's right upper and lower extremity was "completely flaccid" reviewed patient denies anything like this happening in the past. Patient's granddaughter at bedside reports that her speech also seemed a little slurred but denied any noted facial droop. Patient states that this weakness/numbness lasted a couple hours and spontaneously resolved without intervention. Upon evaluation patient had full resolution of all reported neuro deficits. Patient currently denies having any headache, lightheadedness, dizziness, acute changes in vision or hearing, chest pain, palpitations, shortness of breath, or experiencing any tingling or swelling in extremities. Patient underwent full evaluation in the emergency department. Initial NIH score was 0 and completed by ED physician upon patient's arrival to facility. CT brain completed negative for acute intercranial hemorrhage or midline shift showing no significant changes from prior CT completed 01/27/21 per radiologist report. CTA head and neck also completed and radiology report reviewed also negative for acute abnormality. Chest x-ray completed and reviewed, lungs appear clear negative for acute cardiopulmonary process. EKG completed showing normal sinus rhythm at 72 bpm with no noted T-wave or ST abnormalities upon personal review and interpretation. Labs completed and reviewed. CBC, coags, and CMP were unremarkable. Creatinine kinase was elevated at 156. Troponin was negative at less than 0.012. Discussed patient complaints, physical exam findings, laboratory analysis and imaging findings with the ED provider. Patient being admitted under our services with consultation to neurology. Review of systems: Pertinent positives and negatives as discussed in HPI, a complete review of systems was performed and all other systems are negative. Physical exam: Vital signs reviewed and stable. General: Nontoxic, no distress and appears stated age. Derm: Skin warm and dry, normal coloration for ethnicity. Head: Atraumatic, normocephalic and symmetric. Eyes: EOMs intact, no lid lag, and anicteric sclera Mouth: no lip lesions, mucus membranes moist Cardiovascular: regular rate and rhythm with normal S1S2, systolic murmur, positive posterior tibial pulses bilaterally, and cap refill < 2 seconds. Lungs: Respirations even, regular, and unlabored on room air. Lungs CTA bilaterally, no rhonchi, no rales, no wheezing, and no accessory muscle usage. Abdominal: soft, nontender to palpation, no guarding, no appreciable organomegaly Ext: ROM intact. No gross muscle atrophy, no edema, no contractures Neuro: Speech clear, face symmetrical and CN II-XII grossly intact with no noted focal neuro deficits. Normal finger to nose normal heel to hooker. Psych: Alert and oriented to person, place, time, and situation. Appropriate and pleasant affect. Assessment and Plan of Care: Right upper and lower extremity weakness, rule out TIA Hypoglycemia In type II rna-mdohmak-vnishvtgo diabetic Hypertension -Neurology following and discussed plan of carewith neurologist. Neurologist reports concerns as patient has hyperactive reflexes and placed order for MRI head and neck at this time. -MRI brain and neck to be completed. -Echocardiogram completed, awaiting results. -Carotid Dopplers completed and negatives showing less than 50% stenosis of bilateral carotid bifurcations. -Reviewed labs. Patient was noted to have episodes of hypoglycemia throughout the night with blood glucose ranging from 51 240 over the past 24 hours. Will continue to monitor every 4 hours and orders placed for 25 mL D50 amp for blood glucose level 50-70 and 50 mL amp of D50 for blood glucose levels less than 50. -Hypoglycemia possibly cause of previous stroke-like symptoms. We will continue to monitor closely. -continue neuro checks every 4 hours. CODE STATUS: Full code DVT prophylaxis: Lovenox Discussed with: Patient and neurologist Anticipated discharge date: 24-[address]: Home. Patient was seen independently by Nurse Practitioner. This document was prepared using [employer] dictation software. Please allow for errors in pecan sheller while rare they do occur. I reviewed the documentation as provided by the WENDY above, who is the original author of this note. I agree with the documented assessment and plan, with the following changes: none Objective - Vital Signs Vital signs: Vital Signs Temp 97.9 F 03/15/23 07:00 Pulse 58 L 03/15/23 07:00 Resp 16 03/15/23 07:00 BP 117/61 03/15/23 07:00 Pulse Ox 98 03/15/23 07:00 FiO2 Intake & Output 03/14/23 03/15/23 03/15/23 18:59 06:59 18:59 Intake Total 120 240 Balance 120 240 Weight 58.967 kg 58.967 kg Intake: Oral 120 240 Other: # Voids 2 - Labs CBC & Chem 7: 03/16/23 05:54 03/16/23 05:54 Labs: Abnormal Lab Results - Last 24 Hours (Table) 03/14/23 03/14/23 03/14/23 Range/Units 14:37 14:37 21:02 BUN 27 H (7-17) mg/dL POC Glucose (mg/dL) 68 L (70-110) mg/dL Creatine Kinase 156 H (30-135) U/L 03/15/23 03/15/23 03/15/23 Range/Units 02:50 03:27 06:13 BUN (7-17) mg/dL POC Glucose (mg/dL) 55 L 140 H 51 L (70-110) mg/dL Creatine Kinase (30-135) U/L 03/15/23 03/15/23 Range/Units 07:47 08:27 BUN (7-17) mg/dL POC Glucose (mg/dL) 65 L 130 H (70-110) mg/dL Creatine Kinase (30-135) U/L
[2023-03-15 17:45] LABS: Glucose,Whole Blood 121 mg/dL (70-110)
[2023-03-15] MEDS: ATORVASTATIN 40 MG TAB PO SCH (20:47)
[2023-03-15] MEDS: CHOLECALCIFEROL 125 MCG (5000 IU) TABLET PO SCH (20:47)
[2023-03-15] MEDS: FERROUS SULFATE 325 MG TAB PO SCH (20:47)
[2023-03-15 22:25] LABS: Glucose,Whole Blood 118 mg/dL (70-110)
[2023-03-15 23:47] LABS: Chol/HDL Ratio 3.19 Ratio
[2023-03-16 01:36] LABS: Glucose,Whole Blood 126 mg/dL (70-110)
[2023-03-16 05:57] LABS: Glucose,Whole Blood 133 mg/dL (70-110)
[2023-03-16 08:05] VITALS: RESP 17
[2023-03-16] MEDS: PANTOPRAZOLE 40 MG TABLET PO SCH (08:48)
[2023-03-16] MEDS: CALCIUM CARBONATE 500 MG CHEWABLE PO SCH (08:48)
[2023-03-16] MEDS: ENOXAPARIN 40 MG/0.4 ML SYRINGE SQ SCH (08:48)
[2023-03-16] MEDS: LORATADINE 10 MG TAB PO SCH (08:48)
[2023-03-16] MEDS: amLODIPine 2.5 MG TAB PO SCH (08:48)
[2023-03-16] MEDS: GABAPENTIN 300 MG CAP PO SCH (08:48)
[2023-03-16] MEDS: methocarbamoL 500 MG TAB PO SCH ×2 (08:48→15:21)
[2023-03-16] MEDS: FENOFIBRATE 160 MG TAB PO SCH (08:48)
[2023-03-16] MEDS: hydroCHLOROthiazide 12.5 MG CAP PO SCH (08:48)
[2023-03-16] MEDS: ASPIRIN 81 MG PO SCH (08:48)
--- NOTE | 2023-03-16 09:40 | CA ---
Transthoracic Echo Report Name: Radha Sheehan Age: 82 Gender: F : 1940 Exam Date: 03/15/2023 09:05 Exam Location: [place] [facility] Ht (in): 58 Wt (lb): 130 Ordering Physician: Leonel Nowak Attending/Referring Phys: Platform Inspector Ethel Schofield RDCS Procedure CPT: Indications: tia Cardiac Hx: Technical Quality: Fair Contrast 1: Total Dose (mL): Contrast 2: Total Dose (mL): MEASUREMENTS (Male / Female) Normal Values 2D ECHO LV Diastolic Diameter PLAX 4.4 cm 4.2 - 5.9 / 3.9 - 5.3 cm LV Systolic Diameter PLAX 2.4 cm IVS Diastolic Thickness 1.0 cm 0.6 - 1.0 / 0.6 - 0.9 cm LVPW Diastolic Thickness 1.0 cm 0.6 - 1.0 / 0.6 - 0.9 cm LV Relative Wall Thickness 0.4 RV Internal Dim ED PLAX 3.6 cm LA Volume 41.8 cm??? 18 - 58 / 22 - 52 cm??? M-MODE Aortic Root Diameter MM 2.9 cm LA Systolic Diameter MM 4.2 cm LA Ao Ratio MM 1.4 AV Cusp Separation MM 1.3 cm DOPPLER AV Peak Velocity 211.5 cm/s AV Peak Gradient 17.9 mmHg AV Mean Velocity 137.7 cm/s AV Mean Gradient 8.4 mmHg AV Velocity Time Integral 48.2 cm LVOT Peak Velocity 85.5 cm/s LVOT Peak Gradient 2.9 mmHg LVOT Velocity Time Integral 19.1 cm MV Area PHT 5.0 cm??? Mitral E Point Velocity 79.1 cm/s Mitral A Point Velocity 114.0 cm/s Mitral E to A Ratio 0.7 MV Deceleration Time 152.8 ms MV E' Velocity 6.7 cm/s Mitral E to MV E' Ratio 11.9 TR Peak Velocity 269.9 cm/s TR Peak Gradient 29.1 mmHg Right Ventricular Systolic Press 37.0 mmHg FINDINGS Left Ventricle Normal Left ventricular size, wall thickness, systolic function with no obvious regional wall motion abnormalities. Normal Left ventricular diastolic filling pattern. Left ventricular ejection fraction is estimated at 55-60 %. Right Ventricle Mild right ventricular dilatation. Mild pulmonary hypertension. Right Atrium Normal right atrial size. Left Atrium Normal left atrial size. Interatrial septal aneurysm. Mitral Valve Structurally normal mitral valve. Mitral valve thickened. Mild mitral regurgitation. Aortic Valve Trileaflet aortic valve. Mild aortic stenosis with a peak gradient of 18 mmHg and a mean gradient of 8 mmHg. Tricuspid Valve Structurally normal tricuspid valve. Mild tricuspid regurgitation. Pulmonic Valve Structurally normal pulmonic valve. Pericardium No pericardial effusion. Aorta Normal size aortic root and proximal ascending aorta. CONCLUSIONS Normal LV systolic function Mild to moderate mitral regurgitation Aortic sclerosis with mild stenosis Previewed by: Dr. Girish Nagel MD (Electronically Signed) Final Date: 16 March 2023 09:39
--- NOTE | 2023-03-16 09:51 | P.PN ---
Subjective Progress Note Date: 03/16/23 Hospital course: Patient is a very pleasant 82-year-old female with a past medical history of asthma, hypertension, heart murmur, type II qfl-mresraf-sgqwwrcni diabetes mellitus, GERD, and neuropathy. She presented to the emergency department with a chief complaint of right-sided weakness. Patient reported upon awakening around 6 AM she was at her baseline self and walk to the restroom. Patient states after using the restroom she attempted to get up and noticed that her right leg was numb. Patient leaned over to grab a hold of the bathtub to help hold her up but also realizes that this time that her right arm was completely numb as well resulting in her falling over and hitting her head on the side of the tub. Patient's daughter and granddaughter at bedside states the came to her assistance and assisted her back into her bed. Patient's daughter reports patient's right upper and lower extremity was "completely flaccid" reviewed patient denies anything like this happening in the past. Patient's granddaughter at bedside reports that her speech also seemed a little slurred but denied any noted facial droop. Patient states that this weakness/numbness lasted a couple hours and spontaneously resolved without intervention. Upon evaluation patient had full resolution of all reported neuro deficits. Patient currently denies having any headache, lightheadedness, dizziness, acute changes in vision or hearing, chest pain, palpitations, shortness of breath, or experiencing any tingling or swelling in extremities. Patient underwent full evaluation in the emergency department. Initial NIH score was 0 and completed by ED physician upon patient's arrival to facility. CT brain completed negative for acute intercranial hemorrhage or midline shift showing no significant changes from prior CT completed 01/27/21 per radiologist report. CTA head and neck also completed and radiology report reviewed also negative for acute abnormality. Chest x-ray completed and reviewed, lungs appear clear negative for acute cardiopulmonary process. EKG completed showing normal sinus rhythm at 72 bpm with no noted T-wave or ST abnormalities upon personal review and interpretation. Labs completed and reviewed. CBC, coags, and CMP were unremarkable. Creatinine kinase was elevated at 156. Troponin was negative at less than 0.012. Discussed patient complaints, physical exam findings, laboratory analysis and imaging findings with the ED provider. Patient being admitted under our services with consultation to neurology. Review of systems: Pertinent positives and negatives as discussed in HPI, a complete review of systems was performed and all other systems are negative. Physical exam: Vital signs reviewed and stable. General: Nontoxic, no distress and appears stated age. Derm: Skin warm and dry, normal coloration for ethnicity. Head: Atraumatic, normocephalic and symmetric. Eyes: EOMs intact, no lid lag, and anicteric sclera Mouth: no lip lesions, mucus membranes moist Cardiovascular: regular rate and rhythm with normal S1S2, systolic murmur, positive posterior tibial pulses bilaterally, and cap refill < 2 seconds. Lungs: Respirations even, regular, and unlabored on room air. Lungs CTA bilaterally, no rhonchi, no rales, no wheezing, and no accessory muscle usage. Abdominal: soft, nontender to palpation, no guarding, no appreciable organomegaly Ext: ROM intact. No gross muscle atrophy, no edema, no contractures Neuro: Speech clear, face symmetrical and CN II-XII grossly intact with no noted focal neuro deficits. Normal finger to nose normal heel to hooker. Psych: Alert and oriented to person, place, time, and situation. Appropriate and pleasant affect. Assessment and Plan of Care: Right upper and lower extremity weakness, rule out TIA Hypoglycemia In type II plf-gubfrun-fdwrbxlol diabetic Hypertension -Neurology following and discussed plan of carewith neurologist. Neurologist reports concerns as patient has hyperactive reflexes and placed order for MRI head and neck at this time. -MRI brain and neck to be completed. -Echocardiogram completed, awaiting results. -Carotid Dopplers completed and negatives showing less than 50% stenosis of bilateral carotid bifurcations. -Reviewed labs. Patient was noted to have episodes of hypoglycemia throughout the night with blood glucose ranging from 51 240 over the past 24 hours. Will continue to monitor every 4 hours and orders placed for 25 mL D50 amp for blood glucose level 50-70 and 50 mL amp of D50 for blood glucose levels less than 50. -Hypoglycemia possibly cause of previous stroke-like symptoms. We will continue to monitor closely. -continue neuro checks every 4 hours. CODE STATUS: Full code DVT prophylaxis: Lovenox Discussed with: Patient and neurologist Anticipated discharge date: 24-[address]: Home. Patient was seen independently by Nurse Practitioner. This document was prepared using [employer] dictation software. Please allow for errors in insurance attorney while rare they do occur. Objective - Vital Signs Vital signs: Vital Signs Temp 97.5 F L 03/16/23 07:00 Pulse 79 03/16/23 07:00 Resp 17 03/16/23 07:00 BP 133/67 03/16/23 07:00 Pulse Ox 95 03/16/23 07:00 FiO2 Intake & Output 03/15/23 03/16/23 03/16/23 18:59 06:59 18:59 Intake Total 720 Balance 720 Intake: Intake, IV Titration 0 Amount Sodium Chloride 0.9% 1, 0 000 ml @ 999 mls/hr IV . Q1H1M STA Rx#:[id number] Oral 720 Other: Voiding Method Toilet # Voids 1 3 - Labs CBC & Chem 7: 03/14/23 14:37 03/14/23 14:37 Labs: Abnormal Lab Results - Last 24 Hours (Table) 03/15/23 03/15/23 03/15/23 Range/Units 11:12 12:49 15:59 POC Glucose (mg/dL) 126 H 114 H 188 H (70-110) mg/dL 03/15/23 03/15/23 03/16/23 Range/Units 17:34 22:24 01:33 POC Glucose (mg/dL) 121 H 118 H 126 H (70-110) mg/dL 03/16/23 Range/Units 05:56 POC Glucose (mg/dL) 133 H (70-110) mg/dL
[2023-03-16 10:02] LABS: Glucose,Whole Blood 188 mg/dL (70-110)
[2023-03-16 11:05] LABS: HCT 37.6 % (37.2-46.3); HGB 11.7 g/dL (12.0-15.0); MCHC 31.1 g/dL (32.0-37.0); MCV 93.1 fL (80.0-97.0); Mean Platelet Volume 10.3 fL (9.5-12.2); NRBC Per 100 WBC 0 /100 WBCS (0.0-0.0); Platelet Count 273 X 10*3/uL (140-440); RBC 4.04 X 10*6/uL (4.10-5.20); WBC 4.55 X 10*3/uL (4.50-10.00)
--- NOTE | 2023-03-16 11:06 | P.PN ---
Subjective Progress Note Date: 03/16/23 The patient seen at bedside and she feels she is doing that better compared to initial presentation. Denies any new neurological issues. She notified me that she had severe neck issues in the remote past and had that a cervical fusion as a result. She stated that she had the surgery about 30 years ago. She stated that if she did not have the surgery she was notified that she will be paralyzed. Objective - Vital Signs Vital signs: Vital Signs Temp 97.5 F L 03/16/23 07:00 Pulse 79 03/16/23 07:00 Resp 17 03/16/23 07:00 BP 133/67 03/16/23 07:00 Pulse Ox 95 03/16/23 07:00 FiO2 Intake & Output 03/15/23 03/16/23 03/16/23 18:59 06:59 18:59 Intake Total 720 118 Balance 720 118 Intake: Intake, IV Titration 0 Amount Sodium Chloride 0.9% 1, 0 000 ml @ 999 mls/hr IV . Q1H1M STA Rx#:[id number] Oral 720 118 Other: Voiding Method Toilet # Voids 1 3 - Exam GENERAL: The patient is sitting in a recliner chair and is not in acute distress. NEUROLOGICAL: Higher mental function: The patient is awake, alert, oriented to self, place and time. Patient is following commands. No aphasia and no neglect. Cranial nerves: The pupils are round, equal and reactive to light and accommodation. Visual mirza are full to confrontation throughout. Extraocular movement is intact no nystagmus is noted. Facial sensation is normal to touch throughout. The facial strength is normal throughout. Hearing is normal bilaterally to hand rub. Tongue is midline and moved [id number] without any difficulty. No dysarthria is noted. Shoulder shrug is normal bilaterally. Motor: The strength is 5 over 5 throughout. Normal tone and bulk. Has some atrophy in hand (left) Cerebellum: Normal finger to nose bilaterally. Sensation: Sensation is normal to touch throughout. Reflexes (right/left): brisk over the bilateral uppers (right > left). Lowers are 2+. Plantars are mute bilaterally. Some of the workup during his hospital visit consisted of: She has been having episodes of hypoglycemia as well as 51--- resolved Lipid panel is a triglyceride 92, cholesterol is 158, LDL is 90 and HDL is 49 Vital B12 was 397 Otherwise his sodium, calcium, creatinine are within normal limits CK levels [address] of the head is reported as no acute intracranial hemorrhage or midline shift. No significant change from most recent prior CT. I personally reviewed the CT and I agree with report. CT angiography of the head and neck is reported as no significant abnormality seen. Carotid duplex is reported as less than 50% stenosis of bilateral carotid bifurcation. 2-D echo was reported as normal left ventricle soft function. Mild to moderate mitral regurgitation. Aortic sclerosis with mild stenosis at. - Labs CBC & Chem 7: 03/16/23 05:54 03/16/23 05:54 Labs: Abnormal Lab Results - Last 24 Hours (Table) 03/15/23 03/15/23 03/15/23 Range/Units 11:12 12:49 15:59 POC Glucose (mg/dL) 126 H 114 H 188 H (70-110) mg/dL 03/15/23 03/15/23 03/16/23 Range/Units 17:34 22:24 01:33 POC Glucose (mg/dL) 121 H 118 H 126 H (70-110) mg/dL 03/16/23 03/16/23 Range/Units 05:56 10:00 POC Glucose (mg/dL) 133 H 188 H (70-110) mg/dL Assessment and Plan Assessment: This is an 82-year-old woman who presented that to the emergency because of episode of right-sided weakness with numbness that occurred on 03/14/2023. Her symptoms has resolved. Was noted that the patient had hypoglycemic during this admission as well as in the low 50s On examination I felt she had brisk reflexes of the upper. Transient right sided weakness with numbness: Possible due to hypoglycemia event. Rule out cervical myelopathy especially since has brisk reflex of uppers. Cannot rule out TIA. Hypoglycemia as low as low 50s--resolved History of remote cervical fusion about 30 years ago Diabetes mellitus Hypertension Hyperlipidemia Plan: MRI of the brain as well as cervical spine with and without to rule out any cer vical myelopathy or any the brain lesion contributing to the patient's symptoms: pending If the patient does have cervical myelopathy or severe stenosis then we'll consult orthopedic surgery team. Patient is on her home medication of aspirin 81 and the on Lipitor 40 mg daily at bedtime per second stroke prophylaxis Recommend repeating orthostatics. Continue neuro checks Cardiac monitoring PT, OT and ENTERPRISE DATA ARCHITECT are consulted We'll defer the rest of the medical management to primary team. Please avoid any further hypoglycemic event. For DVT prophylaxis the patient is on Enoxaparin. The plan discussed with the patient and the primary team SAS ARCHITECT. UPDATE: MRI of the brain is reported as there is acute 5 x 3 mm lacunar infarct posterior left frontal lobe at the level raymond radiata. There is backward mild diffuse cerebral atrophy and chronic small vessel ischemic change. No abnormal enhancement is seen. I personally reviewed the MRI and agree with the report. MRI of the cervical spine is reported as extensive postsurgical change with multiple level spondylosis devices and degenerative changes. Patient did not receive IV TPA since her symptoms resolved on on presentation. Her NIH stroke scale has been 0. The risk of IV tpa outweigh the benefit. Therefore the patient was started on dual antiplatelets of aspirin 81mg as well as Plavix 75 mg daily (was on home ASA). Patient to be on dual antiplatelets for 21 days and after 21 days stop aspirin but continue Plavix indefinitely. Continue Lipitor 40 mg daily at bedtime for secondary stroke prophylaxis Recommend an event monitor for 30 days. If unable to get an event monitor as an inpatient today patient is reluctant of stay until Sunday and now would recommend then the will obtain as an outpatient as soon as possible. Regarding her neck pain that is chronic, recommend to follow-up with neurosurgeon or Orthopedic surgeon as outpatient. The plan discussed with the patient and the primary N.P. Time with Patient: Greater than 30
[2023-03-16 12:05] LABS: African American GFR (CKD) 64.4 (60.0-200.0); Anion Gap 8.5 mmol/L (10.00-18.00); BUN/Creat Ratio 14.17 Ratio (12.00-20.00); Blood Urea Nitrogen 13.5 mg/dL (9.0-27.0); Calcium 9.2 mg/dL (8.7-10.3); Carbon Dioxide 30.6 mmol/L (20.0-27.5); Magnesium 2.1 mg/dL (1.5-2.4); Non-African American GFR(CKD) 55.6 (60.0-200.0); Potassium 5.1 mmol/L (3.5-5.5)
--- NOTE | 2023-03-16 13:52 | MR ---
EXAMINATION TYPE: MR brain/cspine wo/w DATE OF EXAM: 03/16/2023 COMPARISON: CT brain and CTA neck 2 days ago. MRI cervical spine August 07, 2019 HISTORY: Rt extremity weakness, numbness, brisk reflex. History of C1-C2 fracture with surgery. TECHNIQUE: Multiplanar, multisequence images of the brain and brainstem and cervical spine are performed without and with IV contrast, utilizing 5.5 mL intravenous Gadavist . FINDINGS: Slightly suboptimal as there is some artifact from surgical change near the posterior lower cerebellar region. Diffusion weighted images demonstrate 5 x 3 mm oval area of increased signal on diffusion-weighted im ages with subtle T2 hyperintensity involving the periventricular posterior left frontal lobe at level of raymond radiata having diminished signal on ADC mapping images 160 series 303 consistent with evol ving acute lacunar infarct. Background mild ventricular and sulcal prominence is redemonstrated. Background confluent areas of T2 hyperintensity are seen in the periventricular white matter bilaterally. Midline structures demonstrate normal morphology. The craniocervical junction appears within normal limits. Post contrast images demonstrate no abnormal enhancement. Nasal septum is redemonstrated dev iated to right of midline. The dural venous sinuses appear patent. The visualized sinuses are clear a nd the globes are intact. IMPRESSION: 1. There is acute 5 x 3 mm lacunar infarct posterior left frontal lobe at the level of the coronal ra diata. 2. There is background mild diffuse cerebral atrophy and chronic small vessel ischemic change. No abn ormal enhancement is seen. Cervical spine: FINDINGS: Sagittal images of the cervical spine show the craniocervical junction to appear within nor mal limits. Artifact from surgical change posteriorly is redemonstrated. The cervical and upper thor acic spinal cord remains normal in course, caliber, and signal. Vertebral alignment is stable with s light grade 1 anterolisthesis C2 on C3 and C3-C4 redemonstrated. Persist and artifact from anterior fusion plate C5-C7 levels and artifact from posterior fusion hardware posterior C3-C7 levels is redem onstrated. Ossific fusion at C5-C6 level redemonstrated. Stable grade 1 anterolisthesis C7 on T1. Dim inished T1 signal involving the C2 and C3 vertebra could reflect products of radiation treatment at t his level, correlate clinically. Posterior disc herniations efface the anterior thecal sac at C2-C3 and C3-C4 levels on sagittal axial images similar to prior MRI. There are additional multilevel posterior disc herniations effacing the anterior thecal sac in the visualized thoracic spine on sagittal images similar to prior MRI. No abn ormal postcontrast enhancement is seen. Posterior decompression changes seen better on CT. Multilevel uncovertebral facet degenerative changes causing multilevel bilateral neural foraminal narrowing als o seen better on recent CT. IMPRESSION: Extensive postsurgical change with multilevel spondylolisthesis and degenerative change a s detailed above.
[2023-03-16] MEDS ORDERED: CLOPIDOGREL 75 MG TAB PO SCH (14:30)
[2023-03-16 15:07] VITALS: BP 139/82; TEMP 97.6
[2023-03-16 15:14] VITALS: PULSE 67
--- NOTE | 2023-03-16 16:56 | P.DS ---
Providers Date of admission: 03/14/23 15:54 Expected date of discharge: 03/16/23 Attending physician: Merlyn Mccarthy DO Consults: 03/14/23 15:54 Consult Physician Routine Consulting Provider: Bernard Michelle Consult Reason/Comments: tia Do you want consulting provider notified?: Yes Primary care physician: Beverly Hospital Course: Discharge Diagnosis: Acute ischemic stroke, MRI revealing an acute 5 x 3 mm lacunar infarct posterior left frontal lobe at the level of the coronal radiata along with mild diffuse cerebral atrophy and chronic small vessel ischemic changes. Hypoglycemia In type II [id number] diabetic. Patient was found to have recurrent episodes of hypoglycemia with blood glucose levels decreasing down as low as 51. It was truly recommending discontinuation of Trulicity as we discussed, however patient declined and would like to continue this medication at this time. Recommend monitoring her blood glucose levels closely at home and close monitoring for any signs of hypoglycemia. Patient encouraged to Please discuss further with your primary care doctor as strongly recommend discon tinuation of this medication due to recurrent episodes of hypoglycemia. Patient has implantable blood glucose monitor and reports monitoring blood glucose levels closely with her phone. Hypertension. Patient to continue amlodipine 2.5 mg daily. Hyperlipidemia GERD Neuropathy Hospital Course: Patient is a very pleasant 82-year-old female with a past medical history of asthma, hypertension, heart murmur, type II bni-mhughqh-dwvpeoriw diabetes mellitus, GERD, and neuropathy. She presented to the emergency department with a chief complaint of right-sided weakness. Patient reported upon awakening around 6 AM she was at her baseline self and walk to the restroom. Patient states after using the restroom she attempted to get up and noticed that her right leg was numb. Patient leaned over to grab a hold of the bathtub to help hold her up but also realizes that this time that her right arm was completely numb as well resulting in her falling over and hitting her head on the side of the tub. Patient's daughter and granddaughter at bedside states the came to her assistance and assisted her back into her bed. Patient's daughter reports callie johnston's right upper and lower extremity was "completely flaccid" reviewed patient denies anything like this happening in the past. Patient's granddaughter at bedside reports that her speech also seemed a little slurred but denied any noted facial droop. Patient states that this weakness/numbness lasted a couple hours and spontaneously resolved without intervention. Upon evaluation patient had full resolution of all reported neuro deficits. Patient currently denies having any headache, lightheadedness, dizziness, acute changes in vision or hearing, chest pain, palpitations, shortness of breath, or experiencing any tingling or swelling in extremities. Patient underwent full evaluation in the emergency department. Initial NIH score was 0 and completed by ED physician upon patient's arrival to facility. CT brain completed negative for acute intercranial hemorrhage or midline shift showing no significant changes from prior CT completed 01/27/21 per radiologist report. CTA head and ne ck also completed and radiology report reviewed also negative for acute abnormality. Chest x-ray completed and reviewed, lungs appear clear negative for acute cardiopulmonary process. EKG completed showing normal sinus rhythm at 72 bpm with no noted T-wave or ST abnormalities upon personal review and interpretation. Labs completed and reviewed. CBC, coags, and CMP were unremarkable. Creatinine kinase was elevated at 156. Troponin was negative at less than 0.012. Discussed patient complaints, physical exam findings, laboratory analysis and imaging findings with the ED provider. Patient being admitted under our services with consultation to neurology. Patient was found to have episodes of hypoglycemia with blood glucose levels decreasing down to 51. Discussed this in detail with patient and recommending discontinuation of Trulicity. Patient declines and states that she has a personal blood glucose monitor for this reason and monitors closely at home. Echocardiogram revealing a 55-60% EF with mild to moderate mitral regurgitation and aortic sclerosis with mild stenosis. Carotid Dopplers negative showing less than 50% stenosis of bilateral carotid bifurcations. MRI revealing an acute 5 x 3 mm lacunar infarct posterior left frontal lobe at the level of the coronal radiata along with mild diffuse cerebral atrophy and chronic small vessel ischemic changes. Discussed findings with neurologist. Patient started on dual antiplatelet therapy for 21 days and to continue aspirin 81 mg daily indefinitely. Patient medically stable at this time. Patient to follow up outpatient with her PCP and neurologist as recommended. It was also highly recommended that patient undergo event monitor placement, however event monitor was not able to be obtained on day of discharge and the patient requesting to be discharged and to follow up outpatient with gastroenterology technician for event monitor placement. Patient free from any complaints or concerns at this time. Medically patient is stable and patient will be able to follow up outpatient with gastroenterology technician in 1-2 weeks for placement of event monitor. Physical examination: Vital signs reviewed and stable. General: Nontoxic, no distress and appears stated age. Derm: Skin warm and dry, normal coloration for ethnicity. Bruising around right orbital region and side of face. Head: Normocephalic and symmetric. Eyes: EOMs intact, no lid lag, and anicteric sclera Mouth: no lip lesions, mucus membranes moist Cardiovascular: regular rate and rhythm with normal S1S2, systolic murmur, p ositive posterior tibial pulses bilaterally, and cap refill < 2 seconds. Lungs: Respirations even, regular, and unlabored on room air. Lungs CTA bilaterally, no rhonchi, no rales, no wheezing, and no accessory muscle usage. Abdominal: soft, nontender to palpation, no guarding, no appreciable organomegaly Ext: ROM intact. No gross muscle atrophy, no edema, no contractures Neuro: Speech clear, face symmetrical and CN II-XII grossly intact with no noted focal neuro deficits. Normal finger to nose, normal heel to hooker. Psych: Alert and oriented to person, place, time, and situation. Appropriate and pleasant affect. A total of 35 minutes of time were spent preparing this complex discharge summary. Pt was discharged on 03/16/23 at 4:47 PM Patient was seen independently by Nurse Practitioner. This document was prepared using [employer] dictation software. Please allow for errors in credit clerk while rare they do occur. I reviewed the documentation as provided by the WENDY above, who is the original author of this note. I agree with the documented assessment and plan, with the following changes: none Patient Condition at Discharge: Stable Plan - Discharge Summary New Discharge Prescriptions: New Atorvastatin [Lipitor] 40 mg PO HS 30 Days #30 tab Clopidogrel [Plavix] 75 mg PO DAILY 21 Days #21 tab Continue Gabapentin 300 mg PO BID gemfibroziL [Lopid] 600 mg PO BID Aspirin 81 mg PO DAILY Multivitamins, Thera [Multivitamin (formulary)] 1 tab PO HS Calcium Carbonate [Calcium] 600 mg PO DAILY Oxybutynin Chloride 5 mg PO BID Cetirizine HCl [Zyrtec] 10 mg PO DAILY Budesonide/Formoterol Fumarate [Symbicort 160-4.5 Mcg Inhaler] 2 puff INHALATION RT-BID PRN PRN Reason: Shortness Of Breath metFORMIN HCL [Glucophage] 500 mg PO BID HYDROcodone/APAP 7.5-325MG [[place] 7.5-325] 1 tab PO BID PRN PRN Reason: Pain Lutein 20 mg PO DAILY Cholecalciferol [Vitamin D3 (125 Mcg = 5000 Iu)] 125 mcg PO HS Omeprazole 40 mg PO DAILY amLODIPine [Norvasc] 2.5 mg PO DAILY Vitamin C/Biotin [Hair, Skin and Nails Chew] 1 tab PO DAILY L.acidoph,Paracasei, B.lactis [Probiotic] 1 cap PO HS tiZANidine [Zanaflex] 2 mg PO Q8HR PRN PRN Reason: Muscle Pain hydroCHLOROthiazide 12.5 mg PO DAILY Ferrous Sulfate [Iron] 325 mg PO HS Albuterol Inhaler [Ventolin Hfa Inhaler] 1 - 2 puff INHALATION RT-Q6H PRN PRN Reason: Shortness Of Breath Dulaglutide [Trulicity] 1.5 mg SQ TU methocarbamoL [Methocarbamol] 500 mg PO TID Discontinued Ibuprofen [Motrin] 800 mg PO Q8H PRN PRN Reason: Pain Discharge Medication List Aspirin 81 mg PO DAILY 08/13/14 [History] Gabapentin 300 mg PO BID 08/13/14 [History] gemfibroziL [Lopid] 600 mg PO BID 08/13/14 [History] Calcium Carbonate [Calcium] 600 mg PO DAILY 06/13/16 [History] Multivitamins, Thera [Multivitamin (formulary)] 1 tab PO HS 06/13/16 [History] Oxybutynin Chloride 5 mg PO BID 11/26/17 [History] Cetirizine HCl [Zyrtec] 10 mg PO DAILY 07/19/18 [History] Budesonide/Formoterol Fumarate [Symbicort 160-4.5 Mcg Inhaler] 2 puff INHALATION RT-BID PRN 08/21/20 [History] HYDROcodone/APAP 7.5-325MG [M[place]on 7.5-325] 1 tab PO BID PRN 08/21/20 [History] Lutein 20 mg PO DAILY 08/21/20 [History] metFORMIN HCL [Glucophage] 500 mg PO BID 08/21/20 [History] Albuterol Inhaler [Ventolin Hfa Inhaler] 1 - 2 puff INHALATION RT-Q6H PRN 03/14/23 [History] Cholecalciferol [Vitamin D3 (125 Mcg = 5000 Iu)] 125 mcg PO HS 03/14/23 [History] Dulaglutide [Trulicity] 1.5 mg SQ TU 03/14/23 [History] Ferrous Sulfate [Iron] 325 mg PO HS 03/14/23 [History] L.acidoph,Paracasei, B.lactis [Probiotic] 1 cap PO HS 03/14/23 [History] Omeprazole 40 mg PO DAILY 03/14/23 [History] Vitamin C/Biotin [Hair, Skin and Nails Chew] 1 tab PO DAILY 03/14/23 [History] amLODIPine [Norvasc] 2.5 mg PO DAILY 03/14/23 [History] hydroCHLOROthiazide 12.5 mg PO DAILY 03/14/23 [History] methocarbamoL [Methocarbamol] 500 mg PO TID 03/14/23 [History] tiZANidine [Zanaflex] 2 mg PO Q8HR PRN 03/14/23 [History] Atorvastatin [Lipitor] 40 mg PO HS 30 Days #30 tab 03/16/23 [Rx] Clopidogrel [Plavix] 75 mg PO DAILY 21 Days #21 tab 03/16/23 [Rx] Follow up Appointment(s)/Referral(s): Girish Nagel MD [STAFF PHYSICIAN] - 1 Week Farzaneh Garibay MD [REFERRING] - 1 Week Mami Jesus [Primary Care Provider] - 1-2 days Patient Instructions/Handouts: Hypoglycemia in a Person with Diabetes (DC), Ischemic Stroke (DC), Self Care Measures After a Stroke (DC) Activity/Diet/Wound Care/Special Instructions: Activity: As tolerated. Take breaks as needed. Diet: Heart healthy and carb consistent diet. Avoid salts, or foods with hidden salts such as canned or boxed foods and frozen dinners. Extra salt makes your heart work harder and traps the fluid in your body for longer. Special Instructions: Take all of your medications as directed and remember to keep all of your doctor's appointments and follow-up as needed. You will need to follow up with a gastroenterology technician as it is recommended you have an event monitor placed to monitor for any underlying arrhythmias. It is also recommended you've follow up with your primary care doctor in 1-2 days and with the neurologist in 2-3 weeks. As we discussed, you were found to have recurrent episodes of hypoglycemia with blood glucose levels decreasing down as low as 51. I truly recommending discontinuation of Trulicity as we discussed, he declined and would like to continue this medication at this time. Recommend monitoring her blood glucose levels closely at home and close monitoring for any signs of hypoglycemia. Please discuss further with your primary care doctor as strongly recommend discontinuation of this medication.. Thank you for allowing us to participate in your care, it was truly a pleasure having you for our patient!!! Discharge Disposition: HOME SELF-CARE
[2023-03-20] MEDS ORDERED: NON FORMULARY DRUG (Dulaglutide [Trulicity] 1.5 MG/0.5 ML Each) SQ SCH (09:00)
== END 2023-03-16 18:36 | disposition home or self-care (01) ==
LOC: EC 13:44 → 6NMEDSUR 15:54
PROVIDERS: ADMIT Internal Medicine; ATTEND Internal Medicine
DX: I63.81 Other cerebral infarction due to occlusion or stenosis of small artery (principal); E11.649 Type 2 diabetes mellitus with hypoglycemia without coma; E11.42 Type 2 diabetes mellitus with diabetic polyneuropathy; I08.0 Rheumatic disorders of both mitral and aortic valves; I44.0 Atrioventricular block, first degree; K21.9 Gastro-esophageal reflux disease without esophagitis; M43.12 Spondylolisthesis, cervical region; E78.5 Hyperlipidemia, unspecified; J45.909 Unspecified asthma, uncomplicated; I10 Essential (primary) hypertension; R79.89 Other specified abnormal findings of blood chemistry; W01.198A Fall on same level from slipping, tripping and stumbling with subsequent striking against other object, initial encounter; Z79.82 Long term (current) use of aspirin; Z79.51 Long term (current) use of inhaled steroids; Z79.85 Long-term (current) use of injectable non-insulin antidiabetic drugs; Z79.84 Long term (current) use of oral hypoglycemic drugs; Z79.899 Other long term (current) drug therapy; Z88.5 Allergy status to narcotic agent; Z86.14 Personal history of Methicillin resistant Staphylococcus aureus infection; Z90.710 Acquired absence of both cervix and uterus; Z98.51 Tubal ligation status; Z98.1 Arthrodesis status; Z96.653 Presence of artificial knee joint, bilateral; Z98.890 Other specified postprocedural states; Z80.41 Family history of malignant neoplasm of ovary; Z80.1 Family history of malignant neoplasm of trachea, bronchus and lung; Z80.42 Family history of malignant neoplasm of prostate
CPT/HCPCS: 96372 ×2; 90471; 96360; 99285; 36415; 94760; 93005; 93306; 97162; 97166; 80061; 80053; 80048; 82607; 82550; 83735; 84484; 85025; 85027; 85610; 85730; 83036; 71046; 93880; 70496; 70450; 70498; 70553; 72156; 90715; G0378 ×3; J1650 ×2; Q9967; A9585

== ENCOUNTER → 2023-05-21 | Outpatient (CLI) | payer MEDICARE, OTHER ==
--- NOTE | 2023-05-21 14:49 | USB ---
Patient History: Menarche at age 13. First Full-Term at age 20. Left ovary removed at age 50. Right ovary removed at age 50. Hysterectomy at age 50. Postmenopausal. Estrogen for 25 years from age 30 until age 55. Patient used Hormonal Contraceptives for 4 years. Excisional Biopsy on the Left side. 2003, Cyst Aspiration on the Left side. 08/2013, Cyst Aspiration. 2003, Excisional Biopsy on the Right side. 02/05/2018, Benign Core Biopsy on the left side. 12/06/2016, Benign Core Biopsy on the left side. 07/16/2014, Benign Core Biopsy on the left side. 07/16/2014, Benign Core Biopsy on the left side. 02/16/2014, Benign Core Biopsy on the left side. 12/20/2011, Benign Excisional Biopsy on the left side. Daughter had breast cancer, age 57. Daughter had breast cancer, age 58. Risk Values: Holli 5 year model risk: 8.9%. NCI Lifetime model risk: 10.9%. Prior Study Comparison: 04/04/2021 Bilateral Diagnostic Mammogram, [facility]. 04/06/2022 Bilateral MG 3D diag mammo w/cad [place], [facility]. 10/09/2022 Bilateral MG 3D diag mammo w/cad [place], [facility]. Findings: There is a 0.6 x 0.5 cm hypoechoic area 2:00 position 3 cm from the nipple. This area was less well-visualized on the prior examination but stable in size measuring 0.7 x 0.5 cm. There may be some mild shadowing present. This certainly may correlate with stable appearing nodule on the mammogram. Continued monitoring can be performed. No additional suspicious areas are identified. Overall Assessment: Probably benign, BI-RAD 3 Management: Diagnostic Mammogram of both breasts in 6 months. A clinical breast exam by your physician is recommended on an annual basis and results should be correlated with mammographic findings. This exam should not preclude additional follow-up of suspicious palpable abnormalities. Results were given to the patient verbally at the time of exam. Electronically signed and approved by: Gutierrez Doss D.O. Radiologis
== END | disposition home or self-care (01) ==
LOC: RADMAMWWP 13:41
PROVIDERS: ATTEND Surgery
DX: R92.8 Other abnormal and inconclusive findings on diagnostic imaging of breast (principal); Z78.0 Asymptomatic menopausal state; Z80.3 Family history of malignant neoplasm of breast
CPT/HCPCS: 77061; 77065

== ENCOUNTER 2023-06-25 15:29 | Emergency (ER) | payer MEDICARE, OTHER ==
[2023-06-25 15:39] VITALS: TEMP 97.8
[2023-06-25] MEDS ORDERED: SODIUM CHLORIDE 0.9% 500 ML 500 ML IV STA (15:53)
[2023-06-25 16:19] LABS: Basophils # (A) 0.1 k/uL (0-0.2); Basophils % (A) 1 %; Eosinophils # (A) 0.2 k/uL (0-0.7); Eosinophils % (A) 3 %; HCT 33.6 % (34.0-46.0); HGB 11.2 gm/dL (11.4-16.0); Lymphocytes % (A) 16 %; MCH 29.9 pg (25.0-35.0); MCHC 33.4 g/dL (31.0-37.0); MCV 89.8 fL (80.0-100.0); Mean Platelet Volume 8.6; Monocytes # (A) 0.4 k/uL (0-1.0); Monocytes % (A) 6 %; Neutrophils # (A) 4.6 k/uL (1.3-7.7); Neutrophils % (A) 72 %; Platelet Count 243 k/uL (150-450); RBC 3.74 m/uL (3.80-5.40); RDW 14.3 % (11.5-15.5); WBC 6.4 k/uL (3.8-10.6)
[2023-06-25 16:36] LABS: ALT 19 U/L (4-34); AST 26 U/L (14-36); African American GFR (CKD) 56 (>60 ml/min/1.73 sqM); Albumin 3.7 g/dL (3.5-5.0); Alkaline Phosphatase 126 U/L (38-126); Anion Gap 13 mmol/L; Blood Urea Nitrogen 31 mg/dL (7-17); Carbon Dioxide 21 mmol/L (22-30); Chloride 104 mmol/L (98-107); Glucose 142 mg/dL (74-99); Non-African American GFR(CKD) 48 (>60 ml/min/1.73 sqM); Sodium 138 mmol/L (137-145); Total Bilirubin 0.3 mg/dL (0.2-1.3); Total Protein 6.7 g/dL (6.3-8.2)
[2023-06-25 16:41] LABS: INR 0.9 (<1.2); Prothrombin Time 9.4 sec (9.0-12.0)
--- NOTE | 2023-06-25 16:42 | ED ---
Fall HPI - General Chief Complaint: Fall Stated Complaint: Fall-back pain Time Seen by Provider: 06/25/23 15:43 Source: patient Mode of arrival: wheelchair - History of Present Illness Initial Comments: 8-year-old female presenting for evaluation after a fall that occurred last [facility]. Patient's daughter in the room states that she witnessed the fall, patient fell backwards onto her back. She is complaining of low back pain and neck pain. Denies loss of consciousness or blood thinners. Daughter states that the patient has had episodes of dizziness recently. Scheduled for Echo. Patient denies chest pain, difficulty breathing, nausea, vomiting, vision or hearing changes, numbness, new loss of bowel or bladder control or saddle paresthesia. - Related Data Home Medications Medication Instructions Recorded Confirmed Gabapentin 300 mg PO BID 08/13/14 06/25/23 gemfibroziL [Lopid] 600 mg PO BID 08/13/14 06/25/23 Oxybutynin Chloride 5 mg PO BID 11/26/17 06/25/23 HYDROcodone/APAP 7.5-325MG [[place] 1 tab PO BID PRN 08/21/20 06/25/23 7.5-325] metFORMIN HCL [Glucophage] 500 mg PO BID 08/21/20 06/25/23 Dulaglutide [Trulicity] 1.5 mg SQ TU 03/14/23 06/25/23 amLODIPine [Norvasc] 2.5 mg PO DAILY 03/14/23 06/25/23 hydroCHLOROthiazide 12.5 mg PO DAILY 03/14/23 06/25/23 methocarbamoL [Methocarbamol] 500 mg PO HS 03/14/23 06/25/23 Ammonium Lactate Lotion 1 applic TOPICAL BID 06/25/23 06/25/23 [Lac-Hydrin 12% Lotion] Aspirin EC [Ecotrin Low Dose] 81 mg PO DAILY 06/25/23 06/25/23 Ibuprofen [Motrin] 800 mg PO Q8H PRN 06/25/23 06/25/23 Omeprazole 20 mg PO BID 06/25/23 06/25/23 Allergies Allergy/AdvReac Type Severity Reaction Status Date / Time midazolam HCl [From Versed] Allergy Rash/Hives Verified 06/25/23 17:44 pentazocine lactate AdvReac Nausea & Verified 06/25/23 17:44 [From Oscar] Vomiting Review of Systems ROS Statement: Those systems with pertinent positive or pertinent negative responses have been documented in the HPI. ROS Other: All systems not noted in ROS Statement are negative. Past Medical History Past Medical History: Asthma, Diabetes Mellitus, Hyperlipidemia, Hypertension Additional Past Medical History / Comment(s): "leaky heart valve". back pain. staph/strep infection post op incision History of Any Multi-Drug Resistant Organisms: None Reported, MRSA Date of last positivie culture/infection: 2012 MDRO Source:: Stomach wound Past Surgical History: Back Surgery, Bladder Surgery, Breast Surgery, Hernia Repair, Hysterectomy, Joint Replacement, Orthopedic Surgery, Tubal Ligation Additional Past Surgical History / Comment(s): pain stimulator implant-LT HIP. BILAT TKA. neck fusion and plate in left side of neck. REVERSE LT SHOULDER SX. COLONOScopy. Pain stimulator removed 07/06. Back surgery in Sep 2018. CARPAL TUNNEL RELEASE 10/06/20 Past Anesthesia/Blood Transfusion Reactions: No Reported Reaction Past Psychological History: No Psychological Hx Reported Smoking Status: Never smoker Past Alcohol Use History: None Reported Past Drug Use History: None Reported - Past Family History Mother Family Medical History: Cancer Additional Family Medical History / Comment(s): metastatic cancer Sister(s) Family Medical History: Cancer Additional Family Medical History / Comment(s): two sisters dx with ovarian cancer. one sister with lung cancer Brother(s) Family Medical History: Cancer Additional Family Medical History / Comment(s): one brother had lung cancer. half-brother had prostate cancer. maternal grandfather prostate cancer General Exam Limitations: physical limitation General appearance: alert, in no apparent distress Head exam: Present: atraumatic, normocephalic, normal inspection Eye exam: Present: normal appearance, PERRL, EOMI. Absent: scleral icterus, conjunctival injection, periorbital swelling Pupils: Present: normal accommodation Neck exam: Present: normal inspection, full ROM Respiratory exam: Present: normal lung sounds bilaterally. Absent: respiratory distress, wheezes, rales, rhonchi, stridor Cardiovascular Exam: Present: regular rate, normal rhythm, normal heart sounds. Absent: systolic murmur, diastolic murmur, rubs, gallop, clicks Neurological exam: Present: alert, oriented X3, CN II-XII intact Expanded Speech: Present: fluid speech Cranial nerves: EOM's Intact: Normal Cerebellar function: Finger to Nose: Normal Motor strength exam: RUE: 5, LUE: 5, RLE: 5, LLE: 5 Eye Response: (4) open spontaneously Motor Response: (6) obeys commands Verbal Response: (5) oriented Diaz Total: 15 Psychiatric exam: Present: normal affect, normal mood Skin exam: Present: warm, dry, intact, normal color. Absent: rash Course Vital Signs 06/25/23 06/25/23 06/25/23 15:35 18:31 19:33 Temperature 97.8 F Pulse Rate 68 67 72 Respiratory 16 18 18 Rate Blood Pressure 135/85 133/71 150/85 O2 Sat by Pulse 99 98 95 Oximetry 06/25/23 22:04 Temperature Pulse Rate 62 Respiratory 18 Rate Blood Pressure 164/89 O2 Sat by Pulse 98 Oximetry Medical Decision Making - Medical Decision Making Was pt. sent in by a medical professional or institution (, PA, CERTIFIED HEARING INSTRUMENT DISPENSER, urgent ca re, hospital, or usp...) When possible be specific @ -No Did you speak to anyone other than the patient for history (EMS, parent, family, police, friend...)? What history was obtained from this source @ -History supplemented by daughter Did you review nursing and triage notes (agree or disagree)? Why? @ -I reviewed and agree with nursing and triage notes Were old charts reviewed (outside hosp., previous admission, EMS record, old EKG, old radiological studies, urgent care reports/EKG's, usp records)? Report findings @ -No old charts were reviewed Differential Diagnosis (chest pain, altered mental status, abdominal pain women, abdominal pain men, vaginal bleeding, weakness, fever, dyspnea, syncope, headache, dizziness, GI bleed, back pain, seizure, CVA, palpatations, mental health, musculoskeletal)? @ - [facility] Differential Back Pain: Strain, zoster, cauda equina syndrome, epidural abscess, vertebral osteomyelitis, discitis, fracture, subluxation, disc herniation, DJD, spinal stenosis, dissection, AAA, pancreatitis, peptic ulcer disease, pyelonephritis, kidney stone this is not meant to be an all-inclusive list. EKG interpreted by me (3pts min.). @ -As above X-rays interpreted by me (1pt min.). @ -Chest x-ray shows no acute process CT interpreted by me (1pt min.). @ -No acute intracranial process or cervical spine fracture. Multilevel degenerative disc disease and post surgical changes in the spine with hardware intact and in appropriate position. Acute fracture through the S4 vertebral body. There is mild displacement. Extensive surgical change with hardware intact. Severe degeneration of the spine multilevel neural foraminal stenosis. Mild to moderate in L1 to L2 canal stenosis secondary disc bulge and facet joint arthropathy. Cholelithiasis. CT pelvis shows no other fractures U/S interpreted by me (1pt. min.). @ -None done What testing was considered but not performed or refused? (CT, X-rays, U/S, labs)? Why? @ -None What meds were considered but not given or refused? Why? @ -None Did you discuss the management of the patient with other professionals (professionals i.e. , PA, CERTIFIED HEARING INSTRUMENT DISPENSER, lab, RT, psych nurse, psychosocial rehabilitation counselor, post anesthesia nurse, teacher, business enterprise officer, correctional counselor/case manager)? Give summary @ -I spoke with Dr. Burns who states that this patient is able to follow- up in the office, pain likely for 6+ weeks Was smoking cessation discussed for >3mins.? @ -No Was critical care preformed (if so, how long)? @ -No Were there social determinants of health that impacted care today? How? (Homelessness, low income, unemployed, alcoholism, drug addiction, transportation, low edu. Level, literacy, decrease access to med. care, care home, rehab)? @ -No Was there de-escalation of care discussed even if they declined (Discuss DNR or withdrawal of care, Hospice)? DNR status @ -No What co-morbidities impacted this encounter? (DM, HTN, Smoking, COPD, CAD, Cancer, CVA, ARF, Chemo, Hep., AIDS, mental health diagnosis, sleep apnea, morbid obesity)? @ -None Was patient admitted / discharged? Hospital course, mention meds given and route, prescriptions, significant lab abnormalities, going to OR and other pertinent info. @ -83-year-old female presenting with chief complaint of low back pain after a fall that occurred last night. She is also complaining of pain. She did hit her head, no loss of consciousness. No blood thinners. On physical examination there are no focal neurological deficits. Negative CT of the brain and cervical spine. S4 fracture seen on CT. No other fracture stain and pelvis CT. Lab work requires no immediate action. I spoke with Dr. Burns who states that this patient may follow-up in the office. Patient is able to ambulate per nursing staff. Follow-up with PCP. Report back to ER with any new or worsening symptoms. Discussed return parameters and answered all questions. Patient conveyed verbal understanding and agreed to the plan. I discussed this case in detail with my attending Dr. Pimentel Undiagnosed new problem with uncertain prognosis? @ -No Drug Therapy requiring intensive monitoring for toxicity (Heparin, Nitro, Insulin, Cardizem)? @ -No Were any procedures done? @ -No Diagnosis/symptom? @ -Sacral fracture Acute, or Chronic, or Acute on Chronic? @ -Acute Uncomplicated (without systemic symptoms) or Complicated (systemic symptoms)? @ -Uncomplicated Side effects of treatment? @ -No Exacerbation, Progression, or Severe Exacerbation? @ -No Poses a threat to life or bodily function? How? (Chest pain, [place], [place], pneumonia, PE, COPD, DKA, ARF, appy, cholecystitis, CVA, Diverticulitis, Homicidal, Suicidal, threat to staff... and all critical care pts) @ -No - Lab Data Result diagrams: 06/25/23 16:04 06/25/23 16:04 Lab Results 06/25/23 06/25/23 06/25/23 Range/Units 16:04 16:04 16:04 WBC 6.4 (3.8-10.6) k/uL RBC 3.74 L (3.80-5.40) m/uL Hgb 11.2 L (11.4-16.0) gm/dL Hct 33.6 L (34.0-46.0) % MCV 89.8 (80.0-100.0) fL MCH 29.9 (25.0-35.0) pg MCHC 33.4 (31.0-37.0) g/dL RDW 14.3 (11.5-15.5) % Plt Count 243 (150-450) k/uL MPV 8.6 Neutrophils % 72 % Lymphocytes % 16 % Monocytes % 6 % Eosinophils % 3 % Basophils % 1 % Neutrophils # 4.6 (1.3-7.7) k/uL Lymphocytes # 1.0 (1.0-4.8) k/uL Monocytes # 0.4 (0-1.0) k/uL Eosinophils # 0.2 (0-0.7) k/uL Basophils # 0.1 (0-0.2) k/uL PT 9.4 (9.0-12.0) sec INR 0.9 (<1.2) Sodium (137-145) mmol/L Potassium (3.5-5.1) mmol/L Chloride (98-107) mmol/L Carbon Dioxide (22-30) mmol/L Anion Gap mmol/L BUN (7-17) mg/dL Creatinine (0.52-1.04) mg/dL Est GFR (CKD-EPI)AfAm (>60 ml/min/1.73 sqM) Est GFR (CKD-EPI)NonAf (>60 ml/min/1.73 sqM) Glucose (74-99) mg/dL Lactic Ac Sepsis Rflx Plasma Lactic Acid Vidal (0.7-2.0) mmol/L Calcium (8.4-10.2) mg/dL Total Bilirubin (0.2-1.3) mg/dL AST (14-36) U/L ALT (4-34) U/L Alkaline Phosphatase (38-126) U/L Total Protein (6.3-8.2) g/dL Albumin (3.5-5.0) g/dL Urine Color Light Yellow Urine Appearance Clear (Clear) Urine pH 5.0 (5.0-8.0) Ur Specific Murphy 1.013 (1.001-1.035) Urine Protein Negative (Negative) Urine Glucose (UA) Negative (Negative) Urine Ketones Negative (Negative) Urine Blood Negative (Negative) Urine Nitrite Negative (Negative) Urine Bilirubin Negative (Negative) Urine Urobilinogen <2.0 (<2.0) mg/dL Ur Leukocyte Esterase Negative (Negative) 06/25/23 06/25/23 06/25/23 Range/Units 16:04 16:04 16:39 WBC (3.8-10.6) k/uL RBC (3.80-5.40) m/uL Hgb (11.4-16.0) gm/dL Hct (34.0-46.0) % MCV (80.0-100.0) fL MCH (25.0-35.0) pg MCHC (31.0-37.0) g/dL RDW (11.5-15.5) % Plt Count (150-450) k/uL MPV Neutrophils % % Lymphocytes % % Monocytes % % Eosinophils % % Basophils % % Neutrophils # (1.3-7.7) k/uL Lymphocytes # (1.0-4.8) k/uL Monocytes # (0-1.0) k/uL Eosinophils # (0-0.7) k/uL Basophils # (0-0.2) k/uL PT (9.0-12.0) sec INR (<1.2) Sodium 138 (137-145) mmol/L Potassium 4.0 (3.5-5.1) mmol/L Chloride 104 (98-107) mmol/L Carbon Dioxide 21 L (22-30) mmol/L Anion Gap 13 mmol/L BUN 31 H (7-17) mg/dL Creatinine 1.07 H (0.52-1.04) mg/dL Est GFR (CKD-EPI)AfAm 56 (>60 ml/min/1.73 sqM) Est GFR (CKD-EPI)NonAf 48 (>60 ml/min/1.73 sqM) Glucose 142 H (74-99) mg/dL Lactic Ac Sepsis Rflx Y Plasma Lactic Acid Vidal 2.1 H* (0.7-2.0) mmol/L Calcium 10.0 (8.4-10.2) mg/dL Total Bilirubin 0.3 (0.2-1.3) mg/dL AST 26 (14-36) U/L ALT 19 (4-34) U/L Alkaline Phosphatase 126 (38-126) U/L Total Protein 6.7 (6.3-8.2) g/dL Albumin 3.7 (3.5-5.0) g/dL Urine Color Urine Appearance (Clear) Urine pH (5.0-8.0) Ur Specific Murphy (1.001-1.035) Urine Protein (Negative) Urine Glucose (UA) (Negative) Urine Ketones (Negative) Urine Blood (Negative) Urine Nitrite (Negative) Urine Bilirubin (Negative) Urine Urobilinogen (<2.0) mg/dL Ur Leukocyte Esterase (Negative) 06/25/23 Range/Units 19:40 WBC (3.8-10.6) k/uL RBC (3.80-5.40) m/uL Hgb (11.4-16.0) gm/dL Hct (34.0-46.0) % MCV (80.0-100.0) fL MCH (25.0-35.0) pg MCHC (31.0-37.0) g/dL RDW (11.5-15.5) % Plt Count (150-450) k/uL MPV Neutrophils % % Lymphocytes % % Monocytes % % Eosinophils % % Basophils % % Neutrophils # (1.3-7.7) k/uL Lymphocytes # (1.0-4.8) k/uL Monocytes # (0-1.0) k/uL Eosinophils # (0-0.7) k/uL Basophils # (0-0.2) k/uL PT (9.0-12.0) sec INR (<1.2) Sodium (137-145) mmol/L Potassium (3.5-5.1) mmol/L Chloride (98-107) mmol/L Carbon Dioxide (22-30) mmol/L Anion Gap mmol/L BUN (7-17) mg/dL Creatinine (0.52-1.04) mg/dL Est GFR (CKD-EPI)AfAm (>60 ml/min/1.73 sqM) Est GFR (CKD-EPI)NonAf (>60 ml/min/1.73 sqM) Glucose (74-99) mg/dL Lactic Ac Sepsis Rflx Plasma Lactic Acid Vidal 1.8 (0.7-2.0) mmol/L Calcium (8.4-10.2) mg/dL Total Bilirubin (0.2-1.3) mg/dL AST (14-36) U/L ALT (4-34) U/L Alkaline Phosphatase (38-126) U/L Total Protein (6.3-8.2) g/dL Albumin (3.5-5.0) g/dL Urine Color Urine Appearance (Clear) Urine pH (5.0-8.0) Ur Specific Murphy (1.001-1.035) Urine Protein (Negative) Urine Glucose (UA) (Negative) Urine Ketones (Negative) Urine Blood (Negative) Urine Nitrite (Negative) Urine Bilirubin (Negative) Urine Urobilinogen (<2.0) mg/dL Ur Leukocyte Esterase (Negative) - EKG Data -: EKG Interpreted by Me EKG Comments: Sinus rhythm ventricular rate 61. [place] interval 203. QRS 86. QT 402. QTC 405. No ST deviation. Left axis deviation. Disposition Clinical Impression: Sacral fracture Disposition: HOME SELF-CARE Condition: Good Instructions (If sedation given, give patient instructions): Sacral Fracture (ED) Additional Instructions: Follow up with orthopedics. Report back to ER with any new or worsening symptoms. A doughnut pillow may be helpful in alleviating your symptoms. Is patient prescribed a controlled substance at d/c from ED?: No Referrals: Mami Jesus [Primary Care Provider] - 1-2 days Nilesh Burns DO [Doctor of Osteopathic Medicine] - 1-2 days Time of Disposition: 21:12
--- NOTE | 2023-06-25 17:03 | XR ---
EXAMINATION TYPE: XR chest 2V DATE OF EXAM: 06/25/2023 4:50 PM COMPARISON: Chest radiographs from 03/14/2023 TECHNIQUE: XR chest 2V Frontal and lateral views of the chest. CLINICAL INDICATION:Female, 83 years old with history of dizziness; FINDINGS: Lungs/Pleura: Prominent interstitial lung markings are seen scattered throughout the lungs with rj ening of the diaphragm and increased lucency of the lung apices. No evidence of focal consolidation, pneumothorax or pleural effusion. Pulmonary vascularity: Unremarkable. Heart/mediastinum: Cardiomediastinal silhouette is unremarkable. Musculoskeletal: No acute osseous pathology. There is fixation hardware in the lower cervical spine. Bilateral shoulder arthroplasty changes without evidence for fracture. IMPRESSION: 1. No acute cardiopulmonary disease/process. 2. COPD changes.
--- NOTE | 2023-06-25 17:14 | CT ---
EXAMINATION TYPE: CT brain cspine wo con CT DLP: 1494.8 mGycm, Automated exposure control for dose reduction was used. DATE OF EXAM: 06/25/2023 4:57 PM COMPARISON: 03/14/2023, 11/09/2022. CLINICAL INDICATION:Female, 83 years old with history of fall; Fall TECHNIQUE: Brain: Multiple axial CT images of the brain were obtained without IV contrast. Cspine: Axial CT images from the skull base to the inferior aspect of T2 we obtained without intraven ous contrast. Coronal and sagittal reformatted images were also reviewed. FINDINGS: Brain: Extra-axial spaces: No abnormal extra-axial fluid collections. Ventricular system: Within normal limits Cerebral parenchyma: No acute intraparenchymal hemorrhage or mass effect. The vallecillo-white junction is well differentiated. Cerebellum: Unremarkable. Mass effect: No evidence of midline shift. Intracranial vasculature: Atherosclerotic calcifications of the intracranial vessels. Soft tissues: Normal. Calvarium/osseous structures: No depressed skull fracture. Paranasal sinuses and mastoid air cells: Clear. Visualized orbits: Orbital contents are intact. Cervical spine: Fracture: None. Osseous structures: Multilevel degenerative disc disease changes with endplate spurring and disc oste ophyte complex's. Postsurgical changes to the spine with hardware intact.. There is diffuse osseous d emineralization. Vertebral alignment: Within normal limits. Spinal canal/Neural Foramina: No evidence of significant spinal canal narrowing. No evidence for sign ificant neural foraminal stenosis. Neck soft tissues: Prevertebral soft tissues are within normal limits. Other: The airway is patent. The lung apices are clear. IMPRESSION: 1. No acute intracranial process. 2. No evidence of cervical spine fracture. 3. Mild multilevel degenerative disc disease. 4. Postsurgical changes spine with hardware intact and in appropriate position.
--- NOTE | 2023-06-25 17:25 | CT ---
EXAMINATION TYPE: CT coccyx wo con, CT lumbar spine wo con, CT sacrum wo con CT DLP: 1330.7 mGycm, Automated exposure control for dose reduction was used. DATE OF EXAM: 06/25/2023 4:57 PM COMPARISON: 11/09/2022. CLINICAL INDICATION:Female, 83 years old with history of fall; TECHNIQUE: Multiple axial images were obtained from the midportion of T11 through the sacroiliac viki nts. Soft tissue and bone windows in coronal and sagittal planes were obtained and reviewed. Additional axial imaging to the sacrum and coccyx with sagittal coronal reformats. Contrast used: none. Oral contrast used: none. FINDINGS: Alignment: There are 5 lumbar type vertebral bodies with scoliosis alignment and postsurgical alignme nt.. Bone: There is an acute fracture through the S4 vertebrae of the sacrum which extends from the back w ith mild displacement. The coccyx appears intact. Hardware through the sacroiliac joints bilaterally intact. The sacrum and L5 is intact. Fixation changes with hardware removal noted levels. Including L4, L5 and S1. There is significant de generation changes throughout the spine with vacuum disc phenomenon and osteophyte formation and face t joint arthropathy. There is fusion of L2, L3 and L4 vertebral bodies most pronounced anteriorly. Discs T12-L1: Facet joint arthropathy and disc bulging result with mild spinal canal stenosis and moderate to severe right and mild left bilateral neural foraminal stenosis. L1-L2: Facet joint arthropathy and disc bulging result with mild to moderate spinal canal stenosis an d moderate to severe bilateral neural foraminal stenosis. L2-L3: No spinal canal or neural foraminal stenosis is identified. L3-L4: No spinal canal or neural foraminal stenosis is identified. L4-L5: Facet joint arthropathy results in no significant spinal canal stenosis and large severe righ t and mild to moderate left neural foraminal stenosis. L5-S1: Facet joint arthropathy results in no significant spinal canal stenosis and moderate to severe right and mild to moderate left neural foraminal stenosis. Other: Gallstones in the gallbladder lumen. No evidence for obstructive uropathy. There is atheroscle rosis of the arterial vasculature. IMPRESSION: 1. Acute fracture through the S4 vertebral body. There is mild displacement. 2. Extensive surgical change with hardware intact. 3. Severe degeneration changes of the spine multilevel neural foraminal stenosis described above. Mi [id number] and L1-L2 spinal canal stenosis secondary disc bulge and facet joint arthropathy. 4. Cholelithiasis.
[2023-06-25 17:59] LABS: Appearance,Urine Clear (Clear); Bilirubin,Urine Negative (Negative); Blood,Urine Negative (Negative); Color,Urine Light Yellow; Glucose,Urine (UA) Negative (Negative); Ketones,Urine Negative (Negative); Leukocyte Esterase,Urine Negative (Negative); Nitrite,Urine Negative (Negative); Protein,Urine Negative (Negative); Specific Gravity,Urine 1.013 (1.001-1.035); Urobilinogen,Urine <2.0 mg/dL (<2.0)
[2023-06-25] MEDS ORDERED: HYDROcodone/APAP 7.5-325MG 1 EACH TAB PO ONE (18:00)
[2023-06-25 18:32] VITALS: RESP 18
--- NOTE | 2023-06-25 19:35 | CT ---
EXAMINATION TYPE: CT pelvis wo con CT DLP: 375.2 mGycm, Automated exposure control for dose reduction was used. DATE OF EXAM: 06/25/2023 7:05 PM COMPARISON: CT sacrum same day. CLINICAL INDICATION:Female, 83 years old with history of sacral fracture; Sacral Fx. TECHNIQUE: Axial CT of the abdomen and pelvis. Sagittal and coronal reformats were created on a [email or web address] workstation. Contrast used: mL of , (none if empty) Oral contrast used: without Oral Contrast (none if empty) FINDINGS: Multiple gallstones in the gallbladder lumen. BLADDER: Unremarkable REPRODUCTIVE: Unremarkable. ABDOMEN & PELVIS STOMACH AND BOWEL: No evidence of bowel obstruction. Scattered colonic diverticula are present. PERITONEUM/RETROPERITONEUM: No evidence of pneumoperitoneum or free fluid. VASCULATURE: No evidence of aortic aneurysm. MUSCULOSKELETAL: Persistent fractures of the S4 vertebral body with mild displacement. No additional bony fractures of the pelvis identified. Fixation hardware in the spine sacroiliac joints appears int act. LYMPH NODES: No gross evidence for lymphadenopathy. SOFT TISSUE/ABDOMINAL WALL: Unremarkable IMPRESSION: 1. S4 sacral fracture with mild displacement, similar to CT sacrum same day. No additional fractures visualized. 2. Colonic diverticulosis. 3. Cholelithiasis.
[2023-06-25 22:05] VITALS: BP 164/89; PULSE 62
== END 2023-06-25 22:05 | disposition home or self-care (01) ==
LOC: EC 15:29
DX: S32.10XA Unspecified fracture of sacrum, initial encounter for closed fracture (principal); J45.909 Unspecified asthma, uncomplicated; E78.5 Hyperlipidemia, unspecified; I10 Essential (primary) hypertension; E11.9 Type 2 diabetes mellitus without complications; Z88.8 Allergy status to other drugs, medicaments and biological substances; Z79.82 Long term (current) use of aspirin; Z79.84 Long term (current) use of oral hypoglycemic drugs; Z79.899 Other long term (current) drug therapy; W18.30XA Fall on same level, unspecified, initial encounter
CPT/HCPCS: 36415; 70450; 71046; 72125; 72131; 72192; 80053; 81003; 83605; 85025; 85610; 93005; 96360; 99285

== ENCOUNTER 2023-06-27 18:45 | Emergency (ER) | payer MEDICARE, OTHER ==
[2023-06-27 19:28] VITALS: TEMP 99
[2023-06-27] MEDS ORDERED: SODIUM CHLORIDE 0.9% 500 ML 500 ML IV STA (19:44)
[2023-06-27] MEDS ORDERED: HYDROmorphone 0.5 MG/0.5 ML SYRINGE IVP STA (19:48)
[2023-06-27] MEDS ORDERED: LIDOCAINE 5% PATCH TOPICAL STA (19:52)
--- NOTE | 2023-06-27 20:10 | ED ---
Fall HPI - General Chief Complaint: Fall Stated Complaint: fall Time Seen by Provider: 06/27/23 19:30 Source: patient Mode of arrival: wheelchair - History of Present Illness Initial Comments: Patient is an 83-year-old female who presents to the emergency department for fall. Patient tripped over her cat dishes today falling onto her bottom and back. Patient did not hit her head she does not use blood thinners. Patient was recently evaluated in our emergency department 2 days ago for fall. She was diagnosed with S4 fracture. Patient reports increased back pain since the fall. She denies numbness and tingling. Denies loss of bowel and bladder function. Denies other injury. Patient does admit lately she has been feeling balance which she believes may be contributing to falls. She denies lightheadedness, dizziness, chest pain, shortness of breath - Related Data Home Medications Medication Instructions Recorded Confirmed Gabapentin 300 mg PO BID 08/13/14 06/25/23 gemfibroziL [Lopid] 600 mg PO BID 08/13/14 06/25/23 Oxybutynin Chloride 5 mg PO BID 11/26/17 06/25/23 HYDROcodone/APAP 7.5-325MG [[place] 1 tab PO BID PRN 08/21/20 06/25/23 7.5-325] metFORMIN HCL [Glucophage] 500 mg PO BID 08/21/20 06/25/23 Dulaglutide [Trulicity] 1.5 mg SQ TU 03/14/23 06/25/23 amLODIPine [Norvasc] 2.5 mg PO DAILY 03/14/23 06/25/23 hydroCHLOROthiazide 12.5 mg PO DAILY 03/14/23 06/25/23 methocarbamoL [Methocarbamol] 500 mg PO HS 03/14/23 06/25/23 Ammonium Lactate Lotion 1 applic TOPICAL BID 06/25/23 06/25/23 [Lac-Hydrin 12% Lotion] Aspirin EC [Ecotrin Low Dose] 81 mg PO DAILY 06/25/23 06/25/23 Ibuprofen [Motrin] 800 mg PO Q8H PRN 06/25/23 06/25/23 Omeprazole 20 mg PO BID 06/25/23 06/25/23 Previous Rx's Medication Instructions Recorded Lidocaine 5% Patch [Lidoderm 5% 1 patch TOPICAL DAILY PRN #7 patch 06/27/23 Patch] Allergies Allergy/AdvReac Type Severity Reaction Status Date / Time midazolam HCl [From Versed] Allergy Rash/Hives Verified 06/27/23 19:24 pentazocine lactate AdvReac Nausea & Verified 06/27/23 19:24 [From Oscar] Vomiting Review of Systems ROS Statement: Those systems with pertinent positive or pertinent negative responses have been documented in the HPI. ROS Other: All systems not noted in ROS Statement are negative. Past Medical History Past Medical History: Asthma, Diabetes Mellitus, Hyperlipidemia, Hypertension Additional Past Medical History / Comment(s): "leaky heart valve". back pain. staph/strep infection post op incision History of Any Multi-Drug Resistant Organisms: None Reported, MRSA Date of last positivie culture/infection: 2012 MDRO Source:: Stomach wound Past Surgical History: Back Surgery, Bladder Surgery, Breast Surgery, Hernia Repair, Hysterectomy, Joint Replacement, Orthopedic Surgery, Tubal Ligation Additional Past Surgical History / Comment(s): pain stimulator implant-LT HIP. BILAT TKA. neck fusion and plate in left side of neck. REVERSE LT SHOULDER SX. COLONOScopy. Pain stimulator removed 07/06. Back surgery in Sep 2018. CARPAL TUNNEL RELEASE 10/06/20 Past Anesthesia/Blood Transfusion Reactions: No Reported Reaction Past Psychological History: No Psychological Hx Reported Smoking Status: Never smoker Past Alcohol Use History: None Reported Past Drug Use History: None Reported - Past Family History Mother Family Medical History: Cancer Additional Family Medical History / Comment(s): metastatic cancer Sister(s) Family Medical History: Cancer Additional Family Medical History / Comment(s): two sisters dx with ovarian cancer. one sister with lung cancer Brother(s) Family Medical History: Cancer Additional Family Medical History / Comment(s): one brother had lung cancer. half-brother had prostate cancer. maternal grandfather prostate cancer General Exam Limitations: no limitations General appearance: alert Eye exam: Present: normal appearance, PERRL, EOMI. Absent: scleral icterus, conjunctival injection, periorbital swelling Neck exam: Present: normal inspection, full ROM. Absent: tenderness Respiratory exam: Present: normal lung sounds bilaterally. Absent: respiratory distress, wheezes, rales, rhonchi, stridor Cardiovascular Exam: Present: regular rate, normal rhythm, normal heart sounds. Absent: systolic murmur, diastolic murmur, rubs, gallop, clicks Back exam: Present: normal inspection, full ROM, vertebral tenderness (lumbosacral). Absent: paraspinal tenderness Neurological exam: Present: alert Psychiatric exam: Present: normal affect, normal mood Skin exam: Present: warm, dry, intact, normal color. Absent: rash Course Vital Signs 06/27/23 06/27/23 19:24 22:44 Temperature 99.0 F Pulse Rate 103 H 73 Respiratory 18 16 Rate Blood Pressure 145/75 145/81 O2 Sat by Pulse 95 99 Oximetry Medical Decision Making - Medical Decision Making EKG taken at 19:56, interpreted myself Sinus rhythm, no ST segment or T-wave changes Ventricular rate 83, LA interval 181, QRS duration 78, QTC 402 Was pt. sent in by a medical professional or institution (, PA, YARD ENGINEER, urgent care, hospital, or [facility]...) When possible be specific @ -No Did you speak to anyone other than the patient for history (EMS, parent, family, police, friend...)? What history was obtained from this source @ -No Did you review nursing and triage notes (agree or disagree)? Why? @ -I reviewed and agree with nursing and triage notes Were old charts reviewed (outside hosp., previous admission, EMS record, old EKG, old radiological studies, urgent care reports/EKG's, [facility] records)? Report findings @ -No old charts were reviewed Differential Diagnosis (chest pain, altered mental status, abdominal pain women, abdominal pain men, vaginal bleeding, weakness, fever, dyspnea, syncope, headache, dizziness, GI bleed, back pain, seizure, CVA, palpatations, mental health)? @ -Differential Back Pain: Strain, zoster, cauda equina syndrome, epidural abscess, vertebral osteomyelitis, discitis, fracture, subluxation, disc herniation, DJD, spinal stenosis, dissection, AAA, pancreatitis, peptic ulcer disease, pyelonephritis, kidney stone, this is not meant to be an all-inclusive list. EKG interpreted by me (3pts min.). @ -As above X-rays interpreted by me (1pt min.). @ -No new acute fracture or dislocation CT interpreted by me (1pt min.). @ -None done U/S interpreted by me (1pt. min.). @ -None done What testing was considered but not performed or refused? (CT, X-rays, U/S, labs)? Why? @ -None What meds were considered but not given or refused? Why? @ -None Did you discuss the management of the patient with other professionals (nabeel nuno i.e. , PA, YARD ENGINEER, lab, RT, psych nurse, social worker masters, car stereo installer, teacher, client sales and service officer, clinical case manager)? Give summary @ -No Was smoking cessation discussed for >3mins.? @ -No Was critical care preformed (if so, how long)? @ -No Were there social determinants of health that impacted care today? How? (Homelessness, low income, unemployed, alcoholism, drug addiction, transportati on, low edu. Level, literacy, decrease access to med. care, detention, rehab)? @ -No Was there de-escalation of care discussed even if they declined (Discuss DNR or withdrawal of care, Hospice)? DNR status @ -No What co-morbidities impacted this encounter? (DM, HTN, Smoking, COPD, CAD, Cancer, CVA, ARF, Chemo, Hep., AIDS, mental health diagnosis, sleep apnea, morbid obesity)? @ -None Was patient admitted / discharged? Hospital course, mention meds given and route, prescriptions, significant lab abnormalities, going to OR and other pertinent info. @ -Patient presenting with back pain after fall. X-ray shows no new acute fracture or dislocation. Patient ambulating in the room, no neurological deficits on exam. Pain controlled. Labs unremarkable, no obvious etiology or feeling off balance. She is in stable medical condition for discharge. She will be discharged with lidocaine patches will continue her home prescription of Savannah or take Tylenol for pain. Patient to follow-up with primary care provider. Undiagnosed new problem with uncertain prognosis? @ -No Drug Therapy requiring intensive monitoring for toxicity (Heparin, Nitro, Insulin, Cardizem)? @ -No Were any procedures done? @ -No Diagnosis/symptom? @ -Fall, mechanical back pain Acute, or Chronic, or Acute on Chronic? @ -Acute Uncomplicated (without systemic symptoms) or Complicated (systemic symptoms)? @Uncomplicated Side effects of treatment? @ -No Exacerbation, Progression, or Severe Exacerbation? @ -No Poses a threat to life or bodily function? How? (Chest pain, USA, MD, pneumonia, PE, COPD, DKA, ARF, appy, cholecystitis, CVA, Diverticulitis, Homicidal, Suicid al, threat to staff... and all critical care pts) @ -No Dr. Bentley is my attending - Lab Data Result diagrams: 06/27/23 20:12 06/27/23 20:12 Lab Results 06/27/23 06/27/23 06/27/23 Range/Units 20:12 20:12 20:12 WBC 6.1 (3.8-10.6) k/uL RBC 3.52 L (3.80-5.40) m/uL Hgb 10.8 L (11.4-16.0) gm/dL Hct 31.0 L (34.0-46.0) % MCV 87.9 (80.0-100.0) fL MCH 30.6 (25.0-35.0) pg MCHC 34.8 (31.0-37.0) g/dL RDW 14.1 (11.5-15.5) % Plt Count 277 (150-450) k/uL MPV 7.7 Neutrophils % 66 % Lymphocytes % 20 % Monocytes % 8 % Eosinophils % 3 % Basophils % 1 % Neutrophils # 4.0 (1.3-7.7) k/uL Lymphocytes # 1.2 (1.0-4.8) k/uL Monocytes # 0.5 (0-1.0) k/uL Eosinophils # 0.2 (0-0.7) k/uL Basophils # 0.0 (0-0.2) k/uL Sodium 140 (137-145) mmol/L Potassium 3.6 (3.5-5.1) mmol/L Chloride 106 (98-107) mmol/L Carbon Dioxide 21 L (22-30) mmol/L Anion Gap 13 mmol/L BUN 29 H (7-17) mg/dL Creatinine 0.93 (0.52-1.04) mg/dL Est GFR (CKD-EPI)AfAm 66 (>60 ml/min/1.73 sqM) Est GFR (CKD-EPI)NonAf 57 (>60 ml/min/1.73 sqM) Glucose 90 (74-99) mg/dL Calcium 9.6 (8.4-10.2) mg/dL Magnesium 1.7 (1.6-2.3) mg/dL Total Bilirubin 0.3 (0.2-1.3) mg/dL AST 24 (14-36) U/L ALT 18 (4-34) U/L Alkaline Phosphatase 118 (38-126) U/L Troponin I <0.012 (0.000-0.034) ng/mL Total Protein 6.6 (6.3-8.2) g/dL Albumin 3.7 (3.5-5.0) g/dL Urine Color Urine Appearance (Clear) Urine pH (5.0-8.0) Ur Specific [place] (1.001-1.035) Urine Protein (Negative) Urine Glucose (UA) (Negative) Urine Ketones (Negative) Urine Blood (Negative) Urine Nitrite (Negative) Urine Bilirubin (Negative) Urine Urobilinogen (<2.0) mg/dL Ur Leukocyte Esterase (Negative) Urine RBC (0-5) /hpf Urine WBC (0-5) /hpf Hyaline Casts (0-2) /lpf 06/27/23 Range/Units 21:19 WBC (3.8-10.6) k/uL RBC (3.80-5.40) m/uL Hgb (11.4-16.0) gm/dL Hct (34.0-46.0) % MCV (80.0-100.0) fL MCH (25.0-35.0) pg MCHC (31.0-37.0) g/dL RDW (11.5-15.5) % Plt Count (150-450) k/uL MPV Neutrophils % % Lymphocytes % % Monocytes % % Eosinophils % % Basophils % % Neutrophils # (1.3-7.7) k/uL Lymphocytes # (1.0-4.8) k/uL Monocytes # (0-1.0) k/uL Eosinophils # (0-0.7) k/uL Basophils # (0-0.2) k/uL Sodium (137-145) mmol/L Potassium (3.5-5.1) mmol/L Chloride (98-107) mmol/L Carbon Dioxide (22-30) mmol/L Anion Gap mmol/L BUN (7-17) mg/dL Creatinine (0.52-1.04) mg/dL Est GFR (CKD-EPI)AfAm (>60 ml/min/1.73 sqM) Est GFR (CKD-EPI)NonAf (>60 ml/min/1.73 sqM) Glucose (74-99) mg/dL Calcium (8.4-10.2) mg/dL Magnesium (1.6-2.3) mg/dL Total Bilirubin (0.2-1.3) mg/dL AST (14-36) U/L ALT (4-34) U/L Alkaline Phosphatase (38-126) U/L Troponin I (0.000-0.034) ng/mL Total Protein (6.3-8.2) g/dL Albumin (3.5-5.0) g/dL Urine Color Yellow Urine Appearance Clear (Clear) Urine pH 5.5 (5.0-8.0) Ur Specific [place] 1.015 (1.001-1.035) Urine Protein Negative (Negative) Urine Glucose (UA) Negative (Negative) Urine Ketones Negative (Negative) Urine Blood Negative (Negative) Urine Nitrite Negative (Negative) Urine Bilirubin Negative (Negative) Urine Urobilinogen <2.0 (<2.0) mg/dL Ur Leukocyte Esterase Moderate H (Negative) Urine RBC <1 (0-5) /hpf Urine WBC 5 (0-5) /hpf Hyaline Casts 1 (0-2) /lpf Disposition Clinical Impression: Fall, Mechanical back pain Disposition: HOME SELF-CARE Condition: Good Instructions (If sedation given, give patient instructions): Fall Prevention for Older Adults (ED) Additional Instructions: Take medication as directed. Continue Sav[place]. Follow-up with Dr. Burns. Return to the emergency department if you experience new, concerning, or worsening symptoms. Prescriptions: Lidocaine 5% Patch [Lidoderm 5% Patch] 1 patch TOPICAL DAILY PRN #7 patch PRN Reason: Pain Is patient prescribed a controlled substance at d/c from ED?: No Referrals: Mami Jesus [Primary Care Provider] - 1-2 days
[2023-06-27 20:26] LABS: Basophils % (A) 1 %; Eosinophils # (A) 0.2 k/uL (0-0.7); Eosinophils % (A) 3 %; HGB 10.8 gm/dL (11.4-16.0); Lymphocytes # (A) 1.2 k/uL (1.0-4.8); Lymphocytes % (A) 20 %; MCH 30.6 pg (25.0-35.0); MCHC 34.8 g/dL (31.0-37.0); MCV 87.9 fL (80.0-100.0); Mean Platelet Volume 7.7; Monocytes # (A) 0.5 k/uL (0-1.0); Monocytes % (A) 8 %; Neutrophils % (A) 66 %; Platelet Count 277 k/uL (150-450); RBC 3.52 m/uL (3.80-5.40); RDW 14.1 % (11.5-15.5); WBC 6.1 k/uL (3.8-10.6)
[2023-06-27 20:37] LABS: ALT 18 U/L (4-34); AST 24 U/L (14-36); African American GFR (CKD) 66 (>60 ml/min/1.73 sqM); Albumin 3.7 g/dL (3.5-5.0); Alkaline Phosphatase 118 U/L (38-126); Anion Gap 13 mmol/L; Blood Urea Nitrogen 29 mg/dL (7-17); Calcium 9.6 mg/dL (8.4-10.2); Carbon Dioxide 21 mmol/L (22-30); Chloride 106 mmol/L (98-107); Glucose 90 mg/dL (74-99); Magnesium 1.7 mg/dL (1.6-2.3); Non-African American GFR(CKD) 57 (>60 ml/min/1.73 sqM); Potassium 3.6 mmol/L (3.5-5.1); Sodium 140 mmol/L (137-145); Total Bilirubin 0.3 mg/dL (0.2-1.3); Total Protein 6.6 g/dL (6.3-8.2)
--- NOTE | 2023-06-27 20:49 | XR ---
EXAMINATION TYPE: XR lumbosacral spine 5 views DATE OF EXAM: 06/27/2023 Comparison: 12/05/2021 and 06/25/2023 Clinical History: 83-year-old female with back pain after fall Findings: Moderate to advanced degenerative disc disease thoracic spine and upper lumbar spine. There is extens rachelle bony ankylosis which spans from L2 through S1 levels. Corresponding laminectomies here. There is surgical arthrodesis lumbosacral junction and also across the SI joints. Severe degenerative disc dis ease and chronic grade 1 anterolisthesis above the ankylosis at L1-L2. Vertebral body heights are pre served. Advanced degenerative disc disease. Renal patients 06/25/2023 exam CTA which showed suspected acute fra cture through the S4 vertebral body level. Impression: 1. We note patient's recent 06/25/2023 CT which commented on a suspected fracture through the S4 verteb ral body. 2. 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 Severe d egenerative disc disease in the lower thoracic and upper lumbar spine including above the fused level s at L1-L2 with similar chronic grade 1 anterolisthesis here.
[2023-06-27 21:42] LABS: Appearance,Urine Clear (Clear); Bilirubin,Urine Negative (Negative); Blood,Urine Negative (Negative); Color,Urine Yellow; Glucose,Urine (UA) Negative (Negative); Hyaline Casts,Urine 1 /lpf (0-2); Ketones,Urine Negative (Negative); Leukocyte Esterase,Urine Moderate (Negative); Nitrite,Urine Negative (Negative); PH, Urine 5.5 (5.0-8.0); Protein,Urine Negative (Negative); RBC,Urine <1 /hpf (0-5); Specific Gravity,Urine 1.015 (1.001-1.035); Urobilinogen,Urine <2.0 mg/dL (<2.0); WBC,Urine 5 /hpf (0-5)
[2023-06-27 22:46] VITALS: BP 145/81; PULSE 73; RESP 16
== END 2023-06-27 22:48 | disposition home or self-care (01) ==
LOC: EC 18:45
DX: M54.9 Dorsalgia, unspecified (principal); I10 Essential (primary) hypertension; E78.5 Hyperlipidemia, unspecified; E11.9 Type 2 diabetes mellitus without complications; J45.909 Unspecified asthma, uncomplicated; Z79.82 Long term (current) use of aspirin; Z79.84 Long term (current) use of oral hypoglycemic drugs; Z79.899 Other long term (current) drug therapy; Z88.8 Allergy status to other drugs, medicaments and biological substances; Z79.85 Long-term (current) use of injectable non-insulin antidiabetic drugs; W01.0XXA Fall on same level from slipping, tripping and stumbling without subsequent striking against object, initial encounter
CPT/HCPCS: 99284; 96374; 36415; 93005; 80053; 83735; 84484; 85025; 81001; 72110; J1170

== ENCOUNTER → 2023-06-28 | Outpatient (CLI) | payer MEDICARE, OTHER ==
[2023-06-28 13:32] VITALS: BP 142/61; PULSE 72; RESP 18; TEMP 98
--- NOTE | 2023-06-28 14:05 | P.PN ---
Subjective Progress Note Date: 06/28/23 Principal diagnosis: fibrocystic breast changes Subjective Progress Note Date: 10/19/22 fibrocystic breast disease Radha is an 82-year-old white female who has intermittently had some fullness in her left breast at the 12 o'clock position. She has a diagnosis of amyloidosis and has had multiple nodularity in the breast in the past. Past biopsies were consistent with amyloid disease. The nodularity in the breast has not changed. She has intermittent discomfort at the area of nodularity. She had a bilateral mammogram performed on . This is felt to be probably benign BIRADS 3. She also had a bilateral ultrasound performed on the same day. This was likewise probably benign BIRADS 3. Follow-up diagnostic mammogram and ultrasound of both breast in 6 months was recommended. She had a breast MRI done on 07/15/2020 which did not reveal any evidence for invasive malignancy in either breast. The patient continues to have some chronic lateral breast discomfort. 10-19-22 bilateral mammogram 10-09-22 recommend bilateral breast MRI. She has no new lumps masses or nodules of concern in her breast. She does continue to have some chronic bilateral breast discomfort. 06-28-23 The patient had a bilateral MRI on 11-07-22; repeat left breast mammogram in ultrasound in 6 months. This was done on 05-21-23. The patient complains of intermittent discomfort in the lateral aspect of her left breast. She does not know what precipitates this. Holli Risk: 8.9% She has an appointment with Dr. Christy regarding amyloidois and will discuss chemoprevention NCI lifetime risk: 10.9% Family history: 2 Daughters: Breast cancer 1 recently from COVID Paternal niece: Breast cancer diagnosed premenopausal Second paternal niece: Breast cancer premenopausal 2 sisters: Ovarian cancer but from this Mother: Carcinomatosis uncertain of the etiology, mother skin cancer on her arm Paternal grandfather: Prostate cancer Paternal half-brother: Prostate cancer Past surgical history: 1. Back surgery 2. Prior surgery 3. Breast biopsies 4. Hernia surgery 5. Hysterectomy 6. Tubal ligation 7. Joint replacement 8. Orthopedic surgery 9. Pain stimulator placed and removed 10. bilateral total knee replacement 11. Left shoulder surgery 12. Neck exploration for parathyroid surgery 13. Neck fusion 14. skin surgery of nose 15. right hand 16. left hand surgery Medical history: 1. Diabetes 2. Asthma 3. Hypertension 4. Leaking heart valve 5. Hyperlipidemia 6. Amyloidosis 7. back and hip pain 8. history of recent CVA 9. difficulty with balance Social history: Smoke: Negative Alcohol: Negative Drugs: Negative Review of systems: HEENT: Decreased hearing Constitutional: No fever or night sweats Lungs: Asthma Cardiovascular: Leaking valve GI: Negative negative negative Integument: skin cancer on nose Musculoskeletal: Amyloidosis, arthritis Psychiatric: Negative ALLERGIES: matty Harrison Objective - Vital Signs Vital signs: Vital Signs Temp 98.0 F 06/28/23 13:29 Pulse 72 06/28/23 13:29 Resp 18 06/28/23 13:29 BP 142/61 06/28/23 13:29 Pulse Ox FiO2 Intake & Output 06/27/23 06/28/23 06/28/23 18:59 06:59 18:59 Weight 57.606 kg - Constitutional General appearance: Present: cooperative - EENT Eyes: Present: EOMI ENT: Present: hearing grossly normal - Neck Neck: Present: normal ROM - Respiratory Respiratory: bilateral: CTA - Cardiovascular Heart sounds: normal: S1, S2 - Gastrointestinal General gastrointestinal: Present: soft - Integumentary Integumentary: Present: normal turgor - Musculoskeletal Musculoskeletal: Present: gait normal - Psychiatric Psychiatric: Present: A&O x's 3, appropriate affect, intact judgment & insight - Additional findings Additional findings: breast exam: BRA: 44B inspection: Bilateral grade 3 ptosis Palpation: Right breast: Multi-positional exam fibrocystic changes no discrete dominant masses or nodules of concern Left breast: Fibrocystic changes no discrete dominant masses or nodules of concern Bilateral axilla: No adenopathy of concern Assessment and Plan Assessment: Impression: 1. Diabetes 2. Asthma 3. Hypertension 4. Leaking heart valve 5. Hyperlipidemia 6. Amyloidosis 7. back and hip pain 8. Fibrocystic breast changes 9. abnormal mammogram 12-09-21; MRI 11-17-22 no specific lesions of concern, ? area left breast which had repast studies 05-21-23 left mammogram and ultrasound BIRAD 3 Plan: 1. Bilateral mammogram and left breast ultrasound in November 2023 with exam 2. Holli risk elevated she will discuss this with Dr. Christy when she sees him regarding her amyloidosis 3. Recent anemia 4. Recent CVA CC: Dr. Turner
== END ==
LOC: WWCWWP 13:18
PROVIDERS: ATTEND Surgery
DX: N60.12 Diffuse cystic mastopathy of left breast (principal); E11.9 Type 2 diabetes mellitus without complications; E78.5 Hyperlipidemia, unspecified; E85.9 Amyloidosis, unspecified; I10 Essential (primary) hypertension; J45.909 Unspecified asthma, uncomplicated; I38 Endocarditis, valve unspecified; M54.50 Low back pain, unspecified; M25.559 Pain in unspecified hip; Z86.73 Personal history of transient ischemic attack (TIA), and cerebral infarction without residual deficits; Z80.3 Family history of malignant neoplasm of breast; Z88.8 Allergy status to other drugs, medicaments and biological substances; Z79.82 Long term (current) use of aspirin; Z79.84 Long term (current) use of oral hypoglycemic drugs; Z91.011 Allergy to milk products

== ENCOUNTER → 2023-07-06 | Outpatient (CLI) | payer MEDICARE, OTHER ==
--- NOTE | 2023-07-06 16:27 | XR ---
EXAMINATION TYPE: XR lumbar spine 2 or 3V DATE OF EXAM: 07/06/2023 COMPARISON: 06/27/2023 HISTORY: Fall, pain TECHNIQUE: 3 view lumbar spine FINDINGS: There are 5 lumbar type vertebral bodies. There is anterior fusion L2-L5. Degenerative disc changes present L1 to with vacuum phenomenon. There may be a grade 1 spondylolisthesis of L1 anterio rly L2. Prior surgery is evident with fixation screws across the sacroiliac joints and a fixation screw at L5 -S1. Laminectomies been performed L4-S1. Spondylosis and scoliosis within the thoracolumbar junction. No acute fractures are identified. IMPRESSION: 1. No acute or subacute fracture identified. 2. Chronic changes appear stable from comparison.
== END | disposition home or self-care (01) ==
LOC: RADXRMAIN 12:20
PROVIDERS: ATTEND Nurse Practitioner
DX: M54.16 Radiculopathy, lumbar region (principal)
CPT/HCPCS: 72100

== ENCOUNTER 2023-10-10 21:07 | Emergency (ER) | payer MEDICARE, OTHER ==
[2023-10-10 21:33] VITALS: RESP 18
--- NOTE | 2023-10-10 21:55 | ED ---
Head Injury HPI - General Chief complaint: Head Injury Stated complaint: Fall, Back Head Laceration Time Seen by Provider: 10/10/23 21:48 Source: patient, RN notes reviewed, old records reviewed Mode of arrival: ambulatory Limitations: no limitations - History of Present Illness Initial comments: This is a 30-year-old female to the emergency department for a fall. Patient had slip and fall landing backwards on head. Patient is complaining of some headache and bleeding from the back of her head. No blood thinners. No neck pain patient was able to ambulate at the scene MD Complaint: head injury, head pain, fall -: hour(s) Mechanism of Injury: mechanical fall Location: occipital Loss of Consciousness: no Previous Trauma to this Area: Yes Place: home Radiation: none Severity: moderate Severity scale (1-10): 4 Consistency: constant Provoking factors: none known Other Injuries: laceration Context: other Associated Symptoms: denies other symptoms - Related Data Home Medications Medication Instructions Recorded Confirmed Gabapentin 300 mg PO BID 08/13/14 06/28/23 gemfibroziL [Lopid] 600 mg PO BID 08/13/14 06/28/23 Oxybutynin Chloride 5 mg PO BID 11/26/17 06/28/23 HYDROcodone/APAP 7.5-325MG [[place] 1 tab PO BID PRN 08/21/20 06/28/23 7.5-325] metFORMIN HCL [Glucophage] 500 mg PO BID 08/21/20 06/28/23 Dulaglutide [Trulicity] 1.5 mg SQ TU 03/14/23 06/28/23 amLODIPine [Norvasc] 2.5 mg PO DAILY 03/14/23 06/28/23 hydroCHLOROthiazide 12.5 mg PO DAILY 03/14/23 06/28/23 methocarbamoL 500 mg PO HS 03/14/23 06/28/23 Ammonium Lactate Lotion 1 applic TOPICAL BID 06/25/23 06/28/23 [Lac-Hydrin 12% Lotion] Aspirin EC [Ecotrin Low Dose] 81 mg PO DAILY 06/25/23 06/28/23 Ibuprofen [Motrin] 800 mg PO Q8H PRN 06/25/23 06/28/23 Omeprazole 20 mg PO BID 06/25/23 06/28/23 Previous Rx's Medication Instructions Recorded L.idocaine 5% Patch [Lidoderm 5% 1 patch TOPICAL DAILY PRN #7 patch 06/27/23 Patch] Allergies/Adverse reactions: Allergies Allergy/AdvReac Type Severity Reaction Status Date / Time midazolam HCl [From Versed] Allergy Rash/Hives Verified 10/10/23 21:19 pentazocine lactate AdvReac Nausea & Verified 10/10/23 21:19 [From Oscar] Vomiting Review of Systems ROS Statement: Those systems with pertinent positive or pertinent negative responses have been documented in the HPI. ROS Other: All systems not noted in ROS Statement are negative. Past Medical History Past Medical History: Asthma, Diabetes Mellitus, Hyperlipidemia, Hypertension Additional Past Medical History / Comment(s): "leaky heart valve". back pain. staph/strep infection post op incision History of Any Multi-Drug Resistant Organisms: None Reported, MRSA Date of last positivie culture/infection: 2012 MDRO Source:: Stomach wound Past Surgical History: Back Surgery, Bladder Surgery, Breast Surgery, Hernia Re pair, Hysterectomy, Joint Replacement, Orthopedic Surgery, Tubal Ligation Additional Past Surgical History / Comment(s): pain stimulator implant-LT HIP. BILAT TKA. neck fusion and plate in left side of neck. REVERSE LT SHOULDER SX. COLONOScopy. Pain stimulator removed 07/06. Back surgery in Sep 2018. CARPAL TUNNEL RELEASE 10/06/20 Past Anesthesia/Blood Transfusion Reactions: No Reported Reaction Past Psychological History: No Psychological Hx Reported Smoking Status: Never smoker Past Alcohol Use History: None Reported Past Drug Use History: None Reported - Past Family History Mother Family Medical History: Cancer Additional Family Medical History / Comment(s): metastatic cancer Sister(s) Family Medical History: Cancer Additional Family Medical History / Comment(s): two sisters dx with ovarian cancer. one sister with lung cancer Brother(s) Family Medical History: Cancer Additional Family Medical History / Comment(s): one brother had lung cancer. half-brother had prostate cancer. maternal grandfather prostate cancer General Exam Limitations: no limitations General appearance: alert, in no apparent distress Head exam: Present: normocephalic, normal inspection. Absent: atraumatic (Patient does have 3 cm laceration posterior scalp) Eye exam: Present: normal appearance, PERRL, EOMI. Absent: scleral icterus, conjunctival injection, periorbital swelling ENT exam: Present: normal exam, mucous membranes moist Neck exam: Present: normal inspection. Absent: tenderness, meningismus, lymphadenopathy Respiratory exam: Present: normal lung sounds bilaterally. Absent: respiratory distress, wheezes, rales, rhonchi, stridor Cardiovascular Exam: Present: regular rate, normal rhythm, normal heart sounds. Absent: systolic murmur, diastolic murmur, rubs, gallop, clicks GI/Abdominal exam: Present: soft, normal bowel sounds. Absent: distended, tenderness, guarding, rebound, rigid Extremities exam: Present: normal inspection, full ROM, normal capillary refill. Absent: tenderness, pedal edema, joint swelling, calf tenderness Back exam: Present: normal inspection Neurological exam: Present: alert, oriented X3, CN II-XII intact Psychiatric exam: Present: normal affect, normal mood Skin exam: Present: warm, dry, intact, normal color. Absent: rash Course Vital Signs 10/10/23 10/11/23 21:20 00:23 Temperature 98.2 F 97.6 F Pulse Rate 72 74 Respiratory 18 18 Rate Blood Pressure 173/79 140/87 O2 Sat by Pulse 98 100 Oximetry - Reevaluation(s) Reevaluation #1: Medical record is reviewed Reevaluation #2: Patient complains of headache but no other significant findings Reevaluation #3: Patient informed results and questions answered Reevaluation #4: Was pt. sent in by a medical professional or institution (, PA, GARBAGE TRUCK DRIVER, urgent care, hospital, or correction...) When possible be specific @ -no Did you speak to anyone other than the patient for history (EMS, parent, family, police, friend...)? What history was obtained from this source @ -no Did you review nursing and triage notes (agree or disagree)? Why? @ -agree Are old charts reviewed (outside hosp., previous admission, EMS record, old EKG, old radiological studies, urgent care reports/EKG's, correction records)? Report findings @ -yes Differential Diagnosis (chest pain, altered mental status, abdominal pain women, abdominal pain men, vaginal bleeding, weakness, fever, dyspnea, syncope, headache, dizziness, GI bleed, back pain, seizure, CVA, palpatations, mental health, musculoskeletal)? @ -prior EKG interpreted by me (3pts min.). @ -no X-rays interpreted by me (1pt min.). @ -no CT interpreted by me (1pt min.). @ -yes U/S interpreted by me (1pt. min.). @ -no What testing was considered but not performed or refused? (CT, X-rays, U/S, labs)? Why? @ -none What meds were considered but not given or refused? Why? @ -none Did you discuss the management of the patient with other professionals (professionals i.e. , PA, GARBAGE TRUCK DRIVER, lab, RT, psych nurse, drug abuse social worker, machine programmer, teacher, dispatch officer, showcase maker)? Give summary @ -no Was smoking cessation discussed for >3mins.? @ -no Was critical care preformed (if so, how long)? @ -no Were there social determinants of health that impacted care today? How? (Homelessness, low income, unemployed, alcoholism, drug addiction, transportat ion, low edu. Level, literacy, decrease access to med. care, custodial, rehab)? @ -none Was there de-escalation of care discussed even if they declined (Discuss DNR or withdrawal of care, Hospice)? DNR status @ -no What co-morbidities impacted this encounter? (DM, HTN, Smoking, COPD, CAD, Cancer, CVA, ARF, Chemo, Hep., AIDS, mental health diagnosis, sleep apnea, morbid obesity)? @ -none Was patient admitted / discharged? Hospital course, mention meds given and route, prescriptions, significant lab abnormalities, going to OR and other pertinent info. @ - 83 female to the emergency room after a trip and fall sustained head injury with occipital scalp laceration. Laceration is repaired with staple here in the ER, CT of brain is negative patient can be discharged home Discharge Undiagnosed new problem with uncertain prognosis? @ -no Drug Therapy requiring intensive monitoring for toxicity (Heparin, Nitro, Insulin, Cardizem)? @ -no Were any procedures done? @ -no Diagnosis/symptom? @ -Fall, head injury, occipital scalp laceration Acute, or Chronic, or Acute on Chronic? @ -Acute Uncomplicated (without systemic symptoms) or Complicated (systemic symptoms)? @ -Complicated Side effects of treatment? @ -no Exacerbation, Progression, or Severe Exacerbation? @ -exacerbation Poses a threat to life or bodily function? How? (Chest pain, [place], HI, pneumonia, PE, COPD, DKA, ARF, appy, cholecystitis, CVA, Diverticulitis, Homicidal, Suicidal, threat to staff... and all critical care pts) @ -yes fall with extreme of age 35 Procedures - Laceration Laceration #1 Consent Obtained: verbal consent Indication: laceration Site: scalp Size (cm): 3 Description: linear Size of Sutures: other (Golden) Technique: simple, interrupted Complications: pain Medical Decision Making - Medical Decision Making 83 female to the emergency room after a trip and fall sustained head injury with occipital scalp laceration. Laceration is repaired with staple here in the ER, CT of brain is negative patient can be discharged home - Radiology Data Radiology results: report reviewed (CT brain C-spine is negative for traumatic injury), image reviewed Disposition Clinical Impression: Closed head injury, Fall, Occipital scalp laceration Disposition: HOME SELF-CARE Condition: Fair Instructions (If sedation given, give patient instructions): Laceration (ED), Head Injury (ED), Staple Care (ED) Is patient prescribed a controlled substance at d/c from ED?: No Referrals: Mami Jesus [Primary Care Provider] - 1-2 days Time of Disposition: 22:00
--- NOTE | 2023-10-11 00:07 | CT ---
EXAM: CT Head Without Intravenous Contrast CLINICAL HISTORY: ITS.REASON CT Reason: pain TECHNIQUE: Axial computed tomography images of the head/brain without intravenous contrast. CTDI is 45.2 mGy and DLP is 989.6 mGy-cm. This CT exam was performed using one or more of the following dose reduction techniques: automated exposure control, adjustment of the mA and/or kV according to patient size, and/or use of iterative reconstruction technique. COMPARISON: No relevant prior studies available. FINDINGS: No acute intracranial hemorrhage. No midline shift or mass effect. The territorial vallecillo-white matter differentiation is maintained throughout. Age-related cerebral volume loss. Periventricular and subcortical white matter hypoattenuation, consistent with chronic microangiopathy. The visualized orbits appear grossly unremarkable. The calvarium is intact. Posterior scalp skin jeff. The visualized paranasal sinuses and mastoid air cells are grossly clear. IMPRESSION: No acute intracranial hemorrhage, midline shift, or mass effect. Posterior scalp skin jeff. EXAM: CT Cervical Spine Without Intravenous Contrast CLINICAL HISTORY: ITS.REASON CT Reason: pain TECHNIQUE: Axial computed tomography images of the cervical spine without intravenous contrast. CTDI is 10.5 mGy and DLP is 262.8 mGy-cm. This CT exam was performed using one or more of the following dose reduction techniques: automated exposure control, adjustment of the mA and/or kV according to patient size, and/or use of iterative reconstruction technique. COMPARISON: No relevant prior studies available. FINDINGS: The vertebral body heights are maintained. The craniocervical junction is intact. The atlanto-dens interval is maintained. The dens is intact. There is no spondylolisthesis. Multilevel posterior cervical fusion extending from the CT 3-C7. The right C3 screw is partially within the facet joint space. Multilevel laminectomies. ACDF at C5-C7. No hardware failure. Multilevel cervical spondylosis and degenerative disc disease. Straightening of the cervical lordosis. The unenhanced neck soft tissues are grossly unremarkable. The visualized lung apices are grossly clear. IMPRESSION: No cervical spine fracture. Anterior and posterior cervical fusion with posterior cervical decompression/laminectomies.
[2023-10-11 00:41] VITALS: BP 140/87; PULSE 74; TEMP 97.6
== END 2023-10-11 00:31 | disposition home or self-care (01) ==
LOC: EC 21:07
DX: S01.01XA Laceration without foreign body of scalp, initial encounter (principal); E11.9 Type 2 diabetes mellitus without complications; E78.5 Hyperlipidemia, unspecified; I10 Essential (primary) hypertension; J45.909 Unspecified asthma, uncomplicated; Z88.8 Allergy status to other drugs, medicaments and biological substances; Z79.84 Long term (current) use of oral hypoglycemic drugs; Z79.899 Other long term (current) drug therapy; Z79.82 Long term (current) use of aspirin; W01.198A Fall on same level from slipping, tripping and stumbling with subsequent striking against other object, initial encounter
CPT/HCPCS: 12002; 70450; 72125; 99284

== ENCOUNTER → 2023-10-15 | Outpatient (CLI) | payer MEDICARE, OTHER ==
--- NOTE | 2023-10-15 11:17 | CT ---
EXAMINATION TYPE: CT pelvis wo con DATE OF EXAM: 10/15/2023 COMPARISON: Prior CT pelvis June 25, 2023 HISTORY: Sacroillitis, frequent falls. CT DLP: 314.7 mGycm Automated exposure control for dose reduction was used. FINDINGS: Redemonstration of 3 fixating screws through the bilateral sacroiliac joints extending into the upper sacrum at S1 and S2 levels. Redemonstration of interbody metallic fusion device at L5-S1 level. Stab le grade 1 retrolisthesis of L4 on L5. Posterior decompression changes in the lower lumbar spine are redemonstrated. Sacroiliac joints show symmetric narrowing and subchondral cystic change. Horizontal sclerosis at roughly L4 level remains present coronal image 71. No new acute displaced fracture. No s uspicious bowel dilatation. Moderate distal sigmoid rectal fecal prominence is now seen. IMPRESSION: Sacral and sacroiliac joint appearance appears similar to most recent prior CT.
== END | disposition home or self-care (01) ==
LOC: RADCTMAIN 08:01
PROVIDERS: ATTEND Neurological Surgery
DX: M46.1 Sacroiliitis, not elsewhere classified (principal); R29.6 Repeated falls
CPT/HCPCS: 72192

== ENCOUNTER → 2023-10-22 | Outpatient (CLI) | payer MEDICARE, OTHER ==
--- NOTE | 2023-10-22 10:42 | MM ---
Reason for Exam: Follow-up at short interval from prior study. Last mammogram was performed 1 year(s) and 1 month(s) ago. Patient History: Menarche at age 13. First Full-Term at age 20. Left ovary removed at age 50. Right ovary removed at age 50. Hysterectomy at age 50. Postmenopausal. Estrogen for 25 years from age 30 until age 55. Patient used Hormonal Contraceptives for 4 years. Excisional Biopsy on the Left side. 2003, Cyst Aspiration on the Left side. 08/2013, Cyst Aspiration. 2003, Excisional Biopsy on the Right side. 02/05/2018, Benign Core Biopsy on the left side. 12/06/2016, Benign Core Biopsy on the left side. 07/16/2014, Benign Core Biopsy on the left side. 07/16/2014, Benign Core Biopsy on the left side. 02/16/2014, Benign Core Biopsy on the left side. 12/20/2011, Benign Excisional Biopsy on the left side. Daughter had breast cancer, age 57. Daughter had breast cancer, age 58. Risk Values: Holli 5 year model risk: 8.9%. NCI Lifetime model risk: 10.9%. Tissue Density: The breast tissue is heterogeneously dense. This may lower the sensitivity of mammography. Findings: Analyzed By CAD. No new suspicious masses, calcifications or distortions. No significant change from prior. There is multiple biopsy clips within the left breast with at least 6 clips identified. Overall Assessment: Incomplete: need additional imaging evaluation, BI-RAD 0 Management: Diagnostic Breast Ultrasound of the left breast. Results were given to the patient verbally at the time of exam. Patient should continue monthly self-breast exams. A clinical breast exam by your physician is recommended on an annual basis. This exam should not preclude additional follow-up of suspicious palpable abnormalities. Note on Holli scores and lifetime risk: 1. A Holli score greater than 3% is considered moderate risk. If this is the case, consider specialist referral to assess eligibility for a risk reducing agent. 2. If overall lifetime risk for the development of breast cancer is 20% or higher, the patient may qualify for future screening with alternating mammogram and breast MRI. Electronically signed and approved by: Nirav Fuentes DO
--- NOTE | 2023-10-22 11:28 | USB ---
Reason for Exam: Follow-up at short interval from prior study. Patient History: Menarche at age 13. First Full-Term at age 20. Left ovary removed at age 50. Right ovary removed at age 50. Hysterectomy at age 50. Postmenopausal. Estrogen for 25 years from age 30 until age 55. Patient used Hormonal Contraceptives for 4 years. Excisional Biopsy on the Left side. 2003, Cyst Aspiration on the Left side. 08/2013, Cyst Aspiration. 2003, Excisional Biopsy on the Right side. 02/05/2018, Benign Core Biopsy on the left side. 12/06/2016, Benign Core Biopsy on the left side. 07/16/2014, Benign Core Biopsy on the left side. 07/16/2014, Benign Core Biopsy on the left side. 02/16/2014, Benign Core Biopsy on the left side. 12/20/2011, Benign Excisional Biopsy on the left side. Daughter had breast cancer, age 57. Daughter had breast cancer, age 58. Risk Values: Holli 5 year model risk: 8.9%. NCI Lifetime model risk: 10.9%. Technique: Method: Targeted. Prior Study Comparison: 04/06/2022 Bilateral MG 3D diag mammo w/cad [facility], [facility]. 10/09/2022 Bilateral MG 3D diag mammo w/cad [facility], [facility]. 05/21/2023 Left MG 3D diag mammo w/cad [facility], [facility]. Findings: The upper outer quadrant of the left breast, the axilla of the left breast and the retroareolar of the left breast were scanned. Technique utilized:US breast limited LT Image; Ultrasound imaging of: Area of concern, retroareolar region and axilla. * Hypoechoic lesion at 12:00 4 cm from the nipple measuring 8 x 7 x 6 mm with irregular margins. (Biopsy this), this is new. * Stable area at 2:00 2 cm from nipple could represent postbiopsy change. Overall Assessment: Suspicious, BI-RAD 4 Management: Ultrasound Core Biopsy of the left breast. A clinical breast exam by your physician is recommended on an annual basis and results should be correlated with mammographic findings. This exam should not preclude additional follow-up of suspicious palpable abnormalities. Results were given to the patient verbally at the time of exam. Electronically signed and approved by: Nirav Fuentes DO
== END | disposition home or self-care (01) ==
LOC: RADMAMWWP 09:59
PROVIDERS: ATTEND Surgery
DX: R92.333 Mammographic heterogeneous density, bilateral breasts (principal); Z78.0 Asymptomatic menopausal state; Z80.3 Family history of malignant neoplasm of breast
CPT/HCPCS: 77062; 77066

== ENCOUNTER → 2023-10-26 | Outpatient (CLI) | payer MEDICARE, OTHER ==
--- NOTE | 2023-10-27 13:11 | MR ---
EXAMINATION TYPE: MR lumbar spine wo con DATE OF EXAM: 10/26/2023 4:06 PM CLINICAL INDICATION:Female, 83 years old with history of M48.07; PHH, Low back pain, falls, loss of b alance, Hx back surgery COMPARISON: 06/25/2023, 10/15/2023. TECHNIQUE: Multi planar, multi sequence imaging was performed utilizing: T1-weighted, T2-weighted, a nd turbo inversion recovery imaging of the lumbar spine. IV Contrast: (None if empty) FINDINGS: Motion limits evaluation. Alignment: The lumbar vertebral bodies have preserved heights and alignment. Cord: The conus medullaris and the distal spinal cord appear unremarkable with regards to their signa l intensity and morphology. Bones/Discs: Postsurgical changes to the spine with osseous fusion of L3-S1 anterior aspects of the v ertebral bodies. Fixation hardware at L5-S1 disc space with fixation screws in the sacroiliac joints bilaterally. There is multilevel disc space narrowing with osteophyte formation and facet joint arthr opathy. There is some bony edema within the sacrum in a place where there is cortical buckling on CT imaging. T12-L1: Disc bulge and facet joint arthropathy result in mild spinal canal and moderate bilateral gonzalo ral foraminal stenosis. L1-L2: Disc bulge with mild to moderate spinal canal stenosis and moderate to severe bilateral neural foraminal stenosis. L2-L3: No significant disc pathology possibly surgically absent disc. Mild to moderate spinal canal s tenosis and moderate bilateral neural foraminal stenosis. L3-L4: No significant disc pathology possibly surgically absent disc. No evidence of significant spin al canal stenosis or neural foraminal stenosis. L4-L5: No significant disc pathology possibly surgically absent disc. Facet joint arthropathy result in mild spinal canal and severe bilateral neural foraminal stenosis. L5-S1: Limited evaluation due to postsurgical change on the right to left has at least moderate neura l foraminal stenosis. The right neural foramen is poorly evaluated due to post surgical change is emely gical clip in place is at least neural foraminal stenosis on the right. No significant spinal canal or neural foraminal stenosis in the remainder of the visualized levels. IMPRESSION: 1. Mild bony edema within the sacrum with corresponding cortical buckling on CT suggestive of sacral fracture. Correlate with pain in this region. 2. Motion limited exam. Postsurgical changes with mild to moderate spinal canal stenosis at L1-L2 hi gh-grade neural foraminal stenosis worse in the lower spine also including L1/L2.
== END | disposition home or self-care (01) ==
LOC: RADMRIMAIN 15:11
PROVIDERS: ATTEND Neurological Surgery
DX: M48.061 Spinal stenosis, lumbar region without neurogenic claudication (principal); M48.07 Spinal stenosis, lumbosacral region; M99.73 Connective tissue and disc stenosis of intervertebral foramina of lumbar region; R60.0 Localized edema
CPT/HCPCS: 72148

== ENCOUNTER → 2023-11-07 | Day surgery (SDC) | payer MEDICARE, OTHER ==
--- NOTE | 2023-11-15 10:42 | MM ---
Reason for Exam: Post Procedure Mammogram. Last screening mammogram was performed less than 1 month ago. Patient History: Menarche at age 13. First Full-Term at age 20. Left ovary removed at age 50. Right ovary removed at age 50. Hysterectomy at age 50. Postmenopausal. Estrogen for 25 years from age 30 until age 55. Patient used Hormonal Contraceptives for 4 years. Excisional Biopsy on the Left side. 2003, Cyst Aspiration on the Left side. 08/2013, Cyst Aspiration. 2003, Excisional Biopsy on the Right side. 02/05/2018, Benign Core Biopsy on the left side. 12/06/2016, Benign Core Biopsy on the left side. 07/16/2014, Benign Core Biopsy on the left side. 07/16/2014, Benign Core Biopsy on the left side. 02/16/2014, Benign Core Biopsy on the left side. 12/20/2011, Benign Excisional Biopsy on the left side. Daughter had breast cancer, age 57. Daughter had breast cancer, age 58. Risk Values: Holli 5 year model risk: 8.9%. NCI Lifetime model risk: 10.9%. Prior Study Comparison: 04/11/1996 Screening Mammogram, Unknown. 04/06/2022 Bilateral MG 3D diag mammo w/cad [facility], [facility]. 10/09/2022 Bilateral MG 3D diag mammo w/cad [facility], [facility]. 10/09/2022 Bilateral US breast limited B[facility], [facility]. 05/21/2023 Left MG 3D diag mammo w/cad LT, [facility]. 05/21/2023 Left US breast LT, [facility]. 10/22/2023 Bilateral MG 3D diag mammo w/cad [facility], [facility]. 10/22/2023 Bilateral US breast limited LT, [facility]. Tissue Density: Left: The breast tissue is heterogeneously dense. This may lower the sensitivity of mammography. Pathology Description: Location: 12 o'clock. Marker Left Behind. Needle Type: Celero Cores: 4 Gauge: 12 The procedure of ultrasound guided core biopsy was explained to the patient. Benefits, alternatives, and risks were discussed. An informed consent was then obtained. The patient was placed in supine positioning for imaging and for the procedure. The overlying skin was prepped and draped in usual sterile fashion. Lidocaine buffered with bicarbonate was used as anesthetic into the skin and subcutaneous tissue up to area of concern in the left 12:00 breast. A james was made with surgical scalpel. Under ultrasound guidance, a 12-gauge vacuum assisted biopsy gun device was used to obtain 4 core samples. Following this, a biopsy clip was left in lesion. The patient tolerated the procedure well without any immediate complication. The patient was kept in the radiology department for short stay after the procedure and then discharged home in stable condition. Postprocedure mammogram: The patient was transferred to mammography for physician ordered post procedure mammogram for clip placement verification. Impression: Successful, uncomplicated ultrasound guided core biopsy of area of concern in the left 12:00 breast, full pathology results to follow. Pathology Results: Result: Malignant, Invasive ductal carcinoma. 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 Overall Assessment: Malignant Assessment: MG diagnostic mammo LT wo CAD. - Left: Known biopsy proven malignancy, BI-RAD 6. Management: Surgical Consultation of the left breast. Electronically signed and approved by: Jose Abebe M.D. Radiologis
== END ==
LOC: RADUSWWP 07:59
PROVIDERS: ATTEND Surgery
DX: D05.12 Intraductal carcinoma in situ of left breast (principal); Z82.3 Family history of stroke; Z90.721 Acquired absence of ovaries, unilateral
CPT/HCPCS: 88305; 88342; 88341; 77065; 19083; A4648

== ENCOUNTER → 2023-11-23 | Outpatient (CLI) | payer MEDICARE, OTHER ==
--- NOTE | 2023-11-23 13:45 | P.PN ---
Subjective Progress Note Date: 11/23/23 Principal diagnosis: stage I left breast cancer 2023 fibrocystic breast changes Subjective Progress Note Date: 10/19/22 fibrocystic breast disease Radha is an 82-year-old white female who has intermittently had some fullness in her left breast at the 12 o'clock position. She has a diagnosis of amyloidosis and has had multiple nodularity in the breast in the past. Past biopsies were consistent with amyloid disease. The nodularity in the breast has not changed. She has intermittent discomfort at the area of nodularity. She had a bilateral mammogram performed on . This is felt to be probably benign BIRADS 3. She also had a bilateral ultrasound performed on the same day. This was likewise probably benign BIRADS 3. Follow-up diagnostic mammogram and ultrasound of both breast in 6 months was recommended. She had a breast MRI done on 07/15/2020 which did not reveal any evidence for invasive malignancy in either breast. The patient continues to have some chronic lateral breast discomfort. 10-19-22 bilateral mammogram 10-09-22 recommend bilateral breast MRI. She has no new lumps masses or nodules of concern in her breast. She does continue to have some chronic bilateral breast discomfort. 06-28-23 The patient had a bilateral MRI on 11-07-22; repeat left breast mammogram in ultrasound in 6 months. This was done on 05-21-23. The patient complains of intermittent discomfort in the lateral aspect of her left breast. She does not know what precipitates this. 11-23-23 Radha underwent a bilateral mammogram on . This was done secondary to an examination by Dr. Christy where he felt a lesion of concern in the left breast. The patient herself did not feel the lesion, but now that it has been brought to our attention she does feel the nodule in the left breast. This led to a left breast ultrasound on the same date. She subsequently underwent a left breast ultrasound-guided core biopsy on [id number]. The radiographs were personally reviewed with Dr. Doss from radiology. No other lesions of concern were identified. 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 This is ER negative CA negative and HER-2 negative. This is grade 3. Dr. Christy was seen regarding amyloidois Family history: 2 Daughters: Breast cancer 1 recently from COVID Paternal niece: Breast cancer diagnosed premenopausal Second paternal niece: Breast cancer premenopausal 2 sisters: Ovarian cancer but from this Mother: Carcinomatosis uncertain of the etiology, mother skin cancer on her arm Paternal grandfather: Prostate cancer Paternal half-brother: Prostate cancer Past surgical history: 1. Back surgery 2. Prior surgery 3. Breast biopsies 4. Hernia surgery 5. Hysterectomy 6. Tubal ligation 7. Joint replacement 8. Orthopedic surgery 9. Pain stimulator placed and removed 10. bilateral total knee replacement 11. Left shoulder surgery 12. Neck exploration for parathyroid surgery 13. Neck fusion 14. skin surgery of nose 15. right hand 16. left hand surgery Medical history: 1. Diabetes 2. Asthma 3. Hypertension 4. Leaking heart valve 5. Hyperlipidemia 6. Amyloidosis 7. back and hip pain 8. history of recent CVA 9. difficulty with balance Social history: Smoke: Negative Alcohol: Negative Drugs: Negative Review of systems: HEENT: Decreased hearing Constitutional: No fever or night sweats Lungs: Asthma Cardiovascular: Leaking valve GI: Negative negative negative Integument: skin cancer on nose Musculoskeletal: Amyloidosis, arthritis Psychiatric: Negative ALLERGIES: matty rojas Objective - Constitutional General appearance: Present: cooperative - EENT Eyes: Present: EOMI - Neck Neck: Present: normal ROM - Respiratory Respiratory: bilateral: CTA - Cardiovascular Heart sounds: normal: S1, S2 - Integumentary Integumentary: Present: normal turgor - Musculoskeletal Musculoskeletal Comment(s): uses a walker - Psychiatric Psychiatric: Present: A&O x's 3, appropriate affect, intact judgment & insight - Additional findings Additional findings: breast exam: BRA: 44B inspection: Bilateral grade 3 ptosis Palpation: Right breast: Multi-positional exam fibrocystic changes no discrete dominant masses or nodules of concern right axilla: no adenopathy of concern Left breast: Fibrocystic changes, mass upper outer quadrant area approximately 1-1/2 cm in size corresponds to radiographic abnormality left axilla: No adenopathy of concern Assessment and Plan Assessment: Impression: 1. Diabetes 2. Asthma 3. Hypertension 4. Leaking heart valve 5. Hyperlipidemia 6. Amyloidosis 7. back and hip pain 8. Fibrocystic breast changes 9. abnormal mammogram 12-09-21; MRI 11-17-22 no specific lesions of concern, ? area left breast which had repast studies 05-21-23 left mammogram and ultrasound BIRAD 3; 10. left breast invasive ductal cancer [id number] tripple (-) Plan: 1. left breast needle localization and lumpectomy 2. present case at tumor board 3. medical clearance; Dr. Bryant, Dr. Turner CC: Dr. Jesus, Dr. Turner
[2023-11-23 13:58] VITALS: RESP 18
== END ==
LOC: WWCWWP 12:53
PROVIDERS: ATTEND Surgery
DX: C50.912 Malignant neoplasm of unspecified site of left female breast (principal); E11.9 Type 2 diabetes mellitus without complications; J45.909 Unspecified asthma, uncomplicated; I10 Essential (primary) hypertension; E78.5 Hyperlipidemia, unspecified; E85.9 Amyloidosis, unspecified; M25.559 Pain in unspecified hip; M54.50 Low back pain, unspecified; N60.12 Diffuse cystic mastopathy of left breast; T82.03XA Leakage of heart valve prosthesis, initial encounter; Z86.73 Personal history of transient ischemic attack (TIA), and cerebral infarction without residual deficits; Z90.710 Acquired absence of both cervix and uterus; Z17.1 Estrogen receptor negative status [ER-]; Z98.890 Other specified postprocedural states; Z80.3 Family history of malignant neoplasm of breast; Z88.1 Allergy status to other antibiotic agents; Z88.8 Allergy status to other drugs, medicaments and biological substances; Z79.82 Long term (current) use of aspirin; Z79.84 Long term (current) use of oral hypoglycemic drugs

== ENCOUNTER → 2023-11-27 | Outpatient (CLI) | payer MEDICARE, OTHER ==
--- NOTE | 2023-11-27 12:33 | US ---
EXAMINATION TYPE: US venous doppler duplex LE LT DATE OF EXAM: 11/27/2023 12:01 PM COMPARISON: NONE CLINICAL INDICATION: Female, 83 years old with history of R22.43 LOCALIZED SWELLING, MASS AND LUMP, L EFT LOWER L; Left foot swelling x months SIDE PERFORMED: Left TECHNIQUE: The lower extremity deep venous system is examined utilizing real time linear array sonog verna with graded compression, doppler sonography and color-flow sonography. VESSELS IMAGED: Common Femoral Vein Deep Femoral Vein Greater Saphenous Vein * Femoral Vein Popliteal Vein Small Saphenous Vein * Proximal Calf Veins (* superficial vessels) Right Leg: NA Left Leg: Negative for DVT IMPRESSION: 1. Left lower extremity ultrasound negative for deep venous thrombosis.
== END | disposition home or self-care (01) ==
LOC: RADUSWWP 11:27
PROVIDERS: ATTEND Internal Medicine
DX: R22.43 Localized swelling, mass and lump, lower limb, bilateral (principal)

== ENCOUNTER → 2023-12-28 | Outpatient (CLI) | payer MEDICARE, OTHER ==
--- NOTE | 2023-12-28 14:10 | P.PN ---
Subjective Progress Note Date: 12/28/23 stage I left breast cancer 2023 fibrocystic breast changes Subjective 83-year-old white female who has been followed for chronic changes in her breast. She recently underwent a left breast mammogram and ultrasound in October 2023. This led to an ultrasound-guided core biopsy on 11-07-2023. No other lesions of concern were identified. 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 This was ER negative AL negative and HER2 negative, grade 3. She has been followed for amyloidosis with medical oncology. Her last bilateral mammogram was in May 2023 and did not show any lesions of concern. Her case was presented at tumor board on 11-27-2023. The patient is recommended to undergo needle localization lumpectomy, we are also going to perform a sentinel node biopsy after discussion with the patient and her daughter. She has received preoperative clearance from Dr. Reeder. Family history: 2 Daughters: Breast cancer 1 recently from COVID Paternal niece: Breast cancer diagnosed premenopausal Second paternal niece: Breast cancer premenopausal 2 sisters: Ovarian cancer but from this Mother: Carcinomatosis uncertain of the etiology, mother skin cancer on her arm Paternal grandfather: Prostate cancer Paternal half-brother: Prostate cancer Past surgical history: 1. Back surgery 2. Prior surgery 3. Breast biopsies 4. Hernia surgery 5. Hysterectomy 6. Tubal ligation 7. Joint replacement 8. Orthopedic surgery 9. Pain stimulator placed and removed 10. bilateral total knee replacement 11. Left shoulder surgery 12. Neck exploration for parathyroid surgery 13. Neck fusion 14. skin surgery of nose 15. right hand 16. left hand surgery Medical history: 1. Diabetes 2. Asthma 3. Hypertension 4. Leaking heart valve 5. Hyperlipidemia 6. Amyloidosis 7. back and hip pain 8. history of recent CVA 9. difficulty with balance Social history: Smoke: Negative Alcohol: Negative Drugs: Negative Review of systems: HEENT: Decreased hearing Constitutional: No fever or night sweats Lungs: Asthma Cardiovascular: Leaking valve GI: Negative negative negative Integument: skin cancer on nose Musculoskeletal: Amyloidosis, arthritis Psychiatric: Negative ALLERGIES: matty rojas Objective - Constitutional General appearance: Present: cooperative - EENT Eyes: Present: EOMI ENT: Present: hearing grossly normal - Neck Neck: Present: normal ROM Thyroid: bilateral: normal size - Respiratory Respiratory: bilateral: CTA - Cardiovascular Rhythm: regular Heart sounds: normal: S1, S2 - Gastrointestinal General gastrointestinal: Present: soft - Integumentary Integumentary: Present: normal turgor - Psychiatric Psychiatric: Present: A&O x's 3, appropriate affect, intact judgment & insight - Additional findings Additional findings: breast exam: BRA: 44B inspection: Bilateral grade 3 ptosis Palpation: Right breast: Multi-positional exam fibrocystic changes no discrete dominant masses or nodules of concern right axilla: no adenopathy of concern Left breast: Fibrocystic changes, mass upper outer quadrant area approximately 1-1/2 cm in size corresponds to radiographic abnormality left axilla: No adenopathy of concern Assessment and Plan Assessment: Impression: 1. Diabetes 2. Asthma 3. Hypertension 4. Leaking heart valve 5. Hyperlipidemia 6. Amyloidosis 7. back and hip pain 8. Fibrocystic breast changes 9. abnormal mammogram 12-09-21; MRI 11-17-22 no specific lesions of concern, ? area left breast which had repast studies 05-21-23 left mammogram and ultrasound BIRAD 3; 10. left breast invasive ductal cancer T1N0M0 tripple (-) Plan: 1. left breast needle localization and lumpectomy, left sentinel node injection, left sentinel node biopsy, possible left axillary node dissection, possible oncoplastic tissue transfer 2. present case at tumor board done 11-27-23 3. medical clearance; Dr. Bryant, Dr. Turner, awaiting clearance from DR. Peralta CC: Dr. Jesus, Dr. Turner
[2023-12-28 14:36] VITALS: BP 147/69; PULSE 70; RESP 15; TEMP 97.6
== END ==
LOC: WWCWWP 13:37
PROVIDERS: ATTEND Surgery
DX: C50.912 Malignant neoplasm of unspecified site of left female breast (principal); N60.12 Diffuse cystic mastopathy of left breast; E11.9 Type 2 diabetes mellitus without complications; J45.909 Unspecified asthma, uncomplicated; I10 Essential (primary) hypertension; T82.03XA Leakage of heart valve prosthesis, initial encounter; E78.5 Hyperlipidemia, unspecified; E85.9 Amyloidosis, unspecified; M54.50 Low back pain, unspecified; M25.559 Pain in unspecified hip; Z17.1 Estrogen receptor negative status [ER-]; Z86.73 Personal history of transient ischemic attack (TIA), and cerebral infarction without residual deficits; Z98.1 Arthrodesis status; Z98.51 Tubal ligation status; Z88.8 Allergy status to other drugs, medicaments and biological substances; Z88.5 Allergy status to narcotic agent; Z79.82 Long term (current) use of aspirin; Z79.84 Long term (current) use of oral hypoglycemic drugs

== ENCOUNTER 2024-01-15 07:17 | Day surgery (SDC) | payer MEDICARE, OTHER ==
[2024-01-15] MEDS: DEXAMETHASONE SOD PHOSPHATE 4 MG/ML 1 ML VIAL IV ONE (07:45)
[2024-01-15] MEDS: ONDANSETRON 4 MG/2 ML VIAL IVP ONE ×2 (07:45→18:04)
[2024-01-15] MEDS: LACTATED RINGERS 1,000 ML IV SCH (07:45)
[2024-01-15 08:14] LABS: Glucose,Whole Blood 128 mg/dL (70-110)
[2024-01-15] MEDS: LIDOCAINE 1% INJ 10MG/ML (20 ML MDV) SQ ONE ×2 (09:09→11:37)
[2024-01-15] MEDS: HEPARIN SODIUM,PORCINE 5,000 UNIT/ML 1 ML VIAL SQ PRN (09:42)
[2024-01-15] MEDS ORDERED: fentaNYL (PF) 50 MCG/ML 2 ML AMP ONE (09:52)
[2024-01-15] MEDS ORDERED: PROPOFOL 10 MG/ML 20 ML VIAL IV ONE (09:52)
[2024-01-15] MEDS ORDERED: GLYCOPYRROLATE 0.2 MG/ML 2 ML VIAL ONE (09:52)
[2024-01-15] MEDS ORDERED: LIDOCAINE 1% INJ 10MG/ML (20 ML MDV) ONE (09:52)
--- NOTE | 2024-01-15 10:01 | P.NAPBC ---
NAPBC Queries - NAPBC Queries Was patient's case review presented at [facility] tumor board? If no, comment.: Yes Was patient's pathology reviewed at [facility]? If no, comment.: Yes Was breast conservation surgery offered? If no, comment.: Yes Was sentinel node biopsy offered? If no, comment.: Yes Was diagnosis confirmed by percutaneous core biopsy? If no, comment.: Yes Is patient mastectomy patient?: No Was a preop referral to reconstructive surgeon offered?: No Clinical Stage: Stage I left breast IDC [id number]
[2024-01-15] MEDS: METHYLENE BLUE 50 MG/10 ML AMPUL INJ ONE (10:10)
--- NOTE | 2024-01-15 11:41 | P.OP ---
Date of Procedure: 01/15/24 Preoperative Diagnosis: Invasive ductal carcinoma left breast Postoperative Diagnosis: Same Procedure(s) Performed: Left breast needle localization lumpectomy, left breast axillary node mapping, left breast sentinel node biopsy, left breast oncoplastic tissue transfer 40 cm Anesthesia: PATRICKA Surgeon: Amie Zarate Estimated Blood Loss (ml): 5 IV fluids (ml): 800 Pathology: other (Breast tissue, axillary contents) Condition: stable Disposition: same day Indications for Procedure: Biopsy-proven left breast invasive ductal carcinoma Operative Findings: Fibrofatty breast tissue Description of Procedure: The patient was first seen in the radiology department for needle localization of the tumor in the left breast was performed. Additionally injection of radiotracer was performed in the periareolar area. The patient was brought to the operative suite. Following induction of anesthesia the neoprobe was used to interrogate the axilla. Initially no radioactivity was identified and 5 cc of 50% methylene blue was injected in the periareolar region and this was massaged. The neoprobe was changed and the radioactivity was then identified in the axilla. The left breast and axilla were prepped and draped in a sterile fashion. The area of the axilla was approached initially. Using the neoprobe the area of greatest radioactivity was identified. An incision was made and carried down through the skin and subcutaneous tissue into the axillary tissue. The axillary tissue was grasped and elevated. A radioactive lymph node was identified. This was resected. The 10-second count on the lymph node was 613. The background 10-second count was 37. No other palpable or blue lymph nodes were identified. The sentinel node which was identified was blue as well. The deep tissues were closed using 3-0 Vicryl suture following irrigation. The subcutaneous tissue was closed using 3-0 Vicryl suture. The skin subcuticular tissue was closed using 4-0 Monocryl. The area of the breast was approached. An incision was made in the breast and carried down to the hook of the wire. Surrounding tissue was excised. The specimen was 5 cm x 5 cm. The specimen was painted for orientation. Radiograph of the specimen revealed that the area of concern had been removed. New posterior, which was onto the pectoralis muscle, new medial, lateral, inferior, and superior, margins were obtained. All were painted for orientation. The cavity itself was inspected for hemostasis. After we are sure that hemostasis was attained a superior pillar 5 x 1 cm was formed. An inferior pillar 5 x 2 cm was formed. Titanium clips were placed. Surgicel in powder form was placed. The pillars were brought together using 3-0 Vicryl suture. The subcutaneous tissue was then brought together using 3-0 Vicryl suture. The skin was closed using 4-0 Monocryl. 10 cc of 1% lidocaine were injected into the axillary and the breast incision. The patient tolerated the procedure in stable condition. Surgical glue was applied. All instrument and sponge counts were correct at the end of the case.
[2024-01-15 12:27] LABS: Glucose,Whole Blood 137 mg/dL (70-110)
[2024-01-15] MEDS: HYDROmorphone 0.5 MG/0.5 ML SYRINGE IVP PRN (12:29)
[2024-01-15] MEDS: HYDROmorphone 0.5 MG/0.5 ML SYRINGE IVP ONE ×3 (12:42→13:17)
--- NOTE | 2024-01-15 12:51 | NM ---
EXAMINATION TYPE: NM sentinel node injection DATE OF EXAM: 01/15/2024 COMPARISON: NONE CLINICAL INDICATION: Female, 83 years old with history of LEFT BREAST CA; TECHNIQUE AND FINDINGS: The procedure of sentinel lymph node injection was explained to the patient. The benefits, alternatives, and risks were discussed. An informed consent was then obtained. Overlying skin is cleaned with sterile alcohol. Following this, 490 uCi Tc99m Tilmanocept was inject ed in the upper outer aspect of the left nipple intradermally. The patient tolerated the procedure well without any immediate complication. The patient was kept in the radiology department for short stay after the procedure and then taken to surgery for surgical p rocedure what is presumed intraoperative gamma probe will be used for sentinel lymph node detection. IMPRESSION: Left breast radiotracer injection for sentinel node localization as above.
[2024-01-15] MEDS: LACTATED RINGERS 1,000 ML IV ONE ×2 (13:18→13:48)
[2024-01-15 15:16] LABS: Glucose,Whole Blood 188 mg/dL (70-110)
[2024-01-15] MEDS ORDERED: NALOXONE 0.4 MG/ML 1 ML VIAL IV PRN (17:10)
[2024-01-15] MEDS ORDERED: DEXTROSE 50% SYRINGE 50 ML IVP PRN ×2 (17:14)
--- NOTE | 2024-01-15 17:53 | P.HPIM ---
History of Present Illness H&P Date: 01/15/24 Patient is a 82-year-old female with a history of COPD/asthma, hypertension, dyslipidemia, chronic back pain, 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 Patient tolerated procedure well. She received propofol, fentanyl during the procedure and Dilaudid after the procedure. Patient has been having difficulty weaning off of oxygen. Occasionally she has periods of apnea as well. Patient dropping down to 70s/80s without oxygen, requiring 2 L to maintain saturations. Rest of the vital signs otherwise within normal limits. Chest x-ray independently interpreted, shows small bilateral pleural effusions otherwise unremarkable. Patient being admitted for acute hypoxic respiratory failure. Pulmonology also consulted. Pertinent positives and negatives as discussed in HPI, a complete review of systems was performed and all other systems are negative. Patient seen and examined at bedside. Vital signs reviewed General: nontoxic, no distress, appears at stated age Derm: warm, dry, dressing clean, dry, intact Head: atraumatic, normocephalic, symmetric Eyes: EOMI, no lid lag, anicteric sclera, pupils equal round reactive to light ENT: Nose and ears atraumatic Neck: No thyromegaly, supple Mouth: no lip lesion, mucus membranes moist Cardiovascular: S1S2 reg, no murmur, no edema Lungs: clear to auscultation bilateral, no rhonchi, no rales, no wheeze, no accessory muscle use, supplemental oxygen Abdominal: soft, nontender to palpation, no guarding, no appreciable organomegaly Ext: no gross muscle atrophy, muscle strength muscle strength 5 out of 5 in all 4 extremities, no contractures Neuro: CN II-XII grossly intact Psych: Alert, oriented, appropriate affect Assessment/Plan: Active: Acute hypoxic respiratory failure, likely secondary to anesthesia and hypoventilation Continue supportive care with supplemental oxygen, provide incentive spirometer Pulmonology also consulted Oral Tylenol for pain control Avoid narcotics if possible Type 2 diabetes Sliding scale insulin, monitor for hypoglycemia Resolved: Chronic: Chronic back pain Hypertension COPD/asthma without exacerbation Dyslipidemia GERD Urinary incontinence The patient is admitted with an anticipated less than 2 midnight stay as observation status for evaluation of hypoxic respiratory failure. Surrogate decision-maker: Daughter CODE STATUS: Full code DVT prophylaxis: SCDs Anticipated discharge date: Pending clinical course Anticipated discharge place: Pending clinical course A total of 55 minutes was spent on the care of this complex patient more than 50% of the time was spent in counseling and care coordination. Past Medical History Past Medical History: Asthma, Cancer, Diabetes Mellitus, GERD/Reflux, Hearing Disorder / Deafness, Hyperlipidemia, Hypertension, Musculoskeletal Disorder, Osteoarthritis (OA) Additional Past Medical History / Comment(s): "leaky heart valve", urinary incontinence, back pain, new dx. breast cancer, daughter had breast cancer History of Any Multi-Drug Resistant Organisms: MRSA Date of last positivie culture/infection: 2012 MDRO Source:: Stomach wound Past Surgical History: Back Surgery, Bladder Surgery, Breast Surgery, Hernia Repair, Hysterectomy, Joint Replacement, Orthopedic Surgery, Tubal Ligation Additional Past Surgical History / Comment(s): pain stimulator implant-LT HIP, chiquita CTS-left hand x3, BILAT TKA, neck fusion and plate in left side of neck,. REVERSE CHIQUITA SHOULDER SX, Pain stimulator removed 07/06, colonoscopy, Back surgery in Sep 2018 Past Anesthesia/Blood Transfusion Reactions: No Reported Reaction Additional Past Anesthesia/Blood Transfusion Reaction / Comment(s): no hx. of transfusion reaction Smoking Status: Former smoker - Past Family History Mother Family Medical History: Cancer Additional Family Medical History / Comment(s): metastatic cancer Sister(s) Family Medical History: Cancer Additional Family Medical History / Comment(s): two sisters dx with ovarian cancer. one sister with lung cancer Brother(s) Family Medical History: Cancer Additional Family Medical History / Comment(s): one brother had lung cancer. half-brother had prostate cancer. maternal grandfather prostate cancer Medications and Allergies Home Medications Medication Instructions Recorded Confirmed Type gemfibroziL [Lopid] 600 mg PO BID 08/13/14 01/15/24 History Oxybutynin Chloride 5 mg PO BID 11/26/17 01/09/24 History metFORMIN HCL [Glucophage] 500 mg PO BID 08/21/20 01/15/24 History amLODIPine [Norvasc] 5 mg PO DAILY 03/14/23 01/09/24 History hydroCHLOROthiazide 12.5 mg PO DAILY 03/14/23 01/09/24 History Aspirin [Adult Low Dose Aspirin EC] 81 mg PO DAILY 10/23/23 01/09/24 History Budesonide-Formot 160-4.5 Mcg 2 puff INHALATION BID 01/09/24 01/15/24 History [Symbicort 160-4.5 Mcg Inhaler] Calcium Carbonate [Calcium] 600 mg PO BID 01/09/24 01/15/24 History Cholecalciferol [Vitamin D3 (25 50 mcg PO DAILY 01/09/24 01/15/24 History Mcg = 1000 Iu)] Dulaglutide [Trulicity] 1.5 mg SQ TU 01/09/24 01/09/24 History Ferrous Sulfate [Feosol] 325 mg PO DAILY 01/09/24 01/15/24 History Fexofenadine HCl [Navya Allergy] 180 mg PO DAILY 01/09/24 01/15/24 History Gabapentin [Neurontin] 300 mg PO 199901/09/24 01/15/24 History Insulin Glargine,Hum.rec.anlog See Protocol SQ AC-BID PRN 01/09/24 01/15/24 History [Lantus Solostar Pen] L.acidoph,Paracasei, B.lactis 1 each PO HS 01/09/24 01/15/24 History [Probiotic] Lutein 20 mg PO DAILY 01/09/24 01/15/24 History Multivitamins, Thera [Multivitamin 1 tab PO DAILY 01/09/24 01/15/24 History (formulary)] Omeprazole [PriLOSEC] 40 mg PO BID 01/09/24 01/09/24 History Allergies Allergy/AdvReac Type Severity Reaction Status Date / Time midazolam HCl [From Versed] Allergy Rash/Hives Verified 01/09/24 13:41 pentazocine lactate AdvReac Nausea & Verified 01/09/24 13:41 [From Noelwin] Vomiting Physical Exam Vitals: Vital Signs Temp Pulse Pulse Pulse Resp BP BP 01/15/24 16:26 77 20 01/15/24 16:03 84 20 01/15/24 15:07 79 16 01/15/24 14:07 97 16 01/15/24 13:52 94 16 01/15/24 13:35 86 16 01/15/24 13:20 94 10 L 01/15/24 13:11 93 16 01/15/24 12:41 90 16 01/15/24 12:23 89 16 01/15/24 12:09 93 16 01/15/24 11:53 97.6 F 100 14 01/15/24 09:24 98.1 F 77 16 139/71 01/15/24 08:35 98.1 F 69 16 144/82 01/15/24 07:59 97.4 F L 82 20 166/62 BP Pulse Ox 01/15/24 16:26 153/72 96 01/15/24 16:03 121/79 98 01/15/24 15:07 138/76 99 01/15/24 14:07 138/76 93 L 01/15/24 13:52 152/79 96 01/15/24 13:35 131/70 97 01/15/24 13:20 139/79 97 01/15/24 13:11 140/88 100 01/15/24 12:41 144/78 100 01/15/24 12:23 151/77 100 01/15/24 12:09 164/88 100 01/15/24 11:53 169/88 100 01/15/24 09:24 01/15/24 08:35 01/15/24 07:59 97 Intake and Output 01/15/24 01/15/24 01/15/24 06:59 14:59 22:59 Intake Total 1100 Output Total 5 Balance 1095 Intake: IV 1100 Output: Estimated Blood Loss 5 Other: Weight 57.7 kg Results Labs: Abnormal Lab Results - Last 24 Hours (Table) 01/15/24 01/15/24 01/15/24 Range/Units 08:09 12:25 15:14 POC Glucose (mg/dL) 128 H 137 H 188 H (70-110) mg/dL Thrombosis Risk Factor Assmnt - Choose All That Apply Each Factor Represents 1 point: Obesity (BMI >25) Each Risk Factor Represents 2 Points: Major surgery, Malignancy Each Risk Factor Represents 3 Points: Age 75 years or older Thrombosis Risk Factor Assessment Total Risk Factor Score: 8 Thrombosis Risk Factor Assessment Level: High Risk
--- NOTE | 2024-01-15 17:58 | XR ---
EXAMINATION TYPE: XR chest 1V DATE OF EXAM: 01/15/2024 5:36 PM CLINICAL INDICATION:Female, 83 years old with history of hypoxia; PH[facility] COMPARISON: Chest radiographs from 06/25/2023 TECHNIQUE: XR chest 1V Frontal view of the chest. FINDINGS: Lungs/Pleura: There is flattening of the diaphragm with increased lucency of the lungs. No evidence o f pneumothorax, pleural effusion or focal consolidation. Pulmonary vascularity: Unremarkable. Heart/mediastinum: Cardiomediastinal silhouette is unremarkable. Musculoskeletal: No acute osseous pathology. Bilateral shoulder arthroplasty. Fixation changes of the cervical spine. Other findings: None IMPRESSION: 1. No acute cardiopulmonary disease process. 2. COPD changes.
[2024-01-15 19:18] LABS: Glucose,Whole Blood 176 mg/dL (70-110)
[2024-01-15 20:18] LABS: Glucose,Whole Blood 194 mg/dL (70-110)
[2024-01-15] MEDS: INSULIN ASPART (NovoLOG) 100 UNIT/ML VIAL SQ SCH (20:25)
[2024-01-15] MEDS: ONDANSETRON 4 MG/2 ML VIAL IVP PRN (20:46)
[2024-01-15] MEDS: FENOFIBRATE 160 MG TAB PO SCH (20:51)
[2024-01-15] MEDS: PANTOPRAZOLE 40 MG TABLET PO SCH (20:52)
[2024-01-15] MEDS: GABAPENTIN 300 MG CAP PO SCH (20:52)
[2024-01-15] MEDS: oxyBUTYnin chloride 5 MG TAB PO SCH (20:52)
[2024-01-15] MEDS: ACETAMINOPHEN TAB 325 MG TAB PO PRN (21:08)
[2024-01-15 21:13] LABS: Basophils % (A) 0 %; Eosinophils % (A) 0 %; HCT 34.5 % (34.0-46.0); HGB 10.8 gm/dL (11.4-16.0); Lymphocytes # (A) 0.7 k/uL (1.0-4.8); Lymphocytes % (A) 11 %; MCHC 31.4 g/dL (31.0-37.0); MCV 92.6 fL (80.0-100.0); Monocytes # (A) 0.4 k/uL (0-1.0); Monocytes % (A) 6 %; Neutrophils # (A) 4.9 k/uL (1.3-7.7); Neutrophils % (A) 81 %; Platelet Count 242 k/uL (150-450); RBC 3.73 m/uL (3.80-5.40); RDW 13.9 % (11.5-15.5); WBC 6.1 k/uL (3.8-10.6)
[2024-01-15 21:35] LABS: ALT 16 U/L (4-34); AST 27 U/L (14-36); African American GFR (CKD) >90 (>60 ml/min/1.73 sqM); Albumin 3.7 g/dL (3.5-5.0); Alkaline Phosphatase 107 U/L (38-126); Anion Gap 8 mmol/L; Blood Urea Nitrogen 21 mg/dL (7-17); Calcium 8.7 mg/dL (8.4-10.2); Carbon Dioxide 27 mmol/L (22-30); Chloride 103 mmol/L (98-107); Glucose 169 mg/dL (74-99); Magnesium 1.6 mg/dL (1.6-2.3); Non-African American GFR(CKD) 83 (>60 ml/min/1.73 sqM); Potassium 4.2 mmol/L (3.5-5.1); Sodium 138 mmol/L (137-145); Total Bilirubin 0.3 mg/dL (0.2-1.3); Total Protein 6.3 g/dL (6.3-8.2)
[2024-01-16] MEDS: SYMBICORT 160-4.5 MCG INHALER INHALATION SCH (05:08)
[2024-01-16 05:55] LABS: Glucose,Whole Blood 123 mg/dL (70-110)
[2024-01-16 07:41] VITALS: BP 115/64; PULSE 63; RESP 16; TEMP 97.9
[2024-01-16] MEDS: amLODIPine 2.5 MG TAB PO SCH (07:56)
[2024-01-16] MEDS: hydroCHLOROthiazide 12.5 MG CAP PO SCH (07:57)
[2024-01-16] MEDS: ASPIRIN 81 MG PO SCH (08:02)
[2024-01-16 08:34] LABS: Basophils # (A) 0.03 X 10*3/uL (0.00-0.10); Basophils % (A) 0.5 %; Eosinophils # (A) 0.15 X 10*3/uL (0.04-0.35); Eosinophils % (A) 2.7 %; HCT 32.4 % (37.2-46.3); HGB 10.2 g/dL (12.0-15.0); Lymphocytes # (A) 1.29 X 10*3/uL (0.90-5.00); Lymphocytes % (A) 23.5 %; MCH 28.8 pg (27.0-32.0); MCHC 31.5 g/dL (32.0-37.0); MCV 91.5 FL (80.0-97.0); Mean Platelet Volume 10.1 FL (9.5-12.2); Monocytes # (A) 0.58 X 10*3/uL (0.20-1.00); Monocytes % (A) 10.5 %; NRBC Per 100 WBC 0 X 10*3/uL (0.00-0.01); Neutrophils # (A) 3.44 X 10*3/uL (1.80-7.70); Neutrophils % (A) 62.6 %; Platelet Count 252 X 10*3/uL (140-440); RBC 3.54 X 10*6/uL (4.10-5.20); RDW 14.1 % (11.5-14.5)
[2024-01-16 09:12] LABS: ALT 14 U/L (8-44); AST 16 U/L (13-35); Albumin 3.6 g/dL (3.8-4.9); Albumin/Globulin Ratio 1.71 Ratio (1.60-3.17); Alkaline Phosphatase 90 U/L (41-126); Blood Urea Nitrogen 16.8 mg/dL (9.0-27.0); Calcium 8.6 mg/dL (8.7-10.3); Carbon Dioxide 26.9 mmol/L (21.6-31.8); Chloride 105 mmol/L (96-109); Globulin 2.1 g/dL (1.6-3.3); Glucose 107 mg/dL (70-110); Magnesium 1.8 mg/dL (1.5-2.4); Potassium 4.1 mmol/L (3.5-5.5); Sodium 142 mmol/L (135-145); Total Bilirubin 0.3 mg/dL (0.3-1.2); Total Protein 5.7 g/dL (6.2-8.2)
[2024-01-16 11:21] LABS: Glucose,Whole Blood 238 mg/dL (70-110)
--- NOTE | 2024-01-16 12:05 | P.DS ---
Providers Expected date of discharge: 01/16/24 Attending physician: Chidi Schmid MD Consults: 01/15/24 17:11 Consult Physician Routine Consulting Provider: Bon Martinez Consult Reason/Comments: hypoxia Do you want consulting provider notified?: Yes Primary care physician: Mami Baldpate Hospital Course: Discharge Diagnosis: Acute hypoxic respiratory failure, likely secondary to anesthesia and hypoventilation Type 2 diabetes Mild chronic anemia Chronic back pain Hypertension COPD/asthma without exacerbation Dyslipidemia GERD Urinary incontinence Hospital Course: Patient is a 82-year-old female with a history of COPD/asthma, hypertension, dyslipidemia, chronic back pain, 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 Patient tolerated procedure well. She received propofol, fentanyl during the procedure and Dilaudid after the procedure. Patient has been having difficulty weaning off of oxygen. Occasionally she has periods of apnea as well. Patient dropping down to 70s/80s without oxygen, requiring 2 L to maintain saturations. Rest of the vital signs otherwise within normal limits. Chest x-ray independently interpreted, shows small bilateral pleural effusions otherwise unremarkable. Patient being admitted for acute hypoxic respiratory failure. Pulmonology also consulted. Patient oxygenation improved. On room air at the time of discharge. Able to ambulate without much assistance. Follow-up with surgery after discharge. Patient seen and examined at bedside. Vital signs reviewed and stable. General: Nontoxic, no distress, appears at stated age Derm: Warm, dry, dressing clean, dry, intact Head: Atraumatic, normocephalic, symmetric Eyes: EOMI, no lid lag, anicteric sclera Mouth: No lip lesion, mucus membranes moist Cardiovascular: S1S2 reg, no murmur Lungs: CTA bilateral, no rhonchi, no rales, no accessory muscle use Abdominal: Soft, nontender to palpation, no guarding, no appreciable organomegaly Ext: No gross muscle atrophy, no edema, no contractures Neuro: CN II-XI grossly intact, no focal neuro deficits Psych: Alert, oriented, appropriate affect A total of 33 minutes of time were spent preparing this complex discharge summary. Patient was discharged on 01/16/2024 at 951. Patient Condition at Discharge: Stable Plan - Discharge Summary Discharge Rx Participant: Yes New Discharge Prescriptions: Continue gemfibroziL [Lopid] 600 mg PO BID Oxybutynin Chloride 5 mg PO BID metFORMIN HCL [Glucophage] 500 mg PO BID amLODIPine [Norvasc] 5 mg PO DAILY Aspirin [Adult Low Dose Aspirin EC] 81 mg PO DAILY Cholecalciferol [Vitamin D3 (25 Mcg = 1000 Iu)] 50 mcg PO DAILY Budesonide-Formot 160-4.5 Mcg [Symbicort 160-4.5 Mcg Inhaler] 2 puff INHALATION BID Fexofenadine HCl [Navya Allergy] 180 mg PO DAILY Ferrous Sulfate [Iron (65 MG Elemental)] 325 mg PO DAILY L.acidoph,Paracasei, B.lactis [Probiotic] 1 each PO HS Calcium Carbonate [Calcium] 600 mg PO BID hydroCHLOROthiazide 12.5 mg PO DAILY Insulin Glargine,Hum.rec.anlog [Lantus Solostar Pen] See Protocol SQ AC-BID PRN PRN Reason: blood sugar >200 Omeprazole [PriLOSEC] 40 mg PO BID Multivitamins, Thera [Multivitamin (formulary)] 1 tab PO DAILY Gabapentin [Neurontin] 300 mg PO 2000 Lutein 20 mg PO DAILY Dulaglutide [Trulicity] 1.5 mg SQ TU Discharge Medication List gemfibroziL [Lopid] 600 mg PO BID 08/13/14 [History] Oxybutynin Chloride 5 mg PO BID 11/26/17 [History] metFORMIN HCL [Glucophage] 500 mg PO BID 08/21/20 [History] amLODIPine [Norvasc] 5 mg PO DAILY 03/14/23 [History] hydroCHLOROthiazide 12.5 mg PO DAILY 03/14/23 [History] Aspirin [Adult Low Dose Aspirin EC] 81 mg PO DAILY 10/23/23 [History] Budesonide-Formot 160-4.5 Mcg [Symbicort 160-4.5 Mcg Inhaler] 2 puff INHALATION BID 01/09/24 [History] Calcium Carbonate [Calcium] 600 mg PO BID 01/09/24 [History] Cholecalciferol [Vitamin D3 (25 Mcg = 1000 Iu)] 50 mcg PO DAILY 01/09/24 [History] Dulaglutide [Trulicity] 1.5 mg SQ TU 01/09/24 [History] Ferrous Sulfate [Iron (65 MG Elemental)] 325 mg PO DAILY 01/09/24 [History] Fexofenadine HCl [Navya Allergy] 180 mg PO DAILY 01/09/24 [History] Gabapentin [Neurontin] 300 mg PO 199901/09/24 [History] Insulin Glargine,Hum.rec.anlog [Lantus Solostar Pen] See Protocol SQ AC-BID PRN 01/09/24 [History] L.acidoph,Paracasei, B.lactis [Probiotic] 1 each PO HS 01/09/24 [History] Lutein 20 mg PO DAILY 01/09/24 [History] Multivitamins, Thera [Multivitamin (formulary)] 1 tab PO DAILY 01/09/24 [History] Omeprazole [PriLOSEC] 40 mg PO BID 01/09/24 [History] Follow up Appointment(s)/Referral(s): Amie Zarate MD [STAFF PHYSICIAN] - 01/31/24 2:20 am Patient Instructions/Handouts: *Surgery [facility] - (Anesthesia) Discharge Instructions Outpatient Surgery, Breast Lumpectomy (DC) Activity/Diet/Wound Care/Special Instructions: do not drive may shower after 48 hours wear bra at all times Discharge Disposition: HOME SELF-CARE
--- NOTE | 2024-01-16 19:20 | P.CNPUL ---
History of Present Illness Consult date: 01/16/24 Reason for consult: COPD History of present illness: I was asked to evaluate this patient by Dr. Marcos Henry. Noted the patient has history of breast cancer and the patient underwent A left breast needle localization lumpectomy along with left breast axilla lymph node mapping and sentinel lymph node biopsy. This was done under general anesthesia. Noted postop, the patient was extubated and she was very slow to recover. She was not awake enough for discharge. Based on that, I made recommendations to admit this patient for observation. Noted during the process of surgery, the patient was receiving propofol and fentanyl and she also received Dilaudid postop. The patient gradually, with a level of consciousness. She did have some oxygen desaturation on room air with a pulse ox in the 80s and based on that she was placed on 2 L of oxygen by nasal cannula. She is known to have COPD and her preop pulmonary clearance was given through Dr. Reeder. The chest x-ray showed no acute cardiopulmonary process and the patient has some background COPD changes. No airspace disease. No consolidation. No evidence of any pneumonia. No reported aspiration. 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 This morning, she is fully alert and awake. She is communicating. Denies having any respiratory distress. Pulse ox on room air is at 97%. She was provided an incentive spirometer. She remains hemodynamically stable. Obviously, the plan is to discharge this patient home today. Her labs were also reviewed. The WBC count is 5.5 with a hemoglobin of 10.2, sodium is at 142 with a potassium level of 4.1, BUN is at 16 with a creatinine of 0.7. LFTs are normal. No hypoglycemia. Review of Systems Constitutional: Reports as per HPI Eyes: denies as per HPI, denies blurred vision, denies bulging eye, denies decreased vision, denies diplopia, denies discharge, denies dry eye, denies irritation, denies itching, denies pain, denies photophobia, denies loss of peripheral vision, denies loss of vision, denies tunnel vision/blind spots Ears: deny: decreased hearing, ear discharge, earache, tinnitus Ears, nose, mouth and throat: Reports as per HPI Breasts: absent: as per HPI, change in shape, gynecomastia, masses, nipple discharge, pain, skin changes, swelling Cardiovascular: Reports decreased exercise tolerance, Reports dyspnea on exertion Respiratory: Reports dyspnea Gastrointestinal: Reports as per HPI Genitourinary: Reports as per HPI Menstruation: Reports as per HPI Musculoskeletal: Reports as per HPI Musculoskeletal: absent: ankle pain, ankle stiffness, ankle swelling, as per HPI, elbow pain, elbow stiffness, elbow swelling, foot pain, foot stiffness, foot swelling, hand pain, hand stiffness, hand swelling, hip pain, hip stiffness, hip swelling, knee pain, knee stiffness, knee swelling, shoulder pain, shoulder stiffness, shoulder swelling, wrist pain, wrist stiffness, wrist swelling Integumentary: Reports as per HPI Neurological: Reports as per HPI Psychiatric: Reports as per HPI Past Medical History Past Medical History: Cancer, COPD, Diabetes Mellitus, GERD/Reflux, Hearing Disorder / Deafness, Hyperlipidemia, Hypertension, Musculoskeletal Disorder, Osteoarthritis (OA) Additional Past Medical History / Comment(s): "leaky heart valve", urinary incontinence, back pain, new dx. breast cancer, daughter had breast cancer History of Any Multi-Drug Resistant Organisms: MRSA Date of last positivie culture/infection: 2012 MDRO Source:: Stomach wound Past Surgical History: Back Surgery, Bladder Surgery, Breast Surgery, Hernia Repair, Hysterectomy, Joint Replacement, Orthopedic Surgery, Tubal Ligation Additional Past Surgical History / Comment(s): pain stimulator implant-LT HIP, chiquita CTS-left hand x3, BILAT TKA, neck fusion and plate in left side of neck,. REVERSE CHIQUITA SHOULDER SX, Pain stimulator removed 07/06, colonoscopy, Back surgery in Sep 2018 Past Anesthesia/Blood Transfusion Reactions: No Reported Reaction Additional Past Anesthesia/Blood Transfusion Reaction / Comment(s): no hx. of transfusion reaction Past Psychological History: No Psychological Hx Reported Smoking Status: Former smoker Past Alcohol Use History: None Reported Additional Past Alcohol Use History / Comment(s): QUIT SMOKING 1978, didn't smoke for long, 1ppweek Past Drug Use History: None Reported - Past Family History Mother Family Medical History: Cancer Additional Family Medical History / Comment(s): metastatic cancer Sister(s) Family Medical History: Cancer Additional Family Medical History / Comment(s): two sisters dx with ovarian cancer. one sister with lung cancer Brother(s) Family Medical History: Cancer Additional Family Medical History / Comment(s): one brother had lung cancer. half-brother had prostate cancer. maternal grandfather prostate cancer Medications and Allergies Home Medications Medication Instructions Recorded Confirmed Type gemfibroziL [Lopid] 600 mg PO BID 08/13/14 01/15/24 History Oxybutynin Chloride 5 mg PO BID 11/26/17 01/09/24 History metFORMIN HCL [Glucophage] 500 mg PO BID 08/21/20 01/15/24 History amLODIPine [Norvasc] 5 mg PO DAILY 03/14/23 01/09/24 History hydroCHLOROthiazide 12.5 mg PO DAILY 03/14/23 01/09/24 History Aspirin [Adult Low Dose Aspirin EC] 81 mg PO DAILY 10/23/23 01/09/24 History Budesonide-Formot 160-4.5 Mcg 2 puff INHALATION BID 01/09/24 01/15/24 History [Symbicort 160-4.5 Mcg Inhaler] Calcium Carbonate [Calcium] 600 mg PO BID 01/09/24 01/15/24 History Cholecalciferol [Vitamin D3 (25 50 mcg PO DAILY 01/09/24 01/15/24 History Mcg = 1000 Iu)] Dulaglutide [Trulicity] 1.5 mg SQ TU 01/09/24 01/09/24 History Ferrous Sulfate [Iron (65 MG 325 mg PO DAILY 01/09/24 01/15/24 History Elemental)] Fexofenadine HCl [Navya Allergy] 180 mg PO DAILY 01/09/24 01/15/24 History Gabapentin [Neurontin] 300 mg PO 199901/09/24 01/15/24 History Insulin Glargine,Hum.rec.anlog See Protocol SQ AC-BID PRN 01/09/24 01/15/24 History [Lantus Solostar Pen] L.acidoph,Paracasei, B.lactis 1 each PO HS 01/09/24 01/15/24 History [Probiotic] Lutein 20 mg PO DAILY 01/09/24 01/15/24 History Multivitamins, Thera [Multivitamin 1 tab PO DAILY 01/09/24 01/15/24 History (formulary)] Omeprazole [PriLOSEC] 40 mg PO BID 01/09/24 01/09/24 History Allergies Allergy/AdvReac Type Severity Reaction Status Date / Time midazolam HCl [From Versed] Allergy Rash/Hives Verified 01/09/24 13:41 pentazocine lactate AdvReac Nausea & Verified 01/09/24 13:41 [From Talwin] Vomiting Physical Exam Vitals: Vital Signs Temp Pulse Resp BP Pulse Ox 01/16/24 07:26 97.9 F 63 16 115/64 97 01/16/24 01:14 98.0 F 72 20 114/65 96 01/15/24 20:14 98.1 F 74 20 137/67 95 01/15/24 19:30 84 16 161/84 100 01/15/24 19:00 97.8 F 82 16 156/72 100 01/15/24 17:45 78 18 147/81 98 01/15/24 16:26 77 20 153/72 96 01/15/24 16:03 84 20 121/79 98 01/15/24 15:07 79 16 138/76 99 01/15/24 14:07 97 16 138/76 93 L 01/15/24 13:52 94 16 152/79 96 01/15/24 13:35 86 16 131/70 97 01/15/24 13:20 94 10 L 139/79 97 01/15/24 13:11 93 16 140/88 100 01/15/24 12:41 90 16 144/78 100 01/15/24 12:23 89 16 151/77 100 01/15/24 12:09 93 16 164/88 100 01/15/24 11:53 97.6 F 100 14 169/88 100 Intake and Output 01/15/24 01/16/24 01/16/24 22:59 06:59 14:59 Intake Total 420 Balance 420 Intake: Oral 420 Other: # Voids 1 Weight 57.7 kg General: nontoxic, no distress, appears at stated age, the patient is on room air oxygen. Derm: warm, dry, dressing clean, dry, intact Head: atraumatic, normocephalic, symmetric Eyes: EOMI, no lid lag, anicteric sclera, pupils equal round reactive to light ENT: Nose and ears atraumatic Neck: No thyromegaly, supple Mouth: no lip lesion, mucus membranes moist Cardiovascular: S1S2 reg, no murmur, no edema Lungs: clear to auscultation bilateral, no rhonchi, no rales, no wheeze, no accessory muscle use, supplemental oxygen Abdominal: soft, nontender to palpation, no guarding, no appreciable organomegaly Ext: no gross muscle atrophy, muscle strength muscle strength 5 out of 5 in all 4 extremities, no contractures Neuro: CN II-XII grossly intact Psych: Alert, oriented, appropriate affect Skin exam shows a clean surgical scar/wound. No evidence of any bleeding. Results - Laboratory Findings CBC and BMP: 01/16/24 05:24 01/16/24 05:24 Abnormal lab findings: Abnormal Labs 01/15/24 01/15/24 01/15/24 08:09 12:25 15:14 RBC Hgb Hct MCHC Lymphocytes # BUN BUN/Creatinine Ratio Glucose POC Glucose (mg/dL) 128 H 137 H 188 H Calcium Total Protein Albumin 01/15/24 01/15/24 01/15/24 19:17 20:17 20:43 RBC 3.73 L Hgb 10.8 L Hct MCHC Lymphocytes # 0.7 L BUN BUN/Creatinine Ratio Glucose POC Glucose (mg/dL) 176 H 194 H Calcium Total Protein Albumin 01/15/24 01/16/24 01/16/24 20:43 05:24 05:24 RBC 3.54 L Hgb 10.2 L Hct 32.4 L MCHC 31.5 L Lymphocytes # BUN 21 H BUN/Creatinine Ratio 24.00 H Glucose 169 H POC Glucose (mg/dL) Calcium 8.6 L Total Protein 5.7 L Albumin 3.6 L 01/16/24 05:54 RBC Hgb Hct MCHC Lymphocytes # BUN BUN/Creatinine Ratio Glucose POC Glucose (mg/dL) 123 H Calcium Total Protein Albumin - Diagnostic Findings Chest x-ray: image reviewed Assessment and Plan Plan: Acute hypoxic respiratory failure, recovered and the patient is currently on room air oxygen. The patient encountered some postop alveolar hypoventilation related to anesthetic agents and narcotic use. She has already recovered. Her mentation is back to normal. Respiratory status is back to normal. No significant respite difficulties at this point in time COPD which is currently inactive and stable maintained on Symbicort on outpatient basis History of breast cancer with lumpectomy left-sided along with sentinel lymph node biopsy. This was done under general anesthesia and the patient was monitored 24 hours postop. Surgical wound is dry clean and intact Diabetes mellitus type 2 Previous history of lacunar stroke Chronic back pain Hypertension Hyperlipidemia Acid reflux Plan Resume home medications Patient to be discharged home to follow-up with pulmonary and general surgery and medical oncology. No altered mentation. No signs of any respiratory sufficiency. Cleared for discharge from a pulmonary standpoint. Continues with incentive spirometer increase mobility and ambulation.
--- NOTE | 2024-01-23 09:11 | MM ---
Pathology Description: Approach: CC FA Needle Type: 7 cm Kopan The procedure of needle localization with wire placement and than surgical excision was explained to the patient. Benefits, alternatives, and risks were discussed. An informed consent was then obtained. The butterfly clip near the 12:00 position was targeted at the site of biopsy-proven carcinoma. The shortest pathway for procedure was chosen. Shortest pathway was a superior approach. The overlying skin was prepped and draped in usual sterile fashion. Lidocaine was used as anesthetic into the skin and subcutaneous tissue up to the level of area of concern. A 7 cm Kopans needle was used. It was placed via a superior approach under mammographic guidance. Subsequent 90 degrees mammogram show the needle to be in satisfactory position relative to the targeted area. At this point, wire was placed and the needle was withdrawn. The wire was fixed to patient's skin. Images were marked for surgeon. The patient tolerated the procedure well without any immediate complication. The patient was kept in the radiology department for short stay after the procedure and then taken to surgery for surgical excision. Targeted clip and wire are identified in specimen mammogram. An additional clip from other prior biopsy is also included in the specimen. The patient was kept in hospital for short stay after the procedure and then discharged home in stable condition. Impression: Successful, uncomplicated needle localization with wire placement and surgical excision of site of biopsy-proven left breast cancer, full pathology results to follow. Pathology Results: Result: Malignant, Invasive ductal carcinoma. A. SENTINEL NODE, BIOPSY: Lymph node with extensive fat replacement, negative for metastasis. CK7 immunostain on block A1, LEX immunostain on block A2, and CK AE1/3 immunostain on block A3 are confirmatory (controls appropriate). B. ADDITIONAL AXILLARY TISSUE: Lymph node with extensive fat replacement, negative for metastasis. C. 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 Margins negative for invasive malignancy or DCIS. See Surgical Pathology Cancer Case Summary. D. LEFT BREAST NEW MARGIN SUPERIOR, EXCISION: Benign fibroadipose tissue. E. LEFT BREAST NEW MARGIN INFERIOR, EXCISION: Benign breast with fibrocystic changes including fibroadenomatoid hyperplasia and microcalcifications. F. LEFT BREAST NEW MARGIN MEDIAL, EXCISION: Benign breast and fibroadipose tissue. G. LEFT BREAST NEW MARGIN LATERAL, EXCISION: Benign fibroadipose tissue. H. LEFT BREAST NEW MARGIN POSTERIOR, EXCISION: Benign fibroadipose tissue and skeletal muscle. Overall Assessment: Malignant Management: Diagnostic Mammogram of the left breast in 6 months. Surgical Consultation of the left breast. Electronically signed and approved by: Colton Reddy M.D. Radiologist
== END 2024-01-16 13:05 | disposition home or self-care (01) ==
LOC: OR 07:17 → 4SSUR 11:43 → OR 01-16 13:05
PROVIDERS: ATTEND Student in an Organized Health Care Education/Training Program
DX: D05.12 Intraductal carcinoma in situ of left breast (principal); N60.12 Diffuse cystic mastopathy of left breast; J44.89 Other specified chronic obstructive pulmonary disease; K21.9 Gastro-esophageal reflux disease without esophagitis; M19.90 Unspecified osteoarthritis, unspecified site; Z79.4 Long term (current) use of insulin; E11.42 Type 2 diabetes mellitus with diabetic polyneuropathy; E78.5 Hyperlipidemia, unspecified; G89.29 Other chronic pain; D64.9 Anemia, unspecified; I10 Essential (primary) hypertension; Z79.51 Long term (current) use of inhaled steroids; Z79.82 Long term (current) use of aspirin; Z79.84 Long term (current) use of oral hypoglycemic drugs; Z79.899 Other long term (current) drug therapy; Z86.73 Personal history of transient ischemic attack (TIA), and cerebral infarction without residual deficits; Z87.891 Personal history of nicotine dependence; Z85.3 Personal history of malignant neoplasm of breast
CPT/HCPCS: 38900; 19301; 94640; 80053 ×2; 83735 ×2; 85025 ×2; 88342; 88307; 88341; 71045; 76098; 19281; 38792; 38500; C1819; A9520; J1644; J1100; J0690; J2405; J2001; J3010; J2704; Q9968; J1170

== ENCOUNTER → 2024-01-31 | Outpatient (CLI) | payer MEDICARE, OTHER ==
[2024-01-31 14:41] VITALS: BP 165/50; PULSE 65; RESP 15; TEMP 98.1
--- NOTE | 2024-01-31 16:00 | P.PN ---
Progress Note - Text Progress Note Date: 01/31/24 Radha is an 83-year-old white female status post left breast lumpectomy and sentinel node biopsy on 01-15-2024. Pathology revealed invasive poorly differentiated ductal carcinoma and high-grade DCIS. Margins were negative for invasive malignancy or DCIS. She had 2 lymph nodes removed with no evidence of any metastatic disease. Postoperatively the patient has done well with no complaints. Examination: Incision: Clean and dry breast and axilla Plan: Follow-up medical oncology Follow-up radiation oncology Follow-up here in 4 months Follow-up sooner any questions or concerns Patient was given a copy of her pathology report and the results were discussed with the patient and her daughter and granddaughter. CC: Dr. Andrade
== END ==
LOC: WWCWWP 14:12
PROVIDERS: ATTEND Surgery
DX: Z90.12 Acquired absence of left breast and nipple (principal)

== ENCOUNTER → 2024-03-22 | Outpatient (CLI) | payer MEDICARE, OTHER ==
--- NOTE | 2024-03-22 14:00 | MR ---
MRI thoracic spine without contrast HISTORY: Mid to low back pain and tumor within the left breast. COMPARISON: None TECHNIQUE: Multiecho multiplanar images of thoracic spine were obtained without contrast. FINDINGS: The thoracic vertebral segments are normal in height and alignment and there is no fracture or sublux ation. There is moderate to marked degenerative disease throughout the thoracic region where there is modera te to marked disc space narrowing and spondylosis. There is no thoracic disc herniation. The thoracic cord is normal in size and signal intensity and there is no thoracic spinal stenosis. The paraspinal and epidural soft tissues are normal. IMPRESSION: Moderate to marked diffuse degenerative disease throughout the thoracic region. No thoracic disc dominic iation or thoracic spinal stenosis. Thoracic cord is normal.
== END | disposition home or self-care (01) ==
LOC: RADMRIMAIN 12:14
PROVIDERS: ATTEND Neurological Surgery
DX: M47.814 Spondylosis without myelopathy or radiculopathy, thoracic region (principal); M48.04 Spinal stenosis, thoracic region; D49.3 Neoplasm of unspecified behavior of breast
CPT/HCPCS: 72146

== ENCOUNTER 2024-04-22 07:02 | Day surgery (SDC) | payer MEDICARE, OTHER ==
[2024-04-18 14:13] VITALS: BMI 26.5
[2024-04-22] MEDS ORDERED: LIDOCAINE 1% (10MG/ML) FOR IV START INTRADERMA PRN (07:13)
[2024-04-22 07:31] VITALS: RESP 16; TEMP 98.1
[2024-04-22] MEDS: IV FLUID CONTINUATION 1,000 ML IV ONE (07:33)
[2024-04-22] MEDS: LACTATED RINGERS 1,000 ML IV SCH (07:40)
[2024-04-22 07:44] LABS: Glucose,Whole Blood 161 mg/dL (70-110)
[2024-04-22] MEDS ORDERED: LIDOCAINE 2% (PF) 20 MG/ML 5 ML VIAL ONE (08:15)
[2024-04-22] MEDS ORDERED: PROPOFOL 10 MG/ML 20 ML VIAL IV ONE (08:15)
--- NOTE | 2024-04-22 08:42 | P.PCN ---
Date of Procedure: 04/22/24 Procedure(s) Performed: Brief history: Patient is a pleasant 84-year-old white female scheduled for an elective upper endoscopy as well as colonoscopy as a part of evaluation of iron deficiency anemia. She denies any GI symptoms Procedure performed: Esophagogastroduodenoscopy with biopsy Colonoscopy Preoperative diagnosis: Iron deficiency anemia Anesthesia: [facility] Procedure: After informed consent was obtained from the patient was brought into the endoscopy unit and IV sedation was administered by anesthesia under continuous monitoring. Initially upper endoscopy was done. The Olympus GF 160 video endoscope was inserted inserted into the mouth and esophagus intubated without any difficulty and was gradually advanced into the stomach and duodenum and carefully examined. The bulb and second part of the duodenum appeared normal. The scope was then withdrawn into the stomach adequately insufflated with air and upon careful examination the antrum and body, cardia and fundus appeared normal. The scope was then withdrawn into the esophagus. The GE junction was located at 40 cm to the incisors. It appeared regular with no erythema erosions or ulcerations. Rest of the esophagus appeared normal. Patient tolerated the procedure well. At this time the patient continued to remain sedation. Initial digital rectal examination was normal. Olympus CF 160 video colonoscope was then inserted into the rectum and gradually advanced to the cecum without any difficulty. Careful examination was performed as the scope was gradually being withdrawn. The prep was excellent. The cecum, ascending colon, transverse colon, descending colon, sigmoid colon and rectum appeared normal. Scattered sigmoid diverticulosis retroflexion was performed in the rectum and no lesions were noted. Patient tolerated the procedure well. Impression: 1. Upper endoscopy revealed bilateral gastritis but no evidence of esophagitis or peptic ulcer disease 2. Colonoscopy revealed scattered sigmoid diverticulosis but no evidence of colorectal neoplasia. Recommendations: Findings of this examination were discussed with the patient as well as her family. She was advised to follow-up with the biopsy results. Follow-up in the office in 2 weeks.
[2024-04-22 09:02] VITALS: BP 146/63; PULSE 65
== END 2024-04-22 09:34 | disposition home or self-care (01) ==
LOC: ORWHC2ENDO 07:02
PROVIDERS: ATTEND Internal Medicine Gastroenterology
DX: K57.30 Diverticulosis of large intestine without perforation or abscess without bleeding (principal); K29.70 Gastritis, unspecified, without bleeding; D50.9 Iron deficiency anemia, unspecified; I10 Essential (primary) hypertension; E78.5 Hyperlipidemia, unspecified; J44.9 Chronic obstructive pulmonary disease, unspecified; H91.90 Unspecified hearing loss, unspecified ear; K21.9 Gastro-esophageal reflux disease without esophagitis; Z79.51 Long term (current) use of inhaled steroids; Z79.899 Other long term (current) drug therapy; Z79.82 Long term (current) use of aspirin; Z79.84 Long term (current) use of oral hypoglycemic drugs; Z79.4 Long term (current) use of insulin; Z79.85 Long-term (current) use of injectable non-insulin antidiabetic drugs; Z88.8 Allergy status to other drugs, medicaments and biological substances
CPT/HCPCS: 88305; 45378; 43239; J2704; J2001

== ENCOUNTER → 2024-04-24 | Outpatient (CLI) | payer MEDICARE, OTHER ==
--- NOTE | 2024-04-24 10:11 | XR ---
EXAMINATION TYPE: XR lumbar spine 2 or 3V DATE OF EXAM: 04/24/2024 9:42 AM CLINICAL INDICATION:Female, 84 years old with history of M46.1 sacroiliitis; [facility] COMPARISON: 07/06/2023 TECHNIQUE: XR lumbar spine 2 or 3V - Frontal, lateral and coned in L5-S1 lateral views of the spine. FINDINGS: Fixation hardware through L5-S1 and through the sacroiliac joints. Hardware is intact. Dege neration changes with osteophyte formation and disc space narrowing throughout the spine. There is st raightening of the spine with ankylosis of L2-3 and 4 anteriorly. There is severe degeneration change s at L1-L2 adjoining endplate. L5-S1 at least moderate neural foraminal stenosis. The spinal canal is poorly evaluated due to patient's degeneration changes. IMPRESSION: 1. No acute fracture. 2. Severe degeneration changes to the spine. Fixation hardware at the sacroiliac joints and L5-S1 all appear intact.
--- NOTE | 2024-04-24 12:16 | CT ---
EXAMINATION TYPE: CT pelvis wo con DATE OF EXAM: 04/24/2024 COMPARISON: 06/25/2023 HISTORY: right hit pain after fall x4 weeks ago with bruising CT DLP: 232 mGycm Automated exposure control for dose reduction was used. FINDINGS: There is no right hip fracture dislocation or significant joint space narrowing. There are extensive postsurgical changes in lower lumbar spine with fixation screw through the L5-S1 segment and wide laminectomy. There are fixation screws bridging the SI joints bilaterally unchanged compared to previous the S4 fracture seen on the prior study has healed in the interval. There is stable cholelithiasis. The bowel loops are normal in caliber. There is no pelvic mass or adenopathy. There is a partially ca lcified mass in the subcutaneous soft tissues of the left lower anterior, wall which is seen previous ly and is stable. IMPRESSION: 1. No right hip fracture, dislocation or significant degenerative arthritis. 2. Postsurgical changes involving the lower lumbar spine and SI joints as described above. IMPRESSION:
== END | disposition home or self-care (01) ==
LOC: RADCTMAIN 08:53
PROVIDERS: ATTEND Neurological Surgery
DX: M51.36 Other intervertebral disc degeneration, lumbar region (principal); M46.1 Sacroiliitis, not elsewhere classified
CPT/HCPCS: 72100; 72192

== ENCOUNTER → 2024-04-24 | Outpatient (CLI) | payer MEDICARE, OTHER ==
[2024-04-24 15:57] LABS: Reticulocyte % 1.42 % (0.10-1.80)
[2024-04-24 15:58] LABS: HCT 33.9 % (37.2-46.3); HGB 10.5 g/dL (12.0-15.0); MCH 29.3 pg (27.0-32.0); MCV 94.7 FL (80.0-97.0); Mean Platelet Volume 10.8 FL (9.5-12.2); NRBC Per 100 WBC 0 X 10*3/uL (0.00-0.01); Platelet Count 279 X 10*3/uL (140-440); RBC 3.58 X 10*6/uL (4.10-5.20); RDW 14.5 % (11.5-14.5); WBC 3.14 X 10*3/uL (4.50-10.00)
[2024-04-24 16:33] LABS: % Iron Saturation 18.62 (12.00-45.00)
== END | disposition home or self-care (01) ==
LOC: LABWHC1 09:56
PROVIDERS: ATTEND Nurse Practitioner Family
DX: D64.9 Anemia, unspecified (principal)
CPT/HCPCS: 36415; 82607; 82746; 83540; 83550; 85027; 85045

== ENCOUNTER 2024-05-21 17:56 | Emergency (ER) | payer MEDICARE, OTHER ==
[2024-05-21 18:06] VITALS: TEMP 97.9
--- NOTE | 2024-05-21 18:35 | ED ---
Lower Extremity Injury HPI - General Chief Complaint: Extremity Injury, Lower Stated Complaint: leg swelling Time Seen by Provider: 05/21/24 18:16 Source: patient, RN notes reviewed Mode of arrival: ambulatory Limitations: no limitations - History of Present Illness Initial Comments: 84-year-old female with past medical history of diabetes and hypertension presenting with redness of right lower leg x 2 days. States the front of her right lower leg began to get red and swollen. She has had this before and it was cellulitis. Denies numbness or tingling. Denies injury to the area. She is not on blood thinners. States she has no history of DVT. States she had a lobectomy in December to remove cancer in the lung and underwent radiation however is currently in remission. Denies recent travel, estrogen replacement therapy. She is a former smoker. Denies fever or chills. She is tolerating orals well. - Related Data Home Medications Medication Instructions Recorded Confirmed gemfibroziL [Lopid] 600 mg PO BID 08/13/14 05/21/24 Oxybutynin Chloride 5 mg PO BID 11/26/17 05/21/24 metFORMIN HCL [Glucophage] 500 mg PO BID 08/21/20 05/21/24 hydroCHLOROthiazide 12.5 mg PO DAILY 03/14/23 05/21/24 Budesonide-Formot 160-4.5 Mcg 2 puff INHALATION RT-BID 01/09/24 05/21/24 [Symbicort 160-4.5 Mcg Inhaler] Dulaglutide [Trulicity] 1.5 mg SQ TU 01/09/24 05/21/24 Ferrous Sulfate [Iron (65 MG 325 mg PO DAILY 01/09/24 05/21/24 Elemental)] Gabapentin [Neurontin] 300 mg PO BID 01/09/24 05/21/24 Insulin Glargine,Hum.rec.anlog 10 units SQ DAILY PRN 01/09/24 05/21/24 [Lantus Solostar Pen] Lutein 20 mg PO DAILY 01/09/24 05/21/24 Multivitamins, Thera [Multivitamin 1 tab PO DAILY 01/09/24 05/21/24 (formulary)] Albuterol Inhaler [Ventolin Hfa 1 - 2 puff INHALATION RT-QID PRN 04/18/24 05/21/24 Inhaler] Ammonium Lactate Lotion 1 applic TOPICAL BID 05/21/24 05/21/24 [Lac-Hydrin 12% Lotion] HYDROcodone/APAP 10-325MG [[place] 1 tab PO Q8H PRN 05/21/24 05/21/24 10-325] Omeprazole 20 mg PO BID 05/21/24 05/21/24 Repaglinide [Prandin] 0.5 mg PO AC-TID PRN 05/21/24 05/21/24 amLODIPine [Norvasc] 5 mg PO DAILY 05/21/24 05/21/24 tiZANidine [Zanaflex] 4 mg PO TID 05/21/24 05/21/24 Previous Rx's Medication Instructions Recorded Cephalexin [Keflex] 500 mg PO Q6HR 7 Days #28 cap 05/21/24 Sulfamethox-Tmp 800-160Mg [Bactrim 1 each PO Q12HR 7 Days #14 tab 05/21/24 Ds] Allergies Allergy/AdvReac Type Severity Reaction Status Date / Time midazolam HCl [From Versed] Allergy Rash/Hives Verified 05/21/24 19:46 pentazocine lactate AdvReac Nausea & Verified 05/21/24 19:46 [From Oscar] Vomiting Review of Systems ROS Statement: Those systems with pertinent positive or pertinent negative responses have been documented in the HPI. ROS Other: All systems not noted in ROS Statement are negative. Past Medical History Past Medical History: Cancer, COPD, Diabetes Mellitus, GERD/Reflux, Hearing Disorder / Deafness, Hyperlipidemia, Hypertension, Musculoskeletal Disorder, Osteoarthritis (OA) Additional Past Medical History / Comment(s): "Leaky heart valve", urinary incontinence, back pain, limited mobility in neck, recent left breast cancer with lumpectomy, radiation, bilateral hearing aids. History of Any Multi-Drug Resistant Organisms: MRSA Date of last positivie culture/infection: 2012 MDRO Source:: Stomach wound Past Surgical History: Back Surgery, Bladder Surgery, Breast Surgery, Hernia Repair, Hysterectomy, Joint Replacement, Orthopedic Surgery, Tubal Ligation Additional Past Surgical History / Comment(s): Pain stimulator implant-left hip- later removed, bilateral carpal tunnel surgery-left hand X3, bilateral total knee replacements, neck fusion and plate in left side of neck, reverse bilateral shoulder surgery, colonoscopy, back surgery Sep 2018, left breast biopsy and lumpectomy. Past Anesthesia/Blood Transfusion Reactions: No Reported Reaction Additional Past Anesthesia/Blood Transfusion Reaction / Comment(s): No hx of transfusion reaction. Trouble breathing after left breast lumpectomy. Past Psychological History: No Psychological Hx Reported Smoking Status: Former smoker - Past Family History Mother Family Medical History: Cancer Additional Family Medical History / Comment(s): metastatic cancer Sister(s) Family Medical History: Cancer Additional Family Medical History / Comment(s): two sisters dx with ovarian cancer. one sister with lung cancer Brother(s) Family Medical History: Cancer Additional Family Medical History / Comment(s): one brother had lung cancer. half-brother had prostate cancer. maternal grandfather prostate cancer Daughter(s) Family Medical History: Cancer General Exam Limitations: no limitations General appearance: alert, in no apparent distress Head exam: Present: atraumatic, normocephalic, normal inspection Eye exam: Present: normal appearance, PERRL, EOMI. Absent: scleral icterus, conjunctival injection, periorbital swelling ENT exam: Present: normal exam, mucous membranes moist Respiratory exam: Present: normal lung sounds bilaterally. Absent: respiratory distress, wheezes, rales, rhonchi, stridor Cardiovascular Exam: Present: regular rate, normal rhythm, normal heart sounds. Absent: systolic murmur, diastolic murmur, rubs, gallop, clicks GI/Abdominal exam: Present: soft, normal bowel sounds. Absent: distended, tenderness, guarding, rebound, rigid Right Upper Leg exam: Present: normal inspection, full ROM. Absent: tenderness, swelling Knee exam: Present: normal inspection, full ROM. Absent: tenderness, swelling Lower Leg exam: Present: full ROM, tenderness (Anterior aspect of the leg is tender to touch. No calf tenderness), swelling. Absent: normal inspection (Scattered patches of erythema present on anterior aspect of lower leg. 1+ pitting edema present) Ankle exam: Present: normal inspection, full ROM, swelling (Mild edema to right ankle). Absent: tenderness Foot/Toe exam: Present: normal inspection, full ROM. Absent: tenderness, swelling Neurovascular tendon exam: Present: no vascular compromise. Absent: pulse deficit, abnormal cap refill, sensory deficit Course Vital Signs 05/21/24 05/21/24 05/21/24 18:03 19:47 23:10 Temperature 97.9 F Pulse Rate 75 64 58 L Respiratory 16 20 18 Rate Blood Pressure 137/72 162/80 145/69 O2 Sat by Pulse 97 96 98 Oximetry Medical Decision Making - Medical Decision Making Was pt. sent in by a medical professional or institution (, [facility], [employer], urgent care, hospital, or retirement...) When possible be specific @ -No Did you speak to anyone other than the patient for history (EMS, parent, family, police, friend...)? What history was obtained from this source @ -Patient's granddaughter supplemented history Did you review nursing and triage notes (agree or disagree)? Why? @ -I reviewed and agree with nursing and triage notes Were old charts reviewed (outside hosp., previous admission, EMS record, old EKG, old radiological studies, urgent care reports/EKG's, retirement records)? Report findings @ -No old charts were reviewed Differential Diagnosis (chest pain, altered mental status, abdominal pain women, abdominal pain men, vaginal bleeding, weakness, fever, dyspnea, syncope, headache, dizziness, GI bleed, back pain, seizure, CVA, palpatations, mental health, musculoskeletal)? @ -Differential Musculoskeletal Muscular strain, contusion, ligament sprain, fracture, arthritis, septic arthritis, bursitis, cellulitis, muscle spasm, nerve compression, DVT, arterial occlusion, herpes zoster, electrolyte abnormality, tumor.... This is not meant to be in all inclusive list EKG interpreted by me (3pts min.). @ -None X-rays interpreted by me (1pt min.). @ -X-ray revealed mild generalized soft tissue swelling, no acute osseous abnormality CT interpreted by me (1pt min.). @ -None done U/S interpreted by me (1pt. min.). @ -Ultrasound revealed no evidence for DVT within right lower extremity, there is mild soft tissue swelling, nonspecific enlarged lymph node measuring 2.0 cm short axis in the right inguinal region likely reactive/postinflammatory What testing was considered but not performed or refused? (CT, X-rays, U/S, labs)? Why? @ -None What meds were considered but not given or refused? Why? @ -None Did you discuss the management of the patient with other professionals (professionals i.e. , PA, [employer], lab, RT, psych nurse, social problems specialist, sec accountant, teacher, cavalry officer, nurse outreach case manager)? Give summary @ -No Was smoking cessation discussed for >3mins.? @ -No Was critical care preformed (if so, how long)? @ -No Were there social determinants of health that impacted care today? How? (Homelessness, low income, unemployed, alcoholism, drug addiction, transportation, low edu. Level, literacy, decrease access to med. care, residential, rehab)? @ -No Was there de-escalation of care discussed even if they declined (Discuss DNR or withdrawal of care, Hospice)? DNR status @ -No What co-morbidities impacted this encounter? (DM, HTN, Smoking, COPD, CAD, Cancer, CVA, ARF, Chemo, Hep., AIDS, mental health diagnosis, sleep apnea, morbid obesity)? @ -Diabetes mellitus Was patient admitted / discharged? Hospital course, mention meds given and rou te, prescriptions, significant lab abnormalities, going to OR and other pertinent info. @ -Patient was discharged. Patient was seen and evaluated for rash on right lower leg x 2 days. Patient is afebrile and nontachycardic. Physical examination remarkable for diffuse erythema on anterior aspect of right lower leg with 1+ pitting edema. Erythema is not circumferential. Lab work is remarkable for mildly elevated BUN and CRP. Patient's white count is 3.6. Ultrasound reveals no evidence for DVT within the right lower extremity. X-ray reveals mild generalized soft tissue swelling, no acute osseous abnormality. Discussed with patient diagnosis of cellulitis. Patient does not meet inpatient criteria at this time as she is afebrile, there is no suspicion for sepsis at this time, cellulitis is not circumferential, and there are no significant comorbidities. Diabetes is well-controlled. Patient is given dose of IV Unasyn and vancomycin while in ER. Patient is prescribed Keflex and Bactrim. Strict return/alarm symptoms discussed with patient and granddaughter in detail and they show understanding and agree with plan. Follow-up with PCP in 1 to 3 days for reevaluation. Case discussed with my attending Dr. Pimentel. Patient discharged in stable condition. Undiagnosed new problem with uncertain prognosis? @ -No Drug Therapy requiring intensive monitoring for toxicity (Heparin, Nitro, Insulin, Cardizem)? @ -No Were any procedures done? @ -No Diagnosis/symptom? @ -Cellulitis of right lower extremity Acute, or Chronic, or Acute on Chronic? @ -Acute Uncomplicated (without systemic symptoms) or Complicated (systemic symptoms)? @ -Uncomplicated Side effects of treatment? @ -No Exacerbation, Progression, or Severe Exacerbation? @ -No Poses a threat to life or bodily function? How? (Chest pain, [place], [place], pneumonia, PE, COPD, DKA, ARF, appy, cholecystitis, CVA, Diverticulitis, Homicidal, Suicidal, threat to staff... and all critical care pts) @ -Low likelihood - Lab Data Result diagrams: 05/21/24 19:02 05/21/24 19:02 Lab Results 05/21/24 05/21/24 05/21/24 Range/Units 19:02 19:02 19:02 WBC 3.6 L (3.8-10.6) k/uL RBC 3.38 L (3.80-5.40) m/uL Hgb 10.5 L (11.4-16.0) gm/dL Hct 31.2 L (34.0-46.0) % MCV 92.4 (80.0-100.0) fL MCH 31.2 (25.0-35.0) pg MCHC 33.8 (31.0-37.0) g/dL RDW 14.1 (11.5-15.5) % Plt Count 253 (150-450) k/uL MPV 8.8 Neutrophils % 55 % Lymphocytes % 27 % Monocytes % 10 % Eosinophils % 4 % Basophils % 1 % Neutrophils # 2.0 (1.3-7.7) k/uL Lymphocytes # 1.0 (1.0-4.8) k/uL Monocytes # 0.4 (0-1.0) k/uL Eosinophils # 0.1 (0-0.7) k/uL Basophils # 0.0 (0-0.2) k/uL PT 10.1 (10.0-12.5) sec INR 0.9 (<1.2) APTT 23.0 (22.0-30.0) sec Sodium 139 (137-145) mmol/L Potassium 4.4 (3.5-5.1) mmol/L Chloride 107 (98-107) mmol/L Carbon Dioxide 24 (22-30) mmol/L Anion Gap 8 mmol/L BUN 24 H (7-17) mg/dL Creatinine 0.80 (0.52-1.04) mg/dL Est GFR (CKD-EPI)AfAm 79 (>60 ml/min/1.73 sqM) Est GFR (CKD-EPI)NonAf 68 (>60 ml/min/1.73 sqM) Glucose 117 H (74-99) mg/dL Plasma Lactic Acid Vidal (0.7-2.0) mmol/L Calcium 9.0 (8.4-10.2) mg/dL Total Bilirubin 0.5 (0.2-1.3) mg/dL AST 33 (14-36) U/L ALT 15 (4-34) U/L Alkaline Phosphatase 113 (38-126) U/L C-Reactive Protein 2.0 H (<1.0) mg/dL Total Protein 6.8 (6.3-8.2) g/dL Albumin 4.1 (3.5-5.0) g/dL 05/21/24 Range/Units 19:02 WBC (3.8-10.6) k/uL RBC (3.80-5.40) m/uL Hgb (11.4-16.0) gm/dL Hct (34.0-46.0) % MCV (80.0-100.0) fL MCH (25.0-35.0) pg MCHC (31.0-37.0) g/dL RDW (11.5-15.5) % Plt Count (150-450) k/uL MPV Neutrophils % % Lymphocytes % % Monocytes % % Eosinophils % % Basophils % % Neutrophils # (1.3-7.7) k/uL Lymphocytes # (1.0-4.8) k/uL Monocytes # (0-1.0) k/uL Eosinophils # (0-0.7) k/uL Basophils # (0-0.2) k/uL PT (10.0-12.5) sec INR (<1.2) APTT (22.0-30.0) sec Sodium (137-145) mmol/L Potassium (3.5-5.1) mmol/L Chloride (98-107) mmol/L Carbon Dioxide (22-30) mmol/L Anion Gap mmol/L BUN (7-17) mg/dL Creatinine (0.52-1.04) mg/dL Est GFR (CKD-EPI)AfAm (>60 ml/min/1.73 sqM) Est GFR (CKD-EPI)NonAf (>60 ml/min/1.73 sqM) Glucose (74-99) mg/dL Plasma Lactic Acid Vidal 1.1 (0.7-2.0) mmol/L Calcium (8.4-10.2) mg/dL Total Bilirubin (0.2-1.3) mg/dL AST (14-36) U/L ALT (4-34) U/L Alkaline Phosphatase (38-126) U/L C-Reactive Protein (<1.0) mg/dL Total Protein (6.3-8.2) g/dL Albumin (3.5-5.0) g/dL Disposition Clinical Impression: Cellulitis of right lower leg Disposition: HOME SELF-CARE Condition: Stable Instructions (If sedation given, give patient instructions): Cellulitis (ED) Additional Instructions: Please take antibiotics as prescribed. Please return to the Emergency Department if symptoms worsen or any other concerns. Prescriptions: Sulfamethox-Tmp 800-160Mg [Bactrim Ds] 1 each PO Q12HR 7 Days #14 tab Cephalexin [Keflex] 500 mg PO Q6HR 7 Days #28 cap Is patient prescribed a controlled substance at d/c from ED?: No Referrals: Pankaj Turner MD [Primary Care Provider] - 1-2 days Time of Disposition: 22:33
[2024-05-21 19:29] LABS: Basophils % (A) 1 %; Eosinophils # (A) 0.1 k/uL (0-0.7); Eosinophils % (A) 4 %; HCT 31.2 % (34.0-46.0); HGB 10.5 gm/dL (11.4-16.0); Lymphocytes % (A) 27 %; MCH 31.2 pg (25.0-35.0); MCHC 33.8 g/dL (31.0-37.0); MCV 92.4 fL (80.0-100.0); Mean Platelet Volume 8.8; Monocytes # (A) 0.4 k/uL (0-1.0); Monocytes % (A) 10 %; Neutrophils % (A) 55 %; Platelet Count 253 k/uL (150-450); RBC 3.38 m/uL (3.80-5.40); RDW 14.1 % (11.5-15.5); WBC 3.6 k/uL (3.8-10.6)
[2024-05-21 19:31] LABS: ALT 15 U/L (4-34); African American GFR (CKD) 79 (>60 ml/min/1.73 sqM); Albumin 4.1 g/dL (3.5-5.0); Anion Gap 8 mmol/L; Blood Urea Nitrogen 24 mg/dL (7-17); Carbon Dioxide 24 mmol/L (22-30); Chloride 107 mmol/L (98-107); Glucose 117 mg/dL (74-99); Non-African American GFR(CKD) 68 (>60 ml/min/1.73 sqM); Sodium 139 mmol/L (137-145); Total Bilirubin 0.5 mg/dL (0.2-1.3); Total Protein 6.8 g/dL (6.3-8.2)
[2024-05-21 19:42] LABS: AST 33 U/L (14-36); Alkaline Phosphatase 113 U/L (38-126); Potassium 4.4 mmol/L (3.5-5.1)
[2024-05-21 19:44] LABS: INR 0.9 (<1.2); Prothrombin Time 10.1 sec (10.0-12.5)
--- NOTE | 2024-05-21 19:50 | XR ---
EXAMINATION TYPE: XR tibia fibula 2 views RT DATE OF EXAM: 05/21/2024 COMPARISON: NONE HISTORY: 84 year-old female right leg edema/erythema FINDINGS: Mild generalized soft tissue swelling throughout. Partially visualized right total knee art hroplasty. There appears to be thickening at the middle to distal third Achilles tendon on the latera l view. IMPRESSION: 1. Mild generalized soft tissue swelling. Partially visualized right total knee arthroplasty. No acut e osseous abnormality seen. 2. Apparent thickening of the Achilles tendon. If concern for Achilles tendinopathy or Achilles tendo n injury, consider MRI or outpatient [facility] ultrasound.
--- NOTE | 2024-05-21 20:02 | US ---
EXAMINATION TYPE: US venous doppler duplex LE RT DATE OF EXAM: 05/21/2024 6:32 PM COMPARISON: NONE CLINICAL INDICATION: Female, 84 years old with history of pain; Patient states right leg pain. No hx of DVT. Patient takes aspirin. SIDE PERFORMED: Right TECHNIQUE: The lower extremity deep venous system is examined utilizing real time linear array sonog verna with graded compression, doppler sonography and color-flow sonography. VESSELS IMAGED: Common Femoral Vein Deep Femoral Vein Greater Saphenous Vein * Femoral Vein Popliteal Vein Small Saphenous Vein * Proximal Calf Veins Posterior tibial veins (* superficial vessels) Right Leg: Appears negative for DVT. Prominent lymph node in the right inguinal region measuring 2.0 x 2.6 x 0.8cm. Mild subcutaneous edema within the visualized calf. IMPRESSION: 1. No evidence for DVT within the right lower extremity. 2. Mild soft tissue swelling in the calf. 3. Nonspecific enlarged lymph node measuring 2.0 cm short axis in the right inguinal region. A reacti ve/post inflammatory etiology is favored. Correlate with physical exam findings. Recommend follow-up ultrasound in 6-8 weeks to ensure stability/resolution.
[2024-05-21] MEDS ORDERED: VANCOMYCIN IV PER PHARMACY 1 EACH MISC MISCELLANE PRN (20:39)
[2024-05-21] MEDS: AMPICILLIN-SULBACTAM 3 GM in SODIUM CHLORIDE 0.9% 100 ML IVPB STA (21:08)
[2024-05-21] MEDS: VANCOMYCIN 1,000 MG in SODIUM CHLORIDE 0.9% 250 ML IVPB STA (22:09)
[2024-05-21 23:19] VITALS: RESP 18
[2024-05-22 01:21] VITALS: BP 170/70; PULSE 64
[2024-05-22] MEDS ORDERED: VANCOMYCIN 1,000 MG in SODIUM CHLORIDE 0.9% 250 ML IVPB SCH (21:00)
== END 2024-05-22 01:18 | disposition home or self-care (01) ==
LOC: EC 17:56
DX: L03.115 Cellulitis of right lower limb (principal); E11.9 Type 2 diabetes mellitus without complications; I10 Essential (primary) hypertension; Z79.84 Long term (current) use of oral hypoglycemic drugs; Z79.82 Long term (current) use of aspirin; Z79.4 Long term (current) use of insulin; Z79.899 Other long term (current) drug therapy; Z87.891 Personal history of nicotine dependence; Z88.8 Allergy status to other drugs, medicaments and biological substances
CPT/HCPCS: 36415; 80053; 83605; 85025; 85610; 85730; 86140; 87040; 73590; 93971; 99284; 96365; 96367; 96366; J3370; J0295

== ENCOUNTER → 2024-06-06 | Outpatient (CLI) | payer MEDICARE, OTHER ==
--- NOTE | 2024-06-06 09:22 | P.PN ---
Subjective Progress Note Date: 06/06/24 Principal diagnosis: left breast IDC T(9mm) [id number] stage I left breast cancer 2023 fibrocystic breast changes Subjective 84-year-old white female who had been followed for chronic changes in her breast. She underwent a left breast mammogram and ultrasound in October 2023. This led to an ultrasound-guided core biopsy on 11-07-2023. No other lesions of concern were identified. 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 This was ER negative CA negative and HER2 negative, grade 3. She has been followed for amyloidosis with medical oncology. Her last bilateral mammogram was in May 2023 and did not show any lesions of concern. Her case was presented at tumor board on 11-27-2023. She is not complaining of any new lumps, masses, or nodules of concern in either breast. She has had a weight loss from 265 to 120. OR: 01-15-24 lumpectomy adn SNV (margins negative, SNB negative) note Dr. Joseph reviewed, 05-01-24 completed treatment on 04-01-24 note medical oncology reviewed: 02-15-24 declined chemotherapy Last bilateral mammogram 10-22-23: lesion in the left breast noted Family history: 2 Daughters: Breast cancer 1 recently from COVID Paternal niece: Breast cancer diagnosed premenopausal Second paternal niece: Breast cancer premenopausal 2 sisters: Ovarian cancer but from this Mother: Carcinomatosis uncertain of the etiology, mother skin cancer on her arm Paternal grandfather: Prostate cancer Paternal half-brother: Prostate cancer Past surgical history: 1. Back surgery 2. Prior surgery 3. Breast biopsies 4. Hernia surgery 5. Hysterectomy 6. Tubal ligation 7. Joint replacement 8. Orthopedic surgery 9. Pain stimulator placed and removed 10. bilateral total knee replacement 11. Left shoulder surgery 12. Neck exploration for parathyroid surgery 13. Neck fusion 14. skin surgery of nose 15. right hand 16. left hand surgery Medical history: 1. Diabetes 2. Asthma 3. Hypertension 4. Leaking heart valve 5. Hyperlipidemia 6. Amyloidosis 7. back and hip pain 8. history of recent CVA 9. difficulty with balance Social history: Smoke: Negative Alcohol: Negative Drugs: Negative Review of systems: HEENT: Decreased hearing Constitutional: No fever or night sweats Lungs: Asthma Cardiovascular: Leaking valve GI: Negative negative negative Integument: skin cancer on nose Musculoskeletal: Amyloidosis, arthritis Psychiatric: Negative ALLERGIES: matty rojas Objective - Constitutional General appearance: Present: cooperative - EENT Eyes: Present: EOMI - Neck Neck: Present: normal ROM - Respiratory Respiratory: bilateral: CTA - Cardiovascular Heart sounds: normal: S1, S2 - Integumentary Integumentary: Present: normal turgor - Musculoskeletal Musculoskeletal Comment(s): difficulty with gait - Psychiatric Psychiatric: Present: A&O x's 3, appropriate affect, intact judgment & insight - Additional findings Additional findings: breast exam: BRA: 44B inspection: Bilateral grade 3 ptosis Palpation: Right breast: Multi-positional exam fibrocystic changes no discrete dominant masses or nodules of concern right axilla: no adenopathy of concern Left breast: Fibrocystic changes, post surgical and radiation changes left axilla: No adenopathy of concern Assessment and Plan Assessment: Impression: 1. Diabetes 2. Asthma 3. Hypertension 4. Leaking heart valve 5. Hyperlipidemia 6. Amyloidosis 7. back and hip pain 8. Fibrocystic breast changes 9. left breast invasive ductal cancer [id number] tripple (-) Plan: 1. follow with radiation oncology 2. bilateral mammogram in October 2025 with appointment at that time 3. follow up sooner any concerns CC: Dr. Jesus, Dr. Turner
[2024-06-06 10:18] VITALS: BP 148/85; PULSE 61; RESP 17; TEMP 98.3
== END ==
LOC: WWCWWP 08:55
PROVIDERS: ATTEND Surgery
DX: C50.912 Malignant neoplasm of unspecified site of left female breast (principal); N60.11 Diffuse cystic mastopathy of right breast; N60.12 Diffuse cystic mastopathy of left breast; E85.9 Amyloidosis, unspecified; E11.9 Type 2 diabetes mellitus without complications; E78.5 Hyperlipidemia, unspecified; I10 Essential (primary) hypertension; J45.909 Unspecified asthma, uncomplicated; M54.9 Dorsalgia, unspecified; M25.559 Pain in unspecified hip; Z80.3 Family history of malignant neoplasm of breast; Z17.1 Estrogen receptor negative status [ER-]; Z88.8 Allergy status to other drugs, medicaments and biological substances; Z79.84 Long term (current) use of oral hypoglycemic drugs; Z79.899 Other long term (current) drug therapy; Z79.85 Long-term (current) use of injectable non-insulin antidiabetic drugs; Z79.4 Long term (current) use of insulin; Z79.51 Long term (current) use of inhaled steroids

== ENCOUNTER → 2024-07-25 | Outpatient (CLI) | payer MEDICARE, OTHER ==
[2024-07-25 18:29] LABS: Appearance,Urine Turbid (Clear); Bilirubin,Urine Negative (Negative); Blood,Urine Large (Negative); Color,Urine Dark Yellow (Yellow); Ketones,Urine Trace (Negative); Nitrite,Urine Negative (Negative); Specific Gravity,Urine 1.018 (1.001-1.030)
[2024-07-25 18:48] LABS: Bacteria,Urine 3+ (None Seen); Calcium Oxalate Crystals,Urine Present (None Seen)
== END | disposition home or self-care (01) ==
LOC: LABWHC1 11:23
PROVIDERS: ATTEND Internal Medicine
DX: N39.0 Urinary tract infection, site not specified
CPT/HCPCS: 81001; 87077; 87086; 87186

== ENCOUNTER → 2024-07-25 | Outpatient (CLI) | payer MEDICARE, OTHER ==
--- NOTE | 2024-07-25 16:23 | USB ---
Reason for Exam: Clinical finding. Patient History: Menarche at age 13. First Full-Term at age 20. Left ovary removed at age 50. Right ovary removed at age 50. Hysterectomy at age 50. Postmenopausal. Breast cancer, left, age 83. Breast cancer, left, age 83. Estrogen for 25 years from age 30 until age 55. Patient used Hormonal Contraceptives for 4 years. 01/15/2024, Lumpectomy on the Left side. 01/15/2024, Malignant MG pre op needle loc LT on the left side. 11/07/2023, Malignant US biopsy breast VAD LT on the left side. Excisional Biopsy on the Left side. 2003, Cyst Aspiration on the Left side. 08/2013, Cyst Aspiration. 2003, Excisional Biopsy on the Right side. 02/05/2018, Benign Core Biopsy on the left side. 12/06/2016, Benign Core Biopsy on the left side. 07/16/2014, Benign Core Biopsy on the left side. 07/16/2014, Benign Core Biopsy on the left side. 02/16/2014, Benign Core Biopsy on the left side. 12/20/2011, Benign Excisional Biopsy on the left side. Daughter had breast cancer, age 57. Daughter had breast cancer, age 58. Technique: Method: Targeted. Prior Study Comparison: 05/21/2023 Left MG 3D diag mammo w/cad LT, [facility]. 10/22/2023 Bilateral MG 3D diag mammo w/cad [place], [facility]. 11/07/2023 Left MG diagnostic mammo LT wo CAD., [facility]. Findings: The whole breast of the right breast, the axilla of the right breast and the retroareolar of the right breast were scanned. A complete US of all four quadrants of the breast common axilla, and retro-areolar region were reviewed. There is a lobulated heterogeneous hypoechoic area at the 12:00 position, 5 cm from the nipple measuring 3.0 cm, unchanged from 04/06/2022. Second similar area measuring 2.7 cm the 8:00 position, 5 cm from the nipple likely additional dense fibroglandular tissue. This can be reassessed at a follow-up exam as it is the first time seeing this area. In the meantime, diagnostic mammogram is recommended. No other solid or cystic lesion or axillary lymphadenopathy. Overall Assessment: Incomplete: need additional imaging evaluation, BI-RAD 0 Management: Diagnostic Mammogram of the right breast. Results were given to the patient verbally at the time of exam. Electronically signed and approved by: Colton Reddy M.D. Radiologist
[2024-07-25 17:14] LABS: African American GFR (CKD) 22 (>60 ml/min/1.73 sqM); Blood Urea Nitrogen 60 mg/dL (7-17); Non-African American GFR(CKD) 19 (>60 ml/min/1.73 sqM)
--- NOTE | 2024-07-25 18:52 | CT ---
EXAMINATION TYPE: CT chest wo con CT DLP: 298.8 mGycm, Automated exposure control for dose reduction was used. DATE OF EXAM: 07/25/2024 6:13 PM COMPARISON: None CLINICAL INDICATION: Female, 84 years old with history of [id number], E854, Z315, E119; PHH, left breast pain TECHNIQUE: Multiple axial images were obtained through the chest. Sagittal and coronal reformats were created for review. Contrast used: mL of (None if empty) Oral contrast used: (None if empty) FINDINGS: LUNGS/ PLEURA: Calcified granuloma right middle lobe. No suspicious pulmonary nodules. No focal conso lidation, pneumothorax or pleural effusion. Mild centrilobular emphysema changes. AIRWAY: Patent and unremarkable. HEART: Size within normal limits. MEDIASTINUM: No gross evidence of adenopathy. VASCULATURE: No aortic aneurysm. MUSCULOSKELETAL: No acute osseous abnormalities, bilateral shoulder arthroplasties and fixation hardw are in this cervical spine impression visualized. No evidence of hardware failure. No evidence for fr acture. No acute process within the left chest. Moderate to severe degeneration changes of the spine fusion of the lower L2 L3 L4 partially visualized. SOFT TISSUES/LYMPH NODES: Left chest wall masslike fibroglandular tissue with skin thickening. Multip le surgical clips present. LOWER NECK: No significant findings. UPPER ABDOMEN: Gallstone in the gallbladder. Calcified granulomas in the spleen and liver. IMPRESSION: 1. No acute process in the left chest to correlate with patient's pain. 2. Postoperative changes left breast with skin thickening. Correlate with mammography. No lymphadeno tam to suggest a static disease. 3. 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
== END | disposition home or self-care (01) ==
LOC: RADUSWWP 15:44
PROVIDERS: ATTEND Internal Medicine Hematology & Oncology
DX: C50.912 Malignant neoplasm of unspecified site of left female breast
CPT/HCPCS: 36415; 71250; 82565; 84520

== ENCOUNTER → 2024-08-01 | Outpatient (CLI) | payer MEDICARE, OTHER ==
--- NOTE | 2024-08-04 14:21 | MM ---
Reason for Exam: Follow-up at short interval from prior study. Last screening mammogram was performed 9 month(s) ago. Patient History: Menarche at age 13. First Full-Term at age 20. Left ovary removed at age 50. Right ovary removed at age 50. Hysterectomy at age 50. Postmenopausal. Breast cancer, left, age 83. Breast cancer, left, age 83. Estrogen for 25 years from age 30 until age 55. Patient used Hormonal Contraceptives for 4 years. 01/15/2024, Lumpectomy on the Left side. 01/15/2024, Malignant MG pre op needle loc LT on the left side. 11/07/2023, Malignant US biopsy breast VAD LT on the left side. Excisional Biopsy on the Left side. 2003, Cyst Aspiration on the Left side. 08/2013, Cyst Aspiration. 2003, Excisional Biopsy on the Right side. 02/05/2018, Benign Core Biopsy on the left side. 12/06/2016, Benign Core Biopsy on the left side. 07/16/2014, Benign Core Biopsy on the left side. 07/16/2014, Benign Core Biopsy on the left side. 02/16/2014, Benign Core Biopsy on the left side. 12/20/2011, Benign Excisional Biopsy on the left side. Daughter had breast cancer, age 57. Daughter had breast cancer, age 58. Prior Study Comparison: 05/21/2023 Left MG 3D diag mammo w/cad LT, [facility]. 10/22/2023 Bilateral MG 3D diag mammo w/cad CHIQUITA, [facility]. 11/07/2023 Left MG diagnostic mammo LT wo CAD., [facility]. Tissue Density: Right: The breasts are heterogeneously dense, which may obscure small masses. Findings: Analyzed By CAD. Increasing masslike density retroareolar right breast. Further review of the recent ultrasound of 07/25/2024 demonstrates hypoechoic mass at the 12:00 position as well as an additional smaller mass at the 8:00 position. While these lesions appear to be stable dating back to March 2022 given history of left-sided invasive carcinoma and mastectomy I do recommend tissue diagnosis of both sites. Overall Assessment: Suspicious, BI-RAD 4 Management: Ultrasound Core Biopsy of the right breast. . Results were given to the patient verbally at the time of exam. Patient should continue monthly self-breast exams. A clinical breast exam by your physician is recommended on an annual basis. This exam should not preclude additional follow-up of suspicious palpable abnormalities. Note on Holli scores and lifetime risk: 1. A Holli score greater than 3% is considered moderate risk. If this is the case, consider specialist referral to assess eligibility for a risk reducing agent. 2. If overall lifetime risk for the development of breast cancer is 20% or higher, the patient may qualify for future screening with alternating mammogram and breast MRI. Electronically signed and approved by: Jose Abebe M.D. Radiologis
== END | disposition home or self-care (01) ==
LOC: RADMAMWWP 10:13
PROVIDERS: ATTEND Internal Medicine Hematology & Oncology
DX: R92.8 Other abnormal and inconclusive findings on diagnostic imaging of breast
CPT/HCPCS: 77061; 77065

== ENCOUNTER → 2024-08-18 | Day surgery (SDC) | payer MEDICARE, OTHER ==
--- NOTE | 2024-08-25 13:52 | MM ---
Reason for Exam: Post Procedure Mammogram. Last screening mammogram was performed 9 month(s) ago. Patient History: Menarche at age 13. First Full-Term at age 20. Left ovary removed at age 50. Right ovary removed at age 50. Hysterectomy at age 50. Postmenopausal. Breast cancer, left, age 83. Breast cancer, left, age 83. Estrogen for 25 years from age 30 until age 55. Patient used Hormonal Contraceptives for 4 years. 01/15/2024, Lumpectomy on the Left side. 01/15/2024, Malignant MG pre op needle loc LT on the left side. 11/07/2023, Malignant US biopsy breast VAD LT on the left side. Excisional Biopsy on the Left side. 2003, Cyst Aspiration on the Left side. 08/2013, Cyst Aspiration. 2003, Excisional Biopsy on the Right side. 02/05/2018, Benign Core Biopsy on the left side. 12/06/2016, Benign Core Biopsy on the left side. 07/16/2014, Benign Core Biopsy on the left side. 07/16/2014, Benign Core Biopsy on the left side. 02/16/2014, Benign Core Biopsy on the left side. 12/20/2011, Benign Excisional Biopsy on the left side. Daughter had breast cancer, age 57. Daughter had breast cancer, age 58. Prior Study Comparison: 10/22/2023 Bilateral MG 3D diag mammo w/cad [place], [facility]. 11/07/2023 Left MG diagnostic mammo LT wo CAD., [facility]. 08/01/2024 Right MG 3D diag mammo w/cad RT, [facility]. Tissue Density: Right: The breasts are heterogeneously dense, which may obscure small masses. Pathology Description: Location: 9 o'clock. Needle Type: Celero Cores: 3 Gauge: 12 Pathology Description: Location: 12 o'clock. Marker Left Behind. Needle Type: Celero Cores: 4 Gauge: 12 The procedure of ultrasound guided core biopsy was explained to the patient. Benefits, alternatives, and risks were discussed. An informed consent was then obtained. The patient was placed in supine positioning for imaging and for the procedure. The overlying skin was prepped and draped in usual sterile fashion. Lidocaine buffered with bicarbonate was used as anesthetic into the skin and subcutaneous tissue up to areas of concern at the right 12:00 position and right 9:00 position which was characterized as the right 12:00 on prior ultrasound. Under ultrasound guidance, a 12-gauge vacuum assisted biopsy gun device was used to obtain 4 core samples at the 12:00 position and 3 core samples at the right 9:00 position.. Following this, a biopsy clips were left in the lesions. The patient tolerated the procedure well without any immediate complication. The patient was kept in the radiology department for short stay after the procedure and then discharged home in stable condition. Postprocedure mammogram: The patient was transferred to mammography for physician ordered post procedure mammogram for clip placement verification. Impression: Successful, uncomplicated ultrasound guided core biopsy of area of concern in the left 12:00 and left 9:00 breast, full pathology results to follow. [facility], , 08/18/2024 3:04 PM. Pathology Results: Result: High risk, Atypical lobular hyperplasia. A. RIGHT BREAST, TWEVE O'CLOCK, ULTRASOUND GUIDED NEEDLE CORE BIOPSY: Hylanized and sclerotic hypocellular breast tissue with focal microcalcification. Very rare features on H+E staining which are suggestive of possible atypical lobular hyperplasia. Negative for carcinoma. Final assessment pending Congo Red staining with an addendum report to follow (see note). B. RIGHT BREAST, NINE O'CLOCK, ULTRASOUND GUIDED NEEDLE CORE BIOPSY: Hylanized, hypocellular and sclerotic breast tissue with focal chronic periductal inflammation. Negative for carcinoma. Final assessment is pending Congo Red staining with an addendum report to follow (see note). 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 Examination of both specimens shows similar histologic findings, having hypocellular and sclerotic eosinophilic stroma. Very rare possible and suggestive atypical lobular hyperplasia is seen in specimen A on H+E staining. An E-cadherin stain with appropriate control is performed on the tissue block for specimen A, and this stain is non-contributory as the area of interest is unavailable for evaluation on the immunostain slide. Available ductal structures on E-cadherin staining on specimen A are positive. Examination of both specimens shows no diagnostic evidence of malignancy. It is noted the most recent imaging studies show a hypoechoic mass at the 12 o'clock position and a smaller mass at the 8 o'clock position and these lesional areas appear stable by imaging studies, according to the report. The findings may represent fibrocystic change with prominent fibrosis. However, final assessment is pending Congo Red staining on both of the tissue blocks by [facility] in order to further assess for the presence of mammary amyloidosis. Mammary amyloidosis is a differential diagnosis consideration. Results of the additional staining will be available in an addendum report. Overall Assessment: High risk Assessment: MG diagnostic mammo RT wo CAD - Right: Suspicious, BI-RAD 4. Management: Surgical Consultation of the right breast. Electronically signed and approved by: Jose Abebe M.D. Radiologis
== END ==
LOC: RADUSWWP 12:50
PROVIDERS: ATTEND Internal Medicine Hematology & Oncology
CPT/HCPCS: 77065; 88305; 88313; 88342

== ENCOUNTER → 2024-08-20 | Outpatient (CLI) | payer MEDICARE, OTHER ==
[2024-08-20 16:41] LABS: HCT 33.3 % (37.2-46.3); HGB 10.2 g/dL (12.0-15.0); MCH 29.7 pg (27.0-32.0); MCHC 30.6 g/dL (32.0-37.0); MCV 97.1 FL (80.0-97.0); Mean Platelet Volume 10.3 FL (9.5-12.2); NRBC Per 100 WBC 0 X 10*3/uL (0.00-0.01); Platelet Count 237 X 10*3/uL (140-440); RBC 3.43 X 10*6/uL (4.10-5.20); RDW 16.1 % (11.5-14.5); WBC 3.22 X 10*3/uL (4.50-10.00)
[2024-08-20 16:52] LABS: Blood Urea Nitrogen 20.3 mg/dL (9.0-27.0); Carbon Dioxide 22.3 mmol/L (21.6-31.8); Chloride 105 mmol/L (96-109); Potassium 4.2 mmol/L (3.5-5.5); Sodium 142 mmol/L (135-145)
== END | disposition home or self-care (01) ==
LOC: LABPAT 11:00
PROVIDERS: ATTEND Internal Medicine Interventional Cardiology
DX: B07.9 Viral wart, unspecified (principal)
CPT/HCPCS: 36415; 80051; 82565; 84520; 85027

== ENCOUNTER 2024-08-28 07:03 | Day surgery (SDC) | payer MEDICARE, OTHER ==
[~2024-08-28 07:03] MED LIST changes: +ALPRAZolam 0.5 MG TAB PO PRN; +HEPARIN SODIUM,PORCINE (1 ML) 2,500 UNIT in SODIUM CHLORIDE 0.9% 250 ML IRRIGATION PRN; +HEPARIN SODIUM,PORCINE 10,000 UNIT in SODIUM CHLORIDE 0.9% 1,000 ML IRRIGATION PRN; -LACTATED RINGERS 1,000 ML IV SCH; +NITROGLYCERIN SL TABS 0.4 MG TAB SUBLINGUAL PRN
[2024-08-28] MEDS: SODIUM CHLORIDE 0.9% 1,000 ML in EMPTY BAG 1 BAG IV SCH (07:50)
[2024-08-28] MEDS: SODIUM CHLORIDE 0.9% 1,000 ML IV ONE (07:50)
[2024-08-28 07:53] LABS: Glucose,Whole Blood 123 mg/dL (70-110)
[2024-08-28 08:01] VITALS: RESP 16; TEMP 98
[2024-08-28] MEDS: ASPIRIN 325 MG TAB PO ONE (08:04)
[2024-08-28] MEDS: HEPARIN SODIUM,PORCINE (1 ML) 2,500 UNIT in SODIUM CHLORIDE 0.9% 250 ML IRRIGATION ONE (09:05)
[2024-08-28] MEDS: HEPARIN SODIUM,PORCINE 10,000 UNIT in SODIUM CHLORIDE 0.9% 1,000 ML IRRIGATION ONE (09:05)
[2024-08-28] MEDS: fentaNYL (PF) 50 MCG/ML 2 ML AMP IVP ONE (09:12)
[2024-08-28] MEDS: LIDOCAINE 1% INJ 10MG/ML (20 ML MDV) SQ ONE (09:16)
[2024-08-28] MEDS: VERAPAMIL SYRINGE (5 MG/10 ML) INTRAARTER ONE (09:17)
[2024-08-28] MEDS: HEPARIN SODIUM 1,000 UN/ML (10ML VL) IV ONE (09:24)
[2024-08-28] MEDS: CLOPIDOGREL 75 MG TAB PO ONE (09:36)
[2024-08-28] MEDS: IOPAMIDOL-370 100ML BTL INJ ONE ×2 (09:39→10:02)
[2024-08-28] MEDS ORDERED: MAG HYDROX/AL HYDROX/SIMETH 30 ML CUP PO PRN (10:12)
[2024-08-28] MEDS ORDERED: NITROGLYCERIN SL TABS 0.4 MG TAB SUBLINGUAL PRN (10:12)
[2024-08-28] MEDS ORDERED: ZOLPIDEM 5 MG TAB PO PRN (10:12)
[2024-08-28] MEDS ORDERED: ATROPINE SULFATE 0.1 MG/ML 10ML SYRINGE IV PRN (10:12)
[2024-08-28] MEDS ORDERED: REPAGLINIDE 1 MG TAB PO PRN (10:13)
[2024-08-28] MEDS ORDERED: HYDROcodone/APAP 10-325MG 1 EACH TAB PO PRN (10:13)
[2024-08-28] MEDS ORDERED: SODIUM CHLORIDE 0.9% 1,000 ML in EMPTY BAG 1 BAG IV SCH (10:15)
--- NOTE | 2024-08-28 10:25 | P.CARDCATH ---
Date of Procedure: 08/28/24 Description of Procedure: Cardiac Catheterization: The patient is an 84-year-old female with a known history of hypertension, hyperlipidemia and diabetes who has been complaining of chest discomfort and had an abnormal MPI. Recommendations were made regarding cardiac catheterization, the risks and the complications were discussed with the patient who is in full understanding and agreement. Procedure Description: Patient was brought to director of cath lab in fasting semi-sedated state after receiving Fentanyl and Benadryl achieiving moderate conscious sedated state. Using Xylocaine Anesthesia and modified Seldinger technique, a 6-Greenlandic sheath was introduced in the right radial artery . Subsequently, selective coronary angiography was performed using a 5-Greenlandic 3.5 bend Karthik catheter. Multiple views of the coronary artery including hemiaxial views were obtained. The right Karthik catheter was used to cross the aortic valve and LVEDP was calculated. PCI: After removing the catheters a 6 Greenlandic CLS 3.5 guiding catheter was introduced into the system and subsequently the left main was cannulated. A 0.014 BMW J- wire was positioned in the distal LAD. Subsequently a KS12 IVUS catheter was introduced and images were obtained that revealed moderate calcification throughout the vessel with a area of stenosis noted. The distal vessel was measuring 3.0 to 3.2 mm diameter. After removing the catheter a 2.5 x 12 mm NC trek balloon was advanced and 1 inflation at 10 andi was done. Sub sequently a 3.0 x 15 mm Xience maria a point stent was advanced and deployed at 16 andi. After removing the balloon repeat IVUS imaging was performed that revealed good apposition of the stent. Subsequently the wire was removed images were obtained and revealed stable successful stenting. Following that, catheter and sheath were removed. Hemostasis was obtained with deployment of vascular band . There was no immediate complication. Patient was returned to room in stable condition. Of note, the patient received a total of 8500 units of intravenous heparin as well as intra-arterial verapamil. She received an oral loading dose of clopidogrel. Her ACT was monitored. She had EKG changes but no chest pain. Findings: Fluoroscopy: Significant calcifications of the arteries was noted. Left main: This is a large size vessel, bifurcating into LAD and left circumflex, left main has no obstructive disease LAD: This is a large size vessel, reaching to the apex giving rise to a moderately sized diagonal branch in the mid segment. The takeoff of the diagonal branch has a 50 to 60% plaque. After the takeoff of the diagonal branch there is an eccentric lesion in the LAD that appears to be a ruptured plaque with a area of stenosis up to 80%. The rest of the vessel has intimal disease with no high-grade stenosis Left circumflex: This is a nondominant vessel, large in caliber, giving rise to 2 obtuse marginal branch. The proximal left circumflex has 20 to 30% plaque there is another plaque in the second obtuse marginal branch of 30%, the rest of the vessel has no high-grade stenosis RCA: This is a large dominant vessel, bifurcating distally to PDA and PLV the right coronary artery has intimal disease in the midsegment of 10 to 20% without any high-grade stenosis Left Ventriculogram: Not performed Hemodynamics: There was no gradient across aortic valve, LVEDP was 16-18 mmHg Conclusion: 1. Calcified coronary arteries 2. Severe stenosis in the mid LAD, appears to be a ruptured plaque with ulceration 3. Mild disease in the circumflex and RCA 4. Successful stenting of the mid LAD with reduction of stenosis from 80% to 0% by IVUS imaging and CHENG-3 flow Recommendations: The patient will continue on dual antiplatelet treatment including aspirin and clopidogrel for 6 months in addition to aggressive coronary risks modifications, attempting to maintain LDL below 70 mg/dL. The findings and the recommendations were discussed with the patient and the family and they were in full understanding and agreement. Duration of sedation is 44 minutes.
[2024-08-28 14:23] VITALS: BP 134/74; PULSE 70
[2024-08-28] MEDS ORDERED: oxyBUTYnin chloride 5 MG TAB PO SCH (21:00)
[2024-08-29] MEDS ORDERED: amLODIPine 5 MG TAB PO SCH (09:00)
[2024-08-29] MEDS ORDERED: CLOPIDOGREL 75 MG TAB PO SCH (09:00)
[2024-08-29] MEDS ORDERED: ISOSORBIDE MONONITRATE ER 30 MG TAB.ER.24H PO SCH (09:00)
[2024-08-29] MEDS ORDERED: ASPIRIN 81 MG PO SCH (09:00)
== END 2024-08-28 14:30 | disposition home or self-care (01) ==
LOC: CATHCVL 07:03
PROVIDERS: ATTEND Internal Medicine Interventional Cardiology
CPT/HCPCS: 92978; 93458

== ENCOUNTER → 2024-09-15 | Outpatient (CLI) | payer MEDICARE, OTHER ==
--- NOTE | 2024-09-15 17:37 | BD ---
EXAMINATION TYPE: Axial Bone Density DATE OF EXAM: 09/15/2024 CLINICAL HISTORY: 84 years old Female. ICD-10 CODE: M81.0 OSTEOPENIA Height: 57.25 Weight: 129 FRAX RISK QUESTIONS: Secondary Osteoporosis: 3. Menopause before 45: yes 4. Malnutrition: RISK FACTORS HISTORY OF: Surgery to Spine/Hip(right/left)/Wrist (right/left): lumbar surgery When: 2017 MEDICATIONS: EXAM MEASUREMENTS: Bone mineral densitometry was performed using the ImaCor System. Bone mineral density about the R hip (g/cm2): 0.757 Bone mineral density about the L hip (g/cm2): 0.765 T Score values are as follows: -----R Neck: -1.2 -----L Neck: -1.6 -----R Total: -2.0 -----L Total: -1.9 Z Score values are as follows: -----R Neck: 1.3 -----L Neck: 0.9 -----R Total: 0.4 -----L Total: 0.5 Bone mineral density has: Decreased -20.1% since study of: 1-17 FRAX%s: The graph provided illustrates a 13.9% chance for a major osteoporotic fx and a 3.8% chance f or the hips probability for fx in 10 years time. IMPRESSION: Osteopenia (T Score between -2.5 and -1). There is slightly increased risk of fracture and the patient may be considered for treatment. Re-Screen 2-5 years. NOTE: T-SCORE=SD OF THE YOUNG ADULT MEAN. [facility], , 09/15/2024 5:34 PM
== END | disposition home or self-care (01) ==
LOC: RADBDWWP 13:07
PROVIDERS: ATTEND Internal Medicine Hematology & Oncology
DX: E85.4 Organ-limited amyloidosis
CPT/HCPCS: 77080

== ENCOUNTER → 2024-10-24 | Outpatient (CLI) | payer MEDICARE, OTHER ==
--- NOTE | 2024-10-24 11:48 | MM ---
Reason for Exam: Hx of breast cancer, conservation therapy. Last screening mammogram was performed 12 month(s) ago. Patient History: Menarche at age 13. First Full-Term at age 20. Left ovary removed at age 50. Right ovary removed at age 50. Hysterectomy at age 50. Postmenopausal. Breast cancer, left, age 83. Breast cancer, left, age 83. Previous Atypical Lobular Hyperplasia at age 84. Estrogen for 25 years from age 30 until age 55. Patient used Hormonal Contraceptives for 4 years. 08/18/2024, US biopsy breast add'l VAD RT on the Right side. 08/18/2024, High risk US biopsy breast VAD RT on the right side. 01/15/2024, Lumpectomy on the Left side. 01/15/2024, Malignant MG pre op needle loc LT on the left side. 11/07/2023, Malignant US biopsy breast VAD LT on the left side. Excisional Biopsy on the Left side. 2003, Cyst Aspiration on the Left side. 08/2013, Cyst Aspiration. 2003, Excisional Biopsy on the Right side. 02/05/2018, Benign Core Biopsy on the left side. 12/06/2016, Benign Core Biopsy on the left side. 07/16/2014, Benign Core Biopsy on the left side. 07/16/2014, Benign Core Biopsy on the left side. 02/16/2014, Benign Core Biopsy on the left side. 12/20/2011, Benign Excisional Biopsy on the left side. Daughter had breast cancer, age 57. Daughter had breast cancer, age 58. Prior Study Comparison: 10/09/2022 Bilateral US breast limited BILAT, [facility]. 11/17/2022 Bilateral MR breast bilat wo/w con, [facility]. 05/21/2023 Left MG 3D diag mammo w/cad LT, [facility]. 05/21/2023 Left US breast LT, [facility]. 10/22/2023 Bilateral MG 3D diag mammo w/cad CHIQUITA, [facility]. 10/22/2023 Bilateral US breast limited LT, [facility]. 11/07/2023 Left MG diagnostic mammo LT wo CAD., [facility]. 07/25/2024 Right US breast RT, [facility]. 08/01/2024 Right MG 3D diag mammo w/cad RT, [facility]. Tissue Density: The breasts are heterogeneously dense, which may obscure small masses. Findings: Analyzed By CAD. Interval increased trabecular and skin thickening on the left in keeping with postradiation therapy change. Multiple previous biopsy clips are present. Centrally located global asymmetry which can be reassessed at follow-up. Underlying nodular focal asymmetries 12:00 anterior to middle depth right breast, anterior upper outer quadrant, and posterior lateral aspect of the right breast all appear relatively stable over the last 6 months. We note that the 12:00 anterior biopsy site in the location of coil clip came back ALH 6 months ago. We are notified that the patient is unable to further surgery. Close surveillance follow-up is recommended. Overall Assessment: Incomplete: need additional imaging evaluation, BI-RAD 0 Management: Diagnostic Breast Ultrasound of the right breast. [facility], , 10/24/2024 11:45 AM. Electronically signed and approved by: Colton Reddy M.D. Radiologist
--- NOTE | 2024-10-24 12:29 | USB ---
Patient History: Menarche at age 13. First Full-Term at age 20. Left ovary removed at age 50. Right ovary removed at age 50. Hysterectomy at age 50. Postmenopausal. Breast cancer, left, age 83. Breast cancer, left, age 83. Previous Atypical Lobular Hyperplasia at age 84. Estrogen for 25 years from age 30 until age 55. Patient used Hormonal Contraceptives for 4 years. 08/18/2024, US biopsy breast add'l VAD RT on the Right side. 08/18/2024, High risk US biopsy breast VAD RT on the right side. 01/15/2024, Lumpectomy on the Left side. 01/15/2024, Malignant MG pre op needle loc LT on the left side. 11/07/2023, Malignant US biopsy breast VAD LT on the left side. Excisional Biopsy on the Left side. 2003, Cyst Aspiration on the Left side. 08/2013, Cyst Aspiration. 2003, Excisional Biopsy on the Right side. 02/05/2018, Benign Core Biopsy on the left side. 12/06/2016, Benign Core Biopsy on the left side. 07/16/2014, Benign Core Biopsy on the left side. 07/16/2014, Benign Core Biopsy on the left side. 02/16/2014, Benign Core Biopsy on the left side. 12/20/2011, Benign Excisional Biopsy on the left side. Daughter had breast cancer, age 57. Daughter had breast cancer, age 58. Technique: Method: Targeted. Doppler: Color. Patient Position: Supine. Prior Study Comparison: 11/07/2023 Left MG diagnostic mammo LT wo CAD., [facility]. 08/01/2024 Right MG 3D diag mammo w/cad RT, [facility]. 08/18/2024 Right MG diagnostic mammo RT wo CAD, [facility]. Findings: The area of palpable concern of the right breast, the axilla of the right breast and the retroareolar of the right breast were scanned. Targeted ultrasound upper outer quadrant right breast including scanning of the subareolar region and axilla. At the 12:00 position, 5 cm from the nipple, site of biopsy-proven ALH, there is a densely shadowing irregular area measuring 3.3 x 3.2 x 1.0 cm. Previously measuring 3.0 x 2.4 x 0.8 cm. At the 11:00 position, 5 cm from the nipple, there is a heterogeneous hypoechoic area measuring 1.6 x 1.0 x 1.1 cm. At the 9:00 position, 5 cm from the nipple, at the site of recent negative biopsy, there is an enlarging heterogeneous area currently measuring 3.6 x 2.7 x 1.5 cm. Previously measuring 2.2 x 2.7 x 1.1 cm. No axillary adenopathy. All 3 of the above-mentioned lesions remain suspicious and should be closely monitored. If there are progressive changes, repeat biopsy or excision should be considered. ASSESSMENT : 3 - Probably Benign. Management: Diagnostic Mammogram of both breasts in 6 months. Diagnostic Breast Ultrasound of the right breast in 6 months. Ongoing short interval follow-up left breast after recent postsurgical and posttreatment change. Ongoing close surveillance follow-up right breast for 3 suspicious areas, 12:00 being biopsy-proven ALH (6 months ago). 9:00 being negative for malignancy (also on biopsy 6 months ago) but still appearing to enlarge slightly. The patient reports not being able to receive surgery. A clinical breast exam by your physician is recommended on an annual basis and results should be correlated with mammographic findings. This exam should not preclude additional follow-up of suspicious palpable abnormalities. Results were given to the patient verbally at the time of exam. [facility], , 10/24/2024 12:24 PM. Electronically signed and approved by: Colton Reddy M.D. Radiologist
== END | disposition home or self-care (01) ==
LOC: RADMAMWWP 10:56
PROVIDERS: ATTEND Surgery
DX: R92.333 Mammographic heterogeneous density, bilateral breasts (principal); Z85.3 Personal history of malignant neoplasm of breast; Z80.3 Family history of malignant neoplasm of breast; Z78.0 Asymptomatic menopausal state
CPT/HCPCS: 77062; 77066

== ENCOUNTER → 2024-10-30 | Outpatient (CLI) | payer MEDICARE, OTHER ==
[2024-10-30 12:15] VITALS: BP 164/76; PULSE 95; RESP 17; TEMP 97.9
--- NOTE | 2024-10-30 12:33 | P.PN ---
Subjective Progress Note Date: 10/30/24 Principal diagnosis: amyloidosis, left breast stage I IDC Subjective Progress Note Date: 10-30-24 Principal diagnosis: left breast IDC T(9mm) [id number] stage I left breast cancer 2023 fibrocystic breast changes Subjective 84-year-old white female who had been followed for chronic changes in her breast. She underwent a left breast mammogram and ultrasound in October 2023. This led to an ultrasound-guided core biopsy on 11-07-2023. No other lesions of concern were identified. 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 This was ER negative NV negative and HER2 negative, grade 3. She has been followed for amyloidosis with medical oncology. Her last bilateral mammogram was in May 2023 and did not show any lesions of concern. Her case was presented at tumor board on 11-27-2023. She is not complaining of any new lumps, masses, or nodules of concern in either breast. She has had a weight loss from 265 to 120. OR: 01-15-24 lumpectomy and SNB (margins negative, SNB negative) completed radiation treatment on 04-01-24 note medical oncology reviewed: 02-15-24 declined chemotherapy; 07-25-24 CT chest with contrast orderd stat, anemia and leukocytosis noted was to follow up with them in August Last bilateral mammogram 10-24-24, and ultrasound right breast 10-24-24: BIRAD 3, 12:00 right breast Amyloidosis enlarging it is now 3.3 x 3.2 x 1 cm and it was 3 x 2.4 x 0.8; at 11:00 and 9:00 areas being followed would recommend biopsy 9oclock amyloidosis She was started on letrazole CT scan of chest no acute process in the left chest to correlate with the patient's pain, postoperative changes left breast with some skin thickening no lymphadenopathy of concern Surgical granulomatous disease with calcified granulomas in the liver and spleen Family history: 2 Daughters: Breast cancer 1 recently from COVID Paternal niece: Breast cancer diagnosed premenopausal Second paternal niece: Breast cancer premenopausal 2 sisters: Ovarian cancer but from this Mother: Carcinomatosis uncertain of the etiology, mother skin cancer on her arm Paternal grandfather: Prostate cancer Paternal half-brother: Prostate cancer Past surgical history: 1. Back surgery 2. Prior surgery 3. Breast biopsies 4. Hernia surgery 5. Hysterectomy 6. Tubal ligation 7. Joint replacement 8. Orthopedic surgery 9. Pain stimulator placed and removed 10. bilateral total knee replacement 11. Left shoulder surgery 12. Neck exploration for parathyroid surgery 13. Neck fusion 14. skin surgery of nose 15. right hand 16. left hand surgery Medical history: 1. Diabetes 2. Asthma 3. Hypertension 4. Leaking heart valve 5. Hyperlipidemia 6. Amyloidosis 7. back and hip pain 8. history of recent CVA 9. difficulty with balance Social history: Smoke: Negative Alcohol: Negative Drugs: Negative Review of systems: HEENT: Decreased hearing Constitutional: No fever or night sweats Lungs: Asthma Cardiovascular: Leaking valve GI: Negative negative negative Integument: skin cancer on nose Musculoskeletal: Amyloidosis, arthritis Psychiatric: Negative ALLERGIES: matty rojas Objective - Constitutional General appearance: Present: cooperative - EENT Eyes: Present: EOMI ENT: Present: hearing grossly normal - Neck Neck: Present: normal ROM - Respiratory Respiratory: bilateral: CTA - Cardiovascular Rhythm: regular Heart sounds: normal: S1, S2 - Integumentary Integumentary: Present: normal turgor - Musculoskeletal Musculoskeletal: Present: gait normal - Psychiatric Psychiatric: Present: A&O x's 3, appropriate affect, intact judgment & insight - Additional findings Additional findings: breast exam: BRA: 44B inspection: Bilateral grade 3 ptosis Palpation: Right breast: Multi-positional exam fibrocystic changes no discrete dominant masses or nodules of concern right axilla: no adenopathy of concern Left breast: Fibrocystic changes, post surgical and radiation changes left axilla: No adenopathy of concern Assessment and Plan Assessment: Impression: 1. Diabetes 2. Asthma 3. Hypertension 4. Leaking heart valve 5. Hyperlipidemia 6. Amyloidosis 7. back and hip pain 8. Fibrocystic breast changes 9. left breast invasive ductal cancer [id number] tripple (-) 10. patient started on letrazole as per Dr. Christy Plan: 1. follow with radiation oncology 2. bilateral mammogram in 6 months and right breast ultrasound in 6 months with appointment at that time 3. follow up sooner any concerns 4. follow with medical oncology 5. obtain last note Dr. Christy CC: Dr. Jesus, Dr. Turner Additional CC's: Pankaj Turner
== END ==
LOC: WWCWWP 10:54
PROVIDERS: ATTEND Surgery
DX: N60.11 Diffuse cystic mastopathy of right breast (principal); N60.12 Diffuse cystic mastopathy of left breast; C50.912 Malignant neoplasm of unspecified site of left female breast; I10 Essential (primary) hypertension; E11.9 Type 2 diabetes mellitus without complications; J45.909 Unspecified asthma, uncomplicated; E78.5 Hyperlipidemia, unspecified; E85.9 Amyloidosis, unspecified; M54.9 Dorsalgia, unspecified; M25.559 Pain in unspecified hip; I38 Endocarditis, valve unspecified; Z17.1 Estrogen receptor negative status [ER-]; Z17.22 Progesterone receptor negative status; Z88.5 Allergy status to narcotic agent; Z88.8 Allergy status to other drugs, medicaments and biological substances; Z79.02 Long term (current) use of antithrombotics/antiplatelets; Z79.84 Long term (current) use of oral hypoglycemic drugs; Z79.899 Other long term (current) drug therapy; Z85.3 Personal history of malignant neoplasm of breast; Z80.3 Family history of malignant neoplasm of breast

== ENCOUNTER 2024-11-13 14:39 | Emergency (ER) | payer MEDICARE, OTHER ==
[2024-11-13 14:48] VITALS: RESP 18; TEMP 97.9
--- NOTE | 2024-11-13 15:38 | ED ---
Fall HPI - General Chief Complaint: Fall Stated Complaint: Fall, head injury, back and neck pain Time Seen by Provider: 11/13/24 14:59 Source: patient, family Mode of arrival: ambulatory - History of Present Illness Initial Comments: This is a pleasant 84-year-old female presenting today for a trip and fall on snow on Sunday with resultant headache right lower back and right hip pain. Patient is able to ambulate but painfully. She is been taking her home Phoenix's intermittently and states that they does improve the pain however she likes to limit herself on, narcotics she takes. Is currently on Plavix and aspirin due to history of CAD. She denies loss of consciousness, changes in vision, numbness, weakness, confusion, nausea, vomiting, chest pain, shortness of breath, abdominal pain, hematochezia or melena. Denies additional injury. - Related Data Home Medications Medication Instructions Recorded Confirmed Oxybutynin Chloride 5 mg PO BID 11/26/17 10/30/24 metFORMIN HCL [Glucophage] 500 mg PO BID 08/21/20 10/30/24 hydroCHLOROthiazide 12.5 mg PO DAILY 03/14/23 10/30/24 Budesonide-Formot 160-4.5 Mcg 2 puff INHALATION RT-BID 01/09/24 10/30/24 [Symbicort 160-4.5 Mcg Inhaler] Dulaglutide [Trulicity] 1.5 mg SQ TU 01/09/24 10/30/24 Ferrous Sulfate [Iron (65 MG 325 mg PO DAILY 01/09/24 10/30/24 Elemental)] Gabapentin [Neurontin] 300 mg PO BID PRN 01/09/24 10/30/24 Lutein 20 mg PO DAILY 01/09/24 10/30/24 Multivitamins, Thera [Multivitamin 1 tab PO DAILY 01/09/24 10/30/24 (formulary)] Albuterol Inhaler [Ventolin Hfa 1 - 2 puff INHALATION RT-QID PRN 04/18/24 10/30/24 Inhaler] HYDROcodone/APAP 10-325MG [Phoenix 1 tab PO Q8H PRN 05/21/24 10/30/24 10-325] Omeprazole 20 mg PO BID 05/21/24 10/30/24 Repaglinide [Prandin] 0.5 mg PO AC-TID PRN 05/21/24 10/30/24 amLODIPine [Norvasc] 5 mg PO DAILY 05/21/24 10/30/24 tiZANidine [Zanaflex] 4 mg PO TID 05/21/24 10/30/24 Aspirin [[place] Aspirin EC] 81 mg PO DAILY 08/05/24 10/30/24 Isosorbide Mononitrate [Isosorbide 30 mg PO DAILY 08/27/24 10/30/24 Mononitrate ER] Calcium Carbonate [Calcium] 600 mg PO DAILY 08/28/24 10/30/24 Letrozole 2.5 mg PO DAILY 10/30/24 10/30/24 Previous Rx's Medication Instructions Recorded Clopidogrel [Plavix] 75 mg PO DAILY #90 tablet 08/28/24 Nitroglycerin Sl Tabs [Nitrostat] 0.4 mg SUBLINGUAL Q5M PRN #25 tab 08/28/24 Rosuvastatin [Crestor] 20 mg PO DAILY #90 tablet 08/28/24 Allergies Allergy/AdvReac Type Severity Reaction Status Date / Time midazolam HCl [From Versed] Allergy Rash/Hives Verified 11/13/24 14:43 pentazocine lactate AdvReac Nausea & Verified 11/13/24 14:43 [From Oscar] Vomiting Review of Systems ROS Statement: Those systems with pertinent positive or pertinent negative responses have been documented in the HPI. ROS Other: All systems not noted in ROS Statement are negative. Past Medical History Past Medical History: Cancer, COPD, Diabetes Mellitus, GERD/Reflux, Hearing Disorder / Deafness, Hyperlipidemia, Hypertension, Musculoskeletal Disorder, Osteoarthritis (OA) Additional Past Medical History / Comment(s): "Leaky heart valve", urinary in continence, back pain, limited mobility in neck, recent left breast cancer with lumpectomy, radiation, bilateral hearing aids. History of Any Multi-Drug Resistant Organisms: MRSA Date of last positivie culture/infection: 2012 MDRO Source:: Stomach wound Past Surgical History: Back Surgery, Bladder Surgery, Breast Surgery, Hernia Repair, Hysterectomy, Joint Replacement, Orthopedic Surgery, Tubal Ligation Additional Past Surgical History / Comment(s): Pain stimulator implant-left hip- later removed, bilateral carpal tunnel surgery-left hand X3, bilateral total knee replacements, neck fusion and plate in left side of neck, reverse bilateral shoulder surgery, colonoscopy, back surgery Sep 2018, left breast biopsy and lumpectomy. Past Anesthesia/Blood Transfusion Reactions: No Reported Reaction Additional Past Anesthesia/Blood Transfusion Reaction / Comment(s): No hx of transfusion reaction. Trouble breathing after left breast lumpectomy. Past Psychological History: No Psychological Hx Reported Smoking Status: Former smoker Past Alcohol Use History: None Reported Past Drug Use History: None Reported - Past Family History Mother Family Medical History: Cancer Additional Family Medical History / Comment(s): metastatic cancer Sister(s) Family Medical History: Cancer Additional Family Medical History / Comment(s): two sisters dx with ovarian cancer. one sister with lung cancer Brother(s) Family Medical History: Cancer Additional Family Medical History / Comment(s): one brother had lung cancer. half-brother had prostate cancer. maternal grandfather prostate cancer Daughter(s) Family Medical History: Cancer General Exam - General Exam Comments Initial Comments: PE: CONSTITUTIONAL: No apparent distress, well appearing SKIN: Warm, dry, no jaundice, hives or petechiae, purple-green hematoma extending from the inferior right [place] down the posterior aspect of the right thigh, palpable hematoma, no lacerations EYES: Pupils are equally round, extraocular movements intact without nystagmus, clear conjunctiva, non-icteric sclera HENT: Normocephalic, hematoma to the right posterior occiput moist mucus membranes, oropharynx clear without exudates NECK: , Limited rotation to the left and right due to history of cervical spine fusion, patient states is normal for her normal appearance midline spinal tenderness to palpation PULMONARY: Clear to auscultation without wheezes, rhonchi, or rales, normal excursion, no accessory muscle use and no stridor CARDIOVASCULAR: Regular rate, rhythm, normal S1 and S2. No appreciated murmurs, rubs or gallops. Strong radial pulses with intact distal perfusion. No lower extremity edema GASTROINTESTINAL: Soft, active bowel sounds throughout, non-tender, non- distended, no palpable masses, no rebound or guarding. No hepatosplenomegaly GENITOURINARY: MUSCULOSKELETAL: Extremities have no gross deformity, no edema, redness, or swelling. No calf swelling bruising on right posterior thigh as noted above, tenderness palpation of the right hip posteriorly NEUROLOGIC:_a/o x 3, GCS 15, normal mentation and speech. Moves all extremities x 4 without motor or sensory deficit PSYCHIATRIC:_normal mood and affect, thought process is clear and linear Limitations: no limitations Course Vital Signs 11/13/24 11/13/24 14:43 18:03 Temperature 97.9 F Pulse Rate 72 79 Respiratory 18 18 Rate Blood Pressure 148/70 150/76 O2 Sat by Pulse 99 96 Oximetry Medical Decision Making - Medical Decision Making Was pt. sent in by a medical professional or institution (, RAFIQ, MANAGER CARDIAC, urgent care, hospital, or group home...) When possible be specific @ -No Did you speak to anyone other than the patient for history (EMS, parent, family, police, friend...)? What history was obtained from this source @ -No Did you review nursing and triage notes (agree or disagree)? Why? @ -I reviewed nursing and triage notes patient denies neck pain to me Were old charts reviewed (outside hosp., previous admission, EMS record, old EKG, old radiological studies, urgent care reports/EKG's, group home records)? Report findings @Medical records reviewed Differential Diagnosis (chest pain, altered mental status, abdominal pain women, abdominal pain men, vaginal bleeding, weakness, fever, dyspnea, syncope, headache, dizziness, GI bleed, back pain, seizure, CVA, palpatations, mental health, musculoskeletal)? Differential Musculoskeletal Muscular strain, contusion, ligament sprain, fracture, arthritis, septic arthritis, bursitis, cellulitis, muscle spasm, nerve compression,... This is not meant to be in all inclusive list EKG interpreted by me (3pts min.). @ -As above X-rays interpreted by me (1pt min.). @Sclerotic changes of degenerative changes throughout the pelvis, no fracture or dislocation CT interpreted by me (1pt min.). @No evidence of hemorrhage or mass effect on CT brain, no evidence of fracture or malalignment CT C-spine U/S interpreted by me (1pt. min.). @ -None done What testing was considered but not performed or refused? (CT, X-rays, U/S, labs)? Why? @ -None What meds were considered but not given or refused? Why? @ -None Did you discuss the management of the patient with other professionals (professionals i.e. , RAFIQ, MANAGER CARDIAC, lab, RT, psych nurse, psychotherapist social worker, x ray control equipment repairer, teacher, hearing officer, case management director)? Give summary @ -No Was smoking cessation discussed for >3mins.? @ -No Was critical care preformed (if so, how long)? @ -No Were there social determinants of health that impacted care today? How? (Homelessness, low income, unemployed, alcoholism, drug addiction, transportation, low edu. Level, literacy, decrease access to med. care, penitentiary, rehab)? @ -No Was there de-escalation of care discussed even if they declined (Discuss DNR or withdrawal of care, Hospice)? @ -No What co-morbidities impacted this encounter? (DM, HTN, Smoking, COPD, CAD, Cancer, CVA, ARF, Chemo, Hep., AIDS, mental health diagnosis, sleep apnea, morbid obesity)? Osteoarthritis Was patient admitted / discharged? Hospital course, mention meds given and route, prescriptions, significant lab abnormalities, going to OR and other pertinent info. Discharged this is a pleasant 84-year-old female history of CAD on aspirin and Plavix presenting for persistent headache and right hip pain after fall on Sunday. On assessment patient resting comfortably no acute distress. Large hematoma and bruising noted to the posterior right thigh, tenderness to palpation of the posterior right hip and right lateral right hip, no midline spinal tenderness palpation, denies additional injuries, palpable contusion to the right posterior occiput. Discussed with patient plan for imaging, pain control. She is agreeable plan of care. Imaging reviewed, no acute process. On reassessment pain is controlled though she does continue to endorse pain. Offered Tylenol and lidocaine patch prior to discharge. She is agreeable with this. Discussed findings and return precautions. Patient agreeable with plan for discharge. In my medical judgment there is currently no evidence of an immediate life- threatening or surgical condition. Discharge is therefore indicated at this time. Discharge treatment instructions, follow up instructions, and appropriate emergency department return precautions were discussed with the patient and/or medical decision maker. Patient and/or medical decision maker expressed understanding of and agreed with the treatment plan, follow up instructions, and emergency department return precaution. All patient's and/or medical decision maker's questions were answered. The patient was advised that a small risk still exists that a serious condition could develop and was therefore instructed to return to the ED for any changes in symptoms, persistent symptoms, inability to obtain proper follow-up or for any further concerns. Patient received verbal and written instructions for this condition. Undiagnosed new problem with uncertain prognosis? @ -No Drug Therapy requiring intensive monitoring for toxicity (Heparin, Nitro, Insulin, Cardizem)? @ -No Were any procedures done? @ -No Diagnosis/symptom? Acute, or Chronic, or Acute on Chronic? Fall, contusion Uncomplicated (without systemic symptoms) or Complicated (systemic symptoms)? @Uncomplicated Side effects of treatment? @ -No Exacerbation, Progression, or Severe Exacerbation? @ -No Poses a threat to life or bodily function? How? (Chest pain, [place], [place], pneumonia, PE, COPD, DKA, ARF, appy, cholecystitis, CVA, Diverticulitis, Homicidal, Suicidal, threat to staff... and all critical care pts) @ -No Disposition Clinical Impression: Fall, Contusion, Right hip pain, Hematoma Disposition: HOME SELF-CARE Condition: Good Instructions (If sedation given, give patient instructions): Contusion in Adults (ED), Fall Prevention (ED) Additional Instructions: Every disease is a spectrum and a small chance still exists that a serious condition could develop, for this reason, please monitor yourself closely for new, changing or worsening symptoms, pain that prevents you from being able to walk, symptoms that do not begin to improve by Sunday, severe headaches, pain you cannot control with home medications fever, inability to tolerate/keep down fluids or your medications, inability to follow up with outpatient providers as instructed and should you experience these symptoms or should you have any further concerns for your wellbeing please return to the ED or call 911 immediately. Your pain can be treated with home norco and acetaminophen. You can take up to 1000 mg of acetaminophen (Tylenol) every 6 hours. Be careful as this is included in some medicines like Nyquil, [place], Percocet, Vicodin, STANBACK, Goody's Powders, and Excedrin. You can also use lidocaine patches for topical pain. You can purchase 4% patches over the counter at most drug stores. These can be helpful for pain from your muscles or bones. PLEASE call your primary care physician as soon as possible to arrange / discuss plan for followup appointment. Appointment in the next 1-3 days is strongly encouraged if possible. PLEASE let us know here before you leave if there is anything further we can do to be of any assistance. Take care and feel Better! Is patient prescribed a controlled substance at d/c from ED?: No Referrals: Don Linton MD [Primary Care Provider] - 1-2 days
[2024-11-13] MEDS: HYDROcodone/APAP 10-325MG 1 EACH TAB PO ONE (16:20)
--- NOTE | 2024-11-13 16:34 | XR ---
EXAMINATION TYPE: XR femur RT, XR Hip Bilateral and AP pelvis DATE OF EXAM: 11/13/2024 4:22 PM COMPARISON: 11/13/2024 CLINICAL INDICATION: Female, 84 years old with history of post right thigh pain, fall; PHH, pain TECHNIQUE: XR femur RT, XR Hip Bilateral and AP pelvis examined in Frontal and lateral projections. One view of the pelvis, 2 views of the hips, 2 views of the right femur. FINDINGS: No evidence of acute osseous pathology, joint dislocation, or soft tissue swelling. Mild o steophyte formations of the superior acetabulum. Mild joint space narrowing. Total knee arthroplasty changes of the bilateral knees. No evidence for fracture. Bilateral pelvic sacroiliac joint fixation screws in L5-S1 fixation hardware. IMPRESSION: 1. No acute osseous pathology. 2. Mild degeneration changes of the bilateral hips. 3. Bilateral knee arthroplasty changes no evidence for fracture. [facility], , 11/13/2024 4:31 PM
--- NOTE | 2024-11-13 16:46 | CT ---
EXAMINATION TYPE: CT brain cspine wo con DATE OF EXAM: 11/13/2024 4:18 PM COMPARISON: None. CLINICAL INDICATION: Female, 84 years old with history of fall, R. post head injury, persistent PEREZ, p lavix; FALL/ ON PLAVIX TECHNIQUE: Brain: Multiple axial CT images of the brain were obtained without IV contrast. Cspine: Axial CT images from the skull base to the inferior aspect of T2 we obtained without intraven ous contrast. Coronal and sagittal reformatted images were also reviewed. . CT DLP: 1250 mGycm, Automated exposure control for dose reduction was used. FINDINGS: Brain: Extra-axial spaces: No abnormal extra-axial fluid collections. Ventricular system: Dilatation in proportion to cerebral atrophy. Cerebral parenchyma: Cerebral atrophy. No acute intraparenchymal hemorrhage or mass effect. The vallecillo -white junction is well differentiated. Scattered hypoattenuating areas are seen within the white mat ter. Cerebellum: Unremarkable. Mass effect: No evidence of midline shift. Intracranial vasculature: Atherosclerotic calcifications of the intracranial vessels. Soft tissues: Normal. Calvarium/osseous structures: No depressed skull fracture. Posterior scalp surgical changes. Paranasal sinuses and mastoid air cells: Clear. Visualized orbits: Bilateral aphakia Cervical spine: Fracture: None. Osseous structures: Fixation changes of the spine posteriorly and anteriorly. Hardware appears intact and in appropriate position. Hardware extends posteriorly at C2 to C7 and anteriorly from C5 to C7. Multilevel degenerative disc disease changes with endplate spurring and disc osteophyte complex's. Vertebral alignment: Slight grade 1 anterolisthesis of C2 on C3. Partial ankylosis of C5 C6 C7. Spinal canal/Neural Foramina: No evidence of significant spinal canal narrowing. No evidence for sign ificant neural foraminal stenosis. Neck soft tissues: Prevertebral soft tissues are within normal limits. Other: The airway is patent. The lung apices are clear. IMPRESSION: 1. No acute intracranial process. 2. Nonspecific white matter changes, likely secondary to chronic small vessel ischemic disease. 3. No evidence of cervical spine fracture. 4. Mild multilevel degenerative disc disease. 5. Post surgical changes spine and skull with hardware intact. [facility], , 11/13/2024 4:44 PM
[2024-11-13] MEDS: ACETAMINOPHEN TAB 500 MG TAB PO STA (18:00)
[2024-11-13] MEDS: LIDOCAINE 4% PATCH TOPICAL ONE (18:01)
[2024-11-13 18:07] VITALS: BP 150/76; PULSE 79
== END 2024-11-13 18:08 | disposition home or self-care (01) ==
LOC: EC 14:39
DX: S00.83XA Contusion of other part of head, initial encounter (principal); M25.551 Pain in right hip; Z87.891 Personal history of nicotine dependence; Z88.8 Allergy status to other drugs, medicaments and biological substances; W00.0XXA Fall on same level due to ice and snow, initial encounter
CPT/HCPCS: 70450; 72125; 73521; 99284

== ENCOUNTER → 2024-12-02 | Outpatient (CLI) | payer MEDICARE, OTHER ==
[2024-12-02 20:20] LABS: ALT 36 U/L (8-44); AST 40 U/L (13-35); Chol/HDL Ratio 1.94 Ratio; LDL Cholesterol,Calculated 37.3 mg/dL (0.0-131.0); VLDL Calculation 10.62 mg/dL (5.00-40.00)
== END | disposition home or self-care (01) ==
LOC: LABWHC1 10:45
PROVIDERS: ATTEND Internal Medicine Interventional Cardiology
DX: E78.2 Mixed hyperlipidemia (principal)
CPT/HCPCS: 36415; 80061; 84450; 84460

== ENCOUNTER → 2025-01-15 | Outpatient (CLI) | payer MEDICARE, OTHER ==
[2025-01-15 15:56] VITALS: BP 177/83; PULSE 93; RESP 16; TEMP 97.5
--- NOTE | 2025-01-15 16:05 | P.PN ---
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 She underwent a left breast mammogram and ultrasound in October 2023. This led to an ultrasound-guided core biopsy on 11-07-2023. No other lesions of concern were identified. 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 This was ER negative DE negative and HER2 negative, grade 3. She has been followed for amyloidosis with medical oncology. Her last bilateral mammogram was in May 2023 and did not show any lesions of concern. Her case was presented at [facility] on 11-27-2023. She is not complaining of any new lumps, masses, or nodules of concern in either breast. She has had a weight loss from 265 to 120. OR: 01-15-24 lumpectomy and SNB (margins negative, SNB negative) completed radiation treatment on 04-01-24 note medical oncology reviewed: 02-15-24 declined chemotherapy; 07-25-24 CT chest with contrast ordered stat, anemia and leukocytosis noted was to follow up with them in August Last bilateral mammogram 10-24-24, and ultrasound right breast 10-24-24: BIRAD 3, 12:00 right breast Amyloidosis enlarging it is now 3.3 x 3.2 x 1 cm and it was 3 x 2.4 x 0.8; at 11:00 and 9:00 areas being followed would recommend biopsy 9oclock amyloidosis 10-24-24 attempt at left breast core biopsy via ultrasound cancelled and MRI recommended She was started on letrazole CT scan of chest no acute process in the left chest to correlate with the patient's pain, postoperative changes left breast with some skin thickening no lymphadenopathy of concern Surgical granulomatous disease with calcified granulomas in the liver and spleen case presented at tumor [facility] on 10-24-[address] Christy 12-18-24; biopsy of any suspicious areas in the breast , continue Femara Family history: 2 Daughters: Breast cancer 1 recently from COVID Paternal niece: Breast cancer diagnosed premenopausal Second paternal niece: Breast cancer premenopausal 2 sisters: Ovarian cancer but from this Mother: Carcinomatosis uncertain of the etiology, mother skin cancer on her arm Paternal grandfather: Prostate cancer Paternal half-brother: Prostate cancer Past surgical history: 1. Back surgery 2. Prior surgery 3. Breast biopsies 4. Hernia surgery 5. Hysterectomy 6. Tubal ligation 7. Joint replacement 8. Orthopedic surgery 9. Pain stimulator placed and removed 10. bilateral total knee replacement 11. Left shoulder surgery 12. Neck exploration for parathyroid surgery 13. Neck fusion 14. skin surgery of nose 15. right hand 16. left hand surgery Medical history: 1. Diabetes 2. Asthma 3. Hypertension 4. Leaking heart valve 5. Hyperlipidemia 6. Amyloidosis 7. back and hip pain 8. history of recent CVA 9. difficulty with balance Social history: Smoke: Negative Alcohol: Negative Drugs: Negative Review of systems: HEENT: Decreased hearing Constitutional: No fever or night sweats Lungs: Asthma Cardiovascular: Leaking valve GI: Negative negative negative Integument: skin cancer on nose Musculoskeletal: Amyloidosis, arthritis Psychiatric: Negative ALLERGIES: matty rojas Objective - Constitutional General appearance: Present: cooperative - EENT Eyes: Present: EOMI ENT: Present: hearing grossly normal - Neck Neck: Present: normal ROM - Respiratory Respiratory: bilateral: CTA - Cardiovascular Rhythm: regular Heart sounds: normal: S1, S2 - Integumentary Integumentary: Present: normal turgor - Musculoskeletal Musculoskeletal: Present: gait normal - Psychiatric Psychiatric: Present: A&O x's 3, appropriate affect, intact judgment & insight - Additional findings Additional findings: breast exam: BRA: 44B inspection: Bilateral grade 3 ptosis Palpation: Right breast: Multi-positional exam fibrocystic changes no discrete dominant masses or nodules of concern right axilla: no adenopathy of concern Left breast: Fibrocystic changes, post surgical and radiation changes left axilla: No adenopathy of concern Assessment and Plan Assessment: Impression: 1. Diabetes 2. Asthma 3. Hypertension 4. Leaking heart valve 5. Hyperlipidemia 6. Amyloidosis 7. back and hip pain 8. Fibrocystic breast changes 9. left breast invasive ductal cancer T1N0M0 tripple (-) 10. patient started on letrazole as per Dr. Christy Plan: 1. follow with radiation oncology 2. bilateral breast MRI then follow up CC: Dr. Royer Turner
== END ==
LOC: WWCWWP 14:51
PROVIDERS: ATTEND Surgery
DX: N60.19 Diffuse cystic mastopathy of unspecified breast (principal); E11.9 Type 2 diabetes mellitus without complications; J45.909 Unspecified asthma, uncomplicated; E78.5 Hyperlipidemia, unspecified; I10 Essential (primary) hypertension; T82.03XA Leakage of heart valve prosthesis, initial encounter; E85.9 Amyloidosis, unspecified; Z88.4 Allergy status to anesthetic agent; Z88.0 Allergy status to penicillin; Z80.3 Family history of malignant neoplasm of breast

== ENCOUNTER → 2025-01-20 | Outpatient (CLI) | payer MEDICARE ==
--- NOTE | 2025-01-27 09:38 | BMR ---
EXAM DATE: 01/20/2025 EXAM DESCRIPTION: MRI-Breast Bilat (W/WO Contrast) INDICATION: History of left breast cancer status post breast conserving therapy. Two benign biopsies in the right breast. COMPARISON: Comparison was made to prior relevant imaging available in PACS TECHNIQUE: Multiplanar multisequence breast MRI was performed prior to and after administration of 6 cc of Gadobutrol intravenously. Post processing was performed utilizing a [employer] workstation. The technical portion of this study was performed at [facility] with radiological interpretation by [facility] radiology. FINDINGS: There is minimal, symmetric background parenchymal enhancement in breasts that are composed of scattered fibroglandular tissue.. RIGHT BREAST: Review of the dynamic contrast enhanced series shows no rapidly enhancing masses, suspicious enhancement patterns or other abnormalities. Signal voids from two biopsy clips with no associated enhancement are present in the breast. The T2 weighted series show no abnormality. LEFT BREAST: Review of the dynamic contrast enhanced series shows post treatment changes to include a 5.2 x 1.5 x 2.3 cm well-circumscribed seroma at 12 o'clock position (series 401, image 43). No rapidly enhancing masses, suspicious enhancement pattern or other abnormalities. The T2 weighted series show no abnormality. LYMPH NODES: No axillary or internal mammary lymphadenopathy. IMPRESSION: 1. Right breast: No MR evidence of malignancy 2. Left breast: Post treatment changes. No MR evidence of malignancy. OVERALL ASSESSMENT- BI-RADS 2 ANNUAL SCREENING BREAST MRI IN ADDITION TO MAMMOGRAPHY IS RECOMMENDED IN PATIENTS WITH LIFETIME RISK OF BREAST CANCER >20% MTDD
== END | disposition home or self-care (01) ==
LOC: RADMRIMAIN 15:10
PROVIDERS: ATTEND Radiology Radiation Oncology
DX: C50.812 Malignant neoplasm of overlapping sites of left female breast (principal); C50.412 Malignant neoplasm of upper-outer quadrant of left female breast; Z17.1 Estrogen receptor negative status [ER-]; Z08 Encounter for follow-up examination after completed treatment for malignant neoplasm; Z98.890 Other specified postprocedural states
CPT/HCPCS: 77049; A9585

== ENCOUNTER → 2025-01-29 | Outpatient (CLI) | payer MEDICARE ==
[2025-01-29 10:26] VITALS: BP 146/109; PULSE 68; RESP 17; TEMP 97.9
--- NOTE | 2025-01-29 10:45 | P.PN ---
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 She underwent a left breast mammogram and ultrasound in October 2023. This led to an ultrasound-guided core biopsy on 11-07-2023. No other lesions of concern were identified. 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 This was ER negative PA negative and HER2 negative, grade 3. She has been followed for amyloidosis with medical oncology. Her last bilateral mammogram was in May 2023 and did not show any lesions of concern. Her case was presented at [facility] on 11-27-2023. She is not complaining of any new lumps, masses, or nodules of concern in either breast. She has had a weight loss from 265 to 120. OR: 01-15-24 lumpectomy and SNB (margins negative, SNB negative) completed radiation treatment on 04-01-24 note medical oncology reviewed: 02-15-24 declined chemotherapy; 07-25-24 CT chest with contrast ordered stat, anemia and leukocytosis noted was to follow up with them in August Last bilateral mammogram 10-24-24, and ultrasound right breast 10-24-24: BIRAD 3, 12:00 right breast Amyloidosis enlarging it is now 3.3 x 3.2 x 1 cm and it was 3 x 2.4 x 0.8; at 11:00 and 9:00 areas being followed would recommend biopsy 9oclock amyloidosis 10-24-24 attempt at left breast core biopsy via ultrasound cancelled and MRI recommended She was started on letrazole CT scan of chest no acute process in the left chest to correlate with the patient's pain, postoperative changes left breast with some skin thickening no lymphadenopathy of concern Surgical granulomatous disease with calcified granulomas in the liver and spleen case presented at tumor [facility] on 10-24-[address] Christy 12-18-24; biopsy of any suspicious areas in the breast , continue Femara MRI of the breast on 01-20-25 BIRAD 2; no evidence of malignancy; recommend yearly mammogram and alternating MRI She has been followed for her amyloidosis in [place] and has an appointment in May to determine whether or not this is affecting her brain. Family history: 2 Daughters: Breast cancer 1 recently from COVID Paternal niece: Breast cancer diagnosed premenopausal Second paternal niece: Breast cancer premenopausal 2 sisters: Ovarian cancer but from this Mother: Carcinomatosis uncertain of the etiology, mother skin cancer on her arm Paternal grandfather: Prostate cancer Paternal half-brother: Prostate cancer Past surgical history: 1. Back surgery 2. Prior surgery 3. Breast biopsies 4. Hernia surgery 5. Hysterectomy 6. Tubal ligation 7. Joint replacement 8. Orthopedic surgery 9. Pain stimulator placed and removed 10. bilateral total knee replacement 11. Left shoulder surgery 12. Neck exploration for parathyroid surgery 13. Neck fusion 14. skin surgery of nose 15. right hand 16. left hand surgery Medical history: 1. Diabetes 2. Asthma 3. Hypertension 4. Leaking heart valve 5. Hyperlipidemia 6. Amyloidosis 7. back and hip pain 8. history of recent CVA 9. difficulty with balance Social history: Smoke: Negative Alcohol: Negative Drugs: Negative Review of systems: HEENT: Decreased hearing Constitutional: No fever or night sweats Lungs: Asthma Cardiovascular: Leaking valve GI: Negative negative negative Integument: skin cancer on nose Musculoskeletal: Amyloidosis, arthritis Psychiatric: Negative ALLERGIES: matty rojas Objective - Vital Signs Vital signs: Vital Signs Temp 97.9 F 01/29/25 10:04 Pulse 68 01/29/25 10:04 Resp 17 01/29/25 10:04 BP 146/109 01/29/25 10:04 Pulse Ox 99 01/29/25 10:04 FiO2 Intake & Output 01/28/25 01/29/25 01/29/25 18:59 06:59 18:59 Weight 57.153 kg - Constitutional General appearance: Present: cooperative - EENT Eyes: Present: EOMI - Neck Neck: Present: normal ROM - Respiratory Respiratory: bilateral: CTA - Cardiovascular Heart sounds: normal: S1, S2 Abnormal Heart Sounds: Present: systolic murmur - Gastrointestinal General gastrointestinal: Present: soft - Integumentary Integumentary: Present: normal - Musculoskeletal Musculoskeletal Comment(s): uses a cane - Psychiatric Psychiatric: Present: A&O x's 3, appropriate affect, intact judgment & insight - Additional findings Additional findings: breast exam: BRA: 44B inspection: Bilateral grade 3 ptosis Palpation: Right breast: Multi-positional exam fibrocystic changes no discrete dominant masses or nodules of concern right axilla: no adenopathy of concern Left breast: Fibrocystic changes, post surgical and radiation changes left axilla: No adenopathy of concern Assessment and Plan Assessment: Impression: 1. Diabetes 2. Asthma 3. Hypertension 4. Leaking heart valve 5. Hyperlipidemia 6. Amyloidosis 7. back and hip pain 8. Fibrocystic breast changes 9. left breast invasive ductal cancer T1N0M0 tripple (-) 10. patient started on letrazole as per Dr. Christy 11. MRI on 01-20-25 BIRAD 2 Plan: 1. follow with radiation oncology 2. MRI in one year 3. follow up Dr. Christy on letrazole 4. ultrasound bilateral breast in 6 months July with a follow up at that time 5. bilateral mammogram in October 2025 with appointment CC: Dr. Royer Turner
== END ==
LOC: WWCWWP 09:40
PROVIDERS: ATTEND Surgery
DX: C50.912 Malignant neoplasm of unspecified site of left female breast (principal); E11.9 Type 2 diabetes mellitus without complications; J45.909 Unspecified asthma, uncomplicated; I10 Essential (primary) hypertension; E78.5 Hyperlipidemia, unspecified; E85.9 Amyloidosis, unspecified; Z80.3 Family history of malignant neoplasm of breast; N60.19 Diffuse cystic mastopathy of unspecified breast; Z88.8 Allergy status to other drugs, medicaments and biological substances; Z91.011 Allergy to milk products

== ENCOUNTER → 2025-02-07 | Outpatient (CLI) | payer MEDICARE, OTHER ==
[2025-02-08 07:34] LABS: ALT 74 U/L (8-44); AST 65 U/L (13-35); Albumin 4.1 g/dL (3.8-4.9); Albumin/Globulin Ratio 1.52 Ratio (1.60-3.17); Alkaline Phosphatase 94 U/L (41-126); BUN/Creat Ratio 16.62 Ratio (12.00-20.00); Blood Urea Nitrogen 13.3 mg/dL (9.0-27.0); Carbon Dioxide 23.8 mmol/L (21.6-31.8); Chloride 104 mmol/L (96-109); Chol/HDL Ratio 2.12 Ratio; Globulin 2.7 g/dL (1.6-3.3); Glucose 120 mg/dL (70-110); LDL Cholesterol,Calculated 32.2 mg/dL (0.0-131.0); Potassium 4.7 mmol/L (3.5-5.5); Sodium 141 mmol/L (135-145); Total Bilirubin 0.3 mg/dL (0.3-1.2); Total Protein 6.8 g/dL (6.2-8.2); VLDL Calculation 14.76 mg/dL (5.00-40.00)
[2025-02-08 08:40] LABS: Microalbumin Creatinine Ratio <21 mg/g Cr (0-30); Urine Creatinine 57.5 mg/dL (28.0-217.0)
== END | disposition home or self-care (01) ==
LOC: LABWHC1 11:04
PROVIDERS: ATTEND Internal Medicine
DX: E11.65 Type 2 diabetes mellitus with hyperglycemia (principal)
CPT/HCPCS: 36415; 80053; 80061; 82043; 82570; 83036

== ENCOUNTER → 2025-04-01 | Outpatient (CLI) | payer MEDICARE, OTHER ==
[2025-04-01 15:30] LABS: ALT 171 U/L (8-44); AST 109 U/L (13-35); Albumin 4.5 g/dL (3.8-4.9); Albumin/Globulin Ratio 1.67 Ratio (1.60-3.17); Alkaline Phosphatase 112 U/L (41-126); BUN/Creat Ratio 26.38 Ratio (12.00-20.00); Blood Urea Nitrogen 21.1 mg/dL (9.0-27.0); Calcium 9.4 mg/dL (8.7-10.3); Carbon Dioxide 24.9 mmol/L (21.6-31.8); Chloride 104 mmol/L (96-109); Chol/HDL Ratio 1.87 Ratio; Globulin 2.7 g/dL (1.6-3.3); Glucose 186 mg/dL (70-110); LDL Cholesterol,Calculated 37.2 mg/dL (0.0-131.0); Potassium 4.3 mmol/L (3.5-5.5); Sodium 141 mmol/L (135-145); Total Bilirubin 0.3 mg/dL (0.3-1.2); Total Protein 7.2 g/dL (6.2-8.2); VLDL Calculation 13.92 mg/dL (5.00-40.00)
== END | disposition home or self-care (01) ==
LOC: LABWHC1 09:48
PROVIDERS: ATTEND Internal Medicine Interventional Cardiology
DX: I10 Essential (primary) hypertension (principal); E78.2 Mixed hyperlipidemia
CPT/HCPCS: 36415; 80053; 80061

== ENCOUNTER → 2025-05-06 | Outpatient (CLI) | payer MEDICARE, OTHER ==
[2025-05-07 02:35] LABS: ALT 105 U/L (8-44); AST 76 U/L (13-35)
== END | disposition home or self-care (01) ==
LOC: LABWHC1 16:27
PROVIDERS: ATTEND Internal Medicine Interventional Cardiology
DX: R94.5 Abnormal results of liver function studies (principal)
CPT/HCPCS: 36415; 84450; 84460

== ENCOUNTER → 2025-06-02 | Outpatient (CLI) | payer MEDICARE, OTHER ==
[2025-06-02 19:19] LABS: ALT 75 U/L (8-44); AST 60 U/L (13-35)
== END | disposition home or self-care (01) ==
LOC: LABWHC1 11:38
PROVIDERS: ATTEND Internal Medicine Interventional Cardiology
DX: E78.2 Mixed hyperlipidemia (principal)
CPT/HCPCS: 36415; 84450; 84460